=== PATIENT | male | born 1960 | race Caucasian/White ===

== ENCOUNTER → 2018-01-05 14:02 | Outpatient (CLI) | payer OTHER, SELFPAY ==
--- NOTE | 2018-01-05 14:05 | DI.US.S_ITS ---
PROCEDURE: US SCROTUM INDICATIONS: left sided testicular pain TECHNIQUE: Real-time scanning was performed of the scrotum and testicles, with image documentation. Color and pulse Doppler interrogation was performed of both testicles. COMPARISON: None. FINDINGS: Right: The right testicle is mildly enlarged and measures 4.6 x 3.7 x 3.3 cm. Increased vascularity is demonstrated to the right testicle when compared to the left testicle. There is a corresponding hydrocele with low level internal echoes. No testicular masses evident. Normal arterial Doppler waveform is demonstrated. The right epididymis is prominent in size and demonstrates possible mild increased vascularity. No evidence of a varicocele is evident. Left: The left testicle is normal in size and measures 3.5 x 3.2 x 3.0 cm. The testicular background echogenicity is within normal limits without evidence of increased vascularity. A normal arterial Doppler waveform is demonstrated. There is no testicular mass. No significant hydrocele or varicocele is identified. There is moderate increased vascularity demonstrated to the epididymis. IMPRESSION: 1. Left-sided epididymitis without findings of orchitis. 2. Right-sided orchitis with questionable epididymitis. 3. Complex right-sided hydrocele. They pyocele is difficult to exclude. Dictated by: Yevgeniy Benson M.D. on 01/05/2018 at 14:20 Approved by: Yevgeniy Benson M.D. on 01/05/2018 at 14:25
== END ==
PROVIDERS: Family Provider Family Medicine; PCP Family Medicine; Visit Provider Physician Assistant
DX: N45.1 Epididymitis (principal); N45.2 Orchitis; N43.3 Hydrocele, unspecified
CPT/HCPCS: 76870

== ENCOUNTER → 2018-01-21 10:53 | Outpatient (CLI) | payer OTHER, SELFPAY ==
[2018-01-21 12:31] LABS: Alanine Aminotransferase 73 IU/L (21-72); Albumin 4.4 g/dL (3.5-5.0); Albumin Globulin Ratio 1.5 (1.0-2.8); Alkaline Phosphatase 89 U/L (38-126); Aspartate Aminotransferase 63 IU/L (17-59); Bilirubin Total 0.5 mg/dL (0.2-1.3); Blood Urea Nitrogen 21 mg/dL (9-20); Calcium 9.9 mg/dL (8.4-10.2); Carbon Dioxide 33 mmol/L (22-32); Chloride 104 mmol/L (98-107); Cholesterol 190 mg/dL (140-199); Estimated Glomerular Filt Rate > 60.0 mL/min (>60); Globulin 2.9 g/dL (1.7-4.1); Glucose 107 mg/dL (70-100); HDL Cholesterol 66 mg/dL (40-60); HEMOLYSIS 16 (0-50); LDL Cholesterol Calculated 101 mg/dL (<100); Potassium 4.8 mmol/L (3.4-5.1); Sodium 145 mmol/L (137-145); Total Protein 7.3 g/dL (6.3-8.2); Triglycerides 117 mg/dL (35-150)
[2018-01-21 13:14] LABS: Thyroid Stimulating Hormone 2.68 uIU/mL (0.47-4.68)
== END ==
PROVIDERS: PCP Family Medicine; Visit Provider Family Medicine
DX: Z51.81 Encounter for therapeutic drug level monitoring (principal)
CPT/HCPCS: 36415; 80053; 80061; 84443

== ENCOUNTER 2018-07-22 11:07 | Emergency (ER) | payer OTHER, SELFPAY ==
[2018-07-22 11:09] VITALS: BP 132/78; PULSE 98; RESP 18; TEMP 36.4; O2SAT 95
[2018-07-22 13:57] VITALS: BP 125/69; PULSE 74; RESP 14; O2SAT 96
--- NOTE | 2018-07-22 14:30 | ED_ITS ---
HPI - Skin/Abscess/Foreign Bdy <SAMMY GarcíaBC - Last Filed: 07/22/18 22:14> General Chief complaint: Skin/Abscess/Foreign Body Stated complaint: CYST ON TAILBONE Time Seen by Provider: 07/22/18 13:40 Source: patient and family Mode of arrival: ambulatory Limitations: no limitations History of Present Illness HPI narrative: Patient is a 57-year-old nonsmoker male who presents with his for chief complaint of a wound on his buttock. Patient states he has a long history of a pilonidal cyst, that he was evaluated last week for buttock pain. He states that later became red and painful. He states that it burst yesterday. He states that when it erupted lots of smelly pus came out of the wound. He denies any fevers, nausea vomiting or diarrhea. He states his pain improved after the cyst erupted. Related Data Home Medications Medication Instructions Recorded Confirmed CA PANTOTHENATE/FOLIC ACID/VIT 1 tab PO QDAY #0 05/13/12 07/25/18 (MULTIVITAMIN) Fish Oil 2 tabs PO QDAY #0 05/18/12 07/25/18 ASPIRIN (Aspir-Low) 81 mg PO QDAY #0 12/21/12 07/25/18 Previous Rx's Medication Instructions Recorded amlodipine 5 mg tablet 5 mg PO QPM #90 tab 05/04/18 atorvastatin 40 mg tablet 40 mg PO HS #90 tab 05/30/18 furosemide 40 mg tablet 40 mg PO QDAY #90 tab 05/30/18 metoprolol succinate ER 50 mg 50 mg PO BID #180 tab 05/30/18 tablet,extended release 24 hr losartan 100 mg tablet 100 mg PO DAILY #30 tab 06/24/18 cyclobenzaprine ER 30 mg 30 mg PO DAILY PRN #30 cap 07/18/18 capsule,extended release 24 hr amoxicillin-pot clavulanate 1 tab PO BID #20 tab 07/22/18 [Augmentin] Allergies Allergy/AdvReac Type Severity Reaction Status Date / Time No Known Drug Allergies Allergy Verified 07/25/18 12:02 Review of Systems <SAMMY GarcíaBC - Last Filed: 07/22/18 22:14> Review of Systems GENERAL: Denies chills, fatigue, malaise, fever, sweats. HEENT: Denies sinus pain, ear pain, sore throat, difficulty swallowing, dizziness. RESPIRATORY: Denies dyspnea, cough, wheezing, hemoptysis, sputum. CARDIOVASCULAR: Denies chest pain, palpitations, orthopnea, edema, GASTROINTESTINAL: Denies nausea, vomiting, abdominal pain, diarrhea, constipation, melena. : Denies dysuria, frequency, incontinence, hematuria, urinary retention. MUSCULOSKELETAL: denies weakness, joint pain, or bony pain SKIN: See HPI NEUROLOGIC: Denies weakness, headache, numbness, change in speech, confusion, seizures, incoordination. PSYCHIATRIC: No concerning psychosocial issues. 12 point review of systems is negative except for those stated above PFSH <SARAH García - Last Filed: 07/22/18 22:14> Medical History Hyperlipemia (Chronic) Hypertension (Chronic) Peripheral neuropathy (Chronic) Sleep apnea (Chronic) Basal cell carcinoma (Resolved ~05/2012) Family History Father No problems noted. Mother Alzheimer's disease Grandfather No problems noted. Grandmother Cancer Grandfather No problems noted. Grandmother Cancer Social History Smoking Status: Former smoker Exam <SARAH García - Last Filed: 07/22/18 22:14> Narrative Exam Narrative: GENERAL: This is a well-nourished, well-developed patient, lying on stretcher HEAD: Atraumatic. Normocephalic. No temporal or scalp tenderness. EYES: Pupils equal round and reactive. Extraocular motions intact. No scleral icterus. No injection or drainage. ENT: Nose without bleeding, purulent drainage or septal hematoma. Throat without erythema, tonsillar hypertrophy or exudate. Uvula midline. Airway patent. NECK: Trachea midline. No JVD or lymphadenopathy. Supple, nontender, no meningeal signs. CARDIOVASCULAR: Regular rate and rhythm without murmurs, gallops, or rubs. RESPIRATORY: Clear to auscultation. Breath sounds equal bilaterally. No wheezes, rales, or rhonchi. GASTROINTESTINAL: Abdomen soft, non-tender, nondistended. No hepato- splenomegaly, or palpable masses. No guarding. EXTREMITIES: No clubbing, cyanosis, or edema. No joint tenderness, effusion, or edema noted. BACK: Nontender without deformity or crepitance. No flank tenderness. NEURO: AOx3. SKIN: Rectal exam performed with Mary BAILEY at bedside. Patient noted to have palpable 3 cm fluctuance approximately 10:00 p.m. positioned anus, left buttock. Draining purulent discharge. Surrounding erythema noted. No palpable fluctuance right-sided buttock. Initial Vital Signs Initial Vital Signs: Vital Signs Temperature 97.6 F 07/22/18 11:09 Pulse Rate 98 H 07/22/18 11:09 Respiratory Rate 18 07/22/18 11:09 Blood Pressure 132/78 07/22/18 11:09 Pulse Oximetry 95 07/22/18 11:09 <Janel Doll DO - Last Filed: 08/01/18 07:20> Initial Vital Signs Initial Vital Signs: Vital Signs Temperature 97.6 F 07/22/18 11:09 Pulse Rate 98 H 07/22/18 11:09 Respiratory Rate 18 07/22/18 11:09 Blood Pressure 132/78 07/22/18 11:09 Pulse Oximetry 95 07/22/18 11:09 Procedures <SARAH García - Last Filed: 07/22/18 22:14> Abscess I/D Packing used?: iodoform Course <SARAH García - Last Filed: 07/22/18 22:14> Orders Ordered: ED Orders 07/22/18 14:38 Wound Culture and Gram Stain Stat Vital Signs - 8 hr 07/22/18 15:16 Temperature 97.5 F L Pulse Rate 88 Respiratory Rate 16 Blood Pressure 128/64 Pulse Oximetry 97 <Janel Doll DO - Last Filed: 08/01/18 07:20> Orders Ordered: ED Orders 07/22/18 14:38 Wound Culture and Gram Stain Stat Vital Signs - 8 hr 07/22/18 15:16 Temperature 97.5 F L Pulse Rate 88 Respiratory Rate 16 Blood Pressure 128/64 Pulse Oximetry 97 MDM - Skin/Abscess/Foreign Bdy <SARAH García - Last Filed: 07/22/18 22:14> MDM Narrative Medical decision making narrative: The patient was a 57-year-old male who presented with a perirectal abscess. He was draining by itself, so I did not perform an incision and drainage. I cleansed the area with Hibiclens. A wick was inserted of iodoform gauze in order to help facilitate drainage. A wound culture was taken. The patient was normotensive, not febrile, and hemodynamically stable in the emergency department. Thus I started the patient on Augmentin. I encouraged him to follow up with his primary care provider in a few days for check. We attempted to schedule this for him, but his office stated that they would contact the patient. I discussed at length return precautions including fever, vomiting and diarrhea. Patient with no questions or concerns upon discharge. The patient declined prescription pain medication today. Discharge Plan Departure Patient Disposition: Home Clinical Impression: Abscess Discharge Date/Time: 07/22/18 15:14 Interventions: ED Discharge Assessment Last Done: 07/22/18 15:16 Instructions: DI for Incision and Drainage of a Skin Abscess, DI for Anal Abscess Activity Restrictions/Additional Instructions: Today we drained the abscess on your buttock. We did take a culture of the drainage, to make sure that the antibiotic that we chose is appropriate. I am starting on an antibiotic for the abscess. Please follow up with her primary care provider. Please monitor for worsening, fever, vomiting or diarrhea as these are signs of systemic illness. You need close follow-up care. Dr Valentine's office should be contacting you for follow up. Prescriptions: New amoxicillin-pot clavulanate [Augmentin] 875-125 mg tablet 1 tab PO BID Qty: 20 RF: 0 No Action cyclobenzaprine 30 mg capsule,extended release 24hr 30 mg PO DAILY PRN (Reason: muscle spasm) Qty: 30 RF: 0 CA PANTOTHENATE/FOLIC ACID/VIT (MULTIVITAMIN) 1 tab PO QDAY Qty: 0 RF: 0 Fish Oil 2 tabs PO QDAY Qty: 0 RF: 0 ASPIRIN (Aspir-Low) 81 mg PO QDAY Qty: 0 RF: 0 amlodipine [Norvasc] 5 mg tablet 5 mg PO QPM Qty: 90 RF: 1 furosemide 40 mg tablet 40 mg PO QDAY Qty: 90 RF: 0 metoprolol succinate [Toprol XL] 50 mg tablet extended release 24 hr 50 mg PO BID Qty: 180 RF: 0 atorvastatin [Lipitor] 40 mg tablet 40 mg PO HS Qty: 90 RF: 0 losartan [Cozaar] 100 mg tablet 100 mg PO DAILY Qty: 30 RF: 1 Referrals: Araseli Valentine DO [Primary Care Provider] - <Janel Doll DO - Last Filed: 08/01/18 07:20> Cosign ED Attending Michaelature Attestation: I was immediately available in the department for consultation. Documentation has been reviewed. I agree with assessment and plan.
[2018-07-22 15:16] VITALS: BP 128/64; PULSE 88; RESP 16; TEMP 36.4; O2SAT 97
== END 2018-07-22 15:14 | disposition home or self-care (01) ==
PROVIDERS: Emergency Provider Nurse Practitioner Family; Family Provider Family Medicine; PCP Family Medicine
DX: K61.1 Rectal abscess (principal)
CPT/HCPCS: 87070; 87075; 87077; 87205; 99282; 99283

== ENCOUNTER → 2018-08-25 12:40 | Outpatient (CLI) | payer OTHER, SELFPAY ==
[2018-08-25 12:57] LABS: Add Manual Diff / Slide Review NO; Basophils Absolute Auto 100 /uL (0-100); Basophils Percent Auto 0.9 % (0-2); Eosinophils Absolute Auto 100 /uL (0-450); Eosinophils Percent Auto 1.3 % (2-4); Hematocrit 46.5 % (41-53); Hemoglobin 15.4 g/dL (13.5-17.5); Lymphocytes Absolute Auto 2000 /uL (1100-4500); Lymphocytes Percent Auto 30.1 % (25-40); Mean Corpuscular HGB Conc 33.2 % (30-36); Mean Corpuscular Hemoglobin 31.2 PG (26-34); Monocytes Absolute Auto 500 /uL (0-900); Monocytes Percent Auto 7.3 % (3-14); Neutrophils Absolute Auto 4000 /uL (1500-7000); Neutrophils Percent Auto 60.4 % (50-75); Platelet Count 211 X10^3/uL (150-400); Red Blood Cell Count 4.95 X10^6/uL (4.5-5.9); Red Cell Distribution Width 14.8 % (11.6-14.8); White Blood Cell Count 6.6 X10^3/uL (4.5-11.0)
[2018-08-25 12:58] LABS: Appearance Urine UA CLEAR; Bilirubin Urine UA NEGATIVE (NEGATIVE); Color Urine UA YELLOW; Glucose Urine UA NEGATIVE (Negative); Ketones Urine UA NEGATIVE (NEGATIVE); Leukocyte Esterase Urine UA NEGATIVE (NEGATIVE); Nitrite Urine UA NEGATIVE (Negative); Occult Blood Urine UA 1+ (Negative); Protein Urine UA NEGATIVE (Negative); Specific Gravity Urine UA 1.015 (1.000-1.035); Urobilinogen Urine UA 0.2 E.U./dL (0.2)
[2018-08-25 14:06] LABS: Alanine Aminotransferase 79 IU/L (21-72); Albumin 4.5 g/dL (3.5-5.0); Albumin Globulin Ratio 1.6 (1.0-2.8); Alkaline Phosphatase 91 U/L (38-126); Aspartate Aminotransferase 57 IU/L (17-59); BUN Creatinine Ratio 23.3 (6-22); Bilirubin Total 0.8 mg/dL (0.2-1.3); Blood Urea Nitrogen 21 mg/dL (9-20); Calcium 9.5 mg/dL (8.4-10.2); Carbon Dioxide 30 mmol/L (22-32); Chloride 96 mmol/L (98-107); Cholesterol 214 mg/dL (140-199); Estimated Glomerular Filt Rate > 60.0 mL/min (>60); Globulin 2.8 g/dL (1.7-4.1); Glucose 121 mg/dL (70-100); HDL Cholesterol 54 mg/dL (40-60); HEMOLYSIS < 15 (0-50); LDL Cholesterol Calculated 100 mg/dL (<100); Potassium 4.6 mmol/L (3.4-5.1); Sodium 137 mmol/L (137-145); Total Protein 7.3 g/dL (6.3-8.2); Triglycerides 299 mg/dL (35-150)
[2018-08-25 14:36] LABS: Prostate Specific Antigen Scrn 1.46 ng/mL (0.1-4.0)
[2018-08-25 14:37] LABS: Thyroid Stimulating Hormone 5.49 uIU/mL (0.47-4.68)
== END ==
PROVIDERS: Family Provider Family Medicine; PCP Family Medicine; Visit Provider Family Medicine
DX: E78.2 Mixed hyperlipidemia (principal); I10 Essential (primary) hypertension; Z51.81 Encounter for therapeutic drug level monitoring; Z12.5 Encounter for screening for malignant neoplasm of prostate
CPT/HCPCS: 36415; 80053; 80061; 81003; 84443; 85025; G0103

== ENCOUNTER → 2018-10-07 09:46 | Outpatient (CLI) | payer OTHER, SELFPAY ==
[2018-10-07 11:05] LABS: Hemoglobin A1C% w Est Avg Glu 5.8 % (4.0-6.0)
[2018-10-07 11:10] LABS: Alanine Aminotransferase 57 IU/L (21-72); Albumin 4.1 g/dL (3.5-5.0); Albumin Globulin Ratio 1.5 (1.0-2.8); Alkaline Phosphatase 101 U/L (38-126); Aspartate Aminotransferase 49 IU/L (17-59); Bilirubin Total 0.6 mg/dL (0.2-1.3); Blood Urea Nitrogen 20 mg/dL (9-20); Calcium 9.5 mg/dL (8.4-10.2); Carbon Dioxide 29 mmol/L (22-32); Chloride 102 mmol/L (98-107); Estimated Glomerular Filt Rate > 60.0 mL/min (>60); Globulin 2.7 g/dL (1.7-4.1); Glucose 127 mg/dL (70-100); HEMOLYSIS < 15 (0-50); Potassium 5.1 mmol/L (3.4-5.1); Sodium 140 mmol/L (137-145); Total Protein 6.8 g/dL (6.3-8.2)
[2018-10-07 11:26] LABS: Free T3, Triiodothyronine Free 3.83 pg/mL (2.77-5.27); Free T4, Direct Thyroxine 0.83 ng/dL (0.78-2.19)
== END ==
PROVIDERS: PCP Family Medicine; Visit Provider Family Medicine
DX: I10 Essential (primary) hypertension (principal); R79.89 Other specified abnormal findings of blood chemistry
CPT/HCPCS: 36415; 80053; 83036; 84439; 84443; 84481

== ENCOUNTER → 2019-01-07 11:23 | Outpatient (CLI) | payer OTHER, SELFPAY ==
[2019-01-07 13:46] LABS: Alanine Aminotransferase 94 IU/L (21-72); Albumin 4.4 g/dL (3.5-5.0); Albumin Globulin Ratio 1.4 (1.0-2.8); Alkaline Phosphatase 92 U/L (38-126); Aspartate Aminotransferase 88 IU/L (17-59); BUN Creatinine Ratio 21.1 (6-22); Bilirubin Total 0.6 mg/dL (0.2-1.3); Blood Urea Nitrogen 19 mg/dL (9-20); Calcium 9.3 mg/dL (8.4-10.2); Carbon Dioxide 31 mmol/L (22-32); Chloride 101 mmol/L (98-107); Cholesterol 198 mg/dL (140-199); Estimated Glomerular Filt Rate > 60.0 mL/min (>60); Globulin 3.2 g/dL (1.7-4.1); Glucose 107 mg/dL (70-100); HDL Cholesterol 62 mg/dL (40-60); HEMOLYSIS < 15 (0-50); LDL Cholesterol Calculated 115 mg/dL (<100); Potassium 4.9 mmol/L (3.4-5.1); Sodium 140 mmol/L (137-145); Total Protein 7.6 g/dL (6.3-8.2); Triglycerides 106 mg/dL (35-150)
== END ==
PROVIDERS: PCP Family Medicine; Visit Provider Family Medicine
DX: E78.2 Mixed hyperlipidemia (principal); R73.9 Hyperglycemia, unspecified
CPT/HCPCS: 36415; 80053; 80061

== ENCOUNTER → 2019-05-02 11:55 | Outpatient (CLI) | payer OTHER, SELFPAY ==
[2019-05-02 13:27] LABS: Alanine Aminotransferase 86 IU/L (<50); Albumin 4.5 g/dL (3.5-5.0); Albumin Globulin Ratio 1.7 (1.0-2.8); Alkaline Phosphatase 91 U/L (38-126); Aspartate Aminotransferase 81 IU/L (17-59); Bilirubin Total 0.7 mg/dL (0.2-1.3); Bilirubin Unconjugated 0.5 mg/dL (0.0-1.1); Globulin 2.7 g/dL (1.7-4.1); HEMOLYSIS 21 (0-50); Total Protein 7.2 g/dL (6.3-8.2)
== END ==
PROVIDERS: PCP Family Medicine; Visit Provider Family Medicine
DX: Z78.9 Other specified health status (principal)
CPT/HCPCS: 36415; 80076

== ENCOUNTER → 2019-11-29 11:02 | Outpatient (CLI) | payer OTHER, SELFPAY ==
[2019-11-29 11:52] LABS: Add Manual Diff / Slide Review NO; Basophils Absolute Auto 0 /uL (0-100); Basophils Percent Auto 0.7 % (0-2); Eosinophils Absolute Auto 100 /uL (0-450); Eosinophils Percent Auto 1.7 % (2-4); Hematocrit 41.9 % (41-53); Lymphocytes Absolute Auto 1800 /uL (1100-4500); Lymphocytes Percent Auto 26.1 % (25-40); Mean Corpuscular HGB Conc 33.3 % (30-36); Mean Corpuscular Hemoglobin 32.4 PG (26-34); Mean Corpuscular Volume 97.3 fL (80-100); Monocytes Absolute Auto 600 /uL (0-900); Monocytes Percent Auto 8.1 % (3-14); Neutrophils Absolute Auto 4400 /uL (1500-7000); Neutrophils Percent Auto 63.4 % (50-75); Platelet Count 197 X10^3/uL (150-400); Red Blood Cell Count 4.31 X10^6/uL (4.5-5.9); Red Cell Distribution Width 14.8 % (11.6-14.8)
[2019-11-29 12:06] LABS: Hemoglobin A1C% w Est Avg Glu 5.9 % (4.0-6.0)
[2019-11-29 12:30] LABS: Alanine Aminotransferase 73 IU/L (<50); Albumin Globulin Ratio 1.5 (1.0-2.8); Alkaline Phosphatase 92 U/L (38-126); Aspartate Aminotransferase 57 IU/L (17-59); BUN Creatinine Ratio 20.2 (6-22); Bilirubin Total 0.5 mg/dL (0.2-1.3); Blood Urea Nitrogen 17 mg/dL (9-20); Calcium 9.4 mg/dL (8.4-10.2); Carbon Dioxide 32 mmol/L (22-32); Chloride 104 mmol/L (98-107); Cholesterol 167 mg/dL (140-199); Estimated Glomerular Filt Rate > 60.0 mL/min (>60); Globulin 2.6 g/dL (1.7-4.1); Glucose 117 mg/dL (80-110); HDL Cholesterol 57 mg/dL (40-60); HEMOLYSIS < 15 (0-50); LDL Cholesterol Calculated 85 mg/dL (<100); Potassium 5.6 mmol/L (3.4-5.1); Sodium 139 mmol/L (137-145); Total Protein 6.6 g/dL (6.3-8.2); Triglycerides 124 mg/dL (35-150)
[2019-11-29 12:58] LABS: Prostate Specific Antigen 1.86 ng/mL (0.10-4.00)
[2019-11-29 12:59] LABS: TSH w/ Reflex to FT4 3.91 uIU/mL (0.47-4.68)
== END ==
PROVIDERS: PCP Family Medicine; Referring Provider Family Medicine; Visit Provider Family Medicine
DX: Z00.00 Encounter for general adult medical examination without abnormal findings (principal); I10 Essential (primary) hypertension
CPT/HCPCS: 36415; 80053; 80061; 83036; 84153; 84443; 85025

== ENCOUNTER → 2020-03-22 11:27 | Outpatient (CLI) | payer OTHER, SELFPAY ==
[2020-03-22 12:26] LABS: Cholesterol 179 mg/dL (140-199); HDL Cholesterol 58 mg/dL (40-60); LDL Cholesterol Calculated 100 mg/dL (<100); Triglycerides 107 mg/dL (35-150)
== END ==
PROVIDERS: PCP Family Medicine; Referring Provider Family Medicine; Visit Provider Family Medicine
DX: E78.2 Mixed hyperlipidemia (principal); R73.09 Other abnormal glucose
CPT/HCPCS: 36415; 80061; 83036

== ENCOUNTER → 2020-07-26 10:14 | Outpatient (CLI) | payer OTHER, SELFPAY ==
[2020-07-26 12:15] LABS: Alanine Aminotransferase 58 IU/L (<50); Albumin 4.2 g/dL (3.5-5.0); Albumin Globulin Ratio 1.4 (1.0-2.8); Alkaline Phosphatase 105 U/L (38-126); Aspartate Aminotransferase 54 IU/L (17-59); BUN Creatinine Ratio 20.7 (6-22); Bilirubin Total 0.4 mg/dL (0.2-1.3); Blood Urea Nitrogen 18 mg/dL (9-20); Calcium 9.2 mg/dL (8.4-10.2); Carbon Dioxide 31 mmol/L (22-32); Chloride 101 mmol/L (98-107); Cholesterol 177 mg/dL (140-199); Estimated Glomerular Filt Rate > 60.0 mL/min (>60); Globulin 2.9 g/dL (1.7-4.1); Glucose 118 mg/dL (80-110); HDL Cholesterol 52 mg/dL (40-60); HEMOLYSIS < 15 (0-50); LDL Cholesterol Calculated 97 mg/dL (<100); Potassium 4.7 mmol/L (3.4-5.1); Sodium 136 mmol/L (137-145); Total Protein 7.1 g/dL (6.3-8.2); Triglycerides 141 mg/dL (35-150)
[2020-07-26 12:47] LABS: Prostate Specific Antigen Scrn 1.97 ng/mL (0.1-4.0)
== END ==
PROVIDERS: PCP Family Medicine; Referring Provider Family Medicine; Visit Provider Family Medicine
DX: I10 Essential (primary) hypertension (principal); R94.5 Abnormal results of liver function studies
CPT/HCPCS: 36415; 80053; 80061; 83036; G0103

== ENCOUNTER → 2020-08-29 11:17 | Outpatient (CLI) | payer OTHER, SELFPAY ==
[2020-08-29] MEDS: COVID-19 VACC, Ad26(JANSSEN)/PF 0.5 ML IM (11:25)
== END ==
PROVIDERS: PCP Family Medicine; Visit Provider Internal Medicine
DX: Z23 Encounter for immunization (principal)
CPT/HCPCS: 0031A; 91303

== ENCOUNTER → 2021-01-10 10:09 | Outpatient (CLI) | payer OTHER, SELFPAY ==
[2021-01-10 10:45] LABS: Hemoglobin A1C% w Est Avg Glu 5.8 % (4.0-6.0)
[2021-01-10 10:52] LABS: Alanine Aminotransferase 51 IU/L (<50); Albumin 4.1 g/dL (3.5-5.0); Albumin Globulin Ratio 1.4 (1.0-2.8); Alkaline Phosphatase 90 U/L (38-126); Aspartate Aminotransferase 56 IU/L (17-59); BUN Creatinine Ratio 22.4 (6-22); Bilirubin Total 0.4 mg/dL (0.2-1.3); Blood Urea Nitrogen 22 mg/dL (9-20); Calcium 9.5 mg/dL (8.4-10.2); Carbon Dioxide 31 mmol/L (22-32); Chloride 104 mmol/L (98-107); Estimated Glomerular Filt Rate > 60.0 mL/min (>60); Glucose 124 mg/dL (80-110); HEMOLYSIS < 15 (0-50); Potassium 5.1 mmol/L (3.4-5.1); Sodium 137 mmol/L (137-145); Total Protein 7.1 g/dL (6.3-8.2)
== END ==
PROVIDERS: PCP Family Medicine; Referring Provider Family Medicine; Visit Provider Family Medicine
DX: R73.9 Hyperglycemia, unspecified (principal)
CPT/HCPCS: 36415; 80053; 83036

== ENCOUNTER → 2021-05-09 13:12 | Outpatient (CLI) | payer OTHER, SELFPAY ==
[2021-05-09 13:57] LABS: Add Manual Diff / Slide Review NO; Basophils Absolute Auto 0 /uL (0-100); Basophils Percent Auto 0.7 % (0-2); Eosinophils Absolute Auto 100 /uL (0-450); Hematocrit 43.6 % (41-53); Hemoglobin 14.7 g/dL (13.5-17.5); Lymphocytes Absolute Auto 1900 /uL (1100-4500); Lymphocytes Percent Auto 27.9 % (25-40); Mean Corpuscular HGB Conc 33.7 % (30-36); Mean Corpuscular Hemoglobin 32.2 PG (26-34); Mean Corpuscular Volume 95.5 fL (80-100); Monocytes Absolute Auto 600 /uL (0-900); Neutrophils Absolute Auto 4200 /uL (1500-7000); Neutrophils Percent Auto 61.4 % (50-75); Platelet Count 182 X10^3/uL (150-400); Red Blood Cell Count 4.56 X10^6/uL (4.5-5.9); Red Cell Distribution Width 14.1 % (11.6-14.8); White Blood Cell Count 6.9 X10^3/uL (4.5-11.0)
[2021-05-09 14:14] LABS: Hemoglobin A1C% w Est Avg Glu 5.7 % (4.0-6.0)
[2021-05-09 14:27] LABS: Alanine Aminotransferase 43 IU/L (<50); Albumin 4.1 g/dL (3.5-5.0); Albumin Globulin Ratio 1.6 (1.0-2.8); Alkaline Phosphatase 91 U/L (38-126); Aspartate Aminotransferase 40 IU/L (17-59); BUN Creatinine Ratio 20.9 (6-22); Bilirubin Total 0.6 mg/dL (0.2-1.3); Blood Urea Nitrogen 23 mg/dL (9-20); Calcium 9.5 mg/dL (8.4-10.2); Carbon Dioxide 31 mmol/L (22-32); Chloride 104 mmol/L (98-107); Estimated Glomerular Filt Rate > 60.0 mL/min (>60); Globulin 2.6 g/dL (1.7-4.1); Glucose 117 mg/dL (80-110); HEMOLYSIS < 15 (0-50); Potassium 5.3 mmol/L (3.4-5.1); Sodium 139 mmol/L (137-145); Total Protein 6.7 g/dL (6.3-8.2)
== END ==
PROVIDERS: PCP Family Medicine; Referring Provider Family Medicine; Visit Provider Family Medicine
DX: E11.9 Type 2 diabetes mellitus without complications (principal); I10 Essential (primary) hypertension; E78.2 Mixed hyperlipidemia
CPT/HCPCS: 36415; 80053; 83036; 85025

== ENCOUNTER → 2021-07-19 10:02 | Outpatient (CLI) | payer OTHER, SELFPAY ==
[2021-07-19 10:53] LABS: Alanine Aminotransferase 58 IU/L (<50); Albumin 4.2 g/dL (3.5-5.0); Albumin Globulin Ratio 1.4 (1.0-2.8); Alkaline Phosphatase 88 U/L (38-126); Aspartate Aminotransferase 65 IU/L (17-59); Bilirubin Total 0.5 mg/dL (0.2-1.3); Blood Urea Nitrogen 21 mg/dL (9-20); Calcium 9.3 mg/dL (8.4-10.2); Carbon Dioxide 32 mmol/L (22-32); Chloride 104 mmol/L (98-107); Cholesterol 204 mg/dL (140-199); Estimated Glomerular Filt Rate > 60.0 mL/min (>60); Globulin 2.9 g/dL (1.7-4.1); Glucose 118 mg/dL (80-110); HDL Cholesterol 68 mg/dL (40-60); HEMOLYSIS < 15 (0-50); LDL Cholesterol Calculated 110 mg/dL (<100); Potassium 4.9 mmol/L (3.4-5.1); Sodium 139 mmol/L (137-145); Total Protein 7.1 g/dL (6.3-8.2); Triglycerides 131 mg/dL (35-150)
[2021-07-19 11:23] LABS: Prostate Specific Antigen Scrn 1.83 ng/mL (0.1-4.0)
[2021-07-19 11:47] LABS: Hemoglobin A1C% w Est Avg Glu 5.8 % (4.0-6.0)
== END ==
PROVIDERS: PCP Family Medicine; Referring Provider Family Medicine; Visit Provider Family Medicine
DX: E11.9 Type 2 diabetes mellitus without complications (principal); E78.2 Mixed hyperlipidemia; I10 Essential (primary) hypertension; Z12.5 Encounter for screening for malignant neoplasm of prostate
CPT/HCPCS: 36415; 80053; 80061; 83036; G0103

== ENCOUNTER → 2021-12-09 10:34 | Outpatient (CLI) | payer OTHER, SELFPAY ==
[2021-12-09 12:21] LABS: Hemoglobin A1C% w Est Avg Glu 5.9 % (4.0-6.0)
[2021-12-09 13:00] LABS: Alanine Aminotransferase 46 IU/L (<50); Albumin Globulin Ratio 1.5 (1.0-2.8); Alkaline Phosphatase 91 U/L (38-126); Aspartate Aminotransferase 46 IU/L (17-59); BUN Creatinine Ratio 18.2 (6-22); Bilirubin Total 0.5 mg/dL (0.2-1.3); Blood Urea Nitrogen 18 mg/dL (9-20); Calcium 9.1 mg/dL (8.4-10.2); Carbon Dioxide 31 mmol/L (22-32); Chloride 103 mmol/L (98-107); Estimated Glomerular Filt Rate > 60 mL/min (>60); Globulin 2.6 g/dL (1.7-4.1); Glucose 110 mg/dL (80-110); HEMOLYSIS < 15 (0-50); Potassium 5.3 mmol/L (3.4-5.1); Sodium 138 mmol/L (137-145); Total Protein 6.6 g/dL (6.3-8.2)
== END ==
PROVIDERS: PCP Family Medicine; Referring Provider Family Medicine; Visit Provider Family Medicine
DX: E11.9 Type 2 diabetes mellitus without complications (principal); E78.2 Mixed hyperlipidemia; I10 Essential (primary) hypertension
CPT/HCPCS: 36415; 80053; 83036

== ENCOUNTER → 2022-03-27 11:02 | Outpatient (CLI) | payer OTHER, SELFPAY ==
[2022-03-27 12:53] LABS: COVID19 -Nasal RAPID Negative (Negative)
== END ==
PROVIDERS: PCP Family Medicine; Visit Provider Surgery
DX: Z20.822 Contact with and (suspected) exposure to COVID-19 (principal); Z01.812 Encounter for preprocedural laboratory examination
CPT/HCPCS: 87635; C9803

== ENCOUNTER 2022-03-30 12:55 | Day surgery (SDC) | payer OTHER, SELFPAY ==
--- NOTE | 2022-03-30 | PATH_ITS ---
[facility] Accession Number: [id number] No. of containers..05 Tissue . 01 Material submitted: . PART A: colon - TRANSVERSE COLON POLYP PART B: colon - ASCENDING COLON POLYP X2 PART C: cecum - CECUM POLYP PART D: colon - DESCENDING COLON POLYP PART E: colon - RECTAL/SIGMOID COLON POLYP . 01 Diagnosis: A. Transverse Colon Polyp: Tubular adenoma. . B. Ascending Colon Polyp x2: Portions of tubular adenoma x2. . C. Cecum Polyp: Tubular adenoma. . D. Descending Colon Polyp: Tubular adenoma. . E. Rectal/Sigmoid Colon Polyp: Portions of tubular adenoma x3. MRV 04/01/2022 1656 Local . 01 Electronically signed: . Shawnee Loya MD, Pathologist NPI- [id number] . 01 Gross description: . Part A: TRANSVERSE COLON POLYP: Received in formalin is 1 fragment(s) of abebe, soft tissue measuring 0.3 x 0.3 x 0.2 cm submitted entirely in 1 cassette(s) Part B: ASCENDING COLON POLYP X2: Received in formalin are multiple fragment(s) of abebe, soft tissue measuring 01 x 0.1 x 0.1 cm to 0.2 x 0.2 x 0.1 cm submitted entirely in 1 cassette(s) Part C: CECUM POLYP: Received in formalin is 1 fragment(s) of abebe, soft tissue measuring 0.3 x 0.2 x 0.2 cm submitted entirely in 1 cassette(s) Part D: DESCENDING COLON POLYP: Received in formalin is 1 fragment(s) of abebe, soft tissue measuring 0.6 x 0.6 x 0.6 cm submitted entirely in 1 cassette(s) Part E: RECTAL/SIGMOID COLON POLYP: Received in formalin are 3 fragment(s) of abebe, soft tissue measuring 0.1 x 0.1 x 0.1 cm to 0.8 x 0.8 x 0.8 cm submitted entirely in 1 cassette(s) /EDMUNDO 03/31/2022 2235 Local . 01 Pathologist provided ICD-10: Z86.010, K63.5 . 01 CPT . 660794, 913827, 837069, 118719, 515823 Specimen Comment: A courtesy copy of this report has been sent to [phone] Performed at: 01 [facility] [address] [place] [address], [place], [place] [id number] MD Azeem Mccartney MD Phone: [phone]
[2022-03-30 13:25] VITALS: BP 172/77; PULSE 77; RESP 20; TEMP 36.4; O2SAT 96; BMI 44.7
--- NOTE | 2022-03-30 13:36 | PM.HP.1 ---
History of Present Illness History of Present Illness Date Patient Seen: 03/30/22 Time Patient Seen: 13:37 Chief complaint: Colonoscopy Narrative: Personal history of colon polyps Patient History Medical History Basal cell carcinoma (~05/2012) Greater trochanteric bursitis of both hips Hyperlipemia Hypertension Morbid obesity Peripheral neuropathy Scrotal cyst Sleep apnea Type 2 diabetes mellitus Well adult exam Well adult exam Surgical History Hx of colonoscopy with polypectomy (11/2016) Status post tonsillectomy and adenoidectomy (1964) Family & Social History Family History Father No problems noted. Mother Alzheimer's disease Grandfather No problems noted. Grandmother Cancer Grandfather No problems noted. Grandmother Cancer Tobacco & Substance use: Smoking Status Former smoker alcohol intake current alcohol intake frequency 0-2 drinks per day Substance Use Type does not use Meds Home Medications and Allergies Home Medications Medication Instructions Recorded Confirmed Type CA PANTOTHENATE/FOLIC ACID/VIT 1 tab PO QDAY ##0 05/13/12 03/30/22 History (MULTIVITAMIN) Fish Oil 2 tabs PO QDAY ##0 05/18/12 03/30/22 History ASPIRIN (Aspir-Low) 81 mg PO QDAY ##0 12/21/12 03/30/22 History cholecalciferol (vitamin D3) PO 10/30/19 12/11/21 History vitamin B complex PO 10/30/19 12/11/21 History amlodipine 5 mg tablet (Norvasc) 5 mg PO QPM #90 tabs 07/22/21 03/30/22 Rx atorvastatin 40 mg tablet See Rx Instructions .Route 07/22/21 03/30/22 Rx .COMPLEX #90 tabs furosemide 40 mg tablet See Rx Instructions .Route 07/22/21 03/30/22 Rx .COMPLEX #90 tabs ketoconazole 2 % topical cream 1 applic topical .PRN 07/22/21 03/30/22 History losartan 100 mg tablet See Rx Instructions .Route 07/22/21 12/11/21 Rx .COMPLEX #90 tabs metoprolol succinate 50 mg See Rx Instructions .Route 07/22/21 12/11/21 Rx tablet,extended release 24 hr .COMPLEX #180 tabs metoprolol succinate 50 mg 50 mg PO BID 03/30/22 03/30/22 History tablet,extended release 24 hr Allergies Allergy/AdvReac Type Severity Reaction Status Date / Time No Known Drug Allergies Allergy Verified 03/30/22 13:20 Review of Systems Review of Systems ROS: Yes All systems reviewed with the patient and are negative except as otherwise documented Exam Const General: cooperative Nutritional Appearance: overweight HENMT Head: normal to inspection Eyes General: appearance normal, both eyes and all related structures Neck Neck: normal visual inspection Chest Chest: normal inspection of the chest Resp Effort & Inspection: normal respiratory effort Cardio Rate: regular rate GI Inspection: normal to inspection Skin General: no rashes or lesions noted Neuro General: patient alert and patient awake Extrem General: edema Psych Appearance: grossly normal Assessment & Plan Assessment & Plan narrative: 61-year-old male with personal history of colon polyps. Colonoscopy is pursued today. Time Spent With Patient Critical Care time: I spent a total of [] minutes of critical care time on this patient's care today; this time is exclusive of procedural time.
--- NOTE | 2022-03-30 13:39 | PM.PREOP ---
Pre-operative Note COVID-19 COVID-19 status: Negative Result date/Date tested (Pos, Neg/Pending): 03/27/22 Criteria for continued procedure: Possibility delay results in more complex future surgery or treatment Interval Note History & Physical reviewed/Exam performed by Physician: Yes Changes to H&P: No ASA Class (for procedural sedation): III
[2022-03-30] MEDS: SODIUM CHLORIDE 0.9% 1,000 ML 84 ML IV (14:04)
--- NOTE | 2022-03-30 14:43 | PM.OP.COLON ---
Operative Date/Time/Diagnoses Date of procedure: 03/30/22 Time of procedure: 14:43 Pre-op diagnosis: Colon polyp history Post-op diagnosis: same Procedure & Clinicians Study performed: Colonoscopy with hot and cold snare polypectomy Same procedure as scheduled: Yes Indications: Colon polyps history Surgeon: Heraclio Rivera Procedure Notes SCOAP/Timeout: Done Procedure in detail: After the risks and benefits were explained, written and verbal informed consent was obtained. The patient was brought into the procedure room and placed into the left lateral decubitus position. Please see nurse coremaker bench notes for sedation details. Digital rectal examination was accomplished. The scope was introduced into the patient and advanced under direct visualization to the cecum as identified by the appendiceal orifice and ileocecal valve. The scope was slowly withdrawn to carefully examine the mucosa for any defects or lesions. Comprehensive imaging was accomplished throughout the rectum including the dentate line. The colon was decompressed, the scope was then removed from the patient who tolerated the procedure well. Adult colonoscope Bowel prep fair Scope withdrawal time: 12 minutes Sedation minutes: 29 Complications: none Impression: The patient had very little sigmoid colon. The rectum essentially was contiguous with descending colon up to splenic flexure. Patient had a lengthy redundant colon. In the rectosigmoid region there was a 10 mm semi pedunculated polyp removed with hot snare. In the descending colon there was a small 5-6 mm polyp removed with hot snare. In the transverse colon there was a small 5-6 mm polyp removed with hot snare. In the ascending colon there were 2 small polyps ranging in size from 5-7 mm removed with hot snare (the larger 1) and cold snare). In the cecum there was a 5-6 mm polyp removed with hot snare. Moderate hemorrhoids were noted on rectal exam. Endoscopic diagnosis 1. Multiple colon polyps 2. Grade 2 hemorrhoids Post-procedure Plan for aftercare: 1. Await histopathology 2. Repeat colonoscopy 3 years. Disposition: PACU
[2022-03-30 14:44] VITALS: BP 133/58; PULSE 74; RESP 12; TEMP 36.9; O2SAT 99
[2022-03-30 14:50] VITALS: BP 133/58; PULSE 74; RESP 16; O2SAT 100
[2022-03-30 14:55] VITALS: BP 141/65; PULSE 71; RESP 14; O2SAT 100
[2022-03-30 15:04] VITALS: BP 138/66; PULSE 65; RESP 16; TEMP 37.1; O2SAT 99
[2022-03-30 15:15] VITALS: BP 147/73; PULSE 67; RESP 16; O2SAT 98
== END 2022-03-30 15:20 | disposition home or self-care (01) ==
PROVIDERS: PCP Family Medicine; Referring Provider Internal Medicine Gastroenterology; Visit Provider Internal Medicine Gastroenterology
PROC: 0DJD8ZZ Inspection of Lower Intestinal Tract, Via Natural or Artificial Opening Endoscopic (ICD-10-PCS; CPT 45378; principal; 2022-03-30 14:00)
DX: Z12.11 Encounter for screening for malignant neoplasm of colon (principal); Z86.010 Personal history of colon polyps; K64.1 Second degree hemorrhoids; D12.3 Benign neoplasm of transverse colon; D12.2 Benign neoplasm of ascending colon; D12.0 Benign neoplasm of cecum; D12.4 Benign neoplasm of descending colon; D12.7 Benign neoplasm of rectosigmoid junction
CPT/HCPCS: 45385; J2704

== ENCOUNTER 2022-04-21 14:30 | Outpatient (RCR) | payer OTHER, SELFPAY ==
--- NOTE | 2022-01-15 18:25 | PT.OIE ---
Current Diagnoses Pain in right hip (01/15/22) Pain in left hip (01/15/22) Stiffness of right hip, not elsewhere classified (01/15/22) Stiffness of left hip, not elsewhere classified (01/15/22) Trochanteric bursitis, right hip (01/15/22) Trochanteric bursitis, left hip (01/15/22) Iliotibial band syndrome, left leg (01/15/22) Past Medical History (Last Updated 12/11/21 @ 13:38 by Seamus Salguero DO) Basal cell carcinoma (~05/2012) Greater trochanteric bursitis of both hips Hyperlipemia Hypertension Morbid obesity Peripheral neuropathy Scrotal cyst Sleep apnea Type 2 diabetes mellitus Well adult exam Well adult exam Past Surgical History (Last Reviewed 12/11/21 @ 13:37 by Seamus Salguero DO) Hx of colonoscopy with polypectomy (11/2016) Status post tonsillectomy and adenoidectomy (1964) Visit Care Team Role Provider Type Seamus Salguero DO Attending Provider Physician Primary Care Provider Referring Provider Specialty: [facility] Address: [address] [place] [address] Email: [email or web address] Physical Therapy Initial Evaluation PT-OP-A Visit Information Start: 01/15/22 17:48 Freq: Status: Active Protocol: Document 01/15/22 11:15 DCW (Rec: 01/15/22 17:59 DCW [id number]) Out-Patient Physical Therapy Visit Information Visit Information Visit Type Initial Evaluation Visit Start Time 11:15 Visit Stop Time 12:00 Total Visit Minutes 45 Visit Number 1 Number of TOUCH UP WORKER Visits 0 Evaluation Information Evaluation Date 01/15/22 PT-OP-B Current Condition Start: 01/15/22 17:48 Freq: Status: Active Protocol: Document 01/15/22 11:15 DCW (Rec: 01/15/22 17:59 DCW [id number]) Current Condition History of Current Condition Onset Date 6 months Current Complaints Pain and stiffness bilateral hips, increased with standing/ walking History of Current Condition Pt is a 61 year old male presenting with a six month history of bilateral hip pain, left more than right. Notes fairly point-specific pain on lateral hips, as well as occasional tightness down lateral thighs. Pt admits that he has had pain off and on for the past few years, but starting in June, started getting worse with no relief. Pt notes that he has been needing to walk with a wider base of support, because with a narrow JOSEY, it puts increased pressure on his hips . Also notes that he has been having increased weakness in his hips, especially lifting his legs when getting into a car or over the side of his tub. Also notes significant neuropathy in bilateral feet, although he admits that it doesn't cause any pain, he just can't feel anything. Treatment Goals Patient/Caregiver Goals I want to walk without pain. Personal Factors Other Personal Factors That May Effect High BMI, Neuropathy, HTN Therapy/Recovery PT-OP-C Subjective Start: 01/15/22 17:48 Freq: Status: Active Protocol: Document 01/15/22 11:15 DCW (Rec: 01/15/22 18:09 DCW [id number]) OP-PT Subjective Patient Comments Patient Comments The pain is more along the outside, not in the front where there is actual joint pain. Patient Reported Progress Same Patient Questionnaires Lower Extremity Functional Scale LEFS Score 27/80 = 33.75% OP-PT Pain Assessment Pain Assessment Grid Paper Pain Assessment Grid Completed Yes Location Bilateral Lateral Hip Intensity 4 Scale Used Numeric (0 - 10) Description Aching PT-OP-F Manual Assessment Start: 01/15/22 17:48 Freq: Status: Active Protocol: Document 01/15/22 11:15 DCW (Rec: 01/15/22 18:09 DCW [id number]) Manual Assessments Soft Tissue Assessment Soft Tissue Mobility Assessment Point-specific pain bilaterally at GT bursa, tenderness and tightness along bilateral ITB Joint Mobility Assessment Joint Mobility Assessment Significant difficulty with hip flexion, pain/grinding bilateral hips PT-OP-L Special Tests Start: 01/15/22 18:09 Freq: Status: Active Protocol: Document 01/15/22 11:15 DCW (Rec: 01/15/22 18:12 DCW [id number]) Special Tests Knee Special Tests Leticia's Test Test Results Positive bilaterally PT-OP-M Strength Start: 01/15/22 17:48 Freq: Status: Active Protocol: Document 01/15/22 11:15 DCW (Rec: 01/15/22 18:09 DCW [id number]) Hip Strength Hip Manual Muscle Testing Right Flexion (L2) 3 Fair Abduction 4+ Good+ Adduction 5 Normal External Rotation 5 Normal Internal Rotation 5 Normal Left Flexion (L2) 3 Fair Abduction 4+ Good+ Adduction 5 Normal External Rotation 5 Normal Internal Rotation 5 Normal Knee Strength Knee Manual Muscle Testing Right Flexion (S2) 5 Normal Extension (L3) 5 Normal Left Flexion (S2) 5 Normal Extension (L3) 5 Normal Ankle/Foot Strength Ankle and Foot Manual Muscle Testing Right Dorsiflexion (L4) 5 Normal Plantarflexion (S1) 5 Normal Left Dorsiflexion (L4) 5 Normal Plantarflexion (S1) 5 Normal PT-OP-Q Treatments Start: 01/15/22 17:48 Freq: Status: Active Protocol: Document 01/15/22 11:15 DCW (Rec: 01/15/22 18:00 NYW [id number]) Therapeutic Exercises Supine Exercises ITB Stretch Supine Exercise Name ITB stretch /c strap Side bilateral Hamstring Stretch Supine Exercise Name HS stretch /c strap Side bilateral Standing Exercises ITB Stretch Standing Exercise Name ITB Stretch at wall Side bilateral PT-OP-T Assessment and Plan Start: 01/15/22 17:48 Freq: Status: Active Protocol: Document 01/15/22 11:15 DCW (Rec: 01/15/22 18:25 NYW [id number]) Physical Therapy Assessment Rehab Potential Rehabilitation Potential Good Evaluation Complexity Number of Personal Factors/Comorbidities 3 or More Number of Body Systems Impaired 3 Clinical Presentation at Evaluation Unstable Impairments Impairments Activity Tolerance,Functional Activities,Functional Mobility ,Gait,Pain,Soft Tissue Mobility,Strength Goals Three Impairment Pt struggles to lift leg up into car or over side of tub Medical Editor Goal (LTG) Pt to increase hip flexion strength MMT bilaterally to at least 4/5 in order to improve ability to enter/exit car Two Impairment Pt ambulates with a wide base of support to relieve hip pain Medical Editor Goal (LTG) Pt to return base of support during gait to WNL in order to decrease strain on his hip and back without increased lateral hip pain. LTG Duration 03/17/22 One Impairment Pt does not have an appropriate home exercise program Short Term Goal (STG) Pt to be independent and compliant with an appropriate HEP STG Duration 02/15/22 Assessment Summary Assessment Pt presents with signs and symptoms consistent with referring diagnosis of bilateral hip bursitis, as well as likely bilateral ITB. When pt ambulates with a more narrow JOSEY, he puts additional stretch on his ITB, increased pain, and causing him to walk with a much wider JOSEY. Notable point-specific pain bilaterally at GT bursae, with additional tenderness along ITB. Additionally, when attempting any resisted hip flexion, pt complains of significant pain at the anterior hip bilaterally, which may be suggestive of potential hip DJD. Pt should benefit from increasing hip flexibility/mobility, hip strengthening, gait training, and pain-control modalities. If pt continues to experience increasing anterior hip pain, he may additionally benefit from hip x-rays to determine level of degenerative changes. Physical Therapy Plan Frequency and Duration Frequency of Treatment 2x/Week Duration of Treatment Two months Plan of Care Start Date 01/15/22 Plan of Care End Date 03/17/22 Therapeutic Interventions Therapeutic Interventions Aquatic Therapy,Gait Training, Home Exercise Program,Joint Mobilizations,Manual Therapy, Neuromuscular Re-education, Patient/Caregiver Education, Self-Care/Home Management,Soft Tissue Mobilization, Therapeutic Activities, Therapeutic Exercises Modalities Cold Pack/Ice Massage,Electric Stimulation,Hot Packs, Iontophoresis,Ultrasound Other Therapeutic Interventions Iontophoresis with Dexamethasone 4 mg/mL Next Visit Focus/Plan Next Note Type Treatment Note Next Visit Plan Stretching, hip strengthening, gait training
--- NOTE | 2022-01-15 18:26 | PT.OPPOC ---
Physical, Occupational & Speech Therapy At [facility] Current Diagnoses Pain in right hip (01/15/22) Pain in left hip (01/15/22) Stiffness of right hip, not elsewhere classified (01/15/22) Stiffness of left hip, not elsewhere classified (01/15/22) Trochanteric bursitis, right hip (01/15/22) Trochanteric bursitis, left hip (01/15/22) Iliotibial band syndrome, left leg (01/15/22) Visit Care Team Role Provider Type Seamus Salguero DO Attending Provider Physician Primary Care Provider Referring Provider Specialty: [facility] Address: [address] [place] [address], [facility] Email: [email or web address] Plan Of Care PT-OP-T Assessment and Plan Start: 01/15/22 17:48 Freq: Status: Active Protocol: Document 01/15/22 11:15 DCW (Rec: 01/15/22 18:25 DCW [id number]) Physical Therapy Assessment Rehab Potential Rehabilitation Potential Good Evaluation Complexity Number of Personal Factors/Comorbidities 3 or More Number of Body Systems Impaired 3 Clinical Presentation at Evaluation Unstable Impairments Impairments Activity Tolerance,Functional Activities,Functional Mobility ,Gait,Pain,Soft Tissue Mobility,Strength Goals Three Impairment Pt struggles to lift leg up into car or over side of tub Rd Project Manager Goal (LTG) Pt to increase hip flexion strength MMT bilaterally to at least 4/5 in order to improve ability to enter/exit car Two Impairment Pt ambulates with a wide base of support to relieve hip pain Rd Project Manager Goal (LTG) Pt to return base of support during gait to WNL in order to decrease strain on his hip and back without increased lateral hip pain. LTG Duration 03/17/22 One Impairment Pt does not have an appropriate home exercise program Short Term Goal (STG) Pt to be independent and compliant with an appropriate HEP STG Duration 02/15/22 Assessment Summary Assessment Pt presents with signs and symptoms consistent with referring diagnosis of bilateral hip bursitis, as well as likely bilateral ITB. When pt ambulates with a more narrow JOSEY, he puts additional stretch on his ITB, increased pain, and causing him to walk with a much wider JOSEY. Notable point-specific pain bilaterally at GT bursae, with additional tenderness along ITB. Additionally, when attempting any resisted hip flexion, pt complains of significant pain at the anterior hip bilaterally, which may be suggestive of potential hip DJD. Pt should benefit from increasing hip flexibility/mobility, hip strengthening, gait training, and pain-control modalities. If pt continues to experience increasing anterior hip pain, he may additionally benefit from hip x-rays to determine level of degenerative changes. Physical Therapy Plan Frequency and Duration Frequency of Treatment 2x/Week Duration of Treatment Two months Plan of Care Start Date 01/15/22 Plan of Care End Date 03/17/22 Therapeutic Interventions Therapeutic Interventions Aquatic Therapy,Gait Training, Home Exercise Program,Joint Mobilizations,Manual Therapy, Neuromuscular Re-education, Patient/Caregiver Education, Self-Care/Home Management,Soft Tissue Mobilization, Therapeutic Activities, Therapeutic Exercises Modalities Cold Pack/Ice Massage,Electric Stimulation,Hot Packs, Iontophoresis,Ultrasound Other Therapeutic Interventions Iontophoresis with Dexamethasone 4 mg/mL Next Visit Focus/Plan Next Note Type Treatment Note Next Visit Plan Stretching, hip strengthening, gait training Plan of Care Dates Plan of Care Start Date 01/15/22 Plan of Care End Date 03/17/22 Electronically Signed by: Navin Lares, PT 01/15/22 [id number] If you are in agreement with this Plan of Care, please return a signed and dated copy. I have reviewed this Plan of Care and certify that the skilled therapy services above are required to meet the patient?s needs. Physician Signature Date Printed Name and Credentials Clinical Instructor Signature Printed Name and Credentials
--- NOTE | 2022-01-20 11:59 | PT.OTN ---
Current Diagnoses Pain in right hip (01/20/22) Pain in left hip (01/20/22) Stiffness of right hip, not elsewhere classified (01/20/22) Stiffness of left hip, not elsewhere classified (01/20/22) Trochanteric bursitis, right hip (01/20/22) Trochanteric bursitis, left hip (01/20/22) Iliotibial band syndrome, left leg (01/20/22) Physical Therapy Treatment Note PT-OP-A Visit Information Start: 01/15/22 17:48 Freq: Status: Active Protocol: Document 01/20/22 11:15 DCW (Rec: 01/20/22 11:59 DCW [id number]) Out-Patient Physical Therapy Visit Information Visit Information Visit Type Treatment Note Visit Start Time 11:15 Visit Stop Time 12:00 Total Visit Minutes 45 Visit Number 2 Number of SWATCH CHECKER Visits 0 Evaluation Information Evaluation Date 01/15/22 PT-OP-B Current Condition Start: 01/15/22 17:48 Freq: Status: Active Protocol: Document 01/15/22 11:15 DCW (Rec: 01/15/22 17:59 DCW [id number]) Current Condition History of Current Condition Onset Date 6 months Current Complaints Pain and stiffness bilateral hips, increased with standing/ walking History of Current Condition Pt is a 61 year old male presenting with a six month history of bilateral hip pain, left more than right. Notes fairly point-specific pain on lateral hips, as well as occasional tightness down lateral thighs. Pt admits that he has had pain off and on for the past few years, but starting in June, started getting worse with no relief. Pt notes that he has been needing to walk with a wider base of support, because with a narrow JOSEY, it puts increased pressure on his hips . Also notes that he has been having increased weakness in his hips, especially lifting his legs when getting into a car or over the side of his tub. Also notes significant neuropathy in bilateral feet, although he admits that it doesn't cause any pain, he just can't feel anything. Treatment Goals Patient/Caregiver Goals I want to walk without pain. Personal Factors Other Personal Factors That May Effect High BMI, Neuropathy, HTN Therapy/Recovery PT-OP-C Subjective Start: 01/15/22 17:48 Freq: Status: Active Protocol: Document 01/20/22 11:15 DCW (Rec: 01/20/22 11:59 DCW [id number]) OP-PT Subjective Patient Comments Patient Comments I'm sore. I've been powerwashing the last two days . PT-OP-F Manual Assessment Start: 01/15/22 17:48 Freq: Status: Active Protocol: Document 01/15/22 11:15 DCW (Rec: 01/15/22 18:09 DCW [id number]) Manual Assessments Soft Tissue Assessment Soft Tissue Mobility Assessment Point-specific pain bilaterally at GT bursa, tenderness and tightness along bilateral ITB Joint Mobility Assessment Joint Mobility Assessment Significant difficulty with hip flexion, pain/grinding bilateral hips PT-OP-L Special Tests Start: 01/15/22 18:09 Freq: Status: Active Protocol: Document 01/15/22 11:15 DCW (Rec: 01/15/22 18:12 DCW [id number]) Special Tests Knee Special Tests Leticia's Test Test Results Positive bilaterally PT-OP-M Strength Start: 01/15/22 17:48 Freq: Status: Active Protocol: Document 01/15/22 11:15 DCW (Rec: 01/15/22 18:09 DCW [id number]) Hip Strength Hip Manual Muscle Testing Right Flexion (L2) 3 Fair Abduction 4+ Good+ Adduction 5 Normal External Rotation 5 Normal Internal Rotation 5 Normal Left Flexion (L2) 3 Fair Abduction 4+ Good+ Adduction 5 Normal External Rotation 5 Normal Internal Rotation 5 Normal Knee Strength Knee Manual Muscle Testing Right Flexion (S2) 5 Normal Extension (L3) 5 Normal Left Flexion (S2) 5 Normal Extension (L3) 5 Normal Ankle/Foot Strength Ankle and Foot Manual Muscle Testing Right Dorsiflexion (L4) 5 Normal Plantarflexion (S1) 5 Normal Left Dorsiflexion (L4) 5 Normal Plantarflexion (S1) 5 Normal PT-OP-Q Treatments Start: 01/15/22 17:48 Freq: Status: Active Protocol: Document 01/20/22 11:15 DCW (Rec: 01/20/22 11:59 DCW [id number]) Therapeutic Exercises Supine Exercises ITB Stretch Supine Exercise Name ITB stretch Side bilateral Hamstring Stretch Supine Exercise Name HS stretch Side bilateral Standing Exercises Hip Extension Standing Exercise Name Hip Extension Side bilateral Resistance Lv 2 Hip Abduction Standing Exercise Name Hip Abduction Side bilateral Resistance Lv 2 Manual Therapy Treatment Soft Tissue Mobilization Abductors Body Location B Hip Abductors Mobilization Type Sustained Pressure,Trigger Point Release Intensity/Depth Moderate Body Position Supine ITB Body Location B ITB Mobilization Type Sustained Pressure,Trigger Point Release Intensity/Depth Moderate Body Position Supine PT-OP-R Modalities Start: 01/15/22 17:48 Freq: Status: Active Protocol: Document 01/20/22 11:15 DCW (Rec: 01/20/22 11:59 DCW [id number]) Iontophoresis Treatment GT Bursa Treatment Medication Dexamethasone (-) Medication Amount (mL) (ml) 1 Medication Dosage 4 mg/mL Treatment Polarity Negative to Negative Active Electrode Placement L GT Bursa Treatment Duration (minutes) 4 PT-OP-T Assessment and Plan Start: 01/15/22 17:48 Freq: Status: Active Protocol: Document 01/20/22 11:15 DCW (Rec: 01/20/22 11:59 DCW [id number]) Physical Therapy Assessment Impairments Impairments Activity Tolerance,Functional Activities,Functional Mobility ,Gait,Pain,Soft Tissue Mobility,Strength Goals Three Impairment Pt struggles to lift leg up into car or over side of tub Town Manager Goal (LTG) Pt to increase hip flexion strength MMT bilaterally to at least 4/5 in order to improve ability to enter/exit car Two Impairment Pt ambulates with a wide base of support to relieve hip pain Penitentiary Goal (LTG) Pt to return base of support during gait to WNL in order to decrease strain on his hip and back without increased lateral hip pain. LTG Duration 03/17/22 One Impairment Pt does not have an appropriate home exercise program Short Term Goal (STG) Pt to be independent and compliant with an appropriate HEP STG Duration 02/15/22 Assessment Summary Assessment Pt very happy with his first full treatment session today, felt like it was a good workout and STM was very beneficial Physical Therapy Plan Frequency and Duration Frequency of Treatment 2x/Week Duration of Treatment Two months Plan of Care Start Date 01/15/22 Plan of Care End Date 03/17/22 Therapeutic Interventions Therapeutic Interventions Aquatic Therapy,Gait Training, Home Exercise Program,Joint Mobilizations,Manual Therapy, Neuromuscular Re-education, Patient/Caregiver Education, Self-Care/Home Management,Soft Tissue Mobilization, Therapeutic Activities, Therapeutic Exercises Modalities Cold Pack/Ice Massage,Electric Stimulation,Hot Packs, Iontophoresis,Ultrasound Other Therapeutic Interventions Iontophoresis with Dexamethasone 4 mg/mL Next Visit Focus/Plan Next Note Type Treatment Note Next Visit Plan Stretching, hip strengthening, gait training
--- NOTE | 2022-01-29 15:14 | PT.OTN ---
Current Diagnoses Pain in right hip (01/29/22) Pain in left hip (01/29/22) Stiffness of right hip, not elsewhere classified (01/29/22) Stiffness of left hip, not elsewhere classified (01/29/22) Trochanteric bursitis, right hip (01/29/22) Trochanteric bursitis, left hip (01/29/22) Iliotibial band syndrome, left leg (01/29/22) Physical Therapy Treatment Note PT-OP-A Visit Information Start: 01/15/22 17:48 Freq: Status: Active Protocol: Document 01/29/22 14:30 DCW (Rec: 01/29/22 15:14 DCW [id number]) Out-Patient Physical Therapy Visit Information Visit Information Visit Type Treatment Note Visit Start Time 14:30 Visit Stop Time 15:15 Total Visit Minutes 45 Visit Number 3 Number of SUGAR REPROCESS OPERATOR HEAD Visits 0 Evaluation Information Evaluation Date 01/15/22 PT-OP-B Current Condition Start: 01/15/22 17:48 Freq: Status: Active Protocol: Document 01/15/22 11:15 DCW (Rec: 01/15/22 17:59 DCW [id number]) Current Condition History of Current Condition Onset Date 6 months Current Complaints Pain and stiffness bilateral hips, increased with standing/ walking History of Current Condition Pt is a 61 year old male presenting with a six month history of bilateral hip pain, left more than right. Notes fairly point-specific pain on lateral hips, as well as occasional tightness down lateral thighs. Pt admits that he has had pain off and on for the past few years, but starting in June, started getting worse with no relief. Pt notes that he has been needing to walk with a wider base of support, because with a narrow [place], it puts increased pressure on his hips . Also notes that he has been having increased weakness in his hips, especially lifting his legs when getting into a car or over the side of his tub. Also notes significant neuropathy in bilateral feet, although he admits that it doesn't cause any pain, he just can't feel anything. Treatment Goals Patient/Caregiver Goals I want to walk without pain. Personal Factors Other Personal Factors That May Effect High BMI, Neuropathy, HTN Therapy/Recovery PT-OP-C Subjective Start: 01/15/22 17:48 Freq: Status: Active Protocol: Document 01/29/22 14:30 DCW (Rec: 01/29/22 15:14 DCW [id number]) OP-PT Subjective Patient Comments Patient Comments My commented this morning that I'm walking better. PT-OP-F Manual Assessment Start: 01/15/22 17:48 Freq: Status: Active Protocol: Document 01/15/22 11:15 DCW (Rec: 01/15/22 18:09 DCW [id number]) Manual Assessments Soft Tissue Assessment Soft Tissue Mobility Assessment Point-specific pain bilaterally at GT bursa, tenderness and tightness along bilateral ITB Joint Mobility Assessment Joint Mobility Assessment Significant difficulty with hip flexion, pain/grinding bilateral hips PT-OP-L Special Tests Start: 01/15/22 18:09 Freq: Status: Active Protocol: Document 01/15/22 11:15 DCW (Rec: 01/15/22 18:12 DCW [id number]) Special Tests Knee Special Tests Leticia's Test Test Results Positive bilaterally PT-OP-M Strength Start: 01/15/22 17:48 Freq: Status: Active Protocol: Document 01/15/22 11:15 DCW (Rec: 01/15/22 18:09 DCW [id number]) Hip Strength Hip Manual Muscle Testing Right Flexion (L2) 3 Fair Abduction 4+ Good+ Adduction 5 Normal External Rotation 5 Normal Internal Rotation 5 Normal Left Flexion (L2) 3 Fair Abduction 4+ Good+ Adduction 5 Normal External Rotation 5 Normal Internal Rotation 5 Normal Knee Strength Knee Manual Muscle Testing Right Flexion (S2) 5 Normal Extension (L3) 5 Normal Left Flexion (S2) 5 Normal Extension (L3) 5 Normal Ankle/Foot Strength Ankle and Foot Manual Muscle Testing Right Dorsiflexion (L4) 5 Normal Plantarflexion (S1) 5 Normal Left Dorsiflexion (L4) 5 Normal Plantarflexion (S1) 5 Normal PT-OP-Q Treatments Start: 01/15/22 17:48 Freq: Status: Active Protocol: Document 01/29/22 14:30 DCW (Rec: 01/29/22 15:14 DCW [id number]) Therapeutic Exercises Sitting Exercises Hip ER Sitting Exercise Name Seated clamshells Side bilateral Resistance Lv 3 Manual Therapy Treatment Soft Tissue Mobilization Abductors Body Location B Hip Abductors Mobilization Type Sustained Pressure,Trigger Point Release Intensity/Depth Moderate Body Position Supine ITB Body Location B ITB Mobilization Type Sustained Pressure,Trigger Point Release Intensity/Depth Moderate Body Position Supine PT-OP-R Modalities Start: 01/15/22 17:48 Freq: Status: Active Protocol: Document 01/29/22 14:30 DCW (Rec: 01/29/22 15:14 DCW [id number]) Iontophoresis Treatment GT Bursa Treatment Medication Dexamethasone (-) Medication Amount (mL) (ml) 1 Medication Dosage 4 mg/mL Treatment Polarity Negative to Negative Active Electrode Placement B GT Bursa Treatment Duration (minutes) 6 PT-OP-T Assessment and Plan Start: 01/15/22 17:48 Freq: Status: Active Protocol: Document 01/29/22 14:30 DCW (Rec: 01/29/22 15:14 DCW [id number]) Physical Therapy Assessment Impairments Impairments Activity Tolerance,Functional Activities,Functional Mobility ,Gait,Pain,Soft Tissue Mobility,Strength Goals Three Impairment Pt struggles to lift leg up into car or over side of tub Cable Television Installer Goal (LTG) Pt to increase hip flexion strength MMT bilaterally to at least 4/5 in order to improve ability to enter/exit car Two Impairment Pt ambulates with a wide base of support to relieve hip pain Skilled Nursing Goal (LTG) Pt to return base of support during gait to WNL in order to decrease strain on his hip and back without increased lateral hip pain. LTG Duration 03/17/22 One Impairment Pt does not have an appropriate home exercise program Short Term Goal (STG) Pt to be independent and compliant with an appropriate HEP STG Duration 02/15/22 Assessment Summary Assessment Pt exhibiting less tenderness to palpation, has been fairly compliant with his HEP so far. Physical Therapy Plan Frequency and Duration Frequency of Treatment 2x/Week Duration of Treatment Two months Plan of Care Start Date 01/15/22 Plan of Care End Date 03/17/22 Therapeutic Interventions Therapeutic Interventions Aquatic Therapy,Gait Training, Home Exercise Program,Joint Mobilizations,Manual Therapy, Neuromuscular Re-education, Patient/Caregiver Education, Self-Care/Home Management,Soft Tissue Mobilization, Therapeutic Activities, Therapeutic Exercises Modalities Cold Pack/Ice Massage,Electric Stimulation,Hot Packs, Iontophoresis,Ultrasound Other Therapeutic Interventions Iontophoresis with Dexamethasone 4 mg/mL Next Visit Focus/Plan Next Note Type Treatment Note Next Visit Plan Stretching, hip strengthening, gait training
--- NOTE | 2022-02-02 15:12 | PT.OTN ---
Current Diagnoses Pain in right hip (02/02/22) Pain in left hip (02/02/22) Stiffness of right hip, not elsewhere classified (02/02/22) Stiffness of left hip, not elsewhere classified (02/02/22) Trochanteric bursitis, right hip (02/02/22) Trochanteric bursitis, left hip (02/02/22) Iliotibial band syndrome, left leg (02/02/22) Physical Therapy Treatment Note PT-OP-A Visit Information Start: 01/15/22 17:48 Freq: Status: Active Protocol: Document 02/02/22 14:30 DCW (Rec: 02/02/22 15:12 DCW [id number]) Out-Patient Physical Therapy Visit Information Visit Information Visit Type Treatment Note Visit Start Time 14:30 Visit Stop Time 15:15 Total Visit Minutes 45 Visit Number 4 Number of GOVERNMENT CLERK Visits 0 Evaluation Information Evaluation Date 01/15/22 PT-OP-B Current Condition Start: 01/15/22 17:48 Freq: Status: Active Protocol: Document 01/15/22 11:15 DCW (Rec: 01/15/22 17:59 DCW [id number]) Current Condition History of Current Condition Onset Date 6 months Current Complaints Pain and stiffness bilateral hips, increased with standing/ walking History of Current Condition Pt is a 61 year old male presenting with a six month history of bilateral hip pain, left more than right. Notes fairly point-specific pain on lateral hips, as well as occasional tightness down lateral thighs. Pt admits that he has had pain off and on for the past few years, but starting in June, started getting worse with no relief. Pt notes that he has been needing to walk with a wider base of support, because with a narrow [place], it puts increased pressure on his hips . Also notes that he has been having increased weakness in his hips, especially lifting his legs when getting into a car or over the side of his tub. Also notes significant neuropathy in bilateral feet, although he admits that it doesn't cause any pain, he just can't feel anything. Treatment Goals Patient/Caregiver Goals I want to walk without pain. Personal Factors Other Personal Factors That May Effect High BMI, Neuropathy, HTN Therapy/Recovery PT-OP-C Subjective Start: 01/15/22 17:48 Freq: Status: Active Protocol: Document 02/02/22 14:30 DCW (Rec: 02/02/22 15:12 DCW [id number]) OP-PT Subjective Patient Comments Patient Comments I'm typically sore, but I feel pretty good after I'm done with my stretching. PT-OP-F Manual Assessment Start: 01/15/22 17:48 Freq: Status: Active Protocol: Document 01/15/22 11:15 DCW (Rec: 01/15/22 18:09 DCW [id number]) Manual Assessments Soft Tissue Assessment Soft Tissue Mobility Assessment Point-specific pain bilaterally at GT bursa, tenderness and tightness along bilateral ITB Joint Mobility Assessment Joint Mobility Assessment Significant difficulty with hip flexion, pain/grinding bilateral hips PT-OP-L Special Tests Start: 01/15/22 18:09 Freq: Status: Active Protocol: Document 01/15/22 11:15 DCW (Rec: 01/15/22 18:12 DCW [id number]) Special Tests Knee Special Tests Leticia's Test Test Results Positive bilaterally PT-OP-M Strength Start: 01/15/22 17:48 Freq: Status: Active Protocol: Document 01/15/22 11:15 DCW (Rec: 01/15/22 18:09 DCW [id number]) Hip Strength Hip Manual Muscle Testing Right Flexion (L2) 3 Fair Abduction 4+ Good+ Adduction 5 Normal External Rotation 5 Normal Internal Rotation 5 Normal Left Flexion (L2) 3 Fair Abduction 4+ Good+ Adduction 5 Normal External Rotation 5 Normal Internal Rotation 5 Normal Knee Strength Knee Manual Muscle Testing Right Flexion (S2) 5 Normal Extension (L3) 5 Normal Left Flexion (S2) 5 Normal Extension (L3) 5 Normal Ankle/Foot Strength Ankle and Foot Manual Muscle Testing Right Dorsiflexion (L4) 5 Normal Plantarflexion (S1) 5 Normal Left Dorsiflexion (L4) 5 Normal Plantarflexion (S1) 5 Normal PT-OP-Q Treatments Start: 01/15/22 17:48 Freq: Status: Active Protocol: Document 02/02/22 14:30 DCW (Rec: 02/02/22 15:12 DCW [id number]) Therapeutic Exercises Supine Exercises ITB Stretch Supine Exercise Name ITB stretch Side bilateral Hamstring Stretch Supine Exercise Name HS stretch Side bilateral Standing Exercises Hamstring Curl Standing Exercise Name HS curls Side bilateral Resistance 10# Other Exercises Resisted Ambulation Other Exercise Name Resisted side-stepping, fwd/ bkwd Side bilateral Resistance Red Equipment Used // bars Reps/Minutes 3 laps each direction Manual Therapy Treatment Soft Tissue Mobilization Abductors Body Location B Hip Abductors Mobilization Type Sustained Pressure,Trigger Point Release Intensity/Depth Moderate Body Position Supine ITB Body Location B ITB Mobilization Type Sustained Pressure,Trigger Point Release Intensity/Depth Moderate Body Position Supine PT-OP-R Modalities Start: 01/15/22 17:48 Freq: Status: Active Protocol: Document 02/02/22 14:30 DCW (Rec: 02/02/22 15:12 DCW [id number]) Iontophoresis Treatment GT Bursa Treatment Medication Dexamethasone (-) Medication Amount (mL) (ml) 1 Medication Dosage 4 mg/mL Treatment Polarity Negative to Negative Active Electrode Placement B GT Bursa Treatment Duration (minutes) 6 PT-OP-T Assessment and Plan Start: 01/15/22 17:48 Freq: Status: Active Protocol: Document 02/02/22 14:30 DCW (Rec: 02/02/22 15:12 DCW [id number]) Physical Therapy Assessment Impairments Impairments Activity Tolerance,Functional Activities,Functional Mobility ,Gait,Pain,Soft Tissue Mobility,Strength Goals Three Impairment Pt struggles to lift leg up into car or over side of tub Grain Sacker Goal (LTG) Pt to increase hip flexion strength MMT bilaterally to at least 4/5 in order to improve ability to enter/exit car Two Impairment Pt ambulates with a wide base of support to relieve hip pain Longterm Goal (LTG) Pt to return base of support during gait to WNL in order to decrease strain on his hip and back without increased lateral hip pain. LTG Duration 03/17/22 One Impairment Pt does not have an appropriate home exercise program Short Term Goal (STG) Pt to be independent and compliant with an appropriate HEP STG Duration 02/15/22 Assessment Summary Assessment Pt appears to be making steady improvement, notes some generalized LE muscle soreness due in activities he isn't used to, but is feeling significantly less of the original pain that caused him to come to PT. Physical Therapy Plan Frequency and Duration Frequency of Treatment 2x/Week Duration of Treatment Two months Plan of Care Start Date 01/15/22 Plan of Care End Date 03/17/22 Therapeutic Interventions Therapeutic Interventions Aquatic Therapy,Gait Training, Home Exercise Program,Joint Mobilizations,Manual Therapy, Neuromuscular Re-education, Patient/Caregiver Education, Self-Care/Home Management,Soft Tissue Mobilization, Therapeutic Activities, Therapeutic Exercises Modalities Cold Pack/Ice Massage,Electric Stimulation,Hot Packs, Iontophoresis,Ultrasound Other Therapeutic Interventions Iontophoresis with Dexamethasone 4 mg/mL Next Visit Focus/Plan Next Note Type Treatment Note Next Visit Plan Stretching, hip strengthening, gait training
--- NOTE | 2022-02-05 11:11 | PT.OTN ---
Current Diagnoses Pain in right hip (02/05/22) Pain in left hip (02/05/22) Stiffness of right hip, not elsewhere classified (02/05/22) Stiffness of left hip, not elsewhere classified (02/05/22) Trochanteric bursitis, right hip (02/05/22) Trochanteric bursitis, left hip (02/05/22) Iliotibial band syndrome, left leg (02/05/22) Physical Therapy Treatment Note PT-OP-A Visit Information Start: 01/15/22 17:48 Freq: Status: Active Protocol: Document 02/05/22 10:30 DCW (Rec: 02/05/22 11:11 DCW [id number]) Out-Patient Physical Therapy Visit Information Visit Information Visit Type Treatment Note Visit Start Time 10:30 Visit Stop Time 11:15 Total Visit Minutes 45 Visit Number 5 Number of STUCCO MASON Visits 0 Evaluation Information Evaluation Date 01/15/22 PT-OP-B Current Condition Start: 01/15/22 17:48 Freq: Status: Active Protocol: Document 01/15/22 11:15 DCW (Rec: 01/15/22 17:59 DCW [id number]) Current Condition History of Current Condition Onset Date 6 months Current Complaints Pain and stiffness bilateral hips, increased with standing/ walking History of Current Condition Pt is a 61 year old male presenting with a six month history of bilateral hip pain, left more than right. Notes fairly point-specific pain on lateral hips, as well as occasional tightness down lateral thighs. Pt admits that he has had pain off and on for the past few years, but starting in June, started getting worse with no relief. Pt notes that he has been needing to walk with a wider base of support, because with a narrow JOSEY, it puts increased pressure on his hips . Also notes that he has been having increased weakness in his hips, especially lifting his legs when getting into a car or over the side of his tub. Also notes significant neuropathy in bilateral feet, although he admits that it doesn't cause any pain, he just can't feel anything. Treatment Goals Patient/Caregiver Goals I want to walk without pain. Personal Factors Other Personal Factors That May Effect High BMI, Neuropathy, HTN Therapy/Recovery PT-OP-C Subjective Start: 01/15/22 17:48 Freq: Status: Active Protocol: Document 02/05/22 10:30 DCW (Rec: 02/05/22 11:11 DCW [id number]) OP-PT Subjective Patient Comments Patient Comments I'm not going to lie, I took yesterday off to let my muscles rest. PT-OP-F Manual Assessment Start: 01/15/22 17:48 Freq: Status: Active Protocol: Document 01/15/22 11:15 DCW (Rec: 01/15/22 18:09 DCW [id number]) Manual Assessments Soft Tissue Assessment Soft Tissue Mobility Assessment Point-specific pain bilaterally at GT bursa, tenderness and tightness along bilateral ITB Joint Mobility Assessment Joint Mobility Assessment Significant difficulty with hip flexion, pain/grinding bilateral hips PT-OP-L Special Tests Start: 01/15/22 18:09 Freq: Status: Active Protocol: Document 01/15/22 11:15 DCW (Rec: 01/15/22 18:12 DCW [id number]) Special Tests Knee Special Tests Leticia's Test Test Results Positive bilaterally PT-OP-M Strength Start: 01/15/22 17:48 Freq: Status: Active Protocol: Document 01/15/22 11:15 DCW (Rec: 01/15/22 18:09 DCW [id number]) Hip Strength Hip Manual Muscle Testing Right Flexion (L2) 3 Fair Abduction 4+ Good+ Adduction 5 Normal External Rotation 5 Normal Internal Rotation 5 Normal Left Flexion (L2) 3 Fair Abduction 4+ Good+ Adduction 5 Normal External Rotation 5 Normal Internal Rotation 5 Normal Knee Strength Knee Manual Muscle Testing Right Flexion (S2) 5 Normal Extension (L3) 5 Normal Left Flexion (S2) 5 Normal Extension (L3) 5 Normal Ankle/Foot Strength Ankle and Foot Manual Muscle Testing Right Dorsiflexion (L4) 5 Normal Plantarflexion (S1) 5 Normal Left Dorsiflexion (L4) 5 Normal Plantarflexion (S1) 5 Normal PT-OP-Q Treatments Start: 01/15/22 17:48 Freq: Status: Active Protocol: Document 02/05/22 10:30 DCW (Rec: 02/05/22 11:11 DCW [id number]) Therapeutic Exercises Supine Exercises ITB Stretch Supine Exercise Name ITB stretch Side bilateral Hamstring Stretch Supine Exercise Name HS stretch Side bilateral Standing Exercises Hamstring Curl Standing Exercise Name HS curls Side bilateral Resistance 10# Other Exercises Resisted Ambulation Other Exercise Name Resisted side-stepping, fwd/ bkwd Side bilateral Resistance Red Equipment Used // bars Reps/Minutes 3 laps each direction Manual Therapy Treatment Soft Tissue Mobilization Abductors Body Location B Hip Abductors Mobilization Type Sustained Pressure,Trigger Point Release Intensity/Depth Moderate Body Position Supine ITB Body Location B ITB Mobilization Type Sustained Pressure,Trigger Point Release Intensity/Depth Moderate Body Position Supine PT-OP-R Modalities Start: 01/15/22 17:48 Freq: Status: Active Protocol: Document 02/05/22 10:30 DCW (Rec: 02/05/22 11:11 DCW [id number]) Iontophoresis Treatment GT Bursa Treatment Medication Dexamethasone (-) Medication Amount (mL) (ml) 1 Medication Dosage 4 mg/mL Treatment Polarity Negative to Negative Active Electrode Placement B GT Bursa Treatment Duration (minutes) 6 PT-OP-T Assessment and Plan Start: 01/15/22 17:48 Freq: Status: Active Protocol: Document 02/05/22 10:30 DCW (Rec: 02/05/22 11:11 DCW [id number]) Physical Therapy Assessment Impairments Impairments Activity Tolerance,Functional Activities,Functional Mobility ,Gait,Pain,Soft Tissue Mobility,Strength Goals Three Impairment Pt struggles to lift leg up into car or over side of tub [employer] Goal (LTG) Pt to increase hip flexion strength MMT bilaterally to at least 4/5 in order to improve ability to enter/exit car Two Impairment Pt ambulates with a wide base of support to relieve hip pain Mcfp Goal (LTG) Pt to return base of support during gait to WNL in order to decrease strain on his hip and back without increased lateral hip pain. LTG Duration 03/17/22 One Impairment Pt does not have an appropriate home exercise program Short Term Goal (STG) Pt to be independent and compliant with an appropriate HEP STG Duration 02/15/22 Assessment Summary Assessment Pt doing well with PT, making slow but fairly steady progress, right ITB and GT bursa making more improvement than left so far. Physical Therapy Plan Frequency and Duration Frequency of Treatment 2x/Week Duration of Treatment Two months Plan of Care Start Date 01/15/22 Plan of Care End Date 03/17/22 Therapeutic Interventions Therapeutic Interventions Aquatic Therapy,Gait Training, Home Exercise Program,Joint Mobilizations,Manual Therapy, Neuromuscular Re-education, Patient/Caregiver Education, Self-Care/Home Management,Soft Tissue Mobilization, Therapeutic Activities, Therapeutic Exercises Modalities Cold Pack/Ice Massage,Electric Stimulation,Hot Packs, Iontophoresis,Ultrasound Other Therapeutic Interventions Iontophoresis with Dexamethasone 4 mg/mL Next Visit Focus/Plan Next Note Type Treatment Note Next Visit Plan Stretching, hip strengthening, gait training
--- NOTE | 2022-02-09 14:31 | PT.OTN ---
Current Diagnoses Pain in right hip (02/09/22) Pain in left hip (02/09/22) Stiffness of right hip, not elsewhere classified (02/09/22) Stiffness of left hip, not elsewhere classified (02/09/22) Trochanteric bursitis, right hip (02/09/22) Trochanteric bursitis, left hip (02/09/22) Iliotibial band syndrome, left leg (02/09/22) Physical Therapy Treatment Note PT-OP-A Visit Information Start: 01/15/22 17:48 Freq: Status: Active Protocol: Document 02/09/22 13:45 DCW (Rec: 02/09/22 14:31 DCW [id number]) Out-Patient Physical Therapy Visit Information Visit Information Visit Type Treatment Note Visit Start Time 13:45 Visit Stop Time 14:30 Total Visit Minutes 45 Visit Number 6 Number of NET SOFTWARE DEVELOPER Visits 0 Evaluation Information Evaluation Date 01/15/22 PT-OP-B Current Condition Start: 01/15/22 17:48 Freq: Status: Active Protocol: Document 01/15/22 11:15 DCW (Rec: 01/15/22 17:59 DCW [id number]) Current Condition History of Current Condition Onset Date 6 months Current Complaints Pain and stiffness bilateral hips, increased with standing/ walking History of Current Condition Pt is a 61 year old male presenting with a six month history of bilateral hip pain, left more than right. Notes fairly point-specific pain on lateral hips, as well as occasional tightness down lateral thighs. Pt admits that he has had pain off and on for the past few years, but starting in June, started getting worse with no relief. Pt notes that he has been needing to walk with a wider base of support, because with a narrow [place], it puts increased pressure on his hips . Also notes that he has been having increased weakness in his hips, especially lifting his legs when getting into a car or over the side of his tub. Also notes significant neuropathy in bilateral feet, although he admits that it doesn't cause any pain, he just can't feel anything. Treatment Goals Patient/Caregiver Goals I want to walk without pain. Personal Factors Other Personal Factors That May Effect High BMI, Neuropathy, HTN Therapy/Recovery PT-OP-C Subjective Start: 01/15/22 17:48 Freq: Status: Active Protocol: Document 02/09/22 13:45 DCW (Rec: 02/09/22 14:31 DCW [id number]) OP-PT Subjective Patient Comments Patient Comments Pt notes his legs are sore after the added exercises last week, but feels his right leg is getting stronger. PT-OP-F Manual Assessment Start: 01/15/22 17:48 Freq: Status: Active Protocol: Document 01/15/22 11:15 DCW (Rec: 01/15/22 18:09 DCW [id number]) Manual Assessments Soft Tissue Assessment Soft Tissue Mobility Assessment Point-specific pain bilaterally at GT bursa, tenderness and tightness along bilateral ITB Joint Mobility Assessment Joint Mobility Assessment Significant difficulty with hip flexion, pain/grinding bilateral hips PT-OP-L Special Tests Start: 01/15/22 18:09 Freq: Status: Active Protocol: Document 01/15/22 11:15 DCW (Rec: 01/15/22 18:12 DCW [id number]) Special Tests Knee Special Tests Leticia's Test Test Results Positive bilaterally PT-OP-M Strength Start: 01/15/22 17:48 Freq: Status: Active Protocol: Document 01/15/22 11:15 DCW (Rec: 01/15/22 18:09 DCW [id number]) Hip Strength Hip Manual Muscle Testing Right Flexion (L2) 3 Fair Abduction 4+ Good+ Adduction 5 Normal External Rotation 5 Normal Internal Rotation 5 Normal Left Flexion (L2) 3 Fair Abduction 4+ Good+ Adduction 5 Normal External Rotation 5 Normal Internal Rotation 5 Normal Knee Strength Knee Manual Muscle Testing Right Flexion (S2) 5 Normal Extension (L3) 5 Normal Left Flexion (S2) 5 Normal Extension (L3) 5 Normal Ankle/Foot Strength Ankle and Foot Manual Muscle Testing Right Dorsiflexion (L4) 5 Normal Plantarflexion (S1) 5 Normal Left Dorsiflexion (L4) 5 Normal Plantarflexion (S1) 5 Normal PT-OP-Q Treatments Start: 01/15/22 17:48 Freq: Status: Active Protocol: Document 02/09/22 13:45 DCW (Rec: 02/09/22 14:31 DCW [id number]) Therapeutic Exercises Supine Exercises ITB Stretch Supine Exercise Name ITB stretch Side bilateral Hamstring Stretch Supine Exercise Name HS stretch Side bilateral Standing Exercises Tandem stance Standing Exercise Name Tandem stance Equipment Used // bars Toe Tap Standing Exercise Name Lateral toe tap Side bilateral Resistance 10# Equipment Used 6 step Hamstring Curl Standing Exercise Name HS curls Side bilateral Resistance 10# Hip Extension Standing Exercise Name Hip Extension Side bilateral Resistance Red Other Exercises Resisted Ambulation Other Exercise Name Resisted side-stepping, fwd/ bkwd Side bilateral Resistance Red Equipment Used // bars Reps/Minutes 3 laps each direction Manual Therapy Treatment Soft Tissue Mobilization Abductors Body Location B Hip Abductors Mobilization Type Sustained Pressure,Trigger Point Release Intensity/Depth Moderate Body Position Supine ITB Body Location B ITB Mobilization Type Sustained Pressure,Trigger Point Release Intensity/Depth Moderate Body Position Supine PT-OP-R Modalities Start: 01/15/22 17:48 Freq: Status: Active Protocol: Document 02/05/22 10:30 DCW (Rec: 02/05/22 11:11 DCW [id number]) Iontophoresis Treatment GT Bursa Treatment Medication Dexamethasone (-) Medication Amount (mL) (ml) 1 Medication Dosage 4 mg/mL Treatment Polarity Negative to Negative Active Electrode Placement B GT Bursa Treatment Duration (minutes) 6 PT-OP-T Assessment and Plan Start: 01/15/22 17:48 Freq: Status: Active Protocol: Document 02/09/22 13:45 DCW (Rec: 02/09/22 14:31 DCW [id number]) Physical Therapy Assessment Impairments Impairments Activity Tolerance,Functional Activities,Functional Mobility ,Gait,Pain,Soft Tissue Mobility,Strength Goals Three Impairment Pt struggles to lift leg up into car or over side of tub Customer Pricing Manager Goal (LTG) Pt to increase hip flexion strength MMT bilaterally to at least 4/5 in order to improve ability to enter/exit car Two Impairment Pt ambulates with a wide base of support to relieve hip pain Customer Pricing Manager Goal (LTG) Pt to return base of support during gait to WNL in order to decrease strain on his hip and back without increased lateral hip pain. LTG Duration 03/17/22 One Impairment Pt does not have an appropriate home exercise program Short Term Goal (STG) Pt to be independent and compliant with an appropriate HEP STG Duration 02/15/22 Assessment Summary Assessment Skipped Ionto today, instructed pt to try to see if there is a dramatic difference without it. Increased TherEx today, worked more on strengthening/ stabilizing hips. Physical Therapy Plan Frequency and Duration Frequency of Treatment 2x/Week Duration of Treatment Two months Plan of Care Start Date 01/15/22 Plan of Care End Date 03/17/22 Therapeutic Interventions Therapeutic Interventions Aquatic Therapy,Gait Training, Home Exercise Program,Joint Mobilizations,Manual Therapy, Neuromuscular Re-education, Patient/Caregiver Education, Self-Care/Home Management,Soft Tissue Mobilization, Therapeutic Activities, Therapeutic Exercises Modalities Cold Pack/Ice Massage,Electric Stimulation,Hot Packs, Iontophoresis,Ultrasound Other Therapeutic Interventions Iontophoresis with Dexamethasone 4 mg/mL Next Visit Focus/Plan Next Note Type Treatment Note Next Visit Plan Stretching, hip strengthening, gait training
--- NOTE | 2022-02-12 14:30 | PT.OTN ---
Current Diagnoses Pain in right hip (02/12/22) Pain in left hip (02/12/22) Stiffness of right hip, not elsewhere classified (02/12/22) Stiffness of left hip, not elsewhere classified (02/12/22) Trochanteric bursitis, right hip (02/12/22) Trochanteric bursitis, left hip (02/12/22) Iliotibial band syndrome, left leg (02/12/22) Physical Therapy Treatment Note PT-OP-A Visit Information Start: 01/15/22 17:48 Freq: Status: Active Protocol: Document 02/12/22 13:45 DCW (Rec: 02/12/22 14:30 DCW [id number]) Out-Patient Physical Therapy Visit Information Visit Information Visit Type Treatment Note Visit Start Time 13:45 Visit Stop Time 14:30 Total Visit Minutes 45 Visit Number 7 Number of RECEPTION CENTRE MANAGER Visits 0 Evaluation Information Evaluation Date 01/15/22 PT-OP-B Current Condition Start: 01/15/22 17:48 Freq: Status: Active Protocol: Document 01/15/22 11:15 DCW (Rec: 01/15/22 17:59 DCW [id number]) Current Condition History of Current Condition Onset Date 6 months Current Complaints Pain and stiffness bilateral hips, increased with standing/ walking History of Current Condition Pt is a 61 year old male presenting with a six month history of bilateral hip pain, left more than right. Notes fairly point-specific pain on lateral hips, as well as occasional tightness down lateral thighs. Pt admits that he has had pain off and on for the past few years, but starting in June, started getting worse with no relief. Pt notes that he has been needing to walk with a wider base of support, because with a narrow [place], it puts increased pressure on his hips . Also notes that he has been having increased weakness in his hips, especially lifting his legs when getting into a car or over the side of his tub. Also notes significant neuropathy in bilateral feet, although he admits that it doesn't cause any pain, he just can't feel anything. Treatment Goals Patient/Caregiver Goals I want to walk without pain. Personal Factors Other Personal Factors That May Effect High BMI, Neuropathy, HTN Therapy/Recovery PT-OP-C Subjective Start: 01/15/22 17:48 Freq: Status: Active Protocol: Document 02/12/22 13:45 DCW (Rec: 02/12/22 14:30 DCW [id number]) OP-PT Subjective Patient Comments Patient Comments Pt notes he feels like he has gone backwards since his last visit. PT-OP-F Manual Assessment Start: 01/15/22 17:48 Freq: Status: Active Protocol: Document 01/15/22 11:15 DCW (Rec: 01/15/22 18:09 DCW [id number]) Manual Assessments Soft Tissue Assessment Soft Tissue Mobility Assessment Point-specific pain bilaterally at GT bursa, tenderness and tightness along bilateral ITB Joint Mobility Assessment Joint Mobility Assessment Significant difficulty with hip flexion, pain/grinding bilateral hips PT-OP-L Special Tests Start: 01/15/22 18:09 Freq: Status: Active Protocol: Document 01/15/22 11:15 DCW (Rec: 01/15/22 18:12 DCW [id number]) Special Tests Knee Special Tests Leticia's Test Test Results Positive bilaterally PT-OP-M Strength Start: 01/15/22 17:48 Freq: Status: Active Protocol: Document 01/15/22 11:15 DCW (Rec: 01/15/22 18:09 DCW [id number]) Hip Strength Hip Manual Muscle Testing Right Flexion (L2) 3 Fair Abduction 4+ Good+ Adduction 5 Normal External Rotation 5 Normal Internal Rotation 5 Normal Left Flexion (L2) 3 Fair Abduction 4+ Good+ Adduction 5 Normal External Rotation 5 Normal Internal Rotation 5 Normal Knee Strength Knee Manual Muscle Testing Right Flexion (S2) 5 Normal Extension (L3) 5 Normal Left Flexion (S2) 5 Normal Extension (L3) 5 Normal Ankle/Foot Strength Ankle and Foot Manual Muscle Testing Right Dorsiflexion (L4) 5 Normal Plantarflexion (S1) 5 Normal Left Dorsiflexion (L4) 5 Normal Plantarflexion (S1) 5 Normal PT-OP-Q Treatments Start: 01/15/22 17:48 Freq: Status: Active Protocol: Document 02/12/22 13:45 DCW (Rec: 02/12/22 14:30 DCW [id number]) Therapeutic Exercises Supine Exercises ITB Stretch Supine Exercise Name ITB stretch Side bilateral Hamstring Stretch Supine Exercise Name HS stretch Side bilateral Standing Exercises Toe Tap Standing Exercise Name Lateral toe tap Side bilateral Resistance 10# Equipment Used 6 step Hamstring Curl Standing Exercise Name HS curls Side bilateral Resistance 10# Hip Extension Standing Exercise Name Hip Extension Side bilateral Resistance Red Other Exercises Resisted Ambulation Other Exercise Name Resisted side-stepping, fwd/ bkwd Side bilateral Resistance Green Equipment Used // bars Reps/Minutes 3 laps each direction Manual Therapy Treatment Soft Tissue Mobilization Abductors Body Location B Hip Abductors Mobilization Type Sustained Pressure,Trigger Point Release Intensity/Depth Moderate Body Position Supine ITB Body Location B ITB Mobilization Type Sustained Pressure,Trigger Point Release Intensity/Depth Moderate Body Position Supine PT-OP-R Modalities Start: 01/15/22 17:48 Freq: Status: Active Protocol: Document 02/12/22 13:45 DCW (Rec: 02/12/22 14:30 DCW [id number]) Iontophoresis Treatment GT Bursa Treatment Medication Dexamethasone (-) Medication Amount (mL) (ml) 1 Medication Dosage 4 mg/mL Treatment Polarity Negative to Negative Active Electrode Placement L GT Bursa Treatment Duration (minutes) 4 PT-OP-T Assessment and Plan Start: 01/15/22 17:48 Freq: Status: Active Protocol: Document 02/12/22 13:45 DCW (Rec: 02/12/22 14:30 DCW [id number]) Physical Therapy Assessment Impairments Impairments Activity Tolerance,Functional Activities,Functional Mobility ,Gait,Pain,Soft Tissue Mobility,Strength Goals Three Impairment Pt struggles to lift leg up into car or over side of tub Electrician Powerhouse Goal (LTG) Pt to increase hip flexion strength MMT bilaterally to at least 4/5 in order to improve ability to enter/exit car Two Impairment Pt ambulates with a wide base of support to relieve hip pain Electrician Powerhouse Goal (LTG) Pt to return base of support during gait to WNL in order to decrease strain on his hip and back without increased lateral hip pain. LTG Duration 03/17/22 One Impairment Pt does not have an appropriate home exercise program Short Term Goal (STG) Pt to be independent and compliant with an appropriate HEP STG Duration 02/15/22 Assessment Summary Assessment Due to pt's increased pain since last session, returned to Ionto use. Pt tolerated treatment fairly well, still fairly weak with L hip flexion . Physical Therapy Plan Frequency and Duration Frequency of Treatment 2x/Week Duration of Treatment Two months Plan of Care Start Date 01/15/22 Plan of Care End Date 03/17/22 Therapeutic Interventions Therapeutic Interventions Aquatic Therapy,Gait Training, Home Exercise Program,Joint Mobilizations,Manual Therapy, Neuromuscular Re-education, Patient/Caregiver Education, Self-Care/Home Management,Soft Tissue Mobilization, Therapeutic Activities, Therapeutic Exercises Modalities Cold Pack/Ice Massage,Electric Stimulation,Hot Packs, Iontophoresis,Ultrasound Other Therapeutic Interventions Iontophoresis with Dexamethasone 4 mg/mL Next Visit Focus/Plan Next Note Type Treatment Note Next Visit Plan Stretching, hip strengthening, gait training
--- NOTE | 2022-02-16 14:29 | PT.OTN ---
Current Diagnoses Pain in right hip (02/16/22) Pain in left hip (02/16/22) Stiffness of right hip, not elsewhere classified (02/16/22) Stiffness of left hip, not elsewhere classified (02/16/22) Trochanteric bursitis, right hip (02/16/22) Trochanteric bursitis, left hip (02/16/22) Iliotibial band syndrome, left leg (02/16/22) Physical Therapy Treatment Note PT-OP-A Visit Information Start: 01/15/22 17:48 Freq: Status: Active Protocol: Document 02/16/22 13:45 DCW (Rec: 02/16/22 14:28 DCW [id number]) Out-Patient Physical Therapy Visit Information Visit Information Visit Type Treatment Note Visit Start Time 13:45 Visit Stop Time 14:30 Total Visit Minutes 45 Visit Number 8 Number of CHARGE MANAGER Visits 0 Evaluation Information Evaluation Date 01/15/22 PT-OP-B Current Condition Start: 01/15/22 17:48 Freq: Status: Active Protocol: Document 01/15/22 11:15 DCW (Rec: 01/15/22 17:59 DCW [id number]) Current Condition History of Current Condition Onset Date 6 months Current Complaints Pain and stiffness bilateral hips, increased with standing/ walking History of Current Condition Pt is a 61 year old male presenting with a six month history of bilateral hip pain, left more than right. Notes fairly point-specific pain on lateral hips, as well as occasional tightness down lateral thighs. Pt admits that he has had pain off and on for the past few years, but starting in June, started getting worse with no relief. Pt notes that he has been needing to walk with a wider base of support, because with a narrow JOSEY, it puts increased pressure on his hips . Also notes that he has been having increased weakness in his hips, especially lifting his legs when getting into a car or over the side of his tub. Also notes significant neuropathy in bilateral feet, although he admits that it doesn't cause any pain, he just can't feel anything. Treatment Goals Patient/Caregiver Goals I want to walk without pain. Personal Factors Other Personal Factors That May Effect High BMI, Neuropathy, HTN Therapy/Recovery PT-OP-C Subjective Start: 01/15/22 17:48 Freq: Status: Active Protocol: Document 02/16/22 13:45 DCW (Rec: 02/16/22 14:28 DCW [id number]) OP-PT Subjective Patient Comments Patient Comments There are times occasionally where I can walk almost normal . I feel better than I ever have since I started coming in here. Notes right side is largely better, still having some pain with the left. PT-OP-F Manual Assessment Start: 01/15/22 17:48 Freq: Status: Active Protocol: Document 01/15/22 11:15 DCW (Rec: 01/15/22 18:09 DCW [id number]) Manual Assessments Soft Tissue Assessment Soft Tissue Mobility Assessment Point-specific pain bilaterally at GT bursa, tenderness and tightness along bilateral ITB Joint Mobility Assessment Joint Mobility Assessment Significant difficulty with hip flexion, pain/grinding bilateral hips PT-OP-L Special Tests Start: 01/15/22 18:09 Freq: Status: Active Protocol: Document 01/15/22 11:15 DCW (Rec: 01/15/22 18:12 DCW [id number]) Special Tests Knee Special Tests Leticia's Test Test Results Positive bilaterally PT-OP-M Strength Start: 01/15/22 17:48 Freq: Status: Active Protocol: Document 01/15/22 11:15 DCW (Rec: 01/15/22 18:09 DCW [id number]) Hip Strength Hip Manual Muscle Testing Right Flexion (L2) 3 Fair Abduction 4+ Good+ Adduction 5 Normal External Rotation 5 Normal Internal Rotation 5 Normal Left Flexion (L2) 3 Fair Abduction 4+ Good+ Adduction 5 Normal External Rotation 5 Normal Internal Rotation 5 Normal Knee Strength Knee Manual Muscle Testing Right Flexion (S2) 5 Normal Extension (L3) 5 Normal Left Flexion (S2) 5 Normal Extension (L3) 5 Normal Ankle/Foot Strength Ankle and Foot Manual Muscle Testing Right Dorsiflexion (L4) 5 Normal Plantarflexion (S1) 5 Normal Left Dorsiflexion (L4) 5 Normal Plantarflexion (S1) 5 Normal PT-OP-Q Treatments Start: 01/15/22 17:48 Freq: Status: Active Protocol: Document 02/16/22 13:45 DCW (Rec: 02/16/22 14:28 DCW [id number]) Therapeutic Exercises Supine Exercises ITB Stretch Supine Exercise Name ITB stretch Side bilateral Hamstring Stretch Supine Exercise Name HS stretch Side bilateral Standing Exercises Marching Standing Exercise Name Marching Side bilateral Resistance 10# Tandem stance Standing Exercise Name Tandem stance Equipment Used // bars Hamstring Curl Standing Exercise Name HS curls Side bilateral Resistance 10# Hip Extension Standing Exercise Name Hip Extension Side bilateral Resistance Green Other Exercises Resisted Ambulation Other Exercise Name Resisted side-stepping, fwd/ bkwd Side bilateral Resistance Green Equipment Used // bars Reps/Minutes 3 laps each direction Manual Therapy Treatment Soft Tissue Mobilization Abductors Body Location B Hip Abductors Mobilization Type Sustained Pressure,Trigger Point Release Intensity/Depth Moderate Body Position Supine ITB Body Location B ITB Mobilization Type Sustained Pressure,Trigger Point Release Intensity/Depth Moderate Body Position Supine PT-OP-R Modalities Start: 01/15/22 17:48 Freq: Status: Active Protocol: Document 02/16/22 13:45 DCW (Rec: 02/16/22 14:28 [facility] [id number]) Iontophoresis Treatment GT Bursa Treatment Medication Dexamethasone (-) Medication Amount (mL) (ml) 1 Medication Dosage 4 mg/mL Treatment Polarity Negative to Negative Active Electrode Placement L GT Bursa Treatment Duration (minutes) 4 PT-OP-T Assessment and Plan Start: 01/15/22 17:48 Freq: Status: Active Protocol: Document 02/16/22 13:45 DCW (Rec: 02/16/22 14:28 [facility] [id number]) Physical Therapy Assessment Impairments Impairments Activity Tolerance,Functional Activities,Functional Mobility ,Gait,Pain,Soft Tissue Mobility,Strength Goals Three Impairment Pt struggles to lift leg up into car or over side of tub Group Home Goal (LTG) Pt to increase hip flexion strength MMT bilaterally to at least 4/5 in order to improve ability to enter/exit car Two Impairment Pt ambulates with a wide base of support to relieve hip pain Open Hearth Laborer Goal (LTG) Pt to return base of support during gait to WNL in order to decrease strain on his hip and back without increased lateral hip pain. LTG Duration 03/17/22 One Impairment Pt does not have an appropriate home exercise program Short Term Goal (STG) Pt to be independent and compliant with an appropriate HEP STG Duration 02/15/22 Assessment Summary Assessment Pt making good progress, much more mobile bilaterally, improved ambulation, left hip flexion strength improving. Pt much more optimistic about overall improvement. Physical Therapy Plan Frequency and Duration Frequency of Treatment 2x/Week Plan of Care Start Date 01/15/22 Plan of Care End Date 03/17/22 Therapeutic Interventions Therapeutic Interventions Aquatic Therapy,Gait Training, Home Exercise Program,Joint Mobilizations,Manual Therapy, Neuromuscular Re-education, Patient/Caregiver Education, Self-Care/Home Management,Soft Tissue Mobilization, Therapeutic Activities, Therapeutic Exercises Modalities Cold Pack/Ice Massage,Electric Stimulation,Hot Packs, Iontophoresis,Ultrasound Other Therapeutic Interventions Iontophoresis with Dexamethasone 4 mg/mL Next Visit Focus/Plan Next Note Type Treatment Note Next Visit Plan Stretching, hip strengthening, gait training
--- NOTE | 2022-02-18 11:14 | PT.OTN ---
Current Diagnoses Pain in right hip (02/18/22) Pain in left hip (02/18/22) Stiffness of right hip, not elsewhere classified (02/18/22) Stiffness of left hip, not elsewhere classified (02/18/22) Trochanteric bursitis, right hip (02/18/22) Trochanteric bursitis, left hip (02/18/22) Iliotibial band syndrome, left leg (02/18/22) Physical Therapy Treatment Note PT-OP-A Visit Information Start: 01/15/22 17:48 Freq: Status: Active Protocol: Document 02/18/22 10:30 DCW (Rec: 02/18/22 11:14 DCW [id number]) Out-Patient Physical Therapy Visit Information Visit Information Visit Type Treatment Note Visit Start Time 10:30 Visit Stop Time 11:15 Total Visit Minutes 45 Visit Number 9 Number of SECURITY MONITOR Visits 0 Evaluation Information Evaluation Date 01/15/22 PT-OP-B Current Condition Start: 01/15/22 17:48 Freq: Status: Active Protocol: Document 01/15/22 11:15 DCW (Rec: 01/15/22 17:59 DCW [id number]) Current Condition History of Current Condition Onset Date 6 months Current Complaints Pain and stiffness bilateral hips, increased with standing/ walking History of Current Condition Pt is a 61 year old male presenting with a six month history of bilateral hip pain, left more than right. Notes fairly point-specific pain on lateral hips, as well as occasional tightness down lateral thighs. Pt admits that he has had pain off and on for the past few years, but starting in June, started getting worse with no relief. Pt notes that he has been needing to walk with a wider base of support, because with a narrow [place], it puts increased pressure on his hips . Also notes that he has been having increased weakness in his hips, especially lifting his legs when getting into a car or over the side of his tub. Also notes significant neuropathy in bilateral feet, although he admits that it doesn't cause any pain, he just can't feel anything. Treatment Goals Patient/Caregiver Goals I want to walk without pain. Personal Factors Other Personal Factors That May Effect High BMI, Neuropathy, HTN Therapy/Recovery PT-OP-C Subjective Start: 01/15/22 17:48 Freq: Status: Active Protocol: Document 02/18/22 10:30 DCW (Rec: 02/18/22 11:14 DCW [id number]) OP-PT Subjective Patient Comments Patient Comments Pt not too bad, still reporting a little bit of pain along left hip. PT-OP-F Manual Assessment Start: 01/15/22 17:48 Freq: Status: Active Protocol: Document 01/15/22 11:15 DCW (Rec: 01/15/22 18:09 DCW [id number]) Manual Assessments Soft Tissue Assessment Soft Tissue Mobility Assessment Point-specific pain bilaterally at GT bursa, tenderness and tightness along bilateral ITB Joint Mobility Assessment Joint Mobility Assessment Significant difficulty with hip flexion, pain/grinding bilateral hips PT-OP-L Special Tests Start: 01/15/22 18:09 Freq: Status: Active Protocol: Document 01/15/22 11:15 DCW (Rec: 01/15/22 18:12 DCW [id number]) Special Tests Knee Special Tests Leticia's Test Test Results Positive bilaterally PT-OP-M Strength Start: 01/15/22 17:48 Freq: Status: Active Protocol: Document 01/15/22 11:15 DCW (Rec: 01/15/22 18:09 DCW [id number]) Hip Strength Hip Manual Muscle Testing Right Flexion (L2) 3 Fair Abduction 4+ Good+ Adduction 5 Normal External Rotation 5 Normal Internal Rotation 5 Normal Left Flexion (L2) 3 Fair Abduction 4+ Good+ Adduction 5 Normal External Rotation 5 Normal Internal Rotation 5 Normal Knee Strength Knee Manual Muscle Testing Right Flexion (S2) 5 Normal Extension (L3) 5 Normal Left Flexion (S2) 5 Normal Extension (L3) 5 Normal Ankle/Foot Strength Ankle and Foot Manual Muscle Testing Right Dorsiflexion (L4) 5 Normal Plantarflexion (S1) 5 Normal Left Dorsiflexion (L4) 5 Normal Plantarflexion (S1) 5 Normal PT-OP-Q Treatments Start: 01/15/22 17:48 Freq: Status: Active Protocol: Document 02/18/22 10:30 DCW (Rec: 02/18/22 11:14 DCW [id number]) Therapeutic Exercises Supine Exercises ITB Stretch Supine Exercise Name ITB stretch Side bilateral Hamstring Stretch Supine Exercise Name HS stretch Side bilateral Standing Exercises Marching Standing Exercise Name Marching Side bilateral Resistance 10# Tandem stance Standing Exercise Name Tandem stance Equipment Used // bars Hamstring Curl Standing Exercise Name HS curls Side bilateral Resistance 10# Hip Extension Standing Exercise Name Hip Extension Side bilateral Resistance Blue Other Exercises Resisted Ambulation Other Exercise Name Resisted side-stepping, fwd/ bkwd Side bilateral Resistance Blue Equipment Used // bars Reps/Minutes 3 laps each direction Manual Therapy Treatment Soft Tissue Mobilization Abductors Body Location B Hip Abductors Mobilization Type Sustained Pressure,Trigger Point Release Intensity/Depth Moderate Body Position Supine ITB Body Location B ITB Mobilization Type Sustained Pressure,Trigger Point Release Intensity/Depth Moderate Body Position Supine PT-OP-R Modalities Start: 01/15/22 17:48 Freq: Status: Active Protocol: Document 02/18/22 10:30 DCW (Rec: 02/18/22 11:14 DCW [id number]) Iontophoresis Treatment GT Bursa Treatment Medication Dexamethasone (-) Medication Amount (mL) (ml) 1 Medication Dosage 4 mg/mL Treatment Polarity Negative to Negative Active Electrode Placement L GT Bursa Treatment Duration (minutes) 4 PT-OP-T Assessment and Plan Start: 01/15/22 17:48 Freq: Status: Active Protocol: Document 02/18/22 10:30 DCW (Rec: 02/18/22 11:14 DCW [id number]) Physical Therapy Assessment Impairments Impairments Activity Tolerance,Functional Activities,Functional Mobility ,Gait,Pain,Soft Tissue Mobility,Strength Goals Three Impairment Pt struggles to lift leg up into car or over side of tub Meter Attendant Goal (LTG) Pt to increase hip flexion strength MMT bilaterally to at least 4/5 in order to improve ability to enter/exit car Two Impairment Pt ambulates with a wide base of support to relieve hip pain Meter Attendant Goal (LTG) Pt to return base of support during gait to WNL in order to decrease strain on his hip and back without increased lateral hip pain. LTG Duration 03/17/22 One Impairment Pt does not have an appropriate home exercise program Short Term Goal (STG) Pt to be independent and compliant with an appropriate HEP STG Duration 02/15/22 Assessment Summary Assessment Pt showing good improvement overall with balance and hip mobility. Still experiencing some L hip bursitis and ITB pain with certain motions, but noticeable improvement. Physical Therapy Plan Frequency and Duration Frequency of Treatment 2x/Week Plan of Care Start Date 01/15/22 Plan of Care End Date 10/25/22 Therapeutic Interventions Therapeutic Interventions Aquatic Therapy,Gait Training, Home Exercise Program,Joint Mobilizations,Manual Therapy, Neuromuscular Re-education, Patient/Caregiver Education, Self-Care/Home Management,Soft Tissue Mobilization, Therapeutic Activities, Therapeutic Exercises Modalities Cold Pack/Ice Massage,Electric Stimulation,Hot Packs, Iontophoresis,Ultrasound Other Therapeutic Interventions Iontophoresis with Dexamethasone 4 mg/mL Next Visit Focus/Plan Next Note Type Treatment Note Next Visit Plan Stretching, hip strengthening, gait training
--- NOTE | 2022-03-03 15:45 | PT.OTN ---
Current Diagnoses Pain in right hip (03/03/22) Pain in left hip (03/03/22) Stiffness of right hip, not elsewhere classified (03/03/22) Stiffness of left hip, not elsewhere classified (03/03/22) Trochanteric bursitis, right hip (03/03/22) Trochanteric bursitis, left hip (03/03/22) Iliotibial band syndrome, left leg (03/03/22) Physical Therapy Treatment Note PT-OP-A Visit Information Start: 01/15/22 17:48 Freq: Status: Active Protocol: Document 03/03/22 14:30 AMB (Rec: 03/03/22 15:45 AMB [id number]) Out-Patient Physical Therapy Visit Information Visit Information Visit Type Treatment Note Visit Start Time 14:30 Visit Stop Time 15:15 Total Visit Minutes 45 Visit Number 10 PT-OP-B Current Condition Start: 01/15/22 17:48 Freq: Status: Active Protocol: Document 01/15/22 11:15 DCW (Rec: 01/15/22 17:59 DCW [id number]) Current Condition History of Current Condition Onset Date 6 months Current Complaints Pain and stiffness bilateral hips, increased with standing/ walking History of Current Condition Pt is a 61 year old male presenting with a six month history of bilateral hip pain, left more than right. Notes fairly point-specific pain on lateral hips, as well as occasional tightness down lateral thighs. Pt admits that he has had pain off and on for the past few years, but starting in June, started getting worse with no relief. Pt notes that he has been needing to walk with a wider base of support, because with a narrow [place], it puts increased pressure on his hips . Also notes that he has been having increased weakness in his hips, especially lifting his legs when getting into a car or over the side of his tub. Also notes significant neuropathy in bilateral feet, although he admits that it doesn't cause any pain, he just can't feel anything. Treatment Goals Patient/Caregiver Goals I want to walk without pain. Personal Factors Other Personal Factors That May Effect High BMI, Neuropathy, HTN Therapy/Recovery PT-OP-C Subjective Start: 01/15/22 17:48 Freq: Status: Active Protocol: Document 03/03/22 14:30 AMB (Rec: 10/11/22 15:45 AMB [id number]) OP-PT Subjective Patient Comments Patient Comments R hip doing well, L hip still bothersome, was painful after last visit for about a week, so didn't do exercises that week. Has gotten back to do t band exercises with level 3 now. PT-OP-F Manual Assessment Start: 01/15/22 17:48 Freq: Status: Active Protocol: Document 01/15/22 11:15 DCW (Rec: 01/15/22 18:09 DCW [id number]) Manual Assessments Soft Tissue Assessment Soft Tissue Mobility Assessment Point-specific pain bilaterally at GT bursa, tenderness and tightness along bilateral ITB Joint Mobility Assessment Joint Mobility Assessment Significant difficulty with hip flexion, pain/grinding bilateral hips PT-OP-L Special Tests Start: 01/15/22 18:09 Freq: Status: Active Protocol: Document 01/15/22 11:15 DCW (Rec: 01/15/22 18:12 DCW [id number]) Special Tests Knee Special Tests Leticia's Test Test Results Positive bilaterally PT-OP-M Strength Start: 01/15/22 17:48 Freq: Status: Active Protocol: Document 01/15/22 11:15 DCW (Rec: 01/15/22 18:09 DCW [id number]) Hip Strength Hip Manual Muscle Testing Right Flexion (L2) 3 Fair Abduction 4+ Good+ Adduction 5 Normal External Rotation 5 Normal Internal Rotation 5 Normal Left Flexion (L2) 3 Fair Abduction 4+ Good+ Adduction 5 Normal External Rotation 5 Normal Internal Rotation 5 Normal Knee Strength Knee Manual Muscle Testing Right Flexion (S2) 5 Normal Extension (L3) 5 Normal Left Flexion (S2) 5 Normal Extension (L3) 5 Normal Ankle/Foot Strength Ankle and Foot Manual Muscle Testing Right Dorsiflexion (L4) 5 Normal Plantarflexion (S1) 5 Normal Left Dorsiflexion (L4) 5 Normal Plantarflexion (S1) 5 Normal PT-OP-Q Treatments Start: 01/15/22 17:48 Freq: Status: Active Protocol: Document 03/03/22 14:30 AMB (Rec: 03/03/22 15:45 AMB [id number]) Therapeutic Exercises Supine Exercises ITB Stretch Supine Exercise Name ITB stretch Side left Hamstring Stretch Supine Exercise Name HS stretch Side left Sidelying Exercises clamshell Resistance AROM Comments therapist assist to avoid rolling backwards Other Exercises Resisted Ambulation Other Exercise Name Resisted side-stepping, fwd/ bkwd Side bilateral Resistance Blue Equipment Used // bars Reps/Minutes 3 laps each direction Manual Therapy Treatment Soft Tissue Mobilization ITB Body Location B ITB Mobilization Type Sustained Pressure,Trigger Point Release Intensity/Depth Moderate Body Position Supine Comments Rolling with Rolling pin L PT-OP-R Modalities Start: 01/15/22 17:48 Freq: Status: Active Protocol: Document 03/03/22 14:30 AMB (Rec: 03/03/22 15:45 AMB [id number]) Iontophoresis Treatment GT Bursa Treatment Medication Dexamethasone (-) Medication Amount (mL) (ml) 1 Medication Dosage 4 mg/mL Treatment Polarity Negative to Negative Active Electrode Placement L GT Bursa Treatment Duration (minutes) 4 PT-OP-T Assessment and Plan Start: 01/15/22 17:48 Freq: Status: Active Protocol: Document 03/03/22 14:30 AMB (Rec: 03/03/22 15:45 AMB [id number]) Physical Therapy Assessment Goals Three Impairment Pt struggles to lift leg up into car or over side of tub Retirement Goal (LTG) Pt to increase hip flexion strength MMT bilaterally to at least 4/5 in order to improve ability to enter/exit car Two Impairment Pt ambulates with a wide base of support to relieve hip pain Gasoline Engine Inspector Goal (LTG) Pt to return base of support during gait to WNL in order to decrease strain on his hip and back without increased lateral hip pain. LTG Duration 03/17/22 One Impairment Pt does not have an appropriate home exercise program Short Term Goal (STG) Pt to be independent and compliant with an appropriate HEP STG Duration 02/15/22 Assessment Summary Assessment Encouraged pt in consistent exercise, rather than doing too much and then being sore afterwards. Pt feels that gait is improving, as R hip is better able to take the weight, but still has difficulty lifting the L leg. Physical Therapy Plan Next Visit Focus/Plan Next Note Type Treatment Note Next Visit Plan Stretching, hip strengthening, gait training
--- NOTE | 2022-03-06 16:00 | PT.OTN ---
Current Diagnoses Pain in right hip (03/06/22) Pain in left hip (03/06/22) Stiffness of right hip, not elsewhere classified (03/06/22) Stiffness of left hip, not elsewhere classified (03/06/22) Trochanteric bursitis, right hip (03/06/22) Trochanteric bursitis, left hip (03/06/22) Iliotibial band syndrome, left leg (03/06/22) Physical Therapy Treatment Note PT-OP-A Visit Information Start: 01/15/22 17:48 Freq: Status: Active Protocol: Document 03/06/22 15:15 DCW (Rec: 03/06/22 16:00 DCW [id number]) Out-Patient Physical Therapy Visit Information Visit Information Visit Type Treatment Note Visit Start Time 15:15 Visit Stop Time 16:00 Total Visit Minutes 45 Visit Number 11 Number of DRIVER LICENSE TECHNICIAN Visits 0 Evaluation Information Evaluation Date 01/15/22 PT-OP-B Current Condition Start: 01/15/22 17:48 Freq: Status: Active Protocol: Document 01/15/22 11:15 DCW (Rec: 01/15/22 17:59 DCW [id number]) Current Condition History of Current Condition Onset Date 6 months Current Complaints Pain and stiffness bilateral hips, increased with standing/ walking History of Current Condition Pt is a 61 year old male presenting with a six month history of bilateral hip pain, left more than right. Notes fairly point-specific pain on lateral hips, as well as occasional tightness down lateral thighs. Pt admits that he has had pain off and on for the past few years, but starting in June, started getting worse with no relief. Pt notes that he has been needing to walk with a wider base of support, because with a narrow JOSEY, it puts increased pressure on his hips . Also notes that he has been having increased weakness in his hips, especially lifting his legs when getting into a car or over the side of his tub. Also notes significant neuropathy in bilateral feet, although he admits that it doesn't cause any pain, he just can't feel anything. Treatment Goals Patient/Caregiver Goals I want to walk without pain. Personal Factors Other Personal Factors That May Effect High BMI, Neuropathy, HTN Therapy/Recovery PT-OP-C Subjective Start: 01/15/22 17:48 Freq: Status: Active Protocol: Document 03/06/22 15:15 DCW (Rec: 03/06/22 16:00 DCW [id number]) OP-PT Subjective Patient Comments Patient Comments I think it's the walking side -ways ones that really get to me, but I'm feeling pretty good today. The right side is pretty much normal. PT-OP-F Manual Assessment Start: 01/15/22 17:48 Freq: Status: Active Protocol: Document 01/15/22 11:15 DCW (Rec: 01/15/22 18:09 DCW [id number]) Manual Assessments Soft Tissue Assessment Soft Tissue Mobility Assessment Point-specific pain bilaterally at GT bursa, tenderness and tightness along bilateral ITB Joint Mobility Assessment Joint Mobility Assessment Significant difficulty with hip flexion, pain/grinding bilateral hips PT-OP-L Special Tests Start: 01/15/22 18:09 Freq: Status: Active Protocol: Document 01/15/22 11:15 DCW (Rec: 01/15/22 18:12 DCW [id number]) Special Tests Knee Special Tests Leticia's Test Test Results Positive bilaterally PT-OP-M Strength Start: 01/15/22 17:48 Freq: Status: Active Protocol: Document 01/15/22 11:15 DCW (Rec: 01/15/22 18:09 DCW [id number]) Hip Strength Hip Manual Muscle Testing Right Flexion (L2) 3 Fair Abduction 4+ Good+ Adduction 5 Normal External Rotation 5 Normal Internal Rotation 5 Normal Left Flexion (L2) 3 Fair Abduction 4+ Good+ Adduction 5 Normal External Rotation 5 Normal Internal Rotation 5 Normal Knee Strength Knee Manual Muscle Testing Right Flexion (S2) 5 Normal Extension (L3) 5 Normal Left Flexion (S2) 5 Normal Extension (L3) 5 Normal Ankle/Foot Strength Ankle and Foot Manual Muscle Testing Right Dorsiflexion (L4) 5 Normal Plantarflexion (S1) 5 Normal Left Dorsiflexion (L4) 5 Normal Plantarflexion (S1) 5 Normal PT-OP-Q Treatments Start: 01/15/22 17:48 Freq: Status: Active Protocol: Document 03/06/22 15:15 DCW (Rec: 03/06/22 16:00 DCW [id number]) Therapeutic Exercises Standing Exercises Foam Stance Standing Exercise Name NBOS on blue foam Marching Standing Exercise Name Marching Side bilateral Resistance 10# Tandem stance Standing Exercise Name Tandem stance Equipment Used // bars Hamstring Curl Standing Exercise Name HS curls Side bilateral Resistance 10# Manual Therapy Treatment Soft Tissue Mobilization Abductors Body Location L Hip Abductors Mobilization Type Sustained Pressure,Trigger Point Release Intensity/Depth Moderate Body Position Supine ITB Body Location L ITB Mobilization Type Sustained Pressure,Trigger Point Release Intensity/Depth Moderate Body Position Supine PT-OP-R Modalities Start: 01/15/22 17:48 Freq: Status: Active Protocol: Document 03/06/22 15:15 DCW (Rec: 03/06/22 16:00 [facility] [id number]) Iontophoresis Treatment GT Bursa Treatment Medication Dexamethasone (-) Medication Amount (mL) (ml) 1 Medication Dosage 4 mg/mL Treatment Polarity Negative to Negative Active Electrode Placement L GT Bursa Treatment Duration (minutes) 4 PT-OP-T Assessment and Plan Start: 01/15/22 17:48 Freq: Status: Active Protocol: Document 03/06/22 15:15 DCW (Rec: 03/06/22 16:00 [facility] [id number]) Physical Therapy Assessment Impairments Impairments Activity Tolerance,Functional Activities,Functional Mobility ,Gait,Pain,Soft Tissue Mobility,Strength Goals Three Impairment Pt struggles to lift leg up into car or over side of tub Housekeeping Lead Goal (LTG) Pt to increase hip flexion strength MMT bilaterally to at least 4/5 in order to improve ability to enter/exit car LTG Duration 03/17/22 Two Impairment Pt ambulates with a wide base of support to relieve hip pain Housekeeping Lead Goal (LTG) Pt to return base of support during gait to WNL in order to decrease strain on his hip and back without increased lateral hip pain. LTG Duration 03/17/22 One Impairment Pt does not have an appropriate home exercise program Short Term Goal (STG) Pt to be independent and compliant with an appropriate HEP STG Duration 02/15/22 Assessment Summary Assessment Pt still struggling mostly with left hip, but overall feeling like he is still improving. Patient and therapist discussed possibility of changing to 1x/ week, but would like to keep 2x/week for now. Physical Therapy Plan Frequency and Duration Frequency of Treatment 2x/Week Plan of Care Start Date 01/15/22 Plan of Care End Date 03/17/22 Therapeutic Interventions Therapeutic Interventions Aquatic Therapy,Gait Training, Home Exercise Program,Joint Mobilizations,Manual Therapy, Neuromuscular Re-education, Patient/Caregiver Education, Self-Care/Home Management,Soft Tissue Mobilization, Therapeutic Activities, Therapeutic Exercises Modalities Cold Pack/Ice Massage,Electric Stimulation,Hot Packs, Iontophoresis,Ultrasound Other Therapeutic Interventions Iontophoresis with Dexamethasone 4 mg/mL Next Visit Focus/Plan Next Note Type Treatment Note Next Visit Plan Stretching, hip strengthening, gait training
--- NOTE | 2022-03-19 17:18 | PT.OTN ---
Current Diagnoses Pain in right hip (03/19/22) Pain in left hip (03/19/22) Stiffness of right hip, not elsewhere classified (03/19/22) Stiffness of left hip, not elsewhere classified (03/19/22) Trochanteric bursitis, right hip (03/19/22) Trochanteric bursitis, left hip (03/19/22) Iliotibial band syndrome, left leg (03/19/22) Physical Therapy Treatment Note PT-OP-A Visit Information Start: 01/15/22 17:48 Freq: Status: Active Protocol: Document 03/19/22 14:01 AW (Rec: 03/19/22 17:18 AW [id number]) Out-Patient Physical Therapy Visit Information Visit Information Visit Type Progress Note Visit Start Time 15:15 Visit Stop Time 16:00 Total Visit Minutes 45 Visit Number 12 Number of ACCORDION REPAIRER Visits 0 Evaluation Information Evaluation Date 01/15/22 PT-OP-B Current Condition Start: 01/15/22 17:48 Freq: Status: Active Protocol: Document 01/15/22 11:15 DCW (Rec: 01/15/22 17:59 DCW [id number]) Current Condition History of Current Condition Onset Date 6 months Current Complaints Pain and stiffness bilateral hips, increased with standing/ walking History of Current Condition Pt is a 61 year old male presenting with a six month history of bilateral hip pain, left more than right. Notes fairly point-specific pain on lateral hips, as well as occasional tightness down lateral thighs. Pt admits that he has had pain off and on for the past few years, but starting in June, started getting worse with no relief. Pt notes that he has been needing to walk with a wider base of support, because with a narrow JOSEY, it puts increased pressure on his hips . Also notes that he has been having increased weakness in his hips, especially lifting his legs when getting into a car or over the side of his tub. Also notes significant neuropathy in bilateral feet, although he admits that it doesn't cause any pain, he just can't feel anything. Treatment Goals Patient/Caregiver Goals I want to walk without pain. Personal Factors Other Personal Factors That May Effect High BMI, Neuropathy, HTN Therapy/Recovery PT-OP-C Subjective Start: 01/15/22 17:48 Freq: Status: Active Protocol: Document 03/06/22 15:15 DCW (Rec: 03/06/22 16:00 DCW [id number]) OP-PT Subjective Patient Comments Patient Comments I think it's the walking side -ways ones that really get to me, but I'm feeling pretty good today. The right side is pretty much normal. PT-OP-F Manual Assessment Start: 01/15/22 17:48 Freq: Status: Active Protocol: Document 01/15/22 11:15 DCW (Rec: 01/15/22 18:09 DCW [id number]) Manual Assessments Soft Tissue Assessment Soft Tissue Mobility Assessment Point-specific pain bilaterally at GT bursa, tenderness and tightness along bilateral ITB Joint Mobility Assessment Joint Mobility Assessment Significant difficulty with hip flexion, pain/grinding bilateral hips PT-OP-L Special Tests Start: 01/15/22 18:09 Freq: Status: Active Protocol: Document 01/15/22 11:15 DCW (Rec: 01/15/22 18:12 DCW [id number]) Special Tests Knee Special Tests Leticia's Test Test Results Positive bilaterally PT-OP-M Strength Start: 01/15/22 17:48 Freq: Status: Active Protocol: Document 01/15/22 11:15 DCW (Rec: 01/15/22 18:09 DCW [id number]) Hip Strength Hip Manual Muscle Testing Right Flexion (L2) 3 Fair Abduction 4+ Good+ Adduction 5 Normal External Rotation 5 Normal Internal Rotation 5 Normal Left Flexion (L2) 3 Fair Abduction 4+ Good+ Adduction 5 Normal External Rotation 5 Normal Internal Rotation 5 Normal Knee Strength Knee Manual Muscle Testing Right Flexion (S2) 5 Normal Extension (L3) 5 Normal Left Flexion (S2) 5 Normal Extension (L3) 5 Normal Ankle/Foot Strength Ankle and Foot Manual Muscle Testing Right Dorsiflexion (L4) 5 Normal Plantarflexion (S1) 5 Normal Left Dorsiflexion (L4) 5 Normal Plantarflexion (S1) 5 Normal PT-OP-Q Treatments Start: 01/15/22 17:48 Freq: Status: Active Protocol: Document 03/19/22 14:01 AW (Rec: 03/19/22 17:18 AW [id number]) Therapeutic Exercises Sitting Exercises HS stretch Sitting Exercise Name HS stretch Side bilateral Reps/Minutes 30 SH x 4 Comments option for HEP Hip ER Sitting Exercise Name Seated clamshells Side bilateral Resistance Lv 4 Standing Exercises Marching Standing Exercise Name Marching Side bilateral Resistance 10# Tandem stance Standing Exercise Name Tandem stance Equipment Used // bars Hamstring Curl Standing Exercise Name HS curls Side bilateral Resistance 10# Hip Extension Standing Exercise Name Hip Extension Side bilateral Resistance TB4 below knees Hip Abduction Standing Exercise Name Hip Abduction Side bilateral Resistance TB4 below knees Other Exercises Resisted Ambulation Other Exercise Name Resisted side-stepping, fwd/ bkwd Side bilateral Resistance Blue Equipment Used // bars Reps/Minutes 3 laps each direction Manual Therapy Treatment Soft Tissue Mobilization Abductors Body Location L Hip Abductors Mobilization Type Sustained Pressure,Trigger Point Release Intensity/Depth Moderate Body Position Sidelying Comments Pt tolerates R sidelying today ITB Body Location L ITB Mobilization Type Sustained Pressure,Trigger Point Release Intensity/Depth Moderate Body Position Supine PT-OP-R Modalities Start: 01/15/22 17:48 Freq: Status: Active Protocol: Document 03/06/22 15:15 DCW (Rec: 03/06/22 16:00 DCW [id number]) Iontophoresis Treatment GT Bursa Treatment Medication Dexamethasone (-) Medication Amount (mL) (ml) 1 Medication Dosage 4 mg/mL Treatment Polarity Negative to Negative Active Electrode Placement L GT Bursa Treatment Duration (minutes) 4 PT-OP-T Assessment and Plan Start: 01/15/22 17:48 Freq: Status: Active Protocol: Document 03/19/22 14:01 AW (Rec: 03/19/22 17:18 AW [id number]) Physical Therapy Assessment Impairments Impairments Activity Tolerance,Functional Activities,Functional Mobility ,Gait,Pain,Soft Tissue Mobility,Strength Goals Three Impairment Pt struggles to lift leg up into car or over side of tub Certified Flight Instructor Goal (LTG) Pt to increase hip flexion strength MMT bilaterally to at least 4/5 in order to improve ability to enter/exit car 03/19/22 - Pt able to lift RLE to enter car but struggles with LLE due to weak and painful hip flexion LTG Duration 05/19/22 Two Impairment Pt ambulates with a wide base of support to relieve hip pain Nursing Home Goal (LTG) Pt to return base of support during gait to WNL in order to decrease strain on his hip and back without increased lateral hip pain. 03/19/22 - Improving JOSEY ( narrower) but pt continues to lean toward stance leg in gait . LTG Duration 05/19/22 One Impairment Pt does not have an appropriate home exercise program Short Term Goal (STG) Pt to be independent and compliant with an appropriate HEP STG Duration 02/15/22 Progress Towards Goals Progress Towards Goals Progressing Toward Goals Progress Comments Tobi has been able to narrow his base of support in gait but continues to lean toward stance leg in gait. Right hip flexion has improved significantly but left continues to lag. Feel pt would benefit from continued PT to improve strength and gait. Assessment Summary Assessment Pt notes improved ease with lifting right leg into the car but continues to struggle with left hip. Pt feels he is benefitting from more regular exercise. Physical Therapy Plan Frequency and Duration Frequency of Treatment 2x/Week Plan of Care Start Date 03/19/22 Plan of Care End Date 05/19/22 Therapeutic Interventions Therapeutic Interventions Aquatic Therapy,Gait Training, Home Exercise Program,Joint Mobilizations,Manual Therapy, Neuromuscular Re-education, Patient/Caregiver Education, Self-Care/Home Management,Soft Tissue Mobilization, Therapeutic Activities, Therapeutic Exercises Modalities Cold Pack/Ice Massage,Electric Stimulation,Hot Packs, Iontophoresis,Ultrasound Other Therapeutic Interventions Iontophoresis with Dexamethasone 4 mg/mL Next Visit Focus/Plan Next Note Type Treatment Note Next Visit Plan Stretching, hip strengthening, gait training
--- NOTE | 2022-03-19 17:19 | PT.OPPOC ---
Physical, Occupational & Speech Therapy At [facility] Current Diagnoses Pain in right hip (03/19/22) Pain in left hip (03/19/22) Stiffness of right hip, not elsewhere classified (03/19/22) Stiffness of left hip, not elsewhere classified (03/19/22) Trochanteric bursitis, right hip (03/19/22) Trochanteric bursitis, left hip (03/19/22) Iliotibial band syndrome, left leg (03/19/22) Visit Care Team Role Provider Type Seamus Salguero DO Attending Provider Physician Primary Care Provider Referring Provider Specialty: [facility] Address: [address] [place] [address], [facility] Email: [email or web address] Plan Of Care PT-OP-T Assessment and Plan Start: 01/15/22 17:48 Freq: Status: Active Protocol: Document 03/19/22 14:01 AW (Rec: 03/19/22 17:18 AW [id number]) Physical Therapy Assessment Impairments Impairments Activity Tolerance,Functional Activities,Functional Mobility ,Gait,Pain,Soft Tissue Mobility,Strength Goals Three Impairment Pt struggles to lift leg up into car or over side of tub Halfway Goal (LTG) Pt to increase hip flexion strength MMT bilaterally to at least 4/5 in order to improve ability to enter/exit car 03/19/22 - Pt able to lift RLE to enter car but struggles with LLE due to weak and painful hip flexion LTG Duration 05/19/22 Two Impairment Pt ambulates with a wide base of support to relieve hip pain Continuous Process Machine Operator Goal (LTG) Pt to return base of support during gait to WNL in order to decrease strain on his hip and back without increased lateral hip pain. 03/19/22 - Improving JOSEY ( narrower) but pt continues to lean toward stance leg in gait . LTG Duration 05/19/22 One Impairment Pt does not have an appropriate home exercise program Short Term Goal (STG) Pt to be independent and compliant with an appropriate HEP STG Duration 02/15/22 Progress Towards Goals Progress Towards Goals Progressing Toward Goals Progress Comments Tobi has been able to narrow his base of support in gait but continues to lean toward stance leg in gait. Right hip flexion has improved significantly but left continues to lag. Feel pt would benefit from continued PT to improve strength and gait. Assessment Summary Assessment Pt notes improved ease with lifting right leg into the car but continues to struggle with left hip. Pt feels he is benefitting from more regular exercise. Physical Therapy Plan Frequency and Duration Frequency of Treatment 2x/Week Plan of Care Start Date 03/19/22 Plan of Care End Date 05/19/22 Therapeutic Interventions Therapeutic Interventions Aquatic Therapy,Gait Training, Home Exercise Program,Joint Mobilizations,Manual Therapy, Neuromuscular Re-education, Patient/Caregiver Education, Self-Care/Home Management,Soft Tissue Mobilization, Therapeutic Activities, Therapeutic Exercises Modalities Cold Pack/Ice Massage,Electric Stimulation,Hot Packs, Iontophoresis,Ultrasound Other Therapeutic Interventions Iontophoresis with Dexamethasone 4 mg/mL Next Visit Focus/Plan Next Note Type Treatment Note Next Visit Plan Stretching, hip strengthening, gait training Plan of Care Dates Plan of Care Start Date 03/19/22 Plan of Care End Date 05/19/22 Electronically Signed by: Ladan Mary, PT 03/19/22 2568 If you are in agreement with this Plan of Care, please return a signed and dated copy. I have reviewed this Plan of Care and certify that the skilled therapy services above are required to meet the patient?s needs. Physician Signature Date Printed Name and Credentials Clinical Instructor Signature Printed Name and Credentials
--- NOTE | 2022-03-25 12:42 | PT.OTN ---
Current Diagnoses Pain in right hip (03/25/22) Pain in left hip (03/25/22) Stiffness of right hip, not elsewhere classified (03/25/22) Stiffness of left hip, not elsewhere classified (03/25/22) Trochanteric bursitis, right hip (03/25/22) Trochanteric bursitis, left hip (03/25/22) Iliotibial band syndrome, left leg (03/25/22) Physical Therapy Treatment Note PT-OP-A Visit Information Start: 01/15/22 17:48 Freq: Status: Active Protocol: Document 03/25/22 12:00 DCW (Rec: 03/25/22 12:41 DCW [id number]) Out-Patient Physical Therapy Visit Information Visit Information Visit Type Treatment Note Visit Start Time 12:00 Visit Stop Time 12:45 Total Visit Minutes 45 Visit Number 13 Number of POST DOCTORAL FELLOW Visits 0 Evaluation Information Evaluation Date 01/15/22 PT-OP-B Current Condition Start: 01/15/22 17:48 Freq: Status: Active Protocol: Document 01/15/22 11:15 DCW (Rec: 01/15/22 17:59 DCW [id number]) Current Condition History of Current Condition Onset Date 6 months Current Complaints Pain and stiffness bilateral hips, increased with standing/ walking History of Current Condition Pt is a 61 year old male presenting with a six month history of bilateral hip pain, left more than right. Notes fairly point-specific pain on lateral hips, as well as occasional tightness down lateral thighs. Pt admits that he has had pain off and on for the past few years, but starting in June, started getting worse with no relief. Pt notes that he has been needing to walk with a wider base of support, because with a narrow JOSEY, it puts increased pressure on his hips . Also notes that he has been having increased weakness in his hips, especially lifting his legs when getting into a car or over the side of his tub. Also notes significant neuropathy in bilateral feet, although he admits that it doesn't cause any pain, he just can't feel anything. Treatment Goals Patient/Caregiver Goals I want to walk without pain. Personal Factors Other Personal Factors That May Effect High BMI, Neuropathy, HTN Therapy/Recovery PT-OP-C Subjective Start: 01/15/22 17:48 Freq: Status: Active Protocol: Document 03/25/22 12:00 DCW (Rec: 03/25/22 12:41 DCW [id number]) OP-PT Subjective Patient Comments Patient Comments Right hip still feeling pretty good, left still feeling problematic. PT-OP-F Manual Assessment Start: 01/15/22 17:48 Freq: Status: Active Protocol: Document 01/15/22 11:15 DCW (Rec: 01/15/22 18:09 DCW [id number]) Manual Assessments Soft Tissue Assessment Soft Tissue Mobility Assessment Point-specific pain bilaterally at GT bursa, tenderness and tightness along bilateral ITB Joint Mobility Assessment Joint Mobility Assessment Significant difficulty with hip flexion, pain/grinding bilateral hips PT-OP-L Special Tests Start: 01/15/22 18:09 Freq: Status: Active Protocol: Document 01/15/22 11:15 DCW (Rec: 01/15/22 18:12 DCW [id number]) Special Tests Knee Special Tests Leticia's Test Test Results Positive bilaterally PT-OP-M Strength Start: 01/15/22 17:48 Freq: Status: Active Protocol: Document 01/15/22 11:15 DCW (Rec: 01/15/22 18:09 DCW [id number]) Hip Strength Hip Manual Muscle Testing Right Flexion (L2) 3 Fair Abduction 4+ Good+ Adduction 5 Normal External Rotation 5 Normal Internal Rotation 5 Normal Left Flexion (L2) 3 Fair Abduction 4+ Good+ Adduction 5 Normal External Rotation 5 Normal Internal Rotation 5 Normal Knee Strength Knee Manual Muscle Testing Right Flexion (S2) 5 Normal Extension (L3) 5 Normal Left Flexion (S2) 5 Normal Extension (L3) 5 Normal Ankle/Foot Strength Ankle and Foot Manual Muscle Testing Right Dorsiflexion (L4) 5 Normal Plantarflexion (S1) 5 Normal Left Dorsiflexion (L4) 5 Normal Plantarflexion (S1) 5 Normal PT-OP-Q Treatments Start: 01/15/22 17:48 Freq: Status: Active Protocol: Document 03/25/22 12:00 DCW (Rec: 03/25/22 12:41 DCW [id number]) Therapeutic Exercises Standing Exercises Marching Standing Exercise Name Marching Side bilateral Resistance 10# Tandem stance Standing Exercise Name Tandem stance Equipment Used // bars Hamstring Curl Standing Exercise Name HS curls Side bilateral Resistance 10# Other Exercises Step-ups Other Exercise Name Step-ups Side left Manual Therapy Treatment Soft Tissue Mobilization Abductors Body Location L Hip Abductors Mobilization Type Sustained Pressure,Trigger Point Release Intensity/Depth Moderate Body Position Sidelying Comments Pt tolerates R sidelying today ITB Body Location L ITB Mobilization Type Sustained Pressure,Trigger Point Release Intensity/Depth Moderate Body Position Supine PT-OP-R Modalities Start: 01/15/22 17:48 Freq: Status: Active Protocol: Document 03/25/22 12:00 DCW (Rec: 03/25/22 12:41 DCW [id number]) Iontophoresis Treatment GT Bursa Treatment Medication Dexamethasone (-) Medication Amount (mL) (ml) 1 Medication Dosage 4 mg/mL Treatment Polarity Negative to Negative Active Electrode Placement L GT Bursa Treatment Duration (minutes) 4 PT-OP-T Assessment and Plan Start: 01/15/22 17:48 Freq: Status: Active Protocol: Document 03/25/22 12:00 DCW (Rec: 03/25/22 12:41 DCW [id number]) Physical Therapy Assessment Impairments Impairments Activity Tolerance,Functional Activities,Functional Mobility ,Gait,Pain,Soft Tissue Mobility,Strength Goals Three Impairment Pt struggles to lift leg up into car or over side of tub Baseball Pitcher Goal (LTG) Pt to increase hip flexion strength MMT bilaterally to at least 4/5 in order to improve ability to enter/exit car 03/19/22 - Pt able to lift RLE to enter car but struggles with LLE due to weak and painful hip flexion LTG Duration 05/19/22 Two Impairment Pt ambulates with a wide base of support to relieve hip pain Baseball Pitcher Goal (LTG) Pt to return base of support during gait to WNL in order to decrease strain on his hip and back without increased lateral hip pain. 03/19/22 - Improving JOSEY ( narrower) but pt continues to lean toward stance leg in gait . LTG Duration 05/19/22 One Impairment Pt does not have an appropriate home exercise program Short Term Goal (STG) Pt to be independent and compliant with an appropriate HEP STG Duration 02/15/22 Assessment Summary Assessment Pt still struggling a bit with left-sided pain, considering returning to PCP for cortisone injection. Pt feels like he may have hit a plateau with his left hip, although his right hip is substantially improved. Physical Therapy Plan Frequency and Duration Frequency of Treatment 2x/Week Plan of Care Start Date 03/19/22 Plan of Care End Date 05/19/22 Therapeutic Interventions Therapeutic Interventions Aquatic Therapy,Gait Training, Home Exercise Program,Joint Mobilizations,Manual Therapy, Neuromuscular Re-education, Patient/Caregiver Education, Self-Care/Home Management,Soft Tissue Mobilization, Therapeutic Activities, Therapeutic Exercises Modalities Cold Pack/Ice Massage,Electric Stimulation,Hot Packs, Iontophoresis,Ultrasound Other Therapeutic Interventions Iontophoresis with Dexamethasone 4 mg/mL Next Visit Focus/Plan Next Note Type Treatment Note Next Visit Plan Stretching, hip strengthening, gait training
--- NOTE | 2022-04-02 14:28 | PT.OTN ---
Current Diagnoses Pain in right hip (04/02/22) Pain in left hip (04/02/22) Stiffness of right hip, not elsewhere classified (04/02/22) Stiffness of left hip, not elsewhere classified (04/02/22) Trochanteric bursitis, right hip (04/02/22) Trochanteric bursitis, left hip (04/02/22) Iliotibial band syndrome, left leg (04/02/22) Physical Therapy Treatment Note PT-OP-A Visit Information Start: 01/15/22 17:48 Freq: Status: Active Protocol: Document 04/02/22 13:45 DCW (Rec: 04/02/22 14:28 DCW [id number]) Out-Patient Physical Therapy Visit Information Visit Information Visit Type Treatment Note Visit Start Time 13:45 Visit Stop Time 14:30 Total Visit Minutes 45 Visit Number 14 Number of FELT HAT POUNCING OPERATOR HAND Visits 0 Evaluation Information Evaluation Date 01/15/22 PT-OP-B Current Condition Start: 01/15/22 17:48 Freq: Status: Active Protocol: Document 01/15/22 11:15 DCW (Rec: 01/15/22 17:59 DCW [id number]) Current Condition History of Current Condition Onset Date 6 months Current Complaints Pain and stiffness bilateral hips, increased with standing/ walking History of Current Condition Pt is a 61 year old male presenting with a six month history of bilateral hip pain, left more than right. Notes fairly point-specific pain on lateral hips, as well as occasional tightness down lateral thighs. Pt admits that he has had pain off and on for the past few years, but starting in June, started getting worse with no relief. Pt notes that he has been needing to walk with a wider base of support, because with a narrow JOSEY, it puts increased pressure on his hips . Also notes that he has been having increased weakness in his hips, especially lifting his legs when getting into a car or over the side of his tub. Also notes significant neuropathy in bilateral feet, although he admits that it doesn't cause any pain, he just can't feel anything. Treatment Goals Patient/Caregiver Goals I want to walk without pain. Personal Factors Other Personal Factors That May Effect High BMI, Neuropathy, HTN Therapy/Recovery PT-OP-C Subjective Start: 01/15/22 17:48 Freq: Status: Active Protocol: Document 04/02/22 13:45 DCW (Rec: 04/02/22 14:28 DCW [id number]) OP-PT Subjective Patient Comments Patient Comments Pt in a lot of pain, doesn't feel that his left side has improved at all, also notes that he had a colonoscopy Wednesday, and had to lay on his left side the entire time. PT-OP-F Manual Assessment Start: 01/15/22 17:48 Freq: Status: Active Protocol: Document 01/15/22 11:15 DCW (Rec: 01/15/22 18:09 DCW [id number]) Manual Assessments Soft Tissue Assessment Soft Tissue Mobility Assessment Point-specific pain bilaterally at GT bursa, tenderness and tightness along bilateral ITB Joint Mobility Assessment Joint Mobility Assessment Significant difficulty with hip flexion, pain/grinding bilateral hips PT-OP-L Special Tests Start: 01/15/22 18:09 Freq: Status: Active Protocol: Document 01/15/22 11:15 DCW (Rec: 01/15/22 18:12 DCW [id number]) Special Tests Knee Special Tests Leticia's Test Test Results Positive bilaterally PT-OP-M Strength Start: 01/15/22 17:48 Freq: Status: Active Protocol: Document 01/15/22 11:15 DCW (Rec: 01/15/22 18:09 DCW [id number]) Hip Strength Hip Manual Muscle Testing Right Flexion (L2) 3 Fair Abduction 4+ Good+ Adduction 5 Normal External Rotation 5 Normal Internal Rotation 5 Normal Left Flexion (L2) 3 Fair Abduction 4+ Good+ Adduction 5 Normal External Rotation 5 Normal Internal Rotation 5 Normal Knee Strength Knee Manual Muscle Testing Right Flexion (S2) 5 Normal Extension (L3) 5 Normal Left Flexion (S2) 5 Normal Extension (L3) 5 Normal Ankle/Foot Strength Ankle and Foot Manual Muscle Testing Right Dorsiflexion (L4) 5 Normal Plantarflexion (S1) 5 Normal Left Dorsiflexion (L4) 5 Normal Plantarflexion (S1) 5 Normal PT-OP-Q Treatments Start: 01/15/22 17:48 Freq: Status: Active Protocol: Document 04/02/22 13:45 DCW (Rec: 04/02/22 14:28 DCW [id number]) Therapeutic Exercises Supine Exercises ITB Stretch Supine Exercise Name ITB stretch Side left Hamstring Stretch Supine Exercise Name HS stretch Side left Standing Exercises Marching Standing Exercise Name Marching Side bilateral Resistance 10# Tandem stance Standing Exercise Name Tandem stance Equipment Used // bars Hamstring Curl Standing Exercise Name HS curls Side bilateral Resistance 10# Hip Extension Standing Exercise Name Hip Extension Side bilateral Resistance 10# Hip Abduction Standing Exercise Name Hip Abduction Side bilateral Resistance 10# Manual Therapy Treatment Soft Tissue Mobilization Abductors Body Location L Hip Abductors Mobilization Type Sustained Pressure,Trigger Point Release Intensity/Depth Moderate Body Position Sidelying Comments Pt tolerates R sidelying today ITB Body Location L ITB Mobilization Type Sustained Pressure,Trigger Point Release Intensity/Depth Moderate Body Position Supine PT-OP-R Modalities Start: 01/15/22 17:48 Freq: Status: Active Protocol: Document 03/25/22 12:00 DCW (Rec: 03/25/22 12:41 DCW [id number]) Iontophoresis Treatment GT Bursa Treatment Medication Dexamethasone (-) Medication Amount (mL) (ml) 1 Medication Dosage 4 mg/mL Treatment Polarity Negative to Negative Active Electrode Placement L GT Bursa Treatment Duration (minutes) 4 PT-OP-T Assessment and Plan Start: 01/15/22 17:48 Freq: Status: Active Protocol: Document 04/02/22 13:45 DCW (Rec: 04/02/22 14:28 DCW [id number]) Physical Therapy Assessment Impairments Impairments Activity Tolerance,Functional Activities,Functional Mobility ,Gait,Pain,Soft Tissue Mobility,Strength Goals Three Impairment Pt struggles to lift leg up into car or over side of tub Custodial Goal (LTG) Pt to increase hip flexion strength MMT bilaterally to at least 4/5 in order to improve ability to enter/exit car 03/19/22 - Pt able to lift RLE to enter car but struggles with LLE due to weak and painful hip flexion LTG Duration 05/19/22 Two Impairment Pt ambulates with a wide base of support to relieve hip pain Sealer Aircraft Goal (LTG) Pt to return base of support during gait to WNL in order to decrease strain on his hip and back without increased lateral hip pain. 03/19/22 - Improving JOSEY ( narrower) but pt continues to lean toward stance leg in gait . LTG Duration 05/19/22 One Impairment Pt does not have an appropriate home exercise program Short Term Goal (STG) Pt to be independent and compliant with an appropriate HEP STG Duration 02/15/22 Assessment Summary Assessment Pt reports he will contact his PCP to inquire if there are other options at this point. Would like to continue PT a little longer to see if he can get over recent plateau, but may be approaching discharge. Physical Therapy Plan Frequency and Duration Frequency of Treatment 2x/Week Plan of Care Start Date 03/19/22 Plan of Care End Date 05/19/22 Therapeutic Interventions Therapeutic Interventions Aquatic Therapy,Gait Training, Home Exercise Program,Joint Mobilizations,Manual Therapy, Neuromuscular Re-education, Patient/Caregiver Education, Self-Care/Home Management,Soft Tissue Mobilization, Therapeutic Activities, Therapeutic Exercises Modalities Cold Pack/Ice Massage,Electric Stimulation,Hot Packs, Iontophoresis,Ultrasound Other Therapeutic Interventions Iontophoresis with Dexamethasone 4 mg/mL Next Visit Focus/Plan Next Note Type Treatment Note Next Visit Plan Stretching, hip strengthening, gait training
--- NOTE | 2022-04-06 15:12 | PT.OTN ---
Current Diagnoses Pain in right hip (04/06/22) Pain in left hip (04/06/22) Stiffness of right hip, not elsewhere classified (04/06/22) Stiffness of left hip, not elsewhere classified (04/06/22) Trochanteric bursitis, right hip (04/06/22) Trochanteric bursitis, left hip (04/06/22) Iliotibial band syndrome, left leg (04/06/22) Physical Therapy Treatment Note PT-OP-A Visit Information Start: 01/15/22 17:48 Freq: Status: Active Protocol: Document 04/06/22 14:30 DCW (Rec: 04/06/22 15:12 DCW [id number]) Out-Patient Physical Therapy Visit Information Visit Information Visit Type Treatment Note Visit Start Time 14:30 Visit Stop Time 15:15 Total Visit Minutes 45 Visit Number 15 Number of MAGAZINE EDITOR Visits 0 Evaluation Information Evaluation Date 01/15/22 PT-OP-B Current Condition Start: 01/15/22 17:48 Freq: Status: Active Protocol: Document 01/15/22 11:15 DCW (Rec: 01/15/22 17:59 DCW [id number]) Current Condition History of Current Condition Onset Date 6 months Current Complaints Pain and stiffness bilateral hips, increased with standing/ walking History of Current Condition Pt is a 61 year old male presenting with a six month history of bilateral hip pain, left more than right. Notes fairly point-specific pain on lateral hips, as well as occasional tightness down lateral thighs. Pt admits that he has had pain off and on for the past few years, but starting in June, started getting worse with no relief. Pt notes that he has been needing to walk with a wider base of support, because with a narrow JOSEY, it puts increased pressure on his hips . Also notes that he has been having increased weakness in his hips, especially lifting his legs when getting into a car or over the side of his tub. Also notes significant neuropathy in bilateral feet, although he admits that it doesn't cause any pain, he just can't feel anything. Treatment Goals Patient/Caregiver Goals I want to walk without pain. Personal Factors Other Personal Factors That May Effect High BMI, Neuropathy, HTN Therapy/Recovery PT-OP-C Subjective Start: 01/15/22 17:48 Freq: Status: Active Protocol: Document 04/06/22 14:30 DCW (Rec: 04/06/22 15:12 DCW [id number]) OP-PT Subjective Patient Comments Patient Comments I don't know what you did different last time, but my left leg finally decided to start feeling better. PT-OP-F Manual Assessment Start: 01/15/22 17:48 Freq: Status: Active Protocol: Document 01/15/22 11:15 DCW (Rec: 01/15/22 18:09 DCW [id number]) Manual Assessments Soft Tissue Assessment Soft Tissue Mobility Assessment Point-specific pain bilaterally at GT bursa, tenderness and tightness along bilateral ITB Joint Mobility Assessment Joint Mobility Assessment Significant difficulty with hip flexion, pain/grinding bilateral hips PT-OP-L Special Tests Start: 01/15/22 18:09 Freq: Status: Active Protocol: Document 01/15/22 11:15 DCW (Rec: 01/15/22 18:12 DCW [id number]) Special Tests Knee Special Tests Leticia's Test Test Results Positive bilaterally PT-OP-M Strength Start: 01/15/22 17:48 Freq: Status: Active Protocol: Document 01/15/22 11:15 DCW (Rec: 01/15/22 18:09 DCW [id number]) Hip Strength Hip Manual Muscle Testing Right Flexion (L2) 3 Fair Abduction 4+ Good+ Adduction 5 Normal External Rotation 5 Normal Internal Rotation 5 Normal Left Flexion (L2) 3 Fair Abduction 4+ Good+ Adduction 5 Normal External Rotation 5 Normal Internal Rotation 5 Normal Knee Strength Knee Manual Muscle Testing Right Flexion (S2) 5 Normal Extension (L3) 5 Normal Left Flexion (S2) 5 Normal Extension (L3) 5 Normal Ankle/Foot Strength Ankle and Foot Manual Muscle Testing Right Dorsiflexion (L4) 5 Normal Plantarflexion (S1) 5 Normal Left Dorsiflexion (L4) 5 Normal Plantarflexion (S1) 5 Normal PT-OP-Q Treatments Start: 01/15/22 17:48 Freq: Status: Active Protocol: Document 04/06/22 14:30 DCW (Rec: 04/06/22 15:12 DCW [id number]) Therapeutic Exercises Supine Exercises Single KtC Supine Exercise Name Single KtC ITB Stretch Supine Exercise Name ITB stretch Side left Hamstring Stretch Supine Exercise Name HS stretch Side left Standing Exercises Marching Standing Exercise Name Marching Side bilateral Resistance 10# Tandem stance Standing Exercise Name Tandem stance Equipment Used // bars Hamstring Curl Standing Exercise Name HS curls Side bilateral Resistance 10# Hip Extension Standing Exercise Name Hip Extension Side bilateral Resistance 10# Hip Abduction Standing Exercise Name Hip Abduction Side bilateral Resistance 10# Other Exercises Step-ups Other Exercise Name Step-ups Side left Equipment Used 4 step Manual Therapy Treatment Soft Tissue Mobilization Abductors Body Location L Hip Abductors Mobilization Type Sustained Pressure,Trigger Point Release Intensity/Depth Moderate Body Position Supine ITB Body Location L ITB Mobilization Type Sustained Pressure,Trigger Point Release Intensity/Depth Moderate Body Position Supine PT-OP-R Modalities Start: 01/15/22 17:48 Freq: Status: Active Protocol: Document 03/25/22 12:00 DCW (Rec: 03/25/22 12:41 DCW [id number]) Iontophoresis Treatment GT Bursa Treatment Medication Dexamethasone (-) Medication Amount (mL) (ml) 1 Medication Dosage 4 mg/mL Treatment Polarity Negative to Negative Active Electrode Placement L GT Bursa Treatment Duration (minutes) 4 PT-OP-T Assessment and Plan Start: 01/15/22 17:48 Freq: Status: Active Protocol: Document 04/06/22 14:30 DCW (Rec: 04/06/22 15:12 DCW [id number]) Physical Therapy Assessment Impairments Impairments Activity Tolerance,Functional Activities,Functional Mobility ,Gait,Pain,Soft Tissue Mobility,Strength Goals Three Impairment Pt struggles to lift leg up into car or over side of tub Field Crew Chief Goal (LTG) Pt to increase hip flexion strength MMT bilaterally to at least 4/5 in order to improve ability to enter/exit car 03/19/22 - Pt able to lift RLE to enter car but struggles with LLE due to weak and painful hip flexion LTG Duration 05/19/22 Two Impairment Pt ambulates with a wide base of support to relieve hip pain Fci Goal (LTG) Pt to return base of support during gait to WNL in order to decrease strain on his hip and back without increased lateral hip pain. 03/19/22 - Improving JOSEY ( narrower) but pt continues to lean toward stance leg in gait . LTG Duration 05/19/22 One Impairment Pt does not have an appropriate home exercise program Short Term Goal (STG) Pt to be independent and compliant with an appropriate HEP STG Duration 02/15/22 Assessment Summary Assessment Pt doing better today with step-ups than he has previously, showing some slight signs of getting over recent plateau. Physical Therapy Plan Frequency and Duration Frequency of Treatment 2x/Week Plan of Care Start Date 03/19/22 Plan of Care End Date 05/19/22 Therapeutic Interventions Therapeutic Interventions Aquatic Therapy,Gait Training, Home Exercise Program,Joint Mobilizations,Manual Therapy, Neuromuscular Re-education, Patient/Caregiver Education, Self-Care/Home Management,Soft Tissue Mobilization, Therapeutic Activities, Therapeutic Exercises Modalities Cold Pack/Ice Massage,Electric Stimulation,Hot Packs, Iontophoresis,Ultrasound Other Therapeutic Interventions Iontophoresis with Dexamethasone 4 mg/mL Next Visit Focus/Plan Next Note Type Treatment Note Next Visit Plan Stretching, hip strengthening, gait training
--- NOTE | 2022-04-09 14:31 | PT.OTN ---
Current Diagnoses Pain in right hip (04/09/22) Pain in left hip (04/09/22) Stiffness of right hip, not elsewhere classified (04/09/22) Stiffness of left hip, not elsewhere classified (04/09/22) Trochanteric bursitis, right hip (04/09/22) Trochanteric bursitis, left hip (04/09/22) Iliotibial band syndrome, left leg (04/09/22) Physical Therapy Treatment Note PT-OP-A Visit Information Start: 01/15/22 17:48 Freq: Status: Active Protocol: Document 04/09/22 13:45 DCW (Rec: 04/09/22 14:31 DCW [id number]) Out-Patient Physical Therapy Visit Information Visit Information Visit Type Treatment Note Visit Start Time 13:45 Visit Stop Time 14:30 Total Visit Minutes 45 Visit Number 16 Number of WIRE INSPECTOR Visits 0 Evaluation Information Evaluation Date 01/15/22 PT-OP-B Current Condition Start: 01/15/22 17:48 Freq: Status: Active Protocol: Document 01/15/22 11:15 DCW (Rec: 01/15/22 17:59 DCW [id number]) Current Condition History of Current Condition Onset Date 6 months Current Complaints Pain and stiffness bilateral hips, increased with standing/ walking History of Current Condition Pt is a 61 year old male presenting with a six month history of bilateral hip pain, left more than right. Notes fairly point-specific pain on lateral hips, as well as occasional tightness down lateral thighs. Pt admits that he has had pain off and on for the past few years, but starting in June, started getting worse with no relief. Pt notes that he has been needing to walk with a wider base of support, because with a narrow [place], it puts increased pressure on his hips . Also notes that he has been having increased weakness in his hips, especially lifting his legs when getting into a car or over the side of his tub. Also notes significant neuropathy in bilateral feet, although he admits that it doesn't cause any pain, he just can't feel anything. Treatment Goals Patient/Caregiver Goals I want to walk without pain. Personal Factors Other Personal Factors That May Effect High BMI, Neuropathy, HTN Therapy/Recovery PT-OP-C Subjective Start: 01/15/22 17:48 Freq: Status: Active Protocol: Document 04/09/22 13:45 DCW (Rec: 04/09/22 14:31 DCW [id number]) OP-PT Subjective Patient Comments Patient Comments It's trying to get better. Notes he feels that it tightens up when he sits. PT-OP-F Manual Assessment Start: 01/15/22 17:48 Freq: Status: Active Protocol: Document 01/15/22 11:15 DCW (Rec: 01/15/22 18:09 DCW [id number]) Manual Assessments Soft Tissue Assessment Soft Tissue Mobility Assessment Point-specific pain bilaterally at GT bursa, tenderness and tightness along bilateral ITB Joint Mobility Assessment Joint Mobility Assessment Significant difficulty with hip flexion, pain/grinding bilateral hips PT-OP-L Special Tests Start: 01/15/22 18:09 Freq: Status: Active Protocol: Document 01/15/22 11:15 DCW (Rec: 01/15/22 18:12 DCW [id number]) Special Tests Knee Special Tests Leticia's Test Test Results Positive bilaterally PT-OP-M Strength Start: 01/15/22 17:48 Freq: Status: Active Protocol: Document 01/15/22 11:15 DCW (Rec: 01/15/22 18:09 DCW [id number]) Hip Strength Hip Manual Muscle Testing Right Flexion (L2) 3 Fair Abduction 4+ Good+ Adduction 5 Normal External Rotation 5 Normal Internal Rotation 5 Normal Left Flexion (L2) 3 Fair Abduction 4+ Good+ Adduction 5 Normal External Rotation 5 Normal Internal Rotation 5 Normal Knee Strength Knee Manual Muscle Testing Right Flexion (S2) 5 Normal Extension (L3) 5 Normal Left Flexion (S2) 5 Normal Extension (L3) 5 Normal Ankle/Foot Strength Ankle and Foot Manual Muscle Testing Right Dorsiflexion (L4) 5 Normal Plantarflexion (S1) 5 Normal Left Dorsiflexion (L4) 5 Normal Plantarflexion (S1) 5 Normal PT-OP-Q Treatments Start: 01/15/22 17:48 Freq: Status: Active Protocol: Document 04/09/22 13:45 DCW (Rec: 04/09/22 14:31 DCW [id number]) Therapeutic Exercises Supine Exercises Single KtC Supine Exercise Name Single KtC ITB Stretch Supine Exercise Name ITB stretch Side left Hamstring Stretch Supine Exercise Name HS stretch Side left Standing Exercises Marching Standing Exercise Name Marching Side bilateral Resistance 10# Tandem stance Standing Exercise Name Tandem stance Equipment Used // bars Hamstring Curl Standing Exercise Name HS curls Side bilateral Resistance 10# Hip Extension Standing Exercise Name Hip Extension Side bilateral Resistance 10# Hip Abduction Standing Exercise Name Hip Abduction Side bilateral Resistance 10# Other Exercises Step-ups Other Exercise Name Step-ups Side left Equipment Used 4-6 step Manual Therapy Treatment Soft Tissue Mobilization Abductors Body Location L Hip Abductors Mobilization Type Sustained Pressure,Trigger Point Release Intensity/Depth Moderate Body Position Supine ITB Body Location L ITB Mobilization Type Sustained Pressure,Trigger Point Release Intensity/Depth Moderate Body Position Supine PT-OP-R Modalities Start: 01/15/22 17:48 Freq: Status: Active Protocol: Document 03/25/22 12:00 DCW (Rec: 03/25/22 12:41 DCW [id number]) Iontophoresis Treatment GT Bursa Treatment Medication Dexamethasone (-) Medication Amount (mL) (ml) 1 Medication Dosage 4 mg/mL Treatment Polarity Negative to Negative Active Electrode Placement L GT Bursa Treatment Duration (minutes) 4 PT-OP-T Assessment and Plan Start: 01/15/22 17:48 Freq: Status: Active Protocol: Document 04/09/22 13:45 DCW (Rec: 04/09/22 14:31 DCW [id number]) Physical Therapy Assessment Impairments Impairments Activity Tolerance,Functional Activities,Functional Mobility ,Gait,Pain,Soft Tissue Mobility,Strength Goals Three Impairment Pt struggles to lift leg up into car or over side of tub [place] Goal (LTG) Pt to increase hip flexion strength MMT bilaterally to at least 4/5 in order to improve ability to enter/exit car 03/19/22 - Pt able to lift RLE to enter car but struggles with LLE due to weak and painful hip flexion LTG Duration 05/19/22 Two Impairment Pt ambulates with a wide base of support to relieve hip pain Alf Goal (LTG) Pt to return base of support during gait to WNL in order to decrease strain on his hip and back without increased lateral hip pain. 03/19/22 - Improving JOSEY ( narrower) but pt continues to lean toward stance leg in gait . LTG Duration 05/19/22 One Impairment Pt does not have an appropriate home exercise program Short Term Goal (STG) Pt to be independent and compliant with an appropriate HEP STG Duration 02/15/22 Assessment Summary Assessment Pt struggled some with SLS on foam, should continue to challenge balance/ stabilization to improve hip function. Physical Therapy Plan Frequency and Duration Frequency of Treatment 2x/Week Plan of Care Start Date 03/19/22 Plan of Care End Date 05/19/22 Therapeutic Interventions Therapeutic Interventions Aquatic Therapy,Gait Training, Home Exercise Program,Joint Mobilizations,Manual Therapy, Neuromuscular Re-education, Patient/Caregiver Education, Self-Care/Home Management,Soft Tissue Mobilization, Therapeutic Activities, Therapeutic Exercises Modalities Cold Pack/Ice Massage,Electric Stimulation,Hot Packs, Iontophoresis,Ultrasound Other Therapeutic Interventions Iontophoresis with Dexamethasone 4 mg/mL Next Visit Focus/Plan Next Note Type Treatment Note Next Visit Plan Stretching, hip strengthening, gait training
--- NOTE | 2022-04-14 14:30 | PT.OTN ---
Current Diagnoses Pain in right hip (04/14/22) Pain in left hip (04/14/22) Stiffness of right hip, not elsewhere classified (04/14/22) Stiffness of left hip, not elsewhere classified (04/14/22) Trochanteric bursitis, right hip (04/14/22) Trochanteric bursitis, left hip (04/14/22) Iliotibial band syndrome, left leg (04/14/22) Physical Therapy Treatment Note PT-OP-A Visit Information Start: 01/15/22 17:48 Freq: Status: Active Protocol: Document 04/14/22 13:45 DCW (Rec: 04/14/22 14:30 DCW [id number]) Out-Patient Physical Therapy Visit Information Visit Information Visit Type Treatment Note Visit Start Time 13:45 Visit Stop Time 14:30 Total Visit Minutes 45 Visit Number 17 Number of MACHINE II COREMAKER Visits 0 Evaluation Information Evaluation Date 01/15/22 PT-OP-B Current Condition Start: 01/15/22 17:48 Freq: Status: Active Protocol: Document 01/15/22 11:15 DCW (Rec: 01/15/22 17:59 DCW [id number]) Current Condition History of Current Condition Onset Date 6 months Current Complaints Pain and stiffness bilateral hips, increased with standing/ walking History of Current Condition Pt is a 61 year old male presenting with a six month history of bilateral hip pain, left more than right. Notes fairly point-specific pain on lateral hips, as well as occasional tightness down lateral thighs. Pt admits that he has had pain off and on for the past few years, but starting in June, started getting worse with no relief. Pt notes that he has been needing to walk with a wider base of support, because with a narrow [place], it puts increased pressure on his hips . Also notes that he has been having increased weakness in his hips, especially lifting his legs when getting into a car or over the side of his tub. Also notes significant neuropathy in bilateral feet, although he admits that it doesn't cause any pain, he just can't feel anything. Treatment Goals Patient/Caregiver Goals I want to walk without pain. Personal Factors Other Personal Factors That May Effect High BMI, Neuropathy, HTN Therapy/Recovery PT-OP-C Subjective Start: 01/15/22 17:48 Freq: Status: Active Protocol: Document 04/14/22 13:45 DCW (Rec: 04/14/22 14:30 DCW [id number]) OP-PT Subjective Patient Comments Patient Comments It's feeling better, now if I could just climb stairs, I'd be in seventh heaven. PT-OP-F Manual Assessment Start: 01/15/22 17:48 Freq: Status: Active Protocol: Document 01/15/22 11:15 DCW (Rec: 01/15/22 18:09 DCW [id number]) Manual Assessments Soft Tissue Assessment Soft Tissue Mobility Assessment Point-specific pain bilaterally at GT bursa, tenderness and tightness along bilateral ITB Joint Mobility Assessment Joint Mobility Assessment Significant difficulty with hip flexion, pain/grinding bilateral hips PT-OP-L Special Tests Start: 01/15/22 18:09 Freq: Status: Active Protocol: Document 01/15/22 11:15 DCW (Rec: 01/15/22 18:12 DCW [id number]) Special Tests Knee Special Tests Leticia's Test Test Results Positive bilaterally PT-OP-M Strength Start: 01/15/22 17:48 Freq: Status: Active Protocol: Document 01/15/22 11:15 DCW (Rec: 01/15/22 18:09 DCW [id number]) Hip Strength Hip Manual Muscle Testing Right Flexion (L2) 3 Fair Abduction 4+ Good+ Adduction 5 Normal External Rotation 5 Normal Internal Rotation 5 Normal Left Flexion (L2) 3 Fair Abduction 4+ Good+ Adduction 5 Normal External Rotation 5 Normal Internal Rotation 5 Normal Knee Strength Knee Manual Muscle Testing Right Flexion (S2) 5 Normal Extension (L3) 5 Normal Left Flexion (S2) 5 Normal Extension (L3) 5 Normal Ankle/Foot Strength Ankle and Foot Manual Muscle Testing Right Dorsiflexion (L4) 5 Normal Plantarflexion (S1) 5 Normal Left Dorsiflexion (L4) 5 Normal Plantarflexion (S1) 5 Normal PT-OP-Q Treatments Start: 01/15/22 17:48 Freq: Status: Active Protocol: Document 04/14/22 13:45 DCW (Rec: 04/14/22 14:30 DCW [id number]) Therapeutic Exercises Supine Exercises Single KtC Supine Exercise Name Single KtC ITB Stretch Supine Exercise Name ITB stretch Side left Hamstring Stretch Supine Exercise Name HS stretch Side left Standing Exercises Marching Standing Exercise Name Marching Side bilateral Resistance 10# Tandem stance Standing Exercise Name Tandem stance Equipment Used // bars Hamstring Curl Standing Exercise Name HS curls Side bilateral Resistance 10# Other Exercises Step-ups Other Exercise Name Step-ups Side left Equipment Used 6 step Manual Therapy Treatment Soft Tissue Mobilization Abductors Body Location L Hip Abductors Mobilization Type Sustained Pressure,Trigger Point Release Intensity/Depth Moderate Body Position Supine ITB Body Location L ITB Mobilization Type Sustained Pressure,Trigger Point Release Intensity/Depth Moderate Body Position Supine PT-OP-R Modalities Start: 01/15/22 17:48 Freq: Status: Active Protocol: Document 03/25/22 12:00 DCW (Rec: 03/25/22 12:41 DCW [id number]) Iontophoresis Treatment GT Bursa Treatment Medication Dexamethasone (-) Medication Amount (mL) (ml) 1 Medication Dosage 4 mg/mL Treatment Polarity Negative to Negative Active Electrode Placement L GT Bursa Treatment Duration (minutes) 4 PT-OP-T Assessment and Plan Start: 01/15/22 17:48 Freq: Status: Active Protocol: Document 04/14/22 13:45 DCW (Rec: 04/14/22 14:30 DCW [id number]) Physical Therapy Assessment Impairments Impairments Activity Tolerance,Functional Activities,Functional Mobility ,Gait,Pain,Soft Tissue Mobility,Strength Goals Three Impairment Pt struggles to lift leg up into car or over side of tub Director Of Student Financial Aid Goal (LTG) Pt to increase hip flexion strength MMT bilaterally to at least 4/5 in order to improve ability to enter/exit car 03/19/22 - Pt able to lift RLE to enter car but struggles with LLE due to weak and painful hip flexion LTG Duration 05/19/22 Two Impairment Pt ambulates with a wide base of support to relieve hip pain Director Of Student Financial Aid Goal (LTG) Pt to return base of support during gait to WNL in order to decrease strain on his hip and back without increased lateral hip pain. 03/19/22 - Improving JOSEY ( narrower) but pt continues to lean toward stance leg in gait . LTG Duration 05/19/22 One Impairment Pt does not have an appropriate home exercise program Short Term Goal (STG) Pt to be independent and compliant with an appropriate HEP STG Duration 02/15/22 Assessment Summary Assessment Pt showing improvement in all areas, able to perform step- ups on 6 stairs much better than last week, although still having some weakness with hip flexion. Physical Therapy Plan Frequency and Duration Frequency of Treatment 2x/Week Plan of Care Start Date 03/19/22 Plan of Care End Date 05/19/22 Therapeutic Interventions Therapeutic Interventions Aquatic Therapy,Gait Training, Home Exercise Program,Joint Mobilizations,Manual Therapy, Neuromuscular Re-education, Patient/Caregiver Education, Self-Care/Home Management,Soft Tissue Mobilization, Therapeutic Activities, Therapeutic Exercises Modalities Cold Pack/Ice Massage,Electric Stimulation,Hot Packs, Iontophoresis,Ultrasound Other Therapeutic Interventions Iontophoresis with Dexamethasone 4 mg/mL Next Visit Focus/Plan Next Note Type Treatment Note Next Visit Plan Stretching, hip strengthening, gait training
--- NOTE | 2022-04-21 15:14 | PT.OTN ---
Current Diagnoses Pain in right hip (04/21/22) Pain in left hip (04/21/22) Stiffness of right hip, not elsewhere classified (04/21/22) Stiffness of left hip, not elsewhere classified (04/21/22) Trochanteric bursitis, right hip (04/21/22) Trochanteric bursitis, left hip (04/21/22) Iliotibial band syndrome, left leg (04/21/22) Physical Therapy Treatment Note PT-OP-A Visit Information Start: 01/15/22 17:48 Freq: Status: Active Protocol: Document 04/21/22 14:30 DCW (Rec: 04/21/22 15:14 DCW [id number]) Out-Patient Physical Therapy Visit Information Visit Information Visit Type Treatment Note Visit Start Time 14:30 Visit Stop Time 15:15 Total Visit Minutes 45 Visit Number 18 Number of CERTIFIED VETERINARY TECHNICIAN Visits 0 Evaluation Information Evaluation Date 01/15/22 PT-OP-B Current Condition Start: 01/15/22 17:48 Freq: Status: Active Protocol: Document 01/15/22 11:15 DCW (Rec: 01/15/22 17:59 DCW [id number]) Current Condition History of Current Condition Onset Date 6 months Current Complaints Pain and stiffness bilateral hips, increased with standing/ walking History of Current Condition Pt is a 61 year old male presenting with a six month history of bilateral hip pain, left more than right. Notes fairly point-specific pain on lateral hips, as well as occasional tightness down lateral thighs. Pt admits that he has had pain off and on for the past few years, but starting in June, started getting worse with no relief. Pt notes that he has been needing to walk with a wider base of support, because with a narrow JOSEY, it puts increased pressure on his hips . Also notes that he has been having increased weakness in his hips, especially lifting his legs when getting into a car or over the side of his tub. Also notes significant neuropathy in bilateral feet, although he admits that it doesn't cause any pain, he just can't feel anything. Treatment Goals Patient/Caregiver Goals I want to walk without pain. Personal Factors Other Personal Factors That May Effect High BMI, Neuropathy, HTN Therapy/Recovery PT-OP-C Subjective Start: 01/15/22 17:48 Freq: Status: Active Protocol: Document 04/21/22 14:30 DCW (Rec: 04/21/22 15:14 DCW [id number]) OP-PT Subjective Patient Comments Patient Comments I've been stiff and sore for the last seven days. PT-OP-F Manual Assessment Start: 01/15/22 17:48 Freq: Status: Active Protocol: Document 01/15/22 11:15 DCW (Rec: 01/15/22 18:09 DCW [id number]) Manual Assessments Soft Tissue Assessment Soft Tissue Mobility Assessment Point-specific pain bilaterally at GT bursa, tenderness and tightness along bilateral ITB Joint Mobility Assessment Joint Mobility Assessment Significant difficulty with hip flexion, pain/grinding bilateral hips PT-OP-L Special Tests Start: 01/15/22 18:09 Freq: Status: Active Protocol: Document 01/15/22 11:15 DCW (Rec: 01/15/22 18:12 DCW [id number]) Special Tests Knee Special Tests Leticia's Test Test Results Positive bilaterally PT-OP-M Strength Start: 01/15/22 17:48 Freq: Status: Active Protocol: Document 01/15/22 11:15 DCW (Rec: 01/15/22 18:09 DCW [id number]) Hip Strength Hip Manual Muscle Testing Right Flexion (L2) 3 Fair Abduction 4+ Good+ Adduction 5 Normal External Rotation 5 Normal Internal Rotation 5 Normal Left Flexion (L2) 3 Fair Abduction 4+ Good+ Adduction 5 Normal External Rotation 5 Normal Internal Rotation 5 Normal Knee Strength Knee Manual Muscle Testing Right Flexion (S2) 5 Normal Extension (L3) 5 Normal Left Flexion (S2) 5 Normal Extension (L3) 5 Normal Ankle/Foot Strength Ankle and Foot Manual Muscle Testing Right Dorsiflexion (L4) 5 Normal Plantarflexion (S1) 5 Normal Left Dorsiflexion (L4) 5 Normal Plantarflexion (S1) 5 Normal PT-OP-Q Treatments Start: 01/15/22 17:48 Freq: Status: Active Protocol: Document 04/21/22 14:30 DCW (Rec: 04/21/22 15:14 DCW [id number]) Therapeutic Exercises Supine Exercises Single KtC Supine Exercise Name Single KtC ITB Stretch Supine Exercise Name ITB stretch Side left Hamstring Stretch Supine Exercise Name HS stretch Side left Standing Exercises Marching Standing Exercise Name Marching Side bilateral Resistance 10# Tandem stance Standing Exercise Name Tandem stance Equipment Used // bars Hamstring Curl Standing Exercise Name HS curls Side bilateral Resistance 10# Hip Extension Standing Exercise Name Hip Extension Side bilateral Resistance 10# Hip Abduction Standing Exercise Name Hip Abduction Side bilateral Resistance 10# Manual Therapy Treatment Soft Tissue Mobilization Abductors Body Location L Hip Abductors Mobilization Type Sustained Pressure,Trigger Point Release Intensity/Depth Moderate Body Position Supine ITB Body Location L ITB Mobilization Type Sustained Pressure,Trigger Point Release Intensity/Depth Moderate Body Position Supine PT-OP-R Modalities Start: 01/15/22 17:48 Freq: Status: Active Protocol: Document 03/25/22 12:00 DCW (Rec: 03/25/22 12:41 DCW [id number]) Iontophoresis Treatment GT Bursa Treatment Medication Dexamethasone (-) Medication Amount (mL) (ml) 1 Medication Dosage 4 mg/mL Treatment Polarity Negative to Negative Active Electrode Placement L GT Bursa Treatment Duration (minutes) 4 PT-OP-T Assessment and Plan Start: 01/15/22 17:48 Freq: Status: Active Protocol: Document 04/21/22 14:30 DCW (Rec: 04/21/22 15:14 DCW [id number]) Physical Therapy Assessment Impairments Impairments Activity Tolerance,Functional Activities,Functional Mobility ,Gait,Pain,Soft Tissue Mobility,Strength Goals Three Impairment Pt struggles to lift leg up into car or over side of tub Manager Occupational Goal (LTG) Pt to increase hip flexion strength MMT bilaterally to at least 4/5 in order to improve ability to enter/exit car 03/19/22 - Pt able to lift RLE to enter car but struggles with LLE due to weak and painful hip flexion LTG Duration Met Two Impairment Pt ambulates with a wide base of support to relieve hip pain Manager Occupational Goal (LTG) Pt to return base of support during gait to WNL in order to decrease strain on his hip and back without increased lateral hip pain. 03/19/22 - Improving JOSEY ( narrower) but pt continues to lean toward stance leg in gait . LTG Duration Improving One Impairment Pt does not have an appropriate home exercise program Short Term Goal (STG) Pt to be independent and compliant with an appropriate HEP STG Duration Met Assessment Summary Assessment Pt made large progress overall , although has recently reached a progress plateau, continues to be somewhat limited with his left hip pain and strength. Recommend return to PCP for further assessment. Discharged from skilled PT at this time. Physical Therapy Plan Frequency and Duration Frequency of Treatment 2x/Week Plan of Care Start Date 03/19/22 Plan of Care End Date 05/19/22 Therapeutic Interventions Therapeutic Interventions Aquatic Therapy,Gait Training, Home Exercise Program,Joint Mobilizations,Manual Therapy, Neuromuscular Re-education, Patient/Caregiver Education, Self-Care/Home Management,Soft Tissue Mobilization, Therapeutic Activities, Therapeutic Exercises Modalities Cold Pack/Ice Massage,Electric Stimulation,Hot Packs, Iontophoresis,Ultrasound Other Therapeutic Interventions Iontophoresis with Dexamethasone 4 mg/mL Next Visit Focus/Plan Next Note Type Treatment Note Next Visit Plan Stretching, hip strengthening, gait training
== END 2022-04-22 11:49 | disposition home or self-care (01) ==
LOC: PHYS 14:30
PROVIDERS: PCP Family Medicine; Referring Provider Family Medicine; Visit Provider Family Medicine
DX: M70.61 Trochanteric bursitis, right hip (principal); M70.62 Trochanteric bursitis, left hip; M25.551 Pain in right hip; M25.552 Pain in left hip; M25.652 Stiffness of left hip, not elsewhere classified; M25.651 Stiffness of right hip, not elsewhere classified; M76.32 Iliotibial band syndrome, left leg
CPT/HCPCS: 97110; 97140; 97162

== ENCOUNTER → 2022-07-31 10:49 | Outpatient (CLI) | payer OTHER, SELFPAY ==
--- NOTE | 2022-07-31 11:39 | DI.RAD.S_ITS ---
PROCEDURE: XR LUMBAR SPINE 2-3V INDICATIONS: Lower back pain TECHNIQUE: 3 views of the lumbar spine were acquired. COMPARISON: None. FINDINGS: Bones: [id number] multilevel disc space height loss, facet arthropathy, and osteophyte formation. No traumatic malalignment or vertebral body height loss. Partially visualized hip degenerative changes. Soft tissues: Vascular calcifications. Above average stool and gas burden IMPRESSION: [id number] spondylotic changes on radiography. If there is high concern for further derangement, consider MRI evaluation. Dictated by: Kj Lowery M.D. on 07/31/2022 at 17:40 Approved by: Kj Lowery M.D. on 07/31/2022 at 17:41
--- NOTE | 2022-07-31 11:39 | DI.RAD.S_ITS ---
PROCEDURE: XR HIP W PEL IF DONE PRINCE MIN 4V INDICATIONS: Bilateral hip pain TECHNIQUE: AP pelvis with lateral view(s) of the both hip(s). COMPARISON: [facility], , HIP 2V RIGHT, 01/29/2011, 9:33. [facility], , HIP 2V LEFT, 01/29/2011, 9:20. FINDINGS: Bones: Progressed, bilateral moderate to severe hip arthrosis. No displaced fracture or dislocation. Soft tissues: No suspicious calcifications. IMPRESSION: Progressed, bilateral moderate to severe hip arthrosis. If there is high concern for further derangement, consider MRI evaluation. Dictated by: Kj Lowery M.D. on 07/31/2022 at 17:38 Approved by: Kj Lowery M.D. on 07/31/2022 at 17:38
[2022-07-31 12:00] LABS: Add Manual Diff / Slide Review NO; Basophils Absolute Auto 0 /uL (0-100); Basophils Percent Auto 0.5 % (0-2); Eosinophils Absolute Auto 100 /uL (0-450); Eosinophils Percent Auto 1.2 % (2-4); Hematocrit 42.9 % (41-53); Hemoglobin 14.3 g/dL (13.5-17.5); Lymphocytes Absolute Auto 1700 /uL (1100-4500); Lymphocytes Percent Auto 27.6 % (25-40); Mean Corpuscular HGB Conc 33.3 % (30-36); Mean Corpuscular Hemoglobin 31.8 PG (26-34); Mean Corpuscular Volume 95.4 fL (80-100); Monocytes Absolute Auto 500 /uL (0-900); Monocytes Percent Auto 8.1 % (3-14); Neutrophils Absolute Auto 3900 /uL (1500-7000); Neutrophils Percent Auto 62.6 % (50-75); Platelet Count 215 X10^3/uL (150-400); Red Cell Distribution Width 15.3 % (11.6-14.8); White Blood Cell Count 6.3 X10^3/uL (4.5-11.0)
[2022-07-31 12:16] LABS: Hemoglobin A1C% w Est Avg Glu 5.9 % (4.0-6.0)
[2022-07-31 12:36] LABS: HEMOLYSIS < 15 (0-50)
[2022-07-31 12:42] LABS: Alanine Aminotransferase 47 IU/L (<50); Albumin 3.9 g/dL (3.5-5.0); Albumin Globulin Ratio 1.4 (1.0-2.8); Alkaline Phosphatase 100 U/L (38-126); Aspartate Aminotransferase 39 IU/L (17-59); BUN Creatinine Ratio 20.6 (6-22); Bilirubin Total 0.4 mg/dL (0.2-1.3); Blood Urea Nitrogen 20 mg/dL (9-20); Calcium 8.7 mg/dL (8.4-10.2); Carbon Dioxide 31 mmol/L (22-32); Chloride 99 mmol/L (98-107); Cholesterol 176 mg/dL (140-199); Estimated Glomerular Filt Rate > 60 mL/min (>60); Globulin 2.7 g/dL (1.7-4.1); Glucose 97 mg/dL (80-110); HDL Cholesterol 75 mg/dL (40-60); LDL Cholesterol Calculated 79 mg/dL (<100); Potassium 4.9 mmol/L (3.4-5.1); Sodium 136 mmol/L (137-145); Total Protein 6.6 g/dL (6.3-8.2); Triglycerides 112 mg/dL (35-150)
[2022-07-31 12:58] LABS: Free T4, Direct Thyroxine 1.04 ng/dL (0.78-2.19)
[2022-08-06 19:50] LABS: Prostate Specific Antigen 2.69 ng/mL (0.10-4.00)
== END ==
PROVIDERS: PCP Family Medicine; Referring Provider Family Medicine; Visit Provider Family Medicine
DX: E11.9 Type 2 diabetes mellitus without complications (principal); E78.2 Mixed hyperlipidemia; I10 Essential (primary) hypertension; R79.89 Other specified abnormal findings of blood chemistry; M25.551 Pain in right hip; M25.552 Pain in left hip; M16.0 Bilateral primary osteoarthritis of hip
CPT/HCPCS: 36415; 72100; 73522; 80053; 80061; 83036; 84153; 84439; 84443; 85025

== ENCOUNTER → 2022-10-01 | Outpatient (CLI) | payer OTHER, SELFPAY ==
--- NOTE | 2022-10-01 | DI.RAD.S_ITS ---
PROCEDURE: FL JOINT INJECTION LARGE LT INDICATIONS: ARTHRITIS OF LEFT HIP COMPARISON: None. TECHNIQUE: The indications, alternatives, benefits, risks, and complications of the procedure were explained to the patient. Written informed consent was obtained and placed in the chart. The patient was placed in an appropriate position on the fluoroscopy table, and a site was chosen for percutaneous access under fluoroscopic guidance. The site was prepped and draped in a sterile fashion. Local anesthetic was administered using a 1% lidocaine solution. A hypodermic or spinal needle was then used to access the symptomatic joint. Intra-articular location of the needle tip was confirmed by injecting a small amount of contrast, followed by steroid administration. The needle was then withdrawn, and a bandage applied to the puncture site. FINDINGS: Joint injected: Left hip Medications injected: 5 mL of 40 mg/mL Kenalog and 0.5% Ropivacaine mixture. Patient's pain before injection: 6-7 out of 10. Patient's pain after injection: 1-2 out of 10. Complications: None. IMPRESSION: Successful fluoroscopically guided administration of steroid and anaesthetic solution into the left hip joint. Dictated by: Shan Brewer M.D. on 10/11/2022 at 13:07 Approved by: Shan Brewer M.D. on 10/11/2022 at 13:11
== END ==
LOC: RAD 12:33
PROVIDERS: PCP Family Medicine; Referring Provider Student in an Organized Health Care Education/Training Program; Visit Provider Student in an Organized Health Care Education/Training Program
DX: M16.12 Unilateral primary osteoarthritis, left hip (principal)
CPT/HCPCS: 20610; 77002

== ENCOUNTER 2022-11-10 13:58 | Emergency (ER) | payer OTHER, SELFPAY ==
[2022-11-10] VITALS (42 sets, daily range): BP systolic 134–176; BP diastolic 59–89; PULSE 70–126; RESP 16–40; TEMP 36.7; O2SAT 92–99; BMI 45.9
[2022-11-10] MEDS: EPINEPHrine 1 MG/ML 0.3 MG IM (14:00)
[2022-11-10] MEDS: diphenhydrAMINE 50 MG/ML VIAL 25 MG IV (14:01)
[2022-11-10] MEDS: methylPREDNISolone 125 MG/2 ML VIAL IV (14:04)
[2022-11-10] MEDS: FAMOTIDINE 20 MG/2 ML VIAL IV (14:04)
--- NOTE | 2022-11-10 14:09 | ED_ITS ---
HPI - Allergic Reaction General Chief complaint: Allergic Reaction Stated complaint: reaction Time Seen by Provider: 11/10/22 14:06 History of Present Illness HPI narrative: Patient brought here by for anaphylaxis symptoms. Patient and went to [facility] skin clinic this morning and was given doxycycline for his left leg. He is never had doxycycline before. He picked it up at the pharmacy and took it and within 30 minutes felt itching palpitations. His caught him in the car and started driving here and he is throat started feeling tight.. He had mild tongue swelling. Patient denies any allergies to any medications in the past. Patient brought into room 1 immediately and was given epinephrine 0.3 mg IM immediately as well as Solu-Medrol and Pepcid. Within 2 minutes he started feeling much better. Anesthesia was on standby. Related Data Home Medications Medication Instructions Recorded Confirmed CA PANTOTHENATE/FOLIC ACID/VIT 1 tab PO QDAY ##0 05/13/12 07/30/22 (MULTIVITAMIN) Fish Oil 2 tabs PO QDAY ##0 05/18/12 07/30/22 ASPIRIN (Aspir-Low) 81 mg PO QDAY ##0 12/21/12 07/30/22 cholecalciferol (vitamin D3) PO 10/30/19 07/30/22 vitamin B complex PO 10/30/19 07/30/22 atorvastatin 40 mg tablet 40 mg PO BEDTIME 11/10/22 11/10/22 furosemide 40 mg tablet 40 mg PO DAILY 11/10/22 11/10/22 losartan 100 mg tablet 100 mg PO DAILY 11/10/22 11/10/22 meloxicam 7.5 mg tablet 7.5 mg PO DAILY PRN hip pain 11/10/22 11/10/22 metoprolol succinate 50 mg 50 mg PO BID 11/10/22 11/10/22 tablet,extended release 24 hr Previous Rx's Medication Instructions Recorded Disabled Parking Permint #1 ea 08/18/22 amlodipine 5 mg tablet (Norvasc) 5 mg PO QPM #90 tabs 10/23/22 epinephrine 0.3 mg/0.3 mL 0.3 mg (0.3 mL) IM Q5-15M PRN 11/10/22 injection, auto-injector (Auvi-Q) anaphylaxis #2 ea methylprednisolone 4 mg tablets in See Rx Instructions PO .COMPLEX 11/10/22 a dose pack (Medrol (Pilo)) #21 ea Allergies Allergy/AdvReac Type Severity Reaction Status Date / Time doxycycline Allergy Severe Anaphylaxis Verified 11/10/22 14:16 Review of Systems Review of Systems Narrative: GENERAL: negative chills, fatigue, malaise, fever, sweats. HEENT: negative sinus pain, ear pain, sore throat, positive throat tightening RESPIRATORY: Positive dyspnea, negative cough CARDIOVASCULAR: negative chest pain, palpitations GASTROINTESTINAL: negative nausea, vomiting, abdominal pain : negative dysuria, frequency, hematuria MUSCULOSKELETAL: negative muscle or bony pain SKIN: negative rash, skin lesions, positive pruritus NEUROLOGIC: negative weakness, numbness ROS Unobtainable: All systems reviewed & are unremarkable except as noted in HPI and below Patient History Medical History Basal cell carcinoma (~05/2012) Bilateral hip joint arthritis Greater trochanteric bursitis of both hips Hyperlipemia Hypertension Morbid obesity Peripheral neuropathy Scrotal cyst Sleep apnea Type 2 diabetes mellitus Well adult exam Well adult exam Surgical History Hx of colonoscopy with polypectomy (11/2016) Status post tonsillectomy and adenoidectomy (1964) Family History Father No problems noted. Mother Alzheimer's disease Grandfather No problems noted. Grandmother Cancer Grandfather No problems noted. Grandmother Cancer Social History household members: spouse Smoking Status: Former smoker Tobacco: How many years used: 35 quit status: has quit before alcohol intake: current Smoking Status: Former smoker alcohol intake frequency: 0-2 drinks per day Substance Use Type: does not use Exam Narrative Exam Narrative: GENERAL: On arrival patient was in distress very anxious. Was able to talk airway intact. HEAD: Normocephalic. EYES: Pupils equal round ENT: Mucous membranes moist. No lip swelling. Patient does have a large body habitus. Tongue is slightly edematous. But able to visualize posterior pharynx. No uvular swelling. No tongue elevation. NECK: Trachea midline. No stridor CARDIOVASCULAR: Regular rate and rhythm without murmurs RESPIRATORY: Clear to auscultation. Breath sounds equal bilaterally. No wheezes, rales, or rhonchi. GASTROINTESTINAL: Abdomen soft, non-tender EXTREMITIES: No gross deformities. BACK: No flank tenderness. NEURO: AOx4. SKIN: Warm and dry, no hives seen on the arms or face PSYCH: He is anxious, is cooperative Initial Vital Signs Initial Vital Signs: Vital Signs Temperature 98.1 F 11/10/22 14:00 Pulse Rate 126 H 11/10/22 14:00 Respiratory Rate 40 H 11/10/22 14:00 Blood Pressure 147/89 H 11/10/22 14:00 Pulse Oximetry 93 11/10/22 14:00 Oxygen Delivery Method Room Air 11/10/22 14:00 Course Orders Ordered: Discontinued Medications Diphenhydramine HCl (Diphenhydramine 50 Mg/Ml Vial) 25 mg IV NOW ONE Stop: 11/10/22 14:08 Last Admin: 11/10/22 14:01 Dose: 25 mg Documented By: HALLIE Epinephrine HCl (Epinephrine 1 Mg/Ml) 0.3 mg IM NOW ONE Stop: 11/10/22 14:08 Last Admin: 11/10/22 14:00 Dose: 0.3 mg Documented By: HALLIE Famotidine (Famotidine 20 Mg/2 Ml Vial) 20 mg IV NOW MGIUE Last Admin: 11/10/22 14:04 Dose: 20 mg Documented By: HALLIE Sodium Chloride (Normal Saline 0.9%) 1,000 mls @ 1,000 mls/hr IV BOLUS ONE Stop: 11/10/22 15:06 Last Infusion: 11/10/22 17:53 Dose: 0 mls/hr Documented By: Infusion: 11/10/22 15:51 Dose: 0 mls/hr Documented By: Admin: 11/10/22 14:23 Dose: 1,000 mls/hr Documented By: HALLIE Methylprednisolone (Methylprednisolone 125 Mg/2 Ml Vial) 125 mg IV NOW ONE Stop: 11/10/22 14:08 Last Admin: 11/10/22 14:04 Dose: 125 mg Documented By: HALLIE Vital Signs Vital signs: Vital Signs - 8 hr 11/10/22 14:00 11/10/22 14:10 11/10/22 14:11 Temperature 98.1 F Pulse Rate 126 H 88 Respiratory Rate 40 H 33 H Blood Pressure 147/89 H 149/75 H Pulse Oximetry 93 95 Oxygen Delivery Method Room Air 11/10/22 14:15 11/10/22 14:15 11/10/22 14:20 Temperature Pulse Rate 86 Respiratory Rate 40 H Blood Pressure 139/69 143/68 H Pulse Oximetry 96 Oxygen Delivery Method 11/10/22 14:20 11/10/22 14:25 11/10/22 14:25 Temperature Pulse Rate 86 83 Respiratory Rate 24 19 Blood Pressure 145/66 H Pulse Oximetry 95 94 Oxygen Delivery Method 11/10/22 14:30 11/10/22 14:30 11/10/22 14:35 Temperature Pulse Rate 81 79 Respiratory Rate 23 20 Blood Pressure 145/66 H Pulse Oximetry 97 96 Oxygen Delivery Method 11/10/22 14:35 11/10/22 14:40 11/10/22 14:40 Temperature Pulse Rate 78 Respiratory Rate 25 H Blood Pressure 144/67 H 148/71 H Pulse Oximetry 97 Oxygen Delivery Method 11/10/22 14:45 11/10/22 14:45 11/10/22 14:50 Temperature Pulse Rate 79 78 Respiratory Rate 22 21 Blood Pressure 149/72 H Pulse Oximetry 97 97 Oxygen Delivery Method 11/10/22 14:50 11/10/22 14:55 11/10/22 14:55 Temperature Pulse Rate 74 Respiratory Rate 21 Blood Pressure 153/74 H 154/66 H Pulse Oximetry 97 Oxygen Delivery Method Room Air 11/10/22 15:00 11/10/22 15:00 11/10/22 15:05 Temperature Pulse Rate 80 79 Respiratory Rate 21 23 Blood Pressure 142/59 H Pulse Oximetry 98 98 Oxygen Delivery Method Room Air 11/10/22 15:05 11/10/22 15:10 11/10/22 15:10 Temperature Pulse Rate 75 Respiratory Rate 21 Blood Pressure 155/70 H 148/64 H Pulse Oximetry 98 Oxygen Delivery Method 11/10/22 15:15 11/10/22 15:15 11/10/22 15:20 Temperature Pulse Rate 74 Respiratory Rate 20 Blood Pressure 156/70 H 134/61 Pulse Oximetry 97 Oxygen Delivery Method Room Air 11/10/22 15:20 11/10/22 15:25 11/10/22 15:25 Temperature Pulse Rate 75 73 Respiratory Rate 18 20 Blood Pressure 143/65 H Pulse Oximetry 99 99 Oxygen Delivery Method 11/10/22 15:30 11/10/22 15:30 11/10/22 15:35 Temperature Pulse Rate 75 83 Respiratory Rate 21 25 H Blood Pressure 144/65 H Pulse Oximetry 96 96 Oxygen Delivery Method Room Air 11/10/22 15:35 11/10/22 15:40 11/10/22 15:40 Temperature Pulse Rate 75 Respiratory Rate 19 Blood Pressure 151/70 H 154/70 H Pulse Oximetry 92 Oxygen Delivery Method 11/10/22 15:45 11/10/22 15:45 11/10/22 15:55 Temperature Pulse Rate 73 Respiratory Rate 18 Blood Pressure 152/67 H 160/72 H Pulse Oximetry Oxygen Delivery Method 11/10/22 15:55 11/10/22 16:00 11/10/22 16:00 Temperature Pulse Rate 84 85 Respiratory Rate 18 23 Blood Pressure 148/75 H Pulse Oximetry 98 Oxygen Delivery Method 11/10/22 16:05 11/10/22 16:05 11/10/22 16:10 Temperature Pulse Rate 80 79 Respiratory Rate 30 H 17 Blood Pressure 149/61 H Pulse Oximetry 97 98 Oxygen Delivery Method 11/10/22 16:10 11/10/22 16:15 11/10/22 16:15 Temperature Pulse Rate 79 Respiratory Rate 19 Blood Pressure 142/73 H 150/73 H Pulse Oximetry 97 Oxygen Delivery Method 11/10/22 16:20 11/10/22 16:20 11/10/22 16:25 Temperature Pulse Rate 80 84 Respiratory Rate 20 Blood Pressure 160/69 H Pulse Oximetry 96 95 Oxygen Delivery Method 11/10/22 16:25 11/10/22 16:30 11/10/22 16:30 Temperature Pulse Rate 80 Respiratory Rate Blood Pressure 148/75 H 140/69 Pulse Oximetry 97 Oxygen Delivery Method 11/10/22 16:35 11/10/22 16:35 11/10/22 16:40 Temperature Pulse Rate 70 Respiratory Rate 23 Blood Pressure 144/79 H 157/79 H Pulse Oximetry 98 Oxygen Delivery Method 11/10/22 16:40 11/10/22 16:45 11/10/22 16:45 Temperature Pulse Rate 72 74 Respiratory Rate 17 17 Blood Pressure 159/71 H Pulse Oximetry 96 96 Oxygen Delivery Method 11/10/22 16:50 11/10/22 16:50 11/10/22 16:55 Temperature Pulse Rate 73 Respiratory Rate 19 Blood Pressure 174/81 H 163/84 H Pulse Oximetry 95 Oxygen Delivery Method 11/10/22 16:55 11/10/22 17:00 11/10/22 17:00 Temperature Pulse Rate 73 71 Respiratory Rate 18 17 Blood Pressure 168/75 H Pulse Oximetry 96 95 Oxygen Delivery Method 11/10/22 17:05 11/10/22 17:05 11/10/22 17:10 Temperature Pulse Rate 71 Respiratory Rate 18 Blood Pressure 173/78 H 168/78 H Pulse Oximetry 95 Oxygen Delivery Method 11/10/22 17:10 11/10/22 17:15 11/10/22 17:15 Temperature Pulse Rate 72 72 Respiratory Rate 16 16 Blood Pressure 176/79 H Pulse Oximetry 96 96 Oxygen Delivery Method Room Air MDM - Allergic Reaction Lab Data Labs: Urine Dip Bedside Urine Glucose Negative Bedside Urine Bilirubin - Negative Bedside Urine Ketone - Negative Urine Specific Eden 1.015 Bedside Urine Occult Blood - Negative Bedside Urine pH 6.0 Bedside Urine Protein - Negative Bedside Urine Urobilinogen - Negative Bedside Urine Nitrite - Negative Bedside Urine Leukocytes - Negative Esterase MDM Narrative Medical decision making narrative: Patient brought here by for anaphylaxis symptoms. Patient and went to [facility] skin clinic this morning and was given doxycycline for his left leg. He is never had doxycycline before. He picked it up at the pharmacy and took it and within 30 minutes felt itching palpitations. His caught him in the car and started driving here and he is throat started feeling tight.. He had mild tongue swelling. Patient denies any allergies to any medications in the past. Patient brought into room 1 immediately and was given epinephrine 0.3 mg IM immediately as well as Solu-Medrol and Pepcid. Within 2 minutes he started feeling much better. Anesthesia was on standby. After history and exam epinephrine Solu-Medrol Benadryl Pepcid normal saline MDM CC: Anaphylaxis Complicating co-morbidities: None other than doxycycline for the 1st time Data collected from: Patient and Medical records reviewed: No previous visits for this complaint Differential considered: Includes but not limited to anaphylaxis drug allergy Exam documented above, pertinent findings include: Mild tongue edema Lab Test results independently reviewed as above. Pertinent findings: WBC 6.3 hemoglobin 14.3 hematocrit 42.9 sodium 136 potassium 4.9 Independently reviewed EKG sinus rhythm rate [address] elevation or depression Imaging studies independently reviewed: None indicated at this time Consultations: Treatments: Epinephrine Solu-Medrol Benadryl Pepcid normal saline Re-evaluations: 2:38 p.m.. Patient is symptom-free at this time. No dyspnea. No tongue or oral swelling. No throat tightening 6:00 p.m.. Patient remains asymptomatic without any trouble breathing or throat tightening or rash or itching or oral swelling or throat tightness. It has been 4 hours of observation. Patient and comfortable for discharge home. Reviewed with them to continue Medrol Dosepak tomorrow and Benadryl as needed. EpiPen will be provided and sent to the pharmacy to worm picker tonight. Return precautions reviewed with him. Doxycycline has been disposed. They will follow up his deaf/hard of hearing specialist tomorrow for alternative by antibiotic Discussion: Appropriate for discharge home. Patient has been observed here for 4 hours. Epinephrine half-life and Benadryl likely dissipated. Solu-Medrol has been given. Patient is awake alert oriented x4. No respiratory complaints no throat tightening. Diagnosis: Allergic reaction Discharge Plan Departure Patient Disposition: Home Clinical Impression: Allergic reaction caused by a drug Instructions: DI for Anaphylaxis, DI for Adverse Drug Reaction -- Allergic Activity Restrictions/Additional Instructions: Please inform all of your providers you have anaphylaxis to doxycycline. We have listed this as an allergy. Please continue steroid pack tomorrow. EpiPen prescription has been sent to your pharmacy as well. May continue Benadryl for any itching. Return if worse if any questions or concerns if any trouble breathing or if any throat tightening. Prescriptions: New methylprednisolone [Medrol (Pilo)] 4 mg tablets,dose pack See Rx Instructions .ROUTE .COMPLEX Qty: 21 0RF Rx Instructions: orally per package directions epinephrine [Auvi-Q] 0.3 mg/0.3 mL auto-injector 0.3 mg IM Q5-15M PRN (Reason: anaphylaxis) Qty: 2 0RF Rx Instructions: do not exceed 3 doses per episode No Action CA PANTOTHENATE/FOLIC ACID/VIT (MULTIVITAMIN) 1 tab PO QDAY Qty: 0 Fish Oil 2 tabs PO QDAY Qty: 0 ASPIRIN (Aspir-Low) 81 mg PO QDAY Qty: 0 (DME) Disabled Parking Permint See Rx Instructions .ROUTE .MEDSUPPLY Qty: 1 0RF Rx Instructions: I find this patient to be medically disabled and qualified for Disabled Parking as indicated and signed on the Accompanying Disabled Parking Application for individuals. amlodipine [Norvasc] 5 mg tablet 5 mg PO QPM Qty: 90 1RF vitamin B complex PO cholecalciferol (vitamin D3) PO meloxicam 7.5 mg tablet 7.5 mg PO DAILY PRN (Reason: hip pain) furosemide 40 mg tablet 40 mg PO DAILY Rx Instructions: TAKE 1 TABLET BY MOUTH EVERY DAY atorvastatin 40 mg tablet 40 mg PO BEDTIME Rx Instructions: TAKE 1 TABLET BY MOUTH AT BEDTIME metoprolol succinate 50 mg tablet extended release 24 hr 50 mg PO BID Rx Instructions: TAKE 1 TABLET BY MOUTH TWICE DAILY losartan 100 mg tablet 100 mg PO DAILY Rx Instructions: TAKE 1 TABLET BY MOUTH DAILY Referrals: Seamus Salguero, [Primary Care Provider] - Stand Alone Forms: Patient Portal/API
[2022-11-10] MEDS: SODIUM CHLORIDE 0.9% 1,000 ML 1000 ML IV (14:23)
== END 2022-11-10 18:01 | disposition home or self-care (01) ==
PROVIDERS: Emergency Provider Emergency Medicine; PCP Family Medicine
DX: L29.9 Pruritus, unspecified (principal); R00.2 Palpitations; R22.0 Localized swelling, mass and lump, head; T36.4X5A Adverse effect of tetracyclines, initial encounter
CPT/HCPCS: 81003; 93005; 96361; 96372; 96374; 96375; 99284; J0171; J1200; J2930

== ENCOUNTER → 2023-02-11 08:11 | Outpatient (CLI) | payer OTHER, SELFPAY ==
[2023-02-11 10:02] LABS: Hemoglobin A1C% w Est Avg Glu 5.5 % (4.0-6.0)
[2023-02-11 11:27] LABS: Alanine Aminotransferase 29 IU/L (<50); Albumin 4.2 g/dL (3.5-5.0); Albumin Globulin Ratio 1.7 (1.0-2.8); Alkaline Phosphatase 80 U/L (38-126); Aspartate Aminotransferase 24 IU/L (17-59); BUN Creatinine Ratio 26.9 (6-22); Bilirubin Total 0.3 mg/dL (0.2-1.3); Blood Urea Nitrogen 29 mg/dL (9-20); Calcium 9.7 mg/dL (8.4-10.2); Carbon Dioxide 29 mmol/L (22-32); Chloride 102 mmol/L (98-107); Estimated Glomerular Filt Rate > 60 mL/min (>60); Globulin 2.5 g/dL (1.7-4.1); Glucose 108 mg/dL (80-110); HEMOLYSIS < 15 (0-50); Sodium 137 mmol/L (137-145); Total Protein 6.7 g/dL (6.3-8.2)
[2023-02-11 11:28] LABS: Potassium 5.9 mmol/L (3.4-5.1)
[2023-02-11 11:49] LABS: Creatinine Urine Random 129.7 mg/dL
[2023-02-11 11:55] LABS: Microalbumi Creatinin Ratio Ur 5.3 ug/mg CR (<30); Microalbumin Urine Random 0.7 mg/dL (0-1.6)
== END ==
PROVIDERS: Family Provider Student in an Organized Health Care Education/Training Program; PCP Family Medicine; Referring Provider Family Medicine; Visit Provider Family Medicine
DX: E11.9 Type 2 diabetes mellitus without complications (principal); R79.89 Other specified abnormal findings of blood chemistry; I10 Essential (primary) hypertension; E78.2 Mixed hyperlipidemia
CPT/HCPCS: 36415; 80053; 82043; 82570; 83036

== ENCOUNTER 2023-02-25 15:45 | Outpatient (RCR) | payer OTHER, SELFPAY ==
--- NOTE | 2023-01-13 16:50 | PT.OIE ---
Current Diagnoses Unilateral primary osteoarthritis, left hip (01/13/23) Pain in left hip (01/13/23) Stiffness of left hip, not elsewhere classified (01/13/23) Other abnormalities of gait and mobility (01/13/23) Aftercare following joint replacement surgery (01/13/23) Past Medical History (Last Reviewed 11/10/22 @ 14:34 by Cholo Aguero MD) Basal cell carcinoma (~05/2012) Bilateral hip joint arthritis Greater trochanteric bursitis of both hips Hyperlipemia Hypertension Morbid obesity Peripheral neuropathy Scrotal cyst Sleep apnea Type 2 diabetes mellitus Well adult exam Well adult exam Past Surgical History (Last Reviewed 11/10/22 @ 14:34 by Cholo Aguero MD) Hx of colonoscopy with polypectomy (11/2016) Status post tonsillectomy and adenoidectomy (1964) Visit Care Team Role Provider Type Sabine Miller PA-C Referring Provider Non-Staff Specialty: General Surgery Address: [address] [place] [address], [id number] Email: Seamus Salguero DO Primary Care Provider Physician Specialty: Family Practice Address: [address] [place] [address], [id number] Email: [email or web address] Attending Provider Non-Staff Family Provider Specialty: Orthopedic Surgery Address: [address] [place] [address], [id number] Fax: Email: Physical Therapy Initial Evaluation PT-OP-A Visit Information Start: 01/13/23 15:21 Freq: Status: Active Protocol: Document 01/13/23 14:45 DCW (Rec: 01/13/23 15:30 DCW [id number]) Out-Patient Physical Therapy Visit Information Visit Information Visit Type Initial Evaluation Visit Start Time 14:45 Visit Stop Time 15:15 Total Visit Minutes 30 Visit Number 1 Number of RELOCATION ASSOCIATE Visits 0 Evaluation Information Evaluation Date 01/13/23 PT-OP-B Current Condition Start: 01/13/23 15:21 Freq: Status: Active Protocol: Document 01/13/23 14:45 DCW (Rec: 01/13/23 15:30 DCW [id number]) Current Condition History of Current Condition Onset Date 01/06/23 Current Complaints s/p L JESUS History of Current Condition Pt is a 62 year old male presenting one week s/p left JESUS, posterior approach. Pt was previously seen at this facility in the fall of last year for bilateral hip pain, right hip responded well, however left hip did not respond to conservative treatment. Pt was later found to have severe bilateral hip OA, referred to an orthopedic surgeon, and finally scheduled for a L JESUS. Pt notes his hip has felt significantly better since surgery, even when standing for the first time. Is currently ambulating with a FWW. Has a walk-in shower at home, no steps or ALEJANDRA. Has been doing his post-op HEP, which includes ankle pumps, glute sets, quad sets, and getting up and walking about once an hour. Pt notes pain with movement is ~1/10, does not really get worse. Biggest difficulty at this time and sit<->stand from toilet. Otherwise very happy with current functional level. Able to recite posterior hip precautions. PT-OP-C Subjective Start: 01/13/23 15:21 Freq: Status: Active Protocol: Document 01/13/23 14:45 DCW (Rec: 01/13/23 15:30 DCW [id number]) OP-PT Subjective Patient Comments Patient Comments I'm moving so much better than last time I was in here. Patient Reported Progress Improving Patient Questionnaires Lower Extremity Functional Scale LEFS Score 22/80 = 27.5% LEFS Impairment 60 to 79% Impaired (Score 17- 31) OP-PT Pain Assessment Pain Assessment Grid Paper Pain Assessment Grid Completed Yes Location Left Lateral Hip Intensity 4 Scale Used Numeric (0 - 10) Description Aching Frequency Intermittent PT-OP-E Functional Tests Start: 01/13/23 15:21 Freq: Status: Active Protocol: Document 01/13/23 14:45 DCW (Rec: 01/13/23 15:30 DCW [id number]) Functional Tests 6 Minute Walk Test Distance 800' Device Used FWW Comments 2.22 ft/sec PT-OP-G Mobility & Gait Start: 01/13/23 15:21 Freq: Status: Active Protocol: Document 01/13/23 14:45 DCW (Rec: 01/13/23 16:42 DCW [id number]) OP Mobility Evaluation Transfers Sit to Stand Requires raised chair, heavy reliance on upper extremities OP Gait Assessment Gait Gait Assistance Required: Standby Assistance Distance (Feet) 800 Assistive Devices Assistive Device Front Wheeled Walker Orthotic/Prosthetic Devices or Brace: No Gait Deviations General Gait Pattern Antalgic,Decreased Stride Length,Decreased Feet Clearance,Flexed Trunk,Wide Based Gait Comments Gait Comments Pt ambulates with a wide JOSEY, increased forward trunk lean. Weakness in L hip reqults in mild trendelenburg gait, decreased stance time on left leg. PT-OP-M Strength Start: 01/13/23 15:21 Freq: Status: Active Protocol: Document 01/13/23 14:45 DCW (Rec: 01/13/23 15:30 DCW [id number]) Hip Strength Hip Manual Muscle Testing Left Flexion (L2) 3- Fair- Abduction 3- Fair- PT-OP-Q Treatments Start: 01/13/23 15:21 Freq: Status: Active Protocol: Document 01/13/23 14:45 DCW (Rec: 01/13/23 15:31 DCW [id number]) Therapeutic Exercises Sitting Exercises Marching Sitting Exercise Name Standing marching Side bilateral Hip Extension Sitting Exercise Name Standing hip extension Side bilateral Hip Abduction Sitting Exercise Name Standing hip abduction Side bilateral PT-OP-T Assessment and Plan Start: 01/13/23 15:21 Freq: Status: Active Protocol: Document 01/13/23 14:45 DCW (Rec: 01/13/23 16:50 DC [id number]) Physical Therapy Assessment Rehab Potential Rehabilitation Potential Good Evaluation Complexity Number of Personal Factors/Comorbidities 1-2 Number of Body Systems Impaired 1-2 Clinical Presentation at Evaluation Stable Impairments Impairments Activity Tolerance,Functional Activities,Functional Mobility ,Gait,Posture,ROM,Strength Goals Three Impairment Pt ambulated 800' during six minute walk test using a FWW Shelter Goal (LTG) Pt to ambulate >1000' without an assistive device during a 6MWT LTG Duration 03/15/23 Two Impairment Pt unable to flex left hip against gravity Photoengraving Printer Goal (LTG) Pt to demonstrate increased L hip flexion MMT to at least 4/ 5 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 Pt is already doing well with his limited post-op HEP, has been compliant with getting up and walking ~once/ hour using his FWW. PT able to repeat posterior hip precautions with 100% accuracy without reminders. Pt's current limitations involve general left hip weakness, difficulty with sit<->stand from toilet, and current inability to walk up or down his steep driveway. Pt should benefit from skilled therapy focusing on post-op JESUS rehabilitation, including functional mobility, ROM, strength, gait/balance training, and return to prior function. Physical Therapy Plan Frequency and Duration Frequency of Treatment 2x/Week Plan of Care Start Date 01/13/23 Plan of Care End Date 03/15/23 Therapeutic Interventions Therapeutic Interventions Balance Training,Gait Training ,Home Exercise Program,Joint Mobilizations,Manual Therapy, Neuromuscular Re-education, Patient/Caregiver Education, Self-Care/Home Management,Soft Tissue Mobilization, Therapeutic Activities, Therapeutic Exercises Modalities Cold Pack/Ice Massage,Electric Stimulation,Hot Packs, Ultrasound Next Visit Focus/Plan Next Note Type Treatment Note Next Visit Plan Hip strengthening, hip mobility, gait training, balance
--- NOTE | 2023-01-13 16:51 | PT.OPPOC ---
Physical, Occupational & Speech Therapy At [facility] Current Diagnoses Unilateral primary osteoarthritis, left hip (01/13/23) Pain in left hip (01/13/23) Stiffness of left hip, not elsewhere classified (01/13/23) Other abnormalities of gait and mobility (01/13/23) Aftercare following joint replacement surgery (01/13/23) Visit Care Team Role Provider Type Sabine Miller PA-C Referring Provider Non-Staff Specialty: General Surgery Address: [address] [place] [address], [id number] Email: Seamus Salguero DO Primary Care Provider Physician Specialty: Family Practice Address: [address] [place] [address], [id number] Email: [email or web address] Guero Álvarez MD Attending Provider Non-Staff Family Provider Specialty: Orthopedic Surgery Address: [address] [place], [place] [address], [address] Fax: Email: Plan Of Care PT-OP-T Assessment and Plan Start: 01/13/23 15:21 Freq: Status: Active Protocol: Document 01/13/23 14:45 DCW (Rec: 01/13/23 16:50 DCW [id number]) Physical Therapy Assessment Rehab Potential Rehabilitation Potential Good Evaluation Complexity Number of Personal Factors/Comorbidities 1-2 Number of Body Systems Impaired 1-2 Clinical Presentation at Evaluation Stable Impairments Impairments Activity Tolerance,Functional Activities,Functional Mobility ,Gait,Posture,ROM,Strength Goals Three Impairment Pt ambulated 800' during six minute walk test using a FWW Mcc Goal (LTG) Pt to ambulate >1000' without an assistive device during a 6MWT LTG Duration 03/15/23 Two Impairment Pt unable to flex left hip against gravity Lower In Supervisor Goal (LTG) Pt to demonstrate increased L hip flexion MMT to at least 4/ 5 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 Pt is already doing well with his limited post-op HEP, has been compliant with getting up and walking ~once/ hour using his FWW. PT able to repeat posterior hip precautions with 100% accuracy without reminders. Pt's current limitations involve general left hip weakness, difficulty with sit<->stand from toilet, and current inability to walk up or down his steep driveway. Pt should benefit from skilled therapy focusing on post-op JESUS rehabilitation, including functional mobility, ROM, strength, gait/balance training, and return to prior function. Physical Therapy Plan Frequency and Duration Frequency of Treatment 2x/Week Plan of Care Start Date 01/13/23 Plan of Care End Date 03/15/23 Therapeutic Interventions Therapeutic Interventions Balance Training,Gait Training ,Home Exercise Program,Joint Mobilizations,Manual Therapy, Neuromuscular Re-education, Patient/Caregiver Education, Self-Care/Home Management,Soft Tissue Mobilization, Therapeutic Activities, Therapeutic Exercises Modalities Cold Pack/Ice Massage,Electric Stimulation,Hot Packs, Ultrasound Next Visit Focus/Plan Next Note Type Treatment Note Next Visit Plan Hip strengthening, hip mobility, gait training, balance Plan of Care Dates Plan of Care Start Date 01/13/23 Plan of Care End Date 03/15/23 Electronically Signed by: Navin Lares, PT 01/13/23 9711 If you are in agreement with this Plan of Care, please return a signed and dated copy. I have reviewed this Plan of Care and certify that the skilled therapy services above are required to meet the patient?s needs. Physician Signature Date Printed Name and Credentials Clinical Instructor Signature Printed Name and Credentials
--- NOTE | 2023-01-15 16:46 | PT.OTN ---
Current Diagnoses Unilateral primary osteoarthritis, left hip (01/15/23) Pain in left hip (01/15/23) Stiffness of left hip, not elsewhere classified (01/15/23) Other abnormalities of gait and mobility (01/15/23) Aftercare following joint replacement surgery (01/15/23) Physical Therapy Treatment Note PT-OP-A Visit Information Start: 01/13/23 15:21 Freq: Status: Active Protocol: Document 01/15/23 16:00 DCW (Rec: 01/15/23 16:46 DCW [id number]) Out-Patient Physical Therapy Visit Information Visit Information Visit Type Treatment Note Visit Start Time 16:00 Visit Stop Time 16:38 Total Visit Minutes 38 Visit Number 2 Number of PROP MAKER Visits 0 Evaluation Information Evaluation Date 01/13/23 PT-OP-B Current Condition Start: 01/13/23 15:21 Freq: Status: Active Protocol: Document 01/13/23 14:45 DCW (Rec: 01/13/23 15:30 DCW [id number]) Current Condition History of Current Condition Onset Date 01/06/23 Current Complaints s/p L JESUS History of Current Condition Pt is a 62 year old male presenting one week s/p left JESUS, posterior approach. Pt was previously seen at this facility in the fall of last year for bilateral hip pain, right hip responded well, however left hip did not respond to conservative treatment. Pt was later found to have severe bilateral hip OA, referred to an orthopedic surgeon, and finally scheduled for a L JESUS. Pt notes his hip has felt significantly better since surgery, even when standing for the first time. Is currently ambulating with a FWW. Has a walk-in shower at home, no steps or ALEJANDRA. Has been doing his post-op HEP, which includes ankle pumps, glute sets, quad sets, and getting up and walking about once an hour. Pt notes pain with movement is ~1/10, does not really get worse. Biggest difficulty at this time and sit<->stand from toilet. Otherwise very happy with current functional level. Able to recite posterior hip precautions. PT-OP-C Subjective Start: 01/13/23 15:21 Freq: Status: Active Protocol: Document 01/15/23 16:00 DCW (Rec: 01/15/23 16:46 DCW [id number]) OP-PT Subjective Patient Comments Patient Comments Pt reports hip is still feeling good. PT-OP-E Functional Tests Start: 01/13/23 15:21 Freq: Status: Active Protocol: Document 01/13/23 14:45 DCW (Rec: 01/13/23 15:30 DCW [id number]) Functional Tests 6 Minute Walk Test Distance 800' Device Used FWW Comments 2.22 ft/sec PT-OP-G Mobility & Gait Start: 01/13/23 15:21 Freq: Status: Active Protocol: Document 01/13/23 14:45 DCW (Rec: 01/13/23 16:42 DCW [id number]) OP Mobility Evaluation Transfers Sit to Stand Requires raised chair, heavy reliance on upper extremities OP Gait Assessment Gait Gait Assistance Required: Standby Assistance Distance (Feet) 800 Assistive Devices Assistive Device Front Wheeled Walker Orthotic/Prosthetic Devices or Brace: No Gait Deviations General Gait Pattern Antalgic,Decreased Stride Length,Decreased Feet Clearance,Flexed Trunk,Wide Based Gait Comments Gait Comments Pt ambulates with a wide JOSEY, increased forward trunk lean. Weakness in L hip reqults in mild trendelenburg gait, decreased stance time on left leg. PT-OP-M Strength Start: 01/13/23 15:21 Freq: Status: Active Protocol: Document 01/13/23 14:45 DCW (Rec: 01/13/23 15:30 DCW [id number]) Hip Strength Hip Manual Muscle Testing Left Flexion (L2) 3- Fair- Abduction 3- Fair- PT-OP-Q Treatments Start: 01/13/23 15:21 Freq: Status: Active Protocol: Document 01/15/23 16:00 DCW (Rec: 01/15/23 16:46 DCW [id number]) Gym Equipment Shuttle Recovery Unilateral Squats Resistance 37# Shuttle Recovery Platform Stable Reps/Time Stopper down to prevent past 90 Bilateral Squats Resistance 75# Shuttle Recovery Platform Stable Reps/Time Stopper down to prevent past 90 Therapeutic Exercises Standing Exercises Star Slides Standing Exercise Name Flex, Abd, Ext Side bilateral Equipment Used Furniture slider Hip Extension Standing Exercise Name Hip Extension Side bilateral Resistance Yellow Other Exercises Resisted Ambulation Other Exercise Name Resisted side-stepping Resistance Yellow Step-ups Other Exercise Name Step-ups Side left Step-taps Other Exercise Name Step-taps Side left Gait Training Gait Activity SPC Description Gait training /c SPC Level of Assistance SBA Distance/Duration 170' Retro Ambulation Description Retro ambulation Device Used // bars Stairs Description Step-to training Device Used B Rail Level of Assistance CGA Neuro Re-Education Treatment Balance Activities SLS Details SLS Equipment // bars PT-OP-T Assessment and Plan Start: 01/13/23 15:21 Freq: Status: Active Protocol: Document 01/15/23 16:00 DCW (Rec: 01/15/23 16:46 DCW [id number]) Physical Therapy Assessment Impairments Impairments Activity Tolerance,Functional Activities,Functional Mobility ,Gait,Posture,ROM,Strength Goals Three Impairment Pt ambulated 800' during six minute walk test using a FWW Manager Line Goal (LTG) Pt to ambulate >1000' without an assistive device during a 6MWT LTG Duration 03/15/23 Two Impairment Pt unable to flex left hip against gravity Manager Line Goal (LTG) Pt to demonstrate increased L hip flexion MMT to at least 4/ 5 to 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 Required a few reminders to stick out left leg to ease in stand->sit transfer, but otherwise is doing very well with all activities. During trial of SPC, pt was able to maintain balance and proper gait pattern with minimal antalgia. Also demonstrated good ability to safely ascend/ descend steps after minimal training. Continue to focus on hip strength and mobility. Physical Therapy Plan Frequency and Duration Frequency of Treatment 2x/Week Plan of Care Start Date 01/13/23 Plan of Care End Date 03/15/23 Therapeutic Interventions Therapeutic Interventions Balance Training,Gait Training ,Home Exercise Program,Joint Mobilizations,Manual Therapy, Neuromuscular Re-education, Patient/Caregiver Education, Self-Care/Home Management,Soft Tissue Mobilization, Therapeutic Activities, Therapeutic Exercises Modalities Cold Pack/Ice Massage,Electric Stimulation,Hot Packs, Ultrasound Next Visit Focus/Plan Next Note Type Treatment Note Next Visit Plan Hip strengthening, hip mobility, gait training, balance
--- NOTE | 2023-01-19 16:28 | PT.OTN ---
Current Diagnoses Unilateral primary osteoarthritis, left hip (01/19/23) Pain in left hip (01/19/23) Stiffness of left hip, not elsewhere classified (01/19/23) Other abnormalities of gait and mobility (01/19/23) Aftercare following joint replacement surgery (01/19/23) Physical Therapy Treatment Note PT-OP-A Visit Information Start: 01/13/23 15:21 Freq: Status: Active Protocol: Document 01/19/23 15:45 DCW (Rec: 01/19/23 16:28 DCW [id number]) Out-Patient Physical Therapy Visit Information Visit Information Visit Type Treatment Note Visit Start Time 15:45 Visit Stop Time 16:30 Total Visit Minutes 45 Visit Number 3 Number of EARTHMOVING PLANT OPERATOR Visits 0 Evaluation Information Evaluation Date 01/13/23 PT-OP-B Current Condition Start: 01/13/23 15:21 Freq: Status: Active Protocol: Document 01/13/23 14:45 DCW (Rec: 01/13/23 15:30 DCW [id number]) Current Condition History of Current Condition Onset Date 01/06/23 Current Complaints s/p L JESUS History of Current Condition Pt is a 62 year old male presenting one week s/p left JESUS, posterior approach. Pt was previously seen at this facility in the fall of last year for bilateral hip pain, right hip responded well, however left hip did not respond to conservative treatment. Pt was later found to have severe bilateral hip OA, referred to an orthopedic surgeon, and finally scheduled for a L JESUS. Pt notes his hip has felt significantly better since surgery, even when standing for the first time. Is currently ambulating with a FWW. Has a walk-in shower at home, no steps or ALEJANDRA. Has been doing his post-op HEP, which includes ankle pumps, glute sets, quad sets, and getting up and walking about once an hour. Pt notes pain with movement is ~1/10, does not really get worse. Biggest difficulty at this time and sit<->stand from toilet. Otherwise very happy with current functional level. Able to recite posterior hip precautions. PT-OP-C Subjective Start: 01/13/23 15:21 Freq: Status: Active Protocol: Document 01/19/23 15:45 DCW (Rec: 01/19/23 16:28 DCW [id number]) OP-PT Subjective Patient Comments Patient Comments Pt doing well, has transitioned to using SPC, admits he doesn't really use anything at home. PT-OP-E Functional Tests Start: 01/13/23 15:21 Freq: Status: Active Protocol: Document 01/13/23 14:45 DCW (Rec: 01/13/23 15:30 DCW [id number]) Functional Tests 6 Minute Walk Test Distance 800' Device Used FWW Comments 2.22 ft/sec PT-OP-G Mobility & Gait Start: 01/13/23 15:21 Freq: Status: Active Protocol: Document 01/13/23 14:45 DCW (Rec: 01/13/23 16:42 DCW [id number]) OP Mobility Evaluation Transfers Sit to Stand Requires raised chair, heavy reliance on upper extremities OP Gait Assessment Gait Gait Assistance Required: Standby Assistance Distance (Feet) 800 Assistive Devices Assistive Device Front Wheeled Walker Orthotic/Prosthetic Devices or Brace: No Gait Deviations General Gait Pattern Antalgic,Decreased Stride Length,Decreased Feet Clearance,Flexed Trunk,Wide Based Gait Comments Gait Comments Pt ambulates with a wide JOSEY, increased forward trunk lean. Weakness in L hip reqults in mild trendelenburg gait, decreased stance time on left leg. PT-OP-M Strength Start: 01/13/23 15:21 Freq: Status: Active Protocol: Document 01/13/23 14:45 DCW (Rec: 01/13/23 15:30 DCW [id number]) Hip Strength Hip Manual Muscle Testing Left Flexion (L2) 3- Fair- Abduction 3- Fair- PT-OP-Q Treatments Start: 01/13/23 15:21 Freq: Status: Active Protocol: Document 01/19/23 15:45 DCW (Rec: 01/19/23 16:28 DCW [id number]) Gym Equipment Shuttle Recovery Unilateral Squats Details Left leg Resistance 37# (one new) Shuttle Recovery Platform Stable Reps/Time Stopper down to prevent past 90 Bilateral Squats Resistance 75# (three new) Shuttle Recovery Platform Stable Reps/Time Stopper down to prevent past 90 Therapeutic Exercises Supine Exercises SAQ Supine Exercise Name SAQ Side left Resistance 15# Clamshell Supine Exercise Name Hooklying Chamshell Side bilateral Resistance Lv 3 Heel Slides Supine Exercise Name Heel Slides Side left SLR Supine Exercise Name AAROM Side left Standing Exercises Hamstring Curls Standing Exercise Name HS Curls Side left Resistance 5# Star Slides Standing Exercise Name Flex, Abd, Ext Side bilateral Equipment Used Furniture slider Hip Extension Standing Exercise Name Hip Extension Side bilateral Resistance Green Other Exercises Resisted Ambulation Other Exercise Name Resisted side-stepping Resistance Green Step-ups Other Exercise Name Step-ups Side left Step-taps Other Exercise Name Step-taps Side left Resistance 5# Equipment Used 6 step PT-OP-T Assessment and Plan Start: 01/13/23 15:21 Freq: Status: Active Protocol: Document 01/19/23 15:45 DCW (Rec: 01/19/23 16:28 DCW [id number]) Physical Therapy Assessment Impairments Impairments Activity Tolerance,Functional Activities,Functional Mobility ,Gait,Posture,ROM,Strength Goals Three Impairment Pt ambulated 800' during six minute walk test using a FWW Custodial Goal (LTG) Pt to ambulate >1000' without an assistive device during a 6MWT LTG Duration 03/15/23 Two Impairment Pt unable to flex left hip against gravity Custodial Goal (LTG) Pt to demonstrate increased L hip flexion MMT to at least 4/ 5 to 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 Has transitioned without difficulty to using SPC for most ambulation. Currently reports no concerns with day- to-day activities. Continue to focus on post-op JESUS strengthening, gait training, and balance. Physical Therapy Plan Frequency and Duration Frequency of Treatment 2x/Week Plan of Care Start Date 01/13/23 Plan of Care End Date 03/15/23 Therapeutic Interventions Therapeutic Interventions Balance Training,Gait Training ,Home Exercise Program,Joint Mobilizations,Manual Therapy, Neuromuscular Re-education, Patient/Caregiver Education, Self-Care/Home Management,Soft Tissue Mobilization, Therapeutic Activities, Therapeutic Exercises Modalities Cold Pack/Ice Massage,Electric Stimulation,Hot Packs, Ultrasound Next Visit Focus/Plan Next Note Type Treatment Note Next Visit Plan Hip strengthening, hip mobility, gait training, balance
--- NOTE | 2023-01-26 16:06 | PT.OTN ---
Current Diagnoses Unilateral primary osteoarthritis, left hip (01/26/23) Pain in left hip (01/26/23) Stiffness of left hip, not elsewhere classified (01/26/23) Other abnormalities of gait and mobility (01/26/23) Aftercare following joint replacement surgery (01/26/23) Physical Therapy Treatment Note PT-OP-A Visit Information Start: 01/13/23 15:21 Freq: Status: Active Protocol: Document 01/26/23 16:06 AM (Rec: 01/26/23 17:03 AM [id number]) Out-Patient Physical Therapy Visit Information Visit Information Visit Type Treatment Note Visit Start Time 16:06 Visit Stop Time 16:51 Total Visit Minutes 45 Visit Number 4 Number of BIOINFORMATICS ASSOCIATE Visits 0 PT-OP-B Current Condition Start: 01/13/23 15:21 Freq: Status: Active Protocol: Document 01/13/23 14:45 DCW (Rec: 01/13/23 15:30 DCW [id number]) Current Condition History of Current Condition Onset Date 01/06/23 Current Complaints s/p L JESUS History of Current Condition Pt is a 62 year old male presenting one week s/p left JESUS, posterior approach. Pt was previously seen at this facility in the fall of last year for bilateral hip pain, right hip responded well, however left hip did not respond to conservative treatment. Pt was later found to have severe bilateral hip OA, referred to an orthopedic surgeon, and finally scheduled for a L JESUS. Pt notes his hip has felt significantly better since surgery, even when standing for the first time. Is currently ambulating with a FWW. Has a walk-in shower at home, no steps or ALEJANDRA. Has been doing his post-op HEP, which includes ankle pumps, glute sets, quad sets, and getting up and walking about once an hour. Pt notes pain with movement is ~1/10, does not really get worse. Biggest difficulty at this time and sit<->stand from toilet. Otherwise very happy with current functional level. Able to recite posterior hip precautions. PT-OP-C Subjective Start: 01/13/23 15:21 Freq: Status: Active Protocol: Document 01/26/23 16:06 AM (Rec: 01/26/23 17:03 AM [id number]) OP-PT Subjective Patient Comments Patient Comments Pt denies pain today. PT-OP-E Functional Tests Start: 01/13/23 15:21 Freq: Status: Active Protocol: Document 01/13/23 14:45 DCW (Rec: 01/13/23 15:30 DCW [id number]) Functional Tests 6 Minute Walk Test Distance 800' Device Used FWW Comments 2.22 ft/sec PT-OP-G Mobility & Gait Start: 01/13/23 15:21 Freq: Status: Active Protocol: Document 01/13/23 14:45 DCW (Rec: 01/13/23 16:42 DCW [id number]) OP Mobility Evaluation Transfers Sit to Stand Requires raised chair, heavy reliance on upper extremities OP Gait Assessment Gait Gait Assistance Required: Standby Assistance Distance (Feet) 800 Assistive Devices Assistive Device Front Wheeled Walker Orthotic/Prosthetic Devices or Brace: No Gait Deviations General Gait Pattern Antalgic,Decreased Stride Length,Decreased Feet Clearance,Flexed Trunk,Wide Based Gait Comments Gait Comments Pt ambulates with a wide JOSEY, increased forward trunk lean. Weakness in L hip reqults in mild trendelenburg gait, decreased stance time on left leg. PT-OP-M Strength Start: 01/13/23 15:21 Freq: Status: Active Protocol: Document 01/13/23 14:45 DCW (Rec: 01/13/23 15:30 DCW [id number]) Hip Strength Hip Manual Muscle Testing Left Flexion (L2) 3- Fair- Abduction 3- Fair- PT-OP-Q Treatments Start: 01/13/23 15:21 Freq: Status: Active Protocol: Document 01/26/23 16:06 AM (Rec: 01/26/23 17:03 AM [id number]) Gym Equipment Shuttle Recovery Unilateral Squats Details Left leg Resistance 37# (one new) Shuttle Recovery Platform Stable Reps/Time x1 min ea LE, Stopper down to prevent past 90 Bilateral Squats Resistance 75# (three new) Shuttle Recovery Platform Stable Reps/Time x1 min, stopper down to prevent past 90 Therapeutic Exercises Supine Exercises SAQ Supine Exercise Name SAQ Side left Resistance 15# Clamshell Supine Exercise Name Hooklying Chamshell Side bilateral Resistance Lv 3 Heel Slides Supine Exercise Name Heel slides Side left SLR Supine Exercise Name AAROM Side left Standing Exercises Hamstring Curls Standing Exercise Name HS Curls Side left Resistance 5# Star Slides Standing Exercise Name Flex, Abd, Ext Side bilateral Comments 3-way hip Other Exercises Step-taps Other Exercise Name Step-taps Side left Resistance 5# Equipment Used 6 step Neuro Re-Education Treatment Balance Activities Stepping over hurdles Details Stepping over hurdles Equipment // bars Tandem stance Details Tandem stance Equipment // bars SLS Details SLS Reps/Duration // bars PT-OP-T Assessment and Plan Start: 01/13/23 15:21 Freq: Status: Active Protocol: Document 01/26/23 16:06 AM (Rec: 01/26/23 17:03 AM [id number]) Physical Therapy Assessment Impairments Impairments Activity Tolerance,Functional Activities,Functional Mobility ,Gait,Posture,ROM,Strength Goals Three Impairment Pt ambulated 800' during six minute walk test using a FWW Mcfp Goal (LTG) Pt to ambulate >1000' without an assistive device during a 6MWT LTG Duration 03/15/23 Two Impairment Pt unable to flex left hip against gravity Mechanical Engineering Advisor Goal (LTG) Pt to demonstrate increased L hip flexion MMT to at least 4/ 5 to 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 Pt with difficulty with transfers from supine to sitting today, requiring Min A from PT. Pt demonstrates fatigue at hip, particularly with exercises requiring hip flexors. Pt would benefit from continued PT to progress hip strength, mobility and balance as tolerated. Physical Therapy Plan Frequency and Duration Frequency of Treatment 2x/Week Plan of Care Start Date 01/13/23 Plan of Care End Date 03/15/23 Therapeutic Interventions Therapeutic Interventions Balance Training,Gait Training ,Home Exercise Program,Joint Mobilizations,Manual Therapy, Neuromuscular Re-education, Patient/Caregiver Education, Self-Care/Home Management,Soft Tissue Mobilization, Therapeutic Activities, Therapeutic Exercises Modalities Cold Pack/Ice Massage,Electric Stimulation,Hot Packs, Ultrasound Next Visit Focus/Plan Next Note Type Treatment Note Next Visit Plan Hip strengthening, hip mobility, gait training, balance
--- NOTE | 2023-02-01 15:20 | PT.OTN ---
Current Diagnoses Unilateral primary osteoarthritis, left hip (02/01/23) Pain in left hip (02/01/23) Stiffness of left hip, not elsewhere classified (02/01/23) Other abnormalities of gait and mobility (02/01/23) Aftercare following joint replacement surgery (02/01/23) Physical Therapy Treatment Note PT-OP-A Visit Information Start: 01/13/23 15:21 Freq: Status: Active Protocol: Document 02/01/23 15:20 AM (Rec: 02/01/23 16:06 AM [id number]) Out-Patient Physical Therapy Visit Information Visit Information Visit Type Treatment Note Visit Start Time 15:20 Visit Stop Time 16:04 Total Visit Minutes 44 Visit Number 5 Number of NEWSPAPER CARRIER Visits 0 PT-OP-B Current Condition Start: 01/13/23 15:21 Freq: Status: Active Protocol: Document 01/13/23 14:45 DCW (Rec: 01/13/23 15:30 DCW [id number]) Current Condition History of Current Condition Onset Date 01/06/23 Current Complaints s/p L JESUS History of Current Condition Pt is a 62 year old male presenting one week s/p left JESUS, posterior approach. Pt was previously seen at this facility in the fall of last year for bilateral hip pain, right hip responded well, however left hip did not respond to conservative treatment. Pt was later found to have severe bilateral hip OA, referred to an orthopedic surgeon, and finally scheduled for a L JESUS. Pt notes his hip has felt significantly better since surgery, even when standing for the first time. Is currently ambulating with a FWW. Has a walk-in shower at home, no steps or ALEJANDRA. Has been doing his post-op HEP, which includes ankle pumps, glute sets, quad sets, and getting up and walking about once an hour. Pt notes pain with movement is ~1/10, does not really get worse. Biggest difficulty at this time and sit<->stand from toilet. Otherwise very happy with current functional level. Able to recite posterior hip precautions. PT-OP-C Subjective Start: 01/13/23 15:21 Freq: Status: Active Protocol: Document 02/01/23 15:20 AM (Rec: 02/01/23 16:06 AM [id number]) OP-PT Subjective Patient Comments Patient Comments Pt denies pain today. Pt reports that he had a staple removed today, which feels better. PT-OP-E Functional Tests Start: 01/13/23 15:21 Freq: Status: Active Protocol: Document 01/13/23 14:45 DCW (Rec: 01/13/23 15:30 DCW [id number]) Functional Tests 6 Minute Walk Test Distance 800' Device Used FWW Comments 2.22 ft/sec PT-OP-G Mobility & Gait Start: 01/13/23 15:21 Freq: Status: Active Protocol: Document 01/13/23 14:45 DCW (Rec: 01/13/23 16:42 DCW [id number]) OP Mobility Evaluation Transfers Sit to Stand Requires raised chair, heavy reliance on upper extremities OP Gait Assessment Gait Gait Assistance Required: Standby Assistance Distance (Feet) 800 Assistive Devices Assistive Device Front Wheeled Walker Orthotic/Prosthetic Devices or Brace: No Gait Deviations General Gait Pattern Antalgic,Decreased Stride Length,Decreased Feet Clearance,Flexed Trunk,Wide Based Gait Comments Gait Comments Pt ambulates with a wide JOSEY, increased forward trunk lean. Weakness in L hip reqults in mild trendelenburg gait, decreased stance time on left leg. PT-OP-M Strength Start: 01/13/23 15:21 Freq: Status: Active Protocol: Document 01/13/23 14:45 DCW (Rec: 01/13/23 15:30 DCW [id number]) Hip Strength Hip Manual Muscle Testing Left Flexion (L2) 3- Fair- Abduction 3- Fair- PT-OP-Q Treatments Start: 01/13/23 15:21 Freq: Status: Active Protocol: Document 02/01/23 15:20 AM (Rec: 02/01/23 16:06 AM [id number]) Gym Equipment Shuttle Recovery Unilateral Squats Details Left leg Resistance 50# Shuttle Recovery Platform Stable Reps/Time x1 min ea LE, Stopper down to prevent past 90 Bilateral Squats Resistance 75# (three new) Shuttle Recovery Platform Stable Reps/Time x1 min, stopper down to prevent past 90 Therapeutic Exercises Supine Exercises SAQ Supine Exercise Name SAQ Side left Resistance 15# Reps/Minutes 2x15 with 2sec hold Heel Slides Supine Exercise Name Heel slides Side left Reps/Minutes 2x10 SLR Supine Exercise Name AAROM Side left Reps/Minutes x10 Standing Exercises Chair squat Standing Exercise Name Sit-stand squat Equipment Used hi-low table Reps/Minutes 2x10 Hamstring Curls Standing Exercise Name HS Curls Side left Resistance 5# Hip Extension Standing Exercise Name Hip Extension Side bilateral Resistance Green Other Exercises Resisted Ambulation Other Exercise Name Resisted side-stepping Resistance Green Step-ups Other Exercise Name Step-ups fwd and lat Side left Equipment Used 6 in step-up for fwd and 4 in for lateral Reps/Minutes 2x10 ea Step-taps Other Exercise Name Step-taps Side left Resistance 5# Equipment Used 6 step Reps/Minutes 2x1 min Neuro Re-Education Treatment Balance Activities Balance wobble board Details balance STS and fwd/back Surface uneven Equipment wooden balance board in // bars Reps/Duration x1 min ea PT-OP-T Assessment and Plan Start: 01/13/23 15:21 Freq: Status: Active Protocol: Document 02/01/23 15:20 AM (Rec: 02/01/23 16:06 AM [id number]) Physical Therapy Assessment Impairments Impairments Activity Tolerance,Functional Activities,Functional Mobility ,Gait,Posture,ROM,Strength Goals Three Impairment Pt ambulated 800' during six minute walk test using a FWW Half-Way Goal (LTG) Pt to ambulate >1000' without an assistive device during a 6MWT LTG Duration 03/15/23 Two Impairment Pt unable to flex left hip against gravity Half-Way Goal (LTG) Pt to demonstrate increased L hip flexion MMT to at least 4/ 5 to 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 Pt with reported fatigue with exercises, though denied pain. Pt challenged with wobble board when vision altered. Pt with difficulty with step-ups when UE assist decreased from 2 to unilateral railing. Pt would benefit from continued Pt to progress LE strength to improve tolerance to functional activities. Physical Therapy Plan Frequency and Duration Frequency of Treatment 2x/Week Plan of Care Start Date 01/13/23 Plan of Care End Date 03/15/23 Therapeutic Interventions Therapeutic Interventions Balance Training,Gait Training ,Home Exercise Program,Joint Mobilizations,Manual Therapy, Neuromuscular Re-education, Patient/Caregiver Education, Self-Care/Home Management,Soft Tissue Mobilization, Therapeutic Activities, Therapeutic Exercises Modalities Cold Pack/Ice Massage,Electric Stimulation,Hot Packs, Ultrasound Next Visit Focus/Plan Next Note Type Treatment Note Next Visit Plan Hip strengthening, hip mobility, gait training, balance
--- NOTE | 2023-02-03 15:16 | PT.OTN ---
Current Diagnoses Unilateral primary osteoarthritis, left hip (02/03/23) Pain in left hip (02/03/23) Stiffness of left hip, not elsewhere classified (02/03/23) Other abnormalities of gait and mobility (02/03/23) Aftercare following joint replacement surgery (02/03/23) Physical Therapy Treatment Note PT-OP-A Visit Information Start: 01/13/23 15:21 Freq: Status: Active Protocol: Document 02/03/23 15:16 AM (Rec: 02/03/23 16:09 AM [id number]) Out-Patient Physical Therapy Visit Information Visit Information Visit Type Treatment Note Visit Start Time 15:17 Visit Stop Time 16:02 Total Visit Minutes 45 Visit Number 6 PT-OP-B Current Condition Start: 01/13/23 15:21 Freq: Status: Active Protocol: Document 01/13/23 14:45 DCW (Rec: 01/13/23 15:30 DCW [id number]) Current Condition History of Current Condition Onset Date 01/06/23 Current Complaints s/p L JESUS History of Current Condition Pt is a 62 year old male presenting one week s/p left JESUS, posterior approach. Pt was previously seen at this facility in the fall of last year for bilateral hip pain, right hip responded well, however left hip did not respond to conservative treatment. Pt was later found to have severe bilateral hip OA, referred to an orthopedic surgeon, and finally scheduled for a L JESUS. Pt notes his hip has felt significantly better since surgery, even when standing for the first time. Is currently ambulating with a FWW. Has a walk-in shower at home, no steps or ALEJANDRA. Has been doing his post-op HEP, which includes ankle pumps, glute sets, quad sets, and getting up and walking about once an hour. Pt notes pain with movement is ~1/10, does not really get worse. Biggest difficulty at this time and sit<->stand from toilet. Otherwise very happy with current functional level. Able to recite posterior hip precautions. PT-OP-C Subjective Start: 01/13/23 15:21 Freq: Status: Active Protocol: Document 02/03/23 15:16 AM (Rec: 02/03/23 16:09 AM [id number]) OP-PT Subjective Patient Comments Patient Comments Pt reports mild soreness at L glute today. Pt reports symptoms at 2-3/10. PT-OP-E Functional Tests Start: 01/13/23 15:21 Freq: Status: Active Protocol: Document 01/13/23 14:45 DCW (Rec: 01/13/23 15:30 DCW [id number]) Functional Tests 6 Minute Walk Test Distance 800' Device Used FWW Comments 2.22 ft/sec PT-OP-G Mobility & Gait Start: 01/13/23 15:21 Freq: Status: Active Protocol: Document 01/13/23 14:45 DCW (Rec: 01/13/23 16:42 DCW [id number]) OP Mobility Evaluation Transfers Sit to Stand Requires raised chair, heavy reliance on upper extremities OP Gait Assessment Gait Gait Assistance Required: Standby Assistance Distance (Feet) 800 Assistive Devices Assistive Device Front Wheeled Walker Orthotic/Prosthetic Devices or Brace: No Gait Deviations General Gait Pattern Antalgic,Decreased Stride Length,Decreased Feet Clearance,Flexed Trunk,Wide Based Gait Comments Gait Comments Pt ambulates with a wide JOSEY, increased forward trunk lean. Weakness in L hip reqults in mild trendelenburg gait, decreased stance time on left leg. PT-OP-M Strength Start: 01/13/23 15:21 Freq: Status: Active Protocol: Document 01/13/23 14:45 DCW (Rec: 01/13/23 15:30 DCW [id number]) Hip Strength Hip Manual Muscle Testing Left Flexion (L2) 3- Fair- Abduction 3- Fair- PT-OP-Q Treatments Start: 01/13/23 15:21 Freq: Status: Active Protocol: Document 02/03/23 15:16 AM (Rec: 02/03/23 16:09 AM [id number]) Gym Equipment Shuttle Recovery Unilateral Squats Details Left leg Resistance 50# Shuttle Recovery Platform Stable Reps/Time 2x1 min ea LE, Stopper down to prevent past 90 Bilateral Squats Resistance 75# (three new) Shuttle Recovery Platform Stable Reps/Time 2x1 min, stopper down to prevent past 90 Therapeutic Exercises Standing Exercises Hip abduction Standing Exercise Name Standing hip abduction Side bilateral Resistance GTB Reps/Minutes 2x10 Hamstring Curls Standing Exercise Name HS Curls Side left Resistance 5# Reps/Minutes 2x10 Hip Extension Standing Exercise Name Hip Extension Side bilateral Resistance Green Reps/Minutes 2x10 Other Exercises Resisted Ambulation Other Exercise Name Resisted side-stepping Resistance Green Step-ups Other Exercise Name Step-ups fwd and lat Side left Equipment Used 6 in step-up for fwd and 4 in for lateral Reps/Minutes 2x10 ea Step-taps Other Exercise Name Step-taps Side left Resistance 5# Equipment Used 6 step Reps/Minutes 2x1 min Neuro Re-Education Treatment Balance Activities Tandem stance Details Tandem stance Equipment // bars Comments with ball throw SLS Details SLS Reps/Duration // bars PT-OP-T Assessment and Plan Start: 01/13/23 15:21 Freq: Status: Active Protocol: Document 02/03/23 15:16 AM (Rec: 02/03/23 16:09 AM [id number]) Physical Therapy Assessment Impairments Impairments Activity Tolerance,Functional Activities,Functional Mobility ,Gait,Posture,ROM,Strength Goals Three Impairment Pt ambulated 800' during six minute walk test using a FWW Child Watch Attendant Goal (LTG) Pt to ambulate >1000' without an assistive device during a 6MWT LTG Duration 03/15/23 Two Impairment Pt unable to flex left hip against gravity Child Watch Attendant Goal (LTG) Pt to demonstrate increased L hip flexion MMT to at least 4/ 5 to 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 Pt no longer requires UE support with weighted step-taps. Pt demonstrates improving balance with ability to dual task with ball throw with tandem stance. Pt with reported increase in symptoms during tx session today. Pt will return to PT next week to continue to progress functional strength as tolerated. Physical Therapy Plan Frequency and Duration Frequency of Treatment 2x/Week Plan of Care Start Date 01/13/23 Plan of Care End Date 03/15/23 Therapeutic Interventions Therapeutic Interventions Balance Training,Gait Training ,Home Exercise Program,Joint Mobilizations,Manual Therapy, Neuromuscular Re-education, Patient/Caregiver Education, Self-Care/Home Management,Soft Tissue Mobilization, Therapeutic Activities, Therapeutic Exercises Modalities Cold Pack/Ice Massage,Electric Stimulation,Hot Packs, Ultrasound Next Visit Focus/Plan Next Note Type Treatment Note Next Visit Plan Hip strengthening, hip mobility, gait training, balance
--- NOTE | 2023-02-08 15:16 | PT.OTN ---
Current Diagnoses Unilateral primary osteoarthritis, left hip (02/08/23) Pain in left hip (02/08/23) Stiffness of left hip, not elsewhere classified (02/08/23) Other abnormalities of gait and mobility (02/08/23) Aftercare following joint replacement surgery (02/08/23) Physical Therapy Treatment Note PT-OP-A Visit Information Start: 01/13/23 15:21 Freq: Status: Active Protocol: Document 02/08/23 15:16 AM (Rec: 02/08/23 16:01 AM [id number]) Out-Patient Physical Therapy Visit Information Visit Information Visit Type Treatment Note Visit Start Time 15:17 Visit Stop Time 16:00 Total Visit Minutes 43 Visit Number 7 PT-OP-B Current Condition Start: 01/13/23 15:21 Freq: Status: Active Protocol: Document 01/13/23 14:45 DCW (Rec: 01/13/23 15:30 DCW [id number]) Current Condition History of Current Condition Onset Date 01/06/23 Current Complaints s/p L JESUS History of Current Condition Pt is a 62 year old male presenting one week s/p left JESUS, posterior approach. Pt was previously seen at this facility in the fall of last year for bilateral hip pain, right hip responded well, however left hip did not respond to conservative treatment. Pt was later found to have severe bilateral hip OA, referred to an orthopedic surgeon, and finally scheduled for a L JESUS. Pt notes his hip has felt significantly better since surgery, even when standing for the first time. Is currently ambulating with a FWW. Has a walk-in shower at home, no steps or ALEJANDRA. Has been doing his post-op HEP, which includes ankle pumps, glute sets, quad sets, and getting up and walking about once an hour. Pt notes pain with movement is ~1/10, does not really get worse. Biggest difficulty at this time and sit<->stand from toilet. Otherwise very happy with current functional level. Able to recite posterior hip precautions. PT-OP-C Subjective Start: 01/13/23 15:21 Freq: Status: Active Protocol: Document 02/08/23 15:16 AM (Rec: 02/08/23 16:01 AM [id number]) OP-PT Subjective Patient Comments Patient Comments Pt reports that he will see his surgeon at the end of Jan for 6 week f/u PT-OP-E Functional Tests Start: 01/13/23 15:21 Freq: Status: Active Protocol: Document 01/13/23 14:45 DCW (Rec: 01/13/23 15:30 DCW [id number]) Functional Tests 6 Minute Walk Test Distance 800' Device Used FWW Comments 2.22 ft/sec PT-OP-G Mobility & Gait Start: 01/13/23 15:21 Freq: Status: Active Protocol: Document 01/13/23 14:45 DCW (Rec: 01/13/23 16:42 DCW [id number]) OP Mobility Evaluation Transfers Sit to Stand Requires raised chair, heavy reliance on upper extremities OP Gait Assessment Gait Gait Assistance Required: Standby Assistance Distance (Feet) 800 Assistive Devices Assistive Device Front Wheeled Walker Orthotic/Prosthetic Devices or Brace: No Gait Deviations General Gait Pattern Antalgic,Decreased Stride Length,Decreased Feet Clearance,Flexed Trunk,Wide Based Gait Comments Gait Comments Pt ambulates with a wide JOSEY, increased forward trunk lean. Weakness in L hip reqults in mild trendelenburg gait, decreased stance time on left leg. PT-OP-M Strength Start: 01/13/23 15:21 Freq: Status: Active Protocol: Document 01/13/23 14:45 DCW (Rec: 01/13/23 15:30 DCW [id number]) Hip Strength Hip Manual Muscle Testing Left Flexion (L2) 3- Fair- Abduction 3- Fair- PT-OP-Q Treatments Start: 01/13/23 15:21 Freq: Status: Active Protocol: Document 02/08/23 15:16 AM (Rec: 02/08/23 16:01 AM [id number]) Gym Equipment Shuttle Recovery Unilateral Squats Details Left Leg Resistance 62# (2 new) Shuttle Recovery Platform Stable Reps/Time x1 min ea Bilateral Squats Resistance 100# (three new) Shuttle Recovery Platform Stable Therapeutic Exercises Standing Exercises wall squat Standing Exercise Name wall squat (slide) Equipment Used Green swissball Reps/Minutes 2x15 Hip abduction Standing Exercise Name Standing hip abduction Side bilateral Resistance GTB Reps/Minutes 2x10 Hip Extension Standing Exercise Name Hip Extension Side bilateral Resistance Green Reps/Minutes 2x10 Other Exercises Resisted Ambulation Other Exercise Name Resisted side step Resistance Green Step-ups Other Exercise Name Step-ups fwd and lat Side left Equipment Used 6 in step up fwd, 4 in step lat Comments No use of UE for fwd x10, unilateral support end set x10 ; No UE support lat Neuro Re-Education Treatment Balance Activities Step taps Details step tap on uneven surface Surface stepping pods Equipment // bars, 6 in step Tandem stance Details tandem stance with head turns, EC Surface on balance pods Equipment // bars PT-OP-T Assessment and Plan Start: 01/13/23 15:21 Freq: Status: Active Protocol: Document 02/08/23 15:16 AM (Rec: 02/08/23 16:01 AM [id number]) Physical Therapy Assessment Impairments Impairments Activity Tolerance,Functional Activities,Functional Mobility ,Gait,Posture,ROM,Strength Goals Three Impairment Pt ambulated 800' during six minute walk test using a FWW Group Home Goal (LTG) Pt to ambulate >1000' without an assistive device during a 6MWT LTG Duration 03/15/23 Two Impairment Pt unable to flex left hip against gravity Associate Professor Goal (LTG) Pt to demonstrate increased L hip flexion MMT to at least 4/ 5 to 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 Pt continues to fatigue with CKC exercises. Pt demonstrates difficulty with step-ups on standard step without use of unilateral UE. Pt owuld benefit from continued PT to continue to progress LE strength as tolerated. Physical Therapy Plan Frequency and Duration Frequency of Treatment 2x/Week Plan of Care Start Date 01/13/23 Plan of Care End Date 03/15/23 Therapeutic Interventions Therapeutic Interventions Balance Training,Gait Training ,Home Exercise Program,Joint Mobilizations,Manual Therapy, Neuromuscular Re-education, Patient/Caregiver Education, Self-Care/Home Management,Soft Tissue Mobilization, Therapeutic Activities, Therapeutic Exercises Modalities Cold Pack/Ice Massage,Electric Stimulation,Hot Packs, Ultrasound Next Visit Focus/Plan Next Note Type Treatment Note Next Visit Plan Hip strengthening, hip mobility, gait training, balance
--- NOTE | 2023-02-10 15:22 | PT.OTN ---
Current Diagnoses Unilateral primary osteoarthritis, left hip (02/10/23) Pain in left hip (02/10/23) Stiffness of left hip, not elsewhere classified (02/10/23) Other abnormalities of gait and mobility (02/10/23) Aftercare following joint replacement surgery (02/10/23) Physical Therapy Treatment Note PT-OP-A Visit Information Start: 01/13/23 15:21 Freq: Status: Active Protocol: Document 02/10/23 15:22 AM (Rec: 02/10/23 16:15 AM [id number]) Out-Patient Physical Therapy Visit Information Visit Information Visit Type Treatment Note Visit Start Time 15:22 Visit Stop Time 16:05 Total Visit Minutes 43 Visit Number 8 PT-OP-B Current Condition Start: 01/13/23 15:21 Freq: Status: Active Protocol: Document 01/13/23 14:45 DCW (Rec: 01/13/23 15:30 DCW [id number]) Current Condition History of Current Condition Onset Date 01/06/23 Current Complaints s/p L JESUS History of Current Condition Pt is a 62 year old male presenting one week s/p left JESUS, posterior approach. Pt was previously seen at this facility in the fall of last year for bilateral hip pain, right hip responded well, however left hip did not respond to conservative treatment. Pt was later found to have severe bilateral hip OA, referred to an orthopedic surgeon, and finally scheduled for a L JESUS. Pt notes his hip has felt significantly better since surgery, even when standing for the first time. Is currently ambulating with a FWW. Has a walk-in shower at home, no steps or ALEJANDRA. Has been doing his post-op HEP, which includes ankle pumps, glute sets, quad sets, and getting up and walking about once an hour. Pt notes pain with movement is ~1/10, does not really get worse. Biggest difficulty at this time and sit<->stand from toilet. Otherwise very happy with current functional level. Able to recite posterior hip precautions. PT-OP-C Subjective Start: 01/13/23 15:21 Freq: Status: Active Protocol: Document 02/10/23 15:22 AM (Rec: 02/10/23 16:15 AM [id number]) OP-PT Subjective Patient Comments Patient Comments Pt denies hip pain. Pt reports that he has not been having vertigo symptoms. PT-OP-E Functional Tests Start: 01/13/23 15:21 Freq: Status: Active Protocol: Document 01/13/23 14:45 DCW (Rec: 01/13/23 15:30 DCW [id number]) Functional Tests 6 Minute Walk Test Distance 800' Device Used FWW Comments 2.22 ft/sec PT-OP-G Mobility & Gait Start: 01/13/23 15:21 Freq: Status: Active Protocol: Document 01/13/23 14:45 DCW (Rec: 01/13/23 16:42 DCW [id number]) OP Mobility Evaluation Transfers Sit to Stand Requires raised chair, heavy reliance on upper extremities OP Gait Assessment Gait Gait Assistance Required: Standby Assistance Distance (Feet) 800 Assistive Devices Assistive Device Front Wheeled Walker Orthotic/Prosthetic Devices or Brace: No Gait Deviations General Gait Pattern Antalgic,Decreased Stride Length,Decreased Feet Clearance,Flexed Trunk,Wide Based Gait Comments Gait Comments Pt ambulates with a wide JOSEY, increased forward trunk lean. Weakness in L hip reqults in mild trendelenburg gait, decreased stance time on left leg. PT-OP-M Strength Start: 01/13/23 15:21 Freq: Status: Active Protocol: Document 01/13/23 14:45 DCW (Rec: 01/13/23 15:30 DCW [id number]) Hip Strength Hip Manual Muscle Testing Left Flexion (L2) 3- Fair- Abduction 3- Fair- PT-OP-Q Treatments Start: 01/13/23 15:21 Freq: Status: Active Protocol: Document 02/10/23 15:22 AM (Rec: 02/10/23 16:15 AM [id number]) Gym Equipment Cable Column (Body Solid) Resisted side step, trunk isometric Details sideways ea, fwd/back Resistance 20# for sideways, 40# fwd/back Reps/Time x4 ea Shuttle Recovery Unilateral Squats Details Left Leg Resistance 62# (2 new) Shuttle Recovery Platform Stable Reps/Time 2x1 min ea Bilateral Squats Resistance 100# (three new) Shuttle Recovery Platform Stable Reps/Time 2x1 min Therapeutic Exercises Standing Exercises Hip flexion Standing Exercise Name Resisted hip flexion Side bilateral Resistance Hayes TB Equipment Used // bars Reps/Minutes 2x10 Hip abduction Standing Exercise Name Standing hip abduction Side bilateral Resistance GTB Reps/Minutes 2x10 Hip Extension Standing Exercise Name Hip Extension Side bilateral Resistance Green Reps/Minutes 2x10 Other Exercises Step-ups Other Exercise Name Step-ups fwd and lat Side left Equipment Used 6 in step up fwd, 6 in step lat Comments No use of UE for fwd x10, unilateral support end set x10 ; No UE support lat PT-OP-T Assessment and Plan Start: 01/13/23 15:21 Freq: Status: Active Protocol: Document 02/10/23 15:22 AM (Rec: 02/10/23 16:15 AM [id number]) Physical Therapy Assessment Impairments Impairments Activity Tolerance,Functional Activities,Functional Mobility ,Gait,Posture,ROM,Strength Goals Three Impairment Pt ambulated 800' during six minute walk test using a FWW [facility] Goal (LTG) Pt to ambulate >1000' without an assistive device during a 6MWT LTG Duration 03/15/23 Two Impairment Pt unable to flex left hip against gravity [facility] Goal (LTG) Pt to demonstrate increased L hip flexion MMT to at least 4/ 5 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 Pt challenged with resisted hip flexion strengthening. Pt able to tolerate increased height of lat step-up with UE support . Pt would benefit from continued PT to continue to progress LE [id number] and mobility as tolerated. Physical Therapy Plan Frequency and Duration Frequency of Treatment 2x/Week Plan of Care Start Date 01/13/23 Plan of Care End Date 03/15/23 Therapeutic Interventions Therapeutic Interventions Balance Training,Gait Training ,Home Exercise Program,Joint Mobilizations,Manual Therapy, Neuromuscular Re-education, Patient/Caregiver Education, Self-Care/Home Management,Soft Tissue Mobilization, Therapeutic Activities, Therapeutic Exercises Modalities Cold Pack/Ice Massage,Electric Stimulation,Hot Packs, Ultrasound Next Visit Focus/Plan Next Note Type Treatment Note Next Visit Plan Hip strengthening, hip mobility, gait training, balance
--- NOTE | 2023-02-17 15:15 | PT.OTN ---
Current Diagnoses Unilateral primary osteoarthritis, left hip (02/17/23) Pain in left hip (02/17/23) Stiffness of left hip, not elsewhere classified (02/17/23) Other abnormalities of gait and mobility (02/17/23) Aftercare following joint replacement surgery (02/17/23) Physical Therapy Treatment Note PT-OP-A Visit Information Start: 01/13/23 15:21 Freq: Status: Active Protocol: Document 02/17/23 15:15 AM (Rec: 02/17/23 17:17 AM [id number]) Out-Patient Physical Therapy Visit Information Visit Information Visit Type Treatment Note Visit Start Time 15:15 Visit Stop Time 16:00 Total Visit Minutes 45 Visit Number 9 PT-OP-B Current Condition Start: 01/13/23 15:21 Freq: Status: Active Protocol: Document 01/13/23 14:45 DCW (Rec: 01/13/23 15:30 DCW [id number]) Current Condition History of Current Condition Onset Date 01/06/23 Current Complaints s/p L JESUS History of Current Condition Pt is a 62 year old male presenting one week s/p left JESUS, posterior approach. Pt was previously seen at this facility in the fall of last year for bilateral hip pain, right hip responded well, however left hip did not respond to conservative treatment. Pt was later found to have severe bilateral hip OA, referred to an orthopedic surgeon, and finally scheduled for a L JESUS. Pt notes his hip has felt significantly better since surgery, even when standing for the first time. Is currently ambulating with a FWW. Has a walk-in shower at home, no steps or ALEJANDRA. Has been doing his post-op HEP, which includes ankle pumps, glute sets, quad sets, and getting up and walking about once an hour. Pt notes pain with movement is ~1/10, does not really get worse. Biggest difficulty at this time and sit<->stand from toilet. Otherwise very happy with current functional level. Able to recite posterior hip precautions. PT-OP-C Subjective Start: 01/13/23 15:21 Freq: Status: Active Protocol: Document 02/17/23 15:15 AM (Rec: 02/17/23 17:17 AM [id number]) OP-PT Subjective Patient Comments Patient Comments Pt saw his ortho and no concerns. Pt will have a f/u in 6 months. Pt is not getting his R hip done yet. Will evaulate at 6 month visit. Pt reports no restrictions at hip now. Pt reports feeling nervous to push hip past 90 deg PT-OP-E Functional Tests Start: 01/13/23 15:21 Freq: Status: Active Protocol: Document 01/13/23 14:45 DCW (Rec: 01/13/23 15:30 DCW [id number]) Functional Tests 6 Minute Walk Test Distance 800' Device Used FWW Comments 2.22 ft/sec PT-OP-G Mobility & Gait Start: 01/13/23 15:21 Freq: Status: Active Protocol: Document 01/13/23 14:45 DCW (Rec: 01/13/23 16:42 DCW [id number]) OP Mobility Evaluation Transfers Sit to Stand Requires raised chair, heavy reliance on upper extremities OP Gait Assessment Gait Gait Assistance Required: Standby Assistance Distance (Feet) 800 Assistive Devices Assistive Device Front Wheeled Walker Orthotic/Prosthetic Devices or Brace: No Gait Deviations General Gait Pattern Antalgic,Decreased Stride Length,Decreased Feet Clearance,Flexed Trunk,Wide Based Gait Comments Gait Comments Pt ambulates with a wide JOSEY, increased forward trunk lean. Weakness in L hip reqults in mild trendelenburg gait, decreased stance time on left leg. PT-OP-M Strength Start: 01/13/23 15:21 Freq: Status: Active Protocol: Document 01/13/23 14:45 DCW (Rec: 01/13/23 15:30 DCW [id number]) Hip Strength Hip Manual Muscle Testing Left Flexion (L2) 3- Fair- Abduction 3- Fair- PT-OP-Q Treatments Start: 01/13/23 15:21 Freq: Status: Active Protocol: Document 02/17/23 15:15 AM (Rec: 02/17/23 17:17 AM [id number]) Cardio Equipment Recumbent Stepper (Sci-Fit) Duration (Minutes) 5 Resistance 6 Seat Position 16 Gym Equipment Cable Column (Body Solid) Resisted side step, trunk isometric Details sideways ea Resistance 20# for sideways Reps/Time x4 ea Shuttle Recovery Unilateral Squats Details Left Leg Resistance 62# (2 new) Shuttle Recovery Platform Stable Reps/Time 2x1 min ea Bilateral Squats Resistance 100# Shuttle Recovery Platform Stable Reps/Time 2x1 min Therapeutic Exercises Standing Exercises Hip flexion Standing Exercise Name Resisted hip flexion Side bilateral Resistance Carter TB Equipment Used // bars Reps/Minutes 2x10 Hip abduction Standing Exercise Name Standing hip abduction Side bilateral Resistance GTB Reps/Minutes 2x10 Hip Extension Standing Exercise Name Hip Extension Side bilateral Resistance Green Reps/Minutes 2x10 Other Exercises Step-ups Other Exercise Name Step-ups fwd and lat Side left Equipment Used 6 in step up fwd, 6 in step lat Comments No use of UE for fwd x10, unilateral support end set x10 ; No UE support lat Neuro Re-Education Treatment Balance Activities Stepping over hurdles Details Stepping over hurdles Comments 5# weight on ankles PT-OP-T Assessment and Plan Start: 01/13/23 15:21 Freq: Status: Active Protocol: Document 02/17/23 15:15 AM (Rec: 02/17/23 17:17 AM [id number]) Physical Therapy Assessment Impairments Impairments Activity Tolerance,Functional Activities,Functional Mobility ,Gait,Posture,ROM,Strength Goals Three Impairment Pt ambulated 800' during six minute walk test using a FWW [employer] Goal (LTG) Pt to ambulate >1000' without an assistive device during a 6MWT LTG Duration 03/15/23 Two Impairment Pt unable to flex left hip against gravity Assisted Goal (LTG) Pt to demonstrate increased L hip flexion MMT to at least 4/ 5 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 Pt challenged with L hip flexion to step over hurdles when fatigued. Pt able to tolerate gentle range past 90 deg hip flexion without reported symptoms. Pt would benefit from continued PT to progress hip flexion strength and mobility to improve tolerance to functional tasks. Physical Therapy Plan Frequency and Duration Frequency of Treatment 2x/Week Plan of Care Start Date 01/13/23 Plan of Care End Date 03/15/23 Therapeutic Interventions Therapeutic Interventions Balance Training,Gait Training ,Home Exercise Program,Joint Mobilizations,Manual Therapy, Neuromuscular Re-education, Patient/Caregiver Education, Self-Care/Home Management,Soft Tissue Mobilization, Therapeutic Activities, Therapeutic Exercises Modalities Cold Pack/Ice Massage,Electric Stimulation,Hot Packs, Ultrasound Next Visit Focus/Plan Next Note Type Treatment Note Next Visit Plan Hip strengthening, hip mobility, gait training, balance, progress flexion as tolerated
--- NOTE | 2023-02-19 15:19 | PT.OTN ---
Current Diagnoses Unilateral primary osteoarthritis, left hip (02/19/23) Pain in left hip (02/19/23) Stiffness of left hip, not elsewhere classified (02/19/23) Other abnormalities of gait and mobility (02/19/23) Aftercare following joint replacement surgery (02/19/23) Physical Therapy Treatment Note PT-OP-A Visit Information Start: 01/13/23 15:21 Freq: Status: Active Protocol: Document 02/19/23 15:19 AM (Rec: 02/19/23 16:11 AM [id number]) Out-Patient Physical Therapy Visit Information Visit Information Visit Type Treatment Note Visit Start Time 15:19 Visit Stop Time 16:02 Total Visit Minutes 43 Visit Number 10 PT-OP-B Current Condition Start: 01/13/23 15:21 Freq: Status: Active Protocol: Document 01/13/23 14:45 DCW (Rec: 01/13/23 15:30 DCW [id number]) Current Condition History of Current Condition Onset Date 01/06/23 Current Complaints s/p L JESUS History of Current Condition Pt is a 62 year old male presenting one week s/p left JESUS, posterior approach. Pt was previously seen at this facility in the fall of last year for bilateral hip pain, right hip responded well, however left hip did not respond to conservative treatment. Pt was later found to have severe bilateral hip OA, referred to an orthopedic surgeon, and finally scheduled for a L JESUS. Pt notes his hip has felt significantly better since surgery, even when standing for the first time. Is currently ambulating with a FWW. Has a walk-in shower at home, no steps or ALEJANDRA. Has been doing his post-op HEP, which includes ankle pumps, glute sets, quad sets, and getting up and walking about once an hour. Pt notes pain with movement is ~1/10, does not really get worse. Biggest difficulty at this time and sit<->stand from toilet. Otherwise very happy with current functional level. Able to recite posterior hip precautions. PT-OP-C Subjective Start: 01/13/23 15:21 Freq: Status: Active Protocol: Document 02/19/23 15:19 AM (Rec: 02/19/23 16:11 AM [id number]) OP-PT Subjective Patient Comments Patient Comments Pt reports feeling tired today , but denies pain. Pt reports that he continues to occasionally get dizziness. PT-OP-E Functional Tests Start: 01/13/23 15:21 Freq: Status: Active Protocol: Document 01/13/23 14:45 DCW (Rec: 01/13/23 15:30 DCW [id number]) Functional Tests 6 Minute Walk Test Distance 800' Device Used FWW Comments 2.22 ft/sec PT-OP-G Mobility & Gait Start: 01/13/23 15:21 Freq: Status: Active Protocol: Document 01/13/23 14:45 DCW (Rec: 01/13/23 16:42 DCW [id number]) OP Mobility Evaluation Transfers Sit to Stand Requires raised chair, heavy reliance on upper extremities OP Gait Assessment Gait Gait Assistance Required: Standby Assistance Distance (Feet) 800 Assistive Devices Assistive Device Front Wheeled Walker Orthotic/Prosthetic Devices or Brace: No Gait Deviations General Gait Pattern Antalgic,Decreased Stride Length,Decreased Feet Clearance,Flexed Trunk,Wide Based Gait Comments Gait Comments Pt ambulates with a wide JOSEY, increased forward trunk lean. Weakness in L hip reqults in mild trendelenburg gait, decreased stance time on left leg. PT-OP-M Strength Start: 01/13/23 15:21 Freq: Status: Active Protocol: Document 01/13/23 14:45 DCW (Rec: 01/13/23 15:30 DCW [id number]) Hip Strength Hip Manual Muscle Testing Left Flexion (L2) 3- Fair- Abduction 3- Fair- PT-OP-Q Treatments Start: 01/13/23 15:21 Freq: Status: Active Protocol: Document 02/19/23 15:19 AM (Rec: 02/19/23 16:11 AM [id number]) Cardio Equipment Recumbent Stepper (Sci-Fit) Duration (Minutes) 5 Resistance 6 Seat Position 16 Gym Equipment Shuttle Recovery Unilateral Squats Details Left Leg Resistance 62# (2 new) Shuttle Recovery Platform Stable Reps/Time 2x1 min ea Bilateral Squats Resistance 100# Shuttle Recovery Platform Stable Reps/Time 2x1 min Therapeutic Exercises Supine Exercises SLR Supine Exercise Name SLR Reps/Minutes x8 Standing Exercises Standing hamstring stretch Standing Exercise Name Standing hamstring stretch Reps/Minutes 2x30 sec Other Exercises Step-ups Other Exercise Name Step-ups fwd and lat Side left Equipment Used 6 in step up fwd, 6 in step lat Comments 2x10 No UE support for either PT-OP-T Assessment and Plan Start: 01/13/23 15:21 Freq: Status: Active Protocol: Document 02/19/23 15:19 AM (Rec: 02/19/23 16:11 AM [id number]) Physical Therapy Assessment Impairments Impairments Activity Tolerance,Functional Activities,Functional Mobility ,Gait,Posture,ROM,Strength Goals Three Impairment Pt ambulated 800' during six minute walk test using a FWW [facility] Goal (LTG) Pt to ambulate >1000' without an assistive device during a 6MWT LTG Duration 03/15/23 Two Impairment Pt unable to flex left hip against gravity [employer] Goal (LTG) Pt to demonstrate increased L hip flexion MMT to at least 4/ 5 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 Pt with reported stiffness at hamstrings with self-stretch. Pt demonstrates 95 deg of hip flexion before reported ant hip symptoms. Pt fatigued with exercise today, though denied pain. Pt would benefit from continued PT to progress strength and mobility as tolerated.
--- NOTE | 2023-02-22 16:32 | PT.OTN ---
Current Diagnoses Unilateral primary osteoarthritis, left hip (02/22/23) Pain in left hip (02/22/23) Stiffness of left hip, not elsewhere classified (02/22/23) Other abnormalities of gait and mobility (02/22/23) Aftercare following joint replacement surgery (02/22/23) Physical Therapy Treatment Note PT-OP-A Visit Information Start: 01/13/23 15:21 Freq: Status: Active Protocol: Document 02/22/23 15:45 DCW (Rec: 02/22/23 16:32 DCW [id number]) Out-Patient Physical Therapy Visit Information Visit Information Visit Type Treatment Note Visit Start Time 15:45 Visit Stop Time 16:30 Total Visit Minutes 45 Visit Number 11 PT-OP-B Current Condition Start: 01/13/23 15:21 Freq: Status: Active Protocol: Document 01/13/23 14:45 DCW (Rec: 01/13/23 15:30 DCW [id number]) Current Condition History of Current Condition Onset Date 01/06/23 Current Complaints s/p L JESUS History of Current Condition Pt is a 62 year old male presenting one week s/p left JESUS, posterior approach. Pt was previously seen at this facility in the fall of last year for bilateral hip pain, right hip responded well, however left hip did not respond to conservative treatment. Pt was later found to have severe bilateral hip OA, referred to an orthopedic surgeon, and finally scheduled for a L JESUS. Pt notes his hip has felt significantly better since surgery, even when standing for the first time. Is currently ambulating with a FWW. Has a walk-in shower at home, no steps or ALEJANDRA. Has been doing his post-op HEP, which includes ankle pumps, glute sets, quad sets, and getting up and walking about once an hour. Pt notes pain with movement is ~1/10, does not really get worse. Biggest difficulty at this time and sit<->stand from toilet. Otherwise very happy with current functional level. Able to recite posterior hip precautions. PT-OP-C Subjective Start: 01/13/23 15:21 Freq: Status: Active Protocol: Document 02/22/23 15:45 DCW (Rec: 02/22/23 16:32 DCW [id number]) OP-PT Subjective Patient Comments Patient Comments Pt reports his left hip is doing well, even better than the right side most days. PT-OP-E Functional Tests Start: 01/13/23 15:21 Freq: Status: Active Protocol: Document 01/13/23 14:45 DCW (Rec: 01/13/23 15:30 DCW [id number]) Functional Tests 6 Minute Walk Test Distance 800' Device Used FWW Comments 2.22 ft/sec PT-OP-G Mobility & Gait Start: 01/13/23 15:21 Freq: Status: Active Protocol: Document 01/13/23 14:45 DCW (Rec: 01/13/23 16:42 DCW [id number]) OP Mobility Evaluation Transfers Sit to Stand Requires raised chair, heavy reliance on upper extremities OP Gait Assessment Gait Gait Assistance Required: Standby Assistance Distance (Feet) 800 Assistive Devices Assistive Device Front Wheeled Walker Orthotic/Prosthetic Devices or Brace: No Gait Deviations General Gait Pattern Antalgic,Decreased Stride Length,Decreased Feet Clearance,Flexed Trunk,Wide Based Gait Comments Gait Comments Pt ambulates with a wide JOSEY, increased forward trunk lean. Weakness in L hip reqults in mild trendelenburg gait, decreased stance time on left leg. PT-OP-M Strength Start: 01/13/23 15:21 Freq: Status: Active Protocol: Document 01/13/23 14:45 DCW (Rec: 01/13/23 15:30 DCW [id number]) Hip Strength Hip Manual Muscle Testing Left Flexion (L2) 3- Fair- Abduction 3- Fair- PT-OP-Q Treatments Start: 01/13/23 15:21 Freq: Status: Active Protocol: Document 02/22/23 15:45 DCW (Rec: 02/22/23 16:32 DCW [id number]) Cardio Equipment Recumbent Stepper (Sci-Fit) Duration (Minutes) 5 Resistance 7 Seat Position 16 Gym Equipment Shuttle Recovery Unilateral Squats Details B LEs Resistance 62# (2 new) Shuttle Recovery Platform Stable Reps/Time 2x1 min ea Bilateral Squats Resistance 125# Shuttle Recovery Platform Stable Reps/Time 2x1 min Therapeutic Ball Bridging Exercise Details Bridging /c feet on ball Ball Size/Color Red - 55 cm Hip Flexion Exercise Details Resisted hip/knee flexion Ball Size/Color Red - 55 cm [place] T-band Therapeutic Exercises Standing Exercises Hip Extension Standing Exercise Name Hip Extension Side bilateral Resistance Blue Reps/Minutes 2x10 Other Exercises Resisted Ambulation Other Exercise Name Resisted side step Resistance Blue Step-ups Other Exercise Name Step-ups fwd and lat Side left Equipment Used 6 in step up fwd, 6 in step lat Comments 2x10 No UE support for either PT-OP-T Assessment and Plan Start: 01/13/23 15:21 Freq: Status: Active Protocol: Document 02/22/23 15:45 DCW (Rec: 02/22/23 16:32 DCW [id number]) Physical Therapy Assessment Impairments Impairments Activity Tolerance,Functional Activities,Functional Mobility ,Gait,Posture,ROM,Strength Goals Three Impairment Pt ambulated 800' during six minute walk test using a FWW Stapling Machine Operator Goal (LTG) Pt to ambulate >1000' without an assistive device during a 6MWT LTG Duration 03/15/23 Two Impairment Pt unable to flex left hip against gravity Prison Goal (LTG) Pt to demonstrate increased L hip flexion MMT to at least 4/ 5 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 Pt did demonstrate fairly significant dizziness and nystagmus after getting up from treatment table, would likely benefit from new referral for vestibular assessment. Physical Therapy Plan Frequency and Duration Frequency of Treatment 2x/Week Plan of Care Start Date 01/13/23 Plan of Care End Date 03/15/23 Therapeutic Interventions Therapeutic Interventions Balance Training,Gait Training ,Home Exercise Program,Joint Mobilizations,Manual Therapy, Neuromuscular Re-education, Patient/Caregiver Education, Self-Care/Home Management,Soft Tissue Mobilization, Therapeutic Activities, Therapeutic Exercises Modalities Cold Pack/Ice Massage,Electric Stimulation,Hot Packs, Ultrasound Next Visit Focus/Plan Next Note Type Treatment Note Next Visit Plan Hip strengthening, hip mobility, gait training, balance, progress flexion as tolerated
--- NOTE | 2023-02-25 16:09 | PT.OTN ---
Current Diagnoses Unilateral primary osteoarthritis, left hip (02/25/23) Pain in left hip (02/25/23) Stiffness of left hip, not elsewhere classified (02/25/23) Other abnormalities of gait and mobility (02/25/23) Aftercare following joint replacement surgery (02/25/23) Physical Therapy Treatment Note PT-OP-A Visit Information Start: 01/13/23 15:21 Freq: Status: Active Protocol: Document 02/25/23 15:45 DCW (Rec: 02/25/23 16:09 DCW [id number]) Out-Patient Physical Therapy Visit Information Visit Information Visit Type Discharge Summary Visit Start Time 15:45 Visit Stop Time 16:05 Total Visit Minutes 20 Visit Number 12 PT-OP-B Current Condition Start: 01/13/23 15:21 Freq: Status: Active Protocol: Document 01/13/23 14:45 DCW (Rec: 01/13/23 15:30 DCW [id number]) Current Condition History of Current Condition Onset Date 01/06/23 Current Complaints s/p L JESUS History of Current Condition Pt is a 62 year old male presenting one week s/p left JESUS, posterior approach. Pt was previously seen at this facility in the fall of last year for bilateral hip pain, right hip responded well, however left hip did not respond to conservative treatment. Pt was later found to have severe bilateral hip OA, referred to an orthopedic surgeon, and finally scheduled for a L JESUS. Pt notes his hip has felt significantly better since surgery, even when standing for the first time. Is currently ambulating with a FWW. Has a walk-in shower at home, no steps or ALEJANDRA. Has been doing his post-op HEP, which includes ankle pumps, glute sets, quad sets, and getting up and walking about once an hour. Pt notes pain with movement is ~1/10, does not really get worse. Biggest difficulty at this time and sit<->stand from toilet. Otherwise very happy with current functional level. Able to recite posterior hip precautions. PT-OP-C Subjective Start: 01/13/23 15:21 Freq: Status: Active Protocol: Document 02/25/23 15:45 DCW (Rec: 02/25/23 16:09 DCW [id number]) OP-PT Subjective Patient Comments Patient Comments Pt feeling comfortable overall with functional mobility, gait, and /le strength. Significant overall improvement with pain levels and mobility. PT-OP-E Functional Tests Start: 01/13/23 15:21 Freq: Status: Active Protocol: Document 02/25/23 15:45 DCW (Rec: 02/25/23 15:59 DCW [id number]) Functional Tests 6 Minute Walk Test Distance 1373' Device Used None Comments 3.81 PT-OP-G Mobility & Gait Start: 01/13/23 15:21 Freq: Status: Active Protocol: Document 02/25/23 15:45 DCW (Rec: 02/25/23 15:59 DCW [id number]) OP Mobility Evaluation Transfers Sit to Stand Sit <-> Stand independent without UE assistance OP Gait Assessment Gait Gait Assistance Required: Independent Distance (Feet) 1,373 Assistive Devices Assistive Device None Orthotic/Prosthetic Devices or Brace: No Gait Deviations General Gait Pattern Decreased Feet Clearance Comments Gait Comments Slightly widened JOSEY, decreased foot clearance Stair Climbing Evaluation Evaluation Level of Assist On Stairs Independent Devices Stair Climbing Assistive Devices None Technique/Endurance Stair Climbing Direction Ascend and Descend Stair Climbing Technique Step Over Step Number of Steps Climbed 4 Stair Climbing Set # Repetitions (reps) 6 PT-OP-M Strength Start: 01/13/23 15:21 Freq: Status: Active Protocol: Document 02/25/23 15:45 DCW (Rec: 02/25/23 15:59 DCW [id number]) Hip Strength Hip Manual Muscle Testing Left Flexion (L2) 4+ Good+ Abduction 5 Normal Adduction 5 Normal PT-OP-Q Treatments Start: 01/13/23 15:21 Freq: Status: Active Protocol: Document 02/22/23 15:45 DCW (Rec: 02/22/23 16:32 DCW [id number]) Cardio Equipment Recumbent Stepper (Sci-Fit) Duration (Minutes) 5 Resistance 7 Seat Position 16 Gym Equipment Shuttle Recovery Unilateral Squats Details B LEs Resistance 62# (2 new) Shuttle Recovery Platform Stable Reps/Time 2x1 min ea Bilateral Squats Resistance 125# Shuttle Recovery Platform Stable Reps/Time 2x1 min Therapeutic Ball Bridging Exercise Details Bridging /c feet on ball Ball Size/Color Red - 55 cm Hip Flexion Exercise Details Resisted hip/knee flexion Ball Size/Color Red - 55 cm [place] T-band Therapeutic Exercises Standing Exercises Hip Extension Standing Exercise Name Hip Extension Side bilateral Resistance Blue Reps/Minutes 2x10 Other Exercises Resisted Ambulation Other Exercise Name Resisted side step Resistance Blue Step-ups Other Exercise Name Step-ups fwd and lat Side left Equipment Used 6 in step up fwd, 6 in step lat Comments 2x10 No UE support for either PT-OP-T Assessment and Plan Start: 01/13/23 15:21 Freq: Status: Active Protocol: Document 02/25/23 15:45 DCW (Rec: 02/25/23 16:09 DCW [id number]) Physical Therapy Assessment Goals Three Impairment Pt ambulated 800' during six minute walk test using a FWW Alf Goal (LTG) Pt to ambulate >1000' without an assistive device during a 6MWT LTG Duration Met Two Impairment Pt unable to flex left hip against gravity Grip Assembler Goal (LTG) Pt to demonstrate increased L hip flexion MMT to at least 4/ 5 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 Compliant with current post-op HEP. Pt appropriate for discharge at this time. Pt will be returning to skilled PT next week in order to undergo a vestibular evaluation due to recent positional vertigo. Physical Therapy Plan Frequency and Duration Frequency of Treatment 2x/Week Plan of Care Start Date 01/13/23 Plan of Care End Date 03/15/23 Therapeutic Interventions Therapeutic Interventions Balance Training,Gait Training ,Home Exercise Program,Joint Mobilizations,Manual Therapy, Neuromuscular Re-education, Patient/Caregiver Education, Self-Care/Home Management,Soft Tissue Mobilization, Therapeutic Activities, Therapeutic Exercises Modalities Cold Pack/Ice Massage,Electric Stimulation,Hot Packs, Ultrasound Discharge Physical Therapy Discharge Reasons Goals Met Next Visit Focus/Plan Next Note Type Discharge Summary
== END 2023-03-01 14:54 | disposition home or self-care (01) ==
LOC: PHYS 15:45
PROVIDERS: Family Provider Student in an Organized Health Care Education/Training Program; PCP Family Medicine; Referring Provider Physician Assistant; Visit Provider Student in an Organized Health Care Education/Training Program
DX: M16.12 Unilateral primary osteoarthritis, left hip (principal); M25.552 Pain in left hip; M25.652 Stiffness of left hip, not elsewhere classified; Z47.1 Aftercare following joint replacement surgery; R26.89 Other abnormalities of gait and mobility
CPT/HCPCS: 97110; 97112; 97116; 97161; 97530

== ENCOUNTER 2023-03-03 15:45 | Outpatient (RCR) | payer OTHER, SELFPAY ==
--- NOTE | 2023-03-01 16:43 | PT.OIE ---
Current Diagnoses Benign paroxysmal vertigo, unspecified ear (03/01/23) Benign paroxysmal vertigo, right ear (03/01/23) Dizziness and giddiness (03/01/23) Past Medical History (Last Reviewed 01/29/23 @ 14:04 by Seamus Salguero DO) Basal cell carcinoma (~05/2012) Bilateral hip joint arthritis Greater trochanteric bursitis of both hips Hyperlipemia Hypertension Morbid obesity Peripheral neuropathy Scrotal cyst Sleep apnea Type 2 diabetes mellitus Well adult exam Well adult exam Past Surgical History (Last Reviewed 01/29/23 @ 14:04 by Seamus Salguero DO) Hx of colonoscopy with polypectomy (11/2016) Status post tonsillectomy and adenoidectomy (1964) Visit Care Team Role Provider Type Seamus Salguero DO Attending Provider Physician Family Provider Primary Care Provider Referring Provider Specialty: Family Practice Address: [address] [place] [address] Email: [email or web address] Physical Therapy Initial Evaluation PT-OP-A Visit Information Start: 03/01/23 16:31 Freq: Status: Active Protocol: Document 03/01/23 15:45 DCW (Rec: 03/01/23 16:43 DCW [id number]) Out-Patient Physical Therapy Visit Information Visit Information Visit Type Initial Evaluation Visit Start Time 15:45 Visit Stop Time 16:30 Total Visit Minutes 45 Visit Number 1 Number of CANE WEIGHER Visits 0 Evaluation Information Evaluation Date 03/01/23 PT-OP-B Current Condition Start: 03/01/23 16:31 Freq: Status: Active Protocol: Document 03/01/23 15:45 DCW (Rec: 03/01/23 16:43 DCW [id number]) Current Condition History of Current Condition Onset Date 1.5 month history Current Complaints Position-dependent vertigo History of Current Condition Pt is a 62 year old male complaining of a 1.5 month history of motion-induced vertigo. Pt reports episodes last 5-10 seconds. Symptoms are provoked by rolling in bed . Pt denies recent hearing changes, diplopia, dysarthria, discoordination, or decreased mentation/consciousness. Pt reports symptoms are waxing/ waning in nature. Pt denies hx of diabetes, head trauma, seizure, migraines, back/neck problems, CVA, or excessive drinking. Does note well- controlled HTN and high cholesterol. Had a 35 year history of smoking prior to stopping in 2017. Prior Treatments and Tests Pt has been treated previously in this clinic for hip bursitis and s/p JESUS. Treatment Goals Patient/Caregiver Goals Eliminate dizziness PT-OP-C Subjective Start: 03/01/23 16:31 Freq: Status: Active Protocol: Document 03/01/23 15:45 DCW (Rec: 03/01/23 16:43 DCW [id number]) OP-PT Subjective Patient Comments Patient Comments This, combined with my neuropathy, could really get to be a problem. Patient Questionnaires ABC- Activity Specific Balance Confidence Scale ABC Score 96.25% Dizziness Handicap Inventory DHI Score 6% DHI Functional Impairment 1 to 19% Impaired (Score 1-19) PT-OP-O Vestibular Start: 03/01/23 16:31 Freq: Status: Active Protocol: Document 03/01/23 15:45 DCW (Rec: 03/01/23 16:43 DCW [id number]) Vestibular Assessment Auditory Tests Raymundo Test Within normal limits Rinne Test Negative Air Conduction Results Equal Visual Testing Smooth Pursuits Horizontal WNL Smooth Pursuits Vertical WNL Saccades Horizontal WNL Saccades Vertical WNL Heave Test Positive Bilateral Thrust Head Positive Bilateral Positional Testing Daniel-Hallpike Positive Right,Upbeating,< 60 Seconds PT-OP-Q Treatments Start: 03/01/23 16:31 Freq: Status: Active Protocol: Document 03/01/23 15:45 DCW (Rec: 03/01/23 16:43 DCW [id number]) Canalithic Repositioning BPPV Treatment Kayley Affected Canal(s) Right Posterior Reps x2 Comments Modified Kayley maneuver PT-OP-T Assessment and Plan Start: 03/01/23 16:31 Freq: Status: Active Protocol: Document 03/01/23 15:45 DCW (Rec: 03/01/23 16:43 DCW [id number]) Physical Therapy Assessment Rehab Potential Rehabilitation Potential Excellent Evaluation Complexity Number of Personal Factors/Comorbidities 0 Number of Body Systems Impaired 1-2 Clinical Presentation at Evaluation Unstable Impairments Impairments Balance,Vestibular Goals Two Impairment Positive right [place]-Hallpike Chcf Goal (LTG) Pt to exhibit negative positional testing bilaterally LTG Duration 04/01/23 One Impairment Pt experiences position- dependent vertigo when rolling in bed Short Term Goal (STG) Pt to report no symptoms of vertigo with bed mobility over the course of one week. STG Duration 03/15/23 Assessment Summary Assessment During right Scot[place]-Hallpike test , pt complained of vertigo and demonstrated up-beating, torsional nystagmus lasting approximately 15 seconds, consistent with diagnosis of right-sided posterior canal BPPV, canalithiasis-type. Pt was treated with a right-sided modified Kayley maneuver. Pt did not experience any symptoms in the third position , and upon returning to sitting, suffered a reversal. A second Hallpike was performed, and was once again positive. A second modified Kayley maneuver was performed. No reversal upon sitting with the second Kayley. Physical Therapy Plan Frequency and Duration Frequency of Treatment 2x/Week Plan of Care Start Date 03/01/23 Plan of Care End Date 04/01/23 Therapeutic Interventions Therapeutic Interventions Balance Training,Canalithic Repositioning,Vestibular Rehabilitation Next Visit Focus/Plan Next Note Type Treatment Note Next Visit Plan Positional testing, CRM as needed
--- NOTE | 2023-03-01 16:44 | PT.OPPOC ---
Physical, Occupational & Speech Therapy At [facility] Current Diagnoses Benign paroxysmal vertigo, unspecified ear (03/01/23) Benign paroxysmal vertigo, right ear (03/01/23) Dizziness and giddiness (03/01/23) Visit Care Team Role Provider Type Seamus Salguero DO Attending Provider Physician Family Provider Primary Care Provider Referring Provider [place]ty[place] [facility] Address: [address] [place] [address], [facility] Email: [email or web address] Plan Of Care PT-OP-T Assessment and Plan Start: 03/01/23 16:31 Freq: Status: Active Protocol: Document 03/01/23 15:45 DCW (Rec: 03/01/23 16:43 DCW [id number]) Physical Therapy Assessment Rehab Potential Rehabilitation Potential Excellent Evaluation Complexity Number of Personal Factors/Comorbidities 0 Number of Body Systems Impaired 1-2 Clinical Presentation at Evaluation Unstable Impairments Impairments Balance,Vestibular Goals Two Impairment Positive right Daniel-Hallpike Chefs Goal (LTG) Pt to exhibit negative positional testing bilaterally LTG Duration 04/01/23 One Impairment Pt experiences position- dependent vertigo when rolling in bed Short Term Goal (STG) Pt to report no symptoms of vertigo with bed mobility over the course of one week. STG Duration 03/15/23 Assessment Summary Assessment During right Daniel-Hallpike test , pt complained of vertigo and demonstrated up-beating, torsional nystagmus lasting approximately 15 seconds, consistent with diagnosis of right-sided posterior canal BPPV, canalithiasis-type. Pt was treated with a right-sided modified Kayley maneuver. Pt did not experience any symptoms in the third position , and upon returning to sitting, suffered a reversal. A second Hallpike was performed, and was once again positive. A second modified Kayely maneuver was performed. No reversal upon sitting with the second Kayley. Physical Therapy Plan Frequency and Duration Frequency of Treatment 2x/Week Plan of Care Start Date 03/01/23 Plan of Care End Date 04/01/23 Therapeutic Interventions Therapeutic Interventions Balance Training,Canalithic Repositioning,Vestibular Rehabilitation Next Visit Focus/Plan Next Note Type Treatment Note Next Visit Plan Positional testing, CRM as needed Plan of Care Dates Plan of Care Start Date 03/01/23 Plan of Care End Date 04/01/23 Electronically Signed by: Navin Lares, PT 03/01/23 5135 If you are in agreement with this Plan of Care, please return a signed and dated copy. I have reviewed this Plan of Care and certify that the skilled therapy services above are required to meet the patient?s needs. Physician Signature Date Printed Name and Credentials Clinical Instructor Signature Printed Name and Credentials
--- NOTE | 2023-03-03 15:58 | PT.OTN ---
Current Diagnoses Benign paroxysmal vertigo, right ear (03/03/23) Physical Therapy Treatment Note PT-OP-A Visit Information Start: 03/01/23 16:31 Freq: Status: Active Protocol: Document 03/03/23 15:40 DCW (Rec: 03/03/23 15:58 DCW [id number]) Out-Patient Physical Therapy Visit Information Visit Information Visit Type Discharge Summary Visit Start Time 15:40 Visit Stop Time 15:50 Total Visit Minutes 10 Visit Number 2 Number of CONTINUITY READER Visits 0 Evaluation Information Evaluation Date 03/01/23 PT-OP-B Current Condition Start: 03/01/23 16:31 Freq: Status: Active Protocol: Document 03/01/23 15:45 DCW (Rec: 03/01/23 16:43 DCW [id number]) Current Condition History of Current Condition Onset Date 1.5 month history Current Complaints Position-dependent vertigo History of Current Condition Pt is a 62 year old male complaining of a 1.5 month history of motion-induced vertigo. Pt reports episodes last 5-10 seconds. Symptoms are provoked by rolling in bed . Pt denies recent hearing changes, diplopia, dysarthria, discoordination, or decreased mentation/consciousness. Pt reports symptoms are waxing/ waning in nature. Pt denies hx of diabetes, head trauma, seizure, migraines, back/neck problems, CVA, or excessive drinking. Does note well- controlled HTN and high cholesterol. Had a 35 year history of smoking prior to stopping in 2017. Prior Treatments and Tests Pt has been treated previously in this clinic for hip bursitis and s/p JESUS. Treatment Goals Patient/Caregiver Goals Eliminate dizziness PT-OP-C Subjective Start: 03/01/23 16:31 Freq: Status: Active Protocol: Document 03/03/23 15:40 DCW (Rec: 03/03/23 15:58 DCW [id number]) OP-PT Subjective Patient Comments Patient Comments Pt has not experienced any symptoms since his initial evaluation. I even tried to make myself dizzy this morning . PT-OP-O Vestibular Start: 03/01/23 16:31 Freq: Status: Active Protocol: Document 03/03/23 15:40 DCW (Rec: 03/03/23 15:58 DCW [id number]) Vestibular Assessment Positional Testing Daniel-Hallpike Negative Right PT-OP-Q Treatments Start: 03/01/23 16:31 Freq: Status: Active Protocol: Document 03/01/23 15:45 DCW (Rec: 03/01/23 16:43 DCW [id number]) Canalithic Repositioning BPPV Treatment Kayley Affected Canal(s) Right Posterior Reps x2 Comments Modified Kayley maneuver PT-OP-T Assessment and Plan Start: 03/01/23 16:31 Freq: Status: Active Protocol: Document 03/03/23 15:40 DCW (Rec: 03/03/23 15:58 DCW [id number]) Physical Therapy Assessment Impairments Impairments Balance,Vestibular Goals Two Impairment Positive right [place]-Hallpike Educational Technology Specialist Goal (LTG) Pt to exhibit negative positional testing bilaterally LTG Duration Met One Impairment Pt experiences position- dependent vertigo when rolling in bed Short Term Goal (STG) Pt to report no symptoms of vertigo with bed mobility over the course of one week. STG Duration 03/15/23 Progress Towards Goals Progress Towards Goals Goals Met Assessment Summary Assessment Pt no longer presenting with any signs or symptoms consistent with BPPV. Pt understands potential for recurrence, and will return with a new referral if needed. Pt to be discharged from skilled therapy at this time. Physical Therapy Plan Frequency and Duration Frequency of Treatment 2x/Week Plan of Care Start Date 03/01/23 Plan of Care End Date 04/01/23 Therapeutic Interventions Therapeutic Interventions Balance Training,Canalithic Repositioning,Vestibular Rehabilitation Discharge Physical Therapy Discharge Reasons Goals Met Next Visit Focus/Plan Next Note Type Discharge Summary
== END 2023-03-08 11:47 | disposition home or self-care (01) ==
LOC: PHYS 15:45
PROVIDERS: Family Provider Family Medicine; PCP Family Medicine; Referring Provider Family Medicine; Visit Provider Family Medicine
DX: H81.11 Benign paroxysmal vertigo, right ear (principal)
CPT/HCPCS: 95992; 97140; 97161

== ENCOUNTER → 2023-04-01 12:37 | Outpatient (CLI) | payer OTHER, SELFPAY ==
[2023-04-03 06:25] LABS: RPR Screen Non Reactive (Non Reactive)
== END ==
PROVIDERS: Family Provider Family Medicine; PCP Family Medicine; Referring Provider Dermatology; Visit Provider Dermatology
DX: I87.2 Venous insufficiency (chronic) (peripheral) (principal)
CPT/HCPCS: 36415; 86592

== ENCOUNTER → 2023-07-30 08:34 | Outpatient (CLI) | payer OTHER, SELFPAY ==
[2023-07-30 09:52] LABS: Add Manual Diff / Slide Review NO; Basophils Absolute Auto 0 /uL (0-100); Basophils Percent Auto 0.6 % (0-2); Eosinophils Absolute Auto 100 /uL (0-450); Eosinophils Percent Auto 1.7 % (2-4); Hematocrit 46.3 % (41-53); Hemoglobin 15.3 g/dL (13.5-17.5); Lymphocytes Absolute Auto 1900 /uL (1100-4500); Lymphocytes Percent Auto 29.8 % (25-40); Mean Corpuscular Hemoglobin 30.7 PG (26-34); Mean Corpuscular Volume 92.9 fL (80-100); Monocytes Absolute Auto 600 /uL (0-900); Neutrophils Absolute Auto 3700 /uL (1500-7000); Neutrophils Percent Auto 57.9 % (50-75); Platelet Count 210 X10^3/uL (150-400); Red Blood Cell Count 4.98 X10^6/uL (4.5-5.9); Red Cell Distribution Width 15.6 % (11.6-14.8); White Blood Cell Count 6.3 X10^3/uL (4.5-11.0)
[2023-07-30 10:01] LABS: Hemoglobin A1C% w Est Avg Glu 5.9 % (4.0-6.0)
[2023-07-30 10:03] LABS: Alanine Aminotransferase 38 IU/L (<50); Albumin 4.2 g/dL (3.5-5.0); Albumin Globulin Ratio 1.4 (1.0-2.8); Alkaline Phosphatase 81 U/L (38-126); Aspartate Aminotransferase 30 IU/L (17-59); BUN Creatinine Ratio 23.1 (6-22); Bilirubin Total 0.5 mg/dL (0.2-1.3); Blood Urea Nitrogen 25 mg/dL (9-20); Calcium 9.6 mg/dL (8.4-10.2); Carbon Dioxide 31 mmol/L (22-32); Chloride 106 mmol/L (98-107); Cholesterol 172 mg/dL (140-199); Estimated Glomerular Filt Rate > 60 mL/min (>60); Globulin 3.1 g/dL (1.7-4.1); Glucose 127 mg/dL (80-110); HDL Cholesterol 51 mg/dL (40-60); HEMOLYSIS < 15 (0-50); LDL Cholesterol Calculated 97 mg/dL (<100); Sodium 142 mmol/L (137-145); Total Protein 7.3 g/dL (6.3-8.2); Triglycerides 121 mg/dL (35-150)
[2023-07-30 10:08] LABS: Potassium 6.7 mmol/L (3.4-5.1)
[2023-07-30 10:34] LABS: Prostate Specific Antigen 3.03 ng/mL (0.10-4.00)
[2023-07-30 10:50] LABS: TSH w/ Reflex to FT4 3.57 uIU/mL (0.47-4.68)
== END ==
PROVIDERS: Family Provider Family Medicine; PCP Family Medicine; Referring Provider Family Medicine; Visit Provider Family Medicine
DX: E11.9 Type 2 diabetes mellitus without complications (principal); R79.89 Other specified abnormal findings of blood chemistry; I10 Essential (primary) hypertension; E78.2 Mixed hyperlipidemia
CPT/HCPCS: 36415; 80053; 80061; 83036; 84153; 84443; 85025

== ENCOUNTER → 2023-08-02 14:12 | Outpatient (CLI) | payer OTHER, SELFPAY ==
[2023-08-02 14:40] LABS: HEMOLYSIS 41 (0-50); Potassium 4.6 mmol/L (3.4-5.1)
== END ==
PROVIDERS: Family Provider Family Medicine; PCP Family Medicine; Referring Provider Family Medicine; Visit Provider Family Medicine
DX: E87.5 Hyperkalemia (principal)
CPT/HCPCS: 36415; 84132

== ENCOUNTER → 2024-02-04 09:25 | Outpatient (CLI) | payer OTHER, SELFPAY ==
[2024-02-04 10:42] LABS: Add Manual Diff / Slide Review NO; Basophils Absolute Auto 0 /uL (0-100); Basophils Percent Auto 0.6 % (0-2); Eosinophils Absolute Auto 100 /uL (0-450); Eosinophils Percent Auto 1.8 % (2-4); Hematocrit 46.1 % (41-53); Hemoglobin 15.4 g/dL (13.5-17.5); Lymphocytes Absolute Auto 2000 /uL (1100-4500); Lymphocytes Percent Auto 27.6 % (25-40); Mean Corpuscular HGB Conc 33.3 % (30-36); Mean Corpuscular Hemoglobin 29.9 PG (26-34); Mean Corpuscular Volume 89.9 fL (80-100); Monocytes Absolute Auto 500 /uL (0-900); Monocytes Percent Auto 7.5 % (3-14); Neutrophils Absolute Auto 4500 /uL (1500-7000); Neutrophils Percent Auto 62.5 % (50-75); Platelet Count 220 X10^3/uL (150-400); Red Blood Cell Count 5.13 X10^6/uL (4.5-5.9); Red Cell Distribution Width 14.8 % (11.6-14.8); White Blood Cell Count 7.2 X10^3/uL (4.5-11.0)
[2024-02-04 11:17] LABS: Alanine Aminotransferase 26 IU/L (<50); Albumin 3.8 g/dL (3.5-5.0); Albumin Globulin Ratio 1.5 (1.0-2.8); Alkaline Phosphatase 82 U/L (38-126); Aspartate Aminotransferase 26 IU/L (17-59); BUN Creatinine Ratio 26.1 (6-22); Bilirubin Total 0.5 mg/dL (0.2-1.3); Blood Urea Nitrogen 29 mg/dL (9-20); Calcium 9.6 mg/dL (8.4-10.2); Carbon Dioxide 29 mmol/L (22-32); Chloride 103 mmol/L (98-107); Cholesterol 173 mg/dL (140-199); Estimated Glomerular Filt Rate > 60 mL/min (>60); Globulin 2.6 g/dL (1.7-4.1); Glucose 127 mg/dL (80-110); HDL Cholesterol 44 mg/dL (40-60); HEMOLYSIS < 15 (0-50); Hemoglobin A1C% w Est Avg Glu 5.9 % (4.0-6.0); LDL Cholesterol Calculated 98 mg/dL (<100); Sodium 137 mmol/L (137-145); Total Protein 6.4 g/dL (6.3-8.2); Triglycerides 157 mg/dL (35-150)
[2024-02-04 11:18] LABS: Potassium 5.4 mmol/L (3.4-5.1)
== END ==
PROVIDERS: Family Provider Family Medicine; PCP Family Medicine; Referring Provider Student in an Organized Health Care Education/Training Program; Visit Provider Student in an Organized Health Care Education/Training Program
DX: Z01.818 Encounter for other preprocedural examination (principal); M25.551 Pain in right hip; E87.5 Hyperkalemia; E11.9 Type 2 diabetes mellitus without complications; I10 Essential (primary) hypertension; E78.2 Mixed hyperlipidemia
CPT/HCPCS: 36415; 80053; 80061; 83036; 85025

== ENCOUNTER 2024-06-26 14:30 | Outpatient (RCR) | payer OTHER, SELFPAY ==
--- NOTE | 2024-05-03 15:55 | PT.OIE ---
Current Diagnoses Pain in right hip (05/03/24) Stiffness of right hip, not elsewhere classified (05/03/24) Other lack of coordination (05/03/24) Weakness (05/03/24) Past Medical History (Last Updated 08/02/23 @ 14:19 by Seamus Salguero DO) Basal cell carcinoma (~05/2012) Bilateral hip joint arthritis Greater trochanteric bursitis of both hips Hyperkalemia Hyperlipemia Hypertension Morbid obesity Peripheral neuropathy Scrotal cyst Sleep apnea Type 2 diabetes mellitus Well adult exam Well adult exam Past Surgical History (Last Reviewed 01/29/23 @ 14:04 by Seamus Salguero DO) Hx of colonoscopy with polypectomy (11/2016) Status post tonsillectomy and adenoidectomy (1964) Visit Care Team Role Provider Type Seamus Salguero DO Family Provider Physician Primary Care Provider Specialty: Family Practice Address: [address] [place] [address], [id number] Email: [email or web address] Attending Provider Non-Staff Referring Provider Specialty: Orthopedic Surgery Address: [facility] [address]te Cordero, [place], [address] Email: Physical Therapy Initial Evaluation PT-OP-A Visit Information Start: 05/02/24 15:45 Freq: Status: Active Protocol: Document 05/03/24 09:47 NM (Rec: 05/03/24 10:39 NM [id number]) Out-Patient Physical Therapy Visit Information Visit Information Visit Type Initial Evaluation Visit Start Time 09:49 Visit Stop Time 10:30 Visit Number 1 Evaluation Information Evaluation Date 05/03/24 Precautions Precautions DOS 04/24/24- posterior hip precautions PT-OP-B Current Condition Start: 05/02/24 15:45 Freq: Status: Active Protocol: Document 05/03/24 09:47 NM (Rec: 05/03/24 10:39 NM [id number]) Current Condition History of Current Condition Onset Date R JESUS Current Complaints DOS 04/24/24 History of Current Condition Pt presents s/p R JESUS on . Pt has a posterior JESUS. No complication during surgery. He had L JESUS last year; PT went well, no complications. He stopped pain pills 2 days ago, still on meloxicam; still on aspirin BID. He is aware of precautions (no hip flexion , no hip ADD, no IR). Has 2 week follow up on Wednesday. No stairs at home, 1 story. Lives with , Ann. Pt has a steep driveway, unable to ambulate. Pt was using a spc for ambulation, AD periodically (household). Currently using FWW. Pt had 2 ADA toilets with grab bars, no difficulty with transfers. Has walk in shower with shower chair built in; does not use. 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 Treatment Goals Patient/Caregiver Goals wants to stairs, bending over, balance, ambulation w/o AD Current Functional Impairments (Reported) Functional Limitations- ADL's has hip kit for donning socks/ shoes has difficulty with donning pants/shoes- uses grabber Functional Limitations- Mobility/Gait standing 15-20 min sleeping in bed (hospital bed) - sleeping w/ legs elevated Functional Limitations- Work/School stairs Functional Limitations- Other driving PT-OP-C Subjective Start: 05/02/24 15:45 Freq: Status: Active Protocol: Document 05/03/24 09:47 NM (Rec: 05/03/24 10:39 NM [id number]) OP-PT Subjective Patient Comments Patient Comments Pt agrees to participate in session Patient Questionnaires Lower Extremity Functional Scale LEFS Score 24/80 OP-PT Pain Assessment Location R hip Pain Location Details posterior hip Intensity 2 Scale Used Numeric (0 - 10) Description Aching,Dull Description- Other worst: 4 Frequency Frequent Pain Aggravating Factors Position,ADL's,Activity, Standing,Sitting Other Pain Aggravating Factors driving Pain Alleviating Factors Cold,Rest PT-OP-E Functional Tests Start: 05/02/24 15:45 Freq: Status: Active Protocol: Document 05/03/24 09:47 NM (Rec: 05/03/24 10:39 NM [id number]) Functional Tests 6 Minute Walk Test Distance 971 ft Device Used FWW Comments several stumbles w/o fall, CGA to correct PT-OP-F Manual Assessment Start: 05/02/24 15:45 Freq: Status: Active Protocol: Document 05/03/24 09:47 NM (Rec: 05/03/24 10:39 NM [id number]) Manual Assessments Soft Tissue Assessment Soft Tissue Mobility Assessment Tightness of hip flexors and hamstrings Joint Mobility Assessment Joint Mobility Assessment Limited PROM and AROM R hip due to hip precautions, pain, girth PT-OP-G Mobility & Gait Start: 05/02/24 15:45 Freq: Status: Active Protocol: Document 05/03/24 09:47 NM (Rec: 05/03/24 10:39 NM [id number]) OP Mobility Evaluation Bed Mobility Supine to and from Sit Needs gait belt for RLe assist on/off bed (uses bed mobility strap for assistance at home) Transfers Sit to Stand BUE use from chair to FWW OP Gait Assessment Gait Gait Assistance Required: Contact Guard Assist Distance (Feet) 150 Assistive Devices Assistive Device Gait Belt,Front Wheeled Walker Gait Deviations General Gait Pattern Antalgic,Decreased Feet Clearance,Flexed Trunk,Wide Based Gait Factors Limiting Gait Function Factors Limiting Gait Function Decreased Activity Tolerance, Decreased Strength,Limited Range of Motion,Pain,Poor Balance Comments Gait Comments Demos tendency for R hip IR with ambulation during stance phase, decreased B foot clearance, often catches foot, heavily UE dependent on FWW PT-OP-H Neuro Start: 05/02/24 15:45 Freq: Status: Active Protocol: Document 05/03/24 09:47 NM (Rec: 05/03/24 10:39 NM [id number]) Sensation Evaluation Comments Summary Comments will formally assess next session; did not assess due to time PT-OP-J Posture/Palpation/Skin Start: 05/02/24 15:45 Freq: Status: Active Protocol: Document 05/03/24 09:47 NM (Rec: 05/03/24 10:39 NM [id number]) Posture Evaluation Position Standing Head/C-Spine Posture Forward Head L-Spine Posture Increased Lordosis Weight Distribution Weight Shifted Left Hip Posture (L) Neutral,(R) Internally Rotated Knee Posture (L) Genu Valgus,(R) Genu Valgus Palpation Assessment Location R hip Palpation Findings Soft Tissue Tightness, Tenderness Palpation Details Tenderness at posterior hip near incision, glutes Tightness of hip flexors and hamstrings Skin Assessment Incisional Assessment Incision Appearance/Comments Incision covered by bandage which is C/D/I. No redness or signs of infection Other Assessments Skin Assessment Comments Has BLE swelling, wearing compression socks. R adams has several scabbed, healing wound with dried blood PT-OP-K Range of Motion Start: 05/02/24 15:45 Freq: Status: Active Protocol: Document 05/03/24 09:47 NM (Rec: 05/03/24 10:39 NM [id number]) Hip Goniometric Range of Motion Hip Right Comments not tested due to precautions Left Flexion w/Knee Flexed 90 Abduction 25 Internal Rotation 30 External Rotation 15 PT-OP-M Strength Start: 05/02/24 15:45 Freq: Status: Active Protocol: Document 05/03/24 09:47 NM (Rec: 05/03/24 10:39 NM [id number]) Hip Strength Hip Manual Muscle Testing Right Flexion (L2) 2+ Poor+ Extension (S1) 3 Fair Abduction 3 Fair External Rotation 3 Fair Comments not tested d/t precautions but able to perform against gravity for all movements in sitting or standing except for hip flex >90, ADD, or IR Left Flexion (L2) 4 Good Abduction 4 Good Adduction 4 Good External Rotation 4 Good Internal Rotation 4 Good Knee Strength Knee Manual Muscle Testing Right Flexion (S2) 4- Good- Extension (L3) 4- Good- Left Flexion (S2) 4+ Good+ Extension (L3) 4+ Good+ Ankle/Foot Strength Ankle and Foot Manual Muscle Testing Right Dorsiflexion (L4) 4+ Good+ Plantarflexion (S1) 4+ Good+ Comments tested in sitting Left Dorsiflexion (L4) 4+ Good+ Plantarflexion (S1) 4+ Good+ Comments tested in sitting PT-OP-Q Treatments Start: 05/02/24 15:45 Freq: Status: Active Protocol: Document 05/03/24 09:47 NM (Rec: 05/03/24 10:39 NM [id number]) Therapeutic Exercises Supine Exercises ankle pumps Side right Reps/Minutes 30 Gait Training Gait Activity FWW Device Used FWW Level of Assistance CGA Surface stable Distance/Duration 8 minutes Treatment Focus FWW mgmt with thresholds, turns, placement of FWW Comments Cueing for marching feet while turning rather than twisting body as pt not compliant with precautions as turns trunk, in addition to foot clearance to avoid catching foot during swing phase. Pt also tends to lift FWW occasionally for thresholds, needing prn cueing for FWW management and to maintain FWW closer to body vs holding arms extended when approaching thresholds or turns. Self-Care/Home Management Treatment Education Patient Education Joint Protection Other Education Educated and issued handout on posterior hip precautions Educated on signs and symptoms of DVT PT-OP-T Assessment and Plan Start: 05/02/24 15:45 Freq: Status: Active Protocol: Document 05/03/24 09:47 NM (Rec: 05/03/24 10:39 NM [id number]) Physical Therapy Assessment Rehab Potential Rehabilitation Potential Good Evaluation Complexity Number of Personal Factors/Comorbidities 3 or More Number of Body Systems Impaired 4 or More Clinical Presentation at Evaluation Stable Impairments Impairments Activity Tolerance,Balance, Functional Activities, Functional Mobility,Gait, Integument,Pain,Posture,ROM, Sensation,Soft Tissue Mobility ,Strength,Transfers Other Concerns Age Related Concerns PMH: allergies (doxycycline), arhtritis, high blood pressure , joint replacements (R and L JESUS), neuropathy, vision. Surgeries: tonsils, adenoids Barriers to Rehabilitation Pt is most limited and frustrated by inability to drive. He reports that he is only waiting 11 days post- operatively before he begins driving again. Goals Five Impairment unable to perform stairs Mcc Goal (LTG) Pt will be able to perform stairs using reciprocal pattern and 1 or fewer hand rails and/or LRAD with R hip pain <3/10 in order to perform community ambulation LTG Duration 12 weeks Four Impairment R hip strength limited globally Battery Test Engineer Goal (LTG) If appropriate, pt will improve R hip global strength to at least 4/5 MMT in order to be able to perform transfers, gait, and ADLs without limitation LTG Duration 12 weeks Three Impairment limitations in R hip ROM Battery Test Engineer Goal (LTG) When appropriate per precautions, pt will demonstrate at least 90 deg R hip flex, hip abduction to at least 20 deg, and within 10 deg of LLE for all other motions LTG Duration 12 weeks Two Impairment 6 MWT 971 ft with FWW Short Term Goal (STG) Pt will normalize gait mechanics using LRAD and report <3/10 R hip pain with ambulation STG Duration 5 weeks Battery Test Engineer Goal (LTG) Pt will ambulate at least 1000 ft during 6 MWT with or without LRAD and R hip pain <3 /10 in order to be able to return to weekly walks with LTG Duration 12 weeks One Impairment not performing HEP following surgery Battery Test Engineer Goal (LTG) Pt will report compliance with HEP at least 3x/wk in order to maximize progression with PT and transition to maintenance program upon discharge LTG Duration 12 weeks Assessment Summary Assessment Pt is a 63 y.o. presenting s/p R JESUS on 04/24/24. Previous L JESUS last year. Pt is currently using FWW for gait and WBAT; prior to surgery, pt used spc for community ambulation and no AD for household ambulation . Pain is well managed at this time, no longer on pain medications. Incision intact without signs of infection. Pt aware of posterior hip precautions, able to verbalize but does not demonstrate during gait. R hip ROM not formally tested due to precautions; pt able to perform all R hip motion agaist gravity except hip flexion to get RLE onto table, needs assist from gait belt. During sit to stand transfers, needs BUE assist to stand. Pt ambulated 971 ft with FWW during 6 MWT, no increase in hip pain but cueing needed to maintain hip precautions with turns. PT educated pt on plan of care and exam findings. Pt would benefit from skilled PT for progressive flexibility and strengthening in order to improve functional mobility during gait and transfers in addition to promote independence with ADLs/IADLs. Physical Therapy Plan Frequency and Duration Frequency of Treatment 2x/Week Duration of treatment (weeks) 12 Plan of Care Start Date 05/03/24 Plan of Care End Date 07/28/24 Therapeutic Interventions Therapeutic Interventions Balance Training,Gait Training ,Home Exercise Program,Manual Therapy,Neuromuscular Re- education,Orthotic/Prosthetic Management,Patient/Caregiver Education,Self-Care/Home Management,Sensory Integration ,Soft Tissue Mobilization, Taping,Therapeutic Activities, Therapeutic Exercises Modalities Cold Pack/Ice Massage,Electric Stimulation,Hot Packs Next Visit Focus/Plan Next Note Type Treatment Note Next Visit Plan posterior hip precautions x6 weeks (06/05/24) per surgical note 04/24 or until cleared by , DOS 04/24 Establish HEP. Heel slides, glute squeezes vs bridge, quad sets, LAQ, STS training, seated hip abd Manual: STM to hip
--- NOTE | 2024-05-08 15:06 | PT.OTN ---
Current Diagnoses Pain in right hip (05/08/24) Stiffness of right hip, not elsewhere classified (05/08/24) Other lack of coordination (05/08/24) Weakness (05/08/24) Physical Therapy Treatment Note PT-OP-A Visit Information Start: 05/02/24 15:45 Freq: Status: Active Protocol: Document 05/08/24 13:01 NM (Rec: 05/08/24 13:49 NM [id number]) Out-Patient Physical Therapy Visit Information Visit Information Visit Type Treatment Note Visit Start Time 13:03 Visit Stop Time 13:45 Visit Number 2 Evaluation Information Evaluation Date 05/03/24 Precautions Precautions DOS 04/24/24- posterior hip precautions (no hip flex> 90 deg or trunk flex, no ADD past midline, no IR past midline)* * PT-OP-B Current Condition Start: 05/02/24 15:45 Freq: Status: Active Protocol: Document 05/03/24 09:47 NM (Rec: 05/03/24 10:39 NM [id number]) Current Condition History of Current Condition Onset Date R JESUS Current Complaints DOS 04/24/24 History of Current Condition Pt presents s/p R JESUS on . Pt has a posterior JESUS. No complication during surgery. He had L JESUS last year; PT went well, no complications. He stopped pain pills 2 days ago, still on meloxicam; still on aspirin BID. He is aware of precautions (no hip flexion , no hip ADD, no IR). Has 2 week follow up on Wednesday. No stairs at home, 1 story. Lives with , Ann. Pt has a steep driveway, unable to ambulate. Pt was using a spc for ambulation, AD periodically (household). Currently using FWW. Pt had 2 ADA toilets with grab bars, no difficulty with transfers. Has walk in shower with shower chair built in; does not use. 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 Treatment Goals Patient/Caregiver Goals wants to stairs, bending over, balance, ambulation w/o AD Current Functional Impairments (Reported) Functional Limitations- ADL's has hip kit for donning socks/ shoes has difficulty with donning pants/shoes- uses grabber Functional Limitations- Mobility/Gait standing 15-20 min sleeping in bed (hospital bed) - sleeping w/ legs elevated Functional Limitations- Work/School stairs Functional Limitations- Other driving PT-OP-C Subjective Start: 05/02/24 15:45 Freq: Status: Active Protocol: Document 05/08/24 13:01 NM (Rec: 05/08/24 13:49 NM [id number]) OP-PT Subjective Patient Comments Patient Comments Pt attempting to walking without FWW. States no pain in R hip. Has 2 week follow up tomorrow PT-OP-E Functional Tests Start: 05/02/24 15:45 Freq: Status: Active Protocol: Document 05/03/24 09:47 NM (Rec: 05/03/24 10:39 NM [id number]) Functional Tests 6 Minute Walk Test Distance 971 ft Device Used FWW Comments several stumbles w/o fall, CGA to correct PT-OP-F Manual Assessment Start: 05/02/24 15:45 Freq: Status: Active Protocol: Document 05/03/24 09:47 NM (Rec: 05/03/24 10:39 NM [id number]) Manual Assessments Soft Tissue Assessment Soft Tissue Mobility Assessment Tightness of hip flexors and hamstrings Joint Mobility Assessment Joint Mobility Assessment Limited PROM and AROM R hip due to hip precautions, pain, girth PT-OP-G Mobility & Gait Start: 05/02/24 15:45 Freq: Status: Active Protocol: Document 05/03/24 09:47 NM (Rec: 05/03/24 10:39 NM [id number]) OP Mobility Evaluation Bed Mobility Supine to and from Sit Needs gait belt for RLe assist on/off bed (uses bed mobility strap for assistance at home) Transfers Sit to Stand BUE use from chair to FWW OP Gait Assessment Gait Gait Assistance Required: Contact Guard Assist Distance (Feet) 150 Assistive Devices Assistive Device Gait Belt,Front Wheeled Walker Gait Deviations General Gait Pattern Antalgic,Decreased Feet Clearance,Flexed Trunk,Wide Based Gait Factors Limiting Gait Function Factors Limiting Gait Function Decreased Activity Tolerance, Decreased Strength,Limited Range of Motion,Pain,Poor Balance Comments Gait Comments Demos tendency for R hip IR with ambulation during stance phase, decreased B foot clearance, often catches foot, heavily UE dependent on FWW PT-OP-H Neuro Start: 05/02/24 15:45 Freq: Status: Active Protocol: Document 05/03/24 09:47 NM (Rec: 05/03/24 10:39 NM [id number]) Sensation Evaluation Comments Summary Comments will formally assess next session; did not assess due to time PT-OP-J Posture/Palpation/Skin Start: 05/02/24 15:45 Freq: Status: Active Protocol: Document 05/03/24 09:47 NM (Rec: 05/03/24 10:39 NM [id number]) Posture Evaluation Position Standing Head/C-Spine Posture Forward Head L-Spine Posture Increased Lordosis Weight Distribution Weight Shifted Left Hip Posture (L) Neutral,(R) Internally Rotated Knee Posture (L) Genu Valgus,(R) Genu Valgus Palpation Assessment Location R hip Palpation Findings Soft Tissue Tightness, Tenderness Palpation Details Tenderness at posterior hip near incision, glutes Tightness of hip flexors and hamstrings Skin Assessment Incisional Assessment Incision Appearance/Comments Incision covered by bandage which is C/D/I. No redness or signs of infection Other Assessments Skin Assessment Comments Has BLE swelling, wearing compression socks. R daams has several scabbed, healing wound with dried blood PT-OP-K Range of Motion Start: 05/02/24 15:45 Freq: Status: Active Protocol: Document 05/03/24 09:47 NM (Rec: 05/03/24 10:39 NM [id number]) Hip Goniometric Range of Motion Hip Right Comments not tested due to precautions Left Flexion w/Knee Flexed 90 Abduction 25 Internal Rotation 30 External Rotation 15 PT-OP-M Strength Start: 05/02/24 15:45 Freq: Status: Active Protocol: Document 05/03/24 09:47 NM (Rec: 05/03/24 10:39 NM [id number]) Hip Strength Hip Manual Muscle Testing Right Flexion (L2) 2+ Poor+ Extension (S1) 3 Fair Abduction 3 Fair External Rotation 3 Fair Comments not tested d/t precautions but able to perform against gravity for all movements in sitting or standing except for hip flex >90, ADD, or IR Left Flexion (L2) 4 Good Abduction 4 Good Adduction 4 Good External Rotation 4 Good Internal Rotation 4 Good Knee Strength Knee Manual Muscle Testing Right Flexion (S2) 4- Good- Extension (L3) 4- Good- Left Flexion (S2) 4+ Good+ Extension (L3) 4+ Good+ Ankle/Foot Strength Ankle and Foot Manual Muscle Testing Right Dorsiflexion (L4) 4+ Good+ Plantarflexion (S1) 4+ Good+ Comments tested in sitting Left Dorsiflexion (L4) 4+ Good+ Plantarflexion (S1) 4+ Good+ Comments tested in sitting PT-OP-Q Treatments Start: 05/02/24 15:45 Freq: Status: Active Protocol: Document 05/08/24 13:01 NM (Rec: 05/08/24 13:49 NM [id number]) Therapeutic Exercises Supine Exercises glute sets Supine Exercise Name HEP Side bilateral Equipment Used hooklying Reps/Minutes 15x2 Comments monitored for pain heel slides Supine Exercise Name no hip flex > 90 for precautions- HEP Side right Resistance AROM Equipment Used silk slider under foot to avoid traction Reps/Minutes 15 Comments challenging but not increased pain quad sets Supine Exercise Name HEP Side right Equipment Used towel roll under knee Reps/Minutes 15x3 hold Comments jose uncomfortable; denies pain ankle pumps Supine Exercise Name HEP Side right Reps/Minutes 30 Comments for swelling management Sitting Exercises sit to stand Sitting Exercise Name plinth slightly elevated for hip precautions, no flex > 90 Side bilateral Equipment Used spc in L hand Reps/Minutes 10 Comments no hip pain, cue to have RLE slightly more anterior LAQ Sitting Exercise Name HEP - plinth slightly elevated for hip precautions, no flex >90 Side right Reps/Minutes 20x3 hip abduction Sitting Exercise Name plinth slightly elevated for hip precautions, no flex > 90 Side bilateral Resistance level 2 band at thighs Reps/Minutes 60 ea Comments pain free Gait Training Gait Activity spc Device Used spc Level of Assistance CGA Distance/Duration 2x175 ft Treatment Focus spc coordination, patterning Comments CGA for steadiness on turns, improves with reps. No hip pain with gait using spc, no increased pain with weight bearing. Minimal cues needed for spc 2 pt patterning in L hand with RLE, prn cueing needed for safety during turns initially to prevent breaking precautions. TUG Comments w/ FWW: 22.8 sec -turning most challenging, close SBA Manual Therapy Treatment Consent Patient gave verbal consent for manual Yes treatment Soft Tissue Mobilization R hip Body Location quad, hip flexors, quad, adductors, swelling management Mobilization Type Rolling,Strumming Intensity/Depth Superficial Body Position Supine Comments Distal > proximal swelling management from ankle > hip, swelling along entire RLE but no redness or increased temperature compared to contralateral limb. No tenderness at hip flexors or quad, but tightness present. Self-Care/Home Management Treatment Education Patient Education Fall Risk,Pain Management, Safety Other Education Educated to not stop using FWW or AD until sees PT for testing with AD and gait training. Education for continued use of FWW at home and not to forget FWW for safety to decrease risk of falls. Requested that pt bring both spc and FWW for gait training next session to determine if appropriate for transition from FWW to spc PT-OP-T Assessment and Plan Start: 05/02/24 15:45 Freq: Status: Active Protocol: Document 05/08/24 13:01 NM (Rec: 05/08/24 13:49 NM [id number]) Physical Therapy Assessment Rehab Potential Rehabilitation Potential Good Evaluation Complexity Number of Personal Factors/Comorbidities 3 or More Number of Body Systems Impaired 4 or More Clinical Presentation at Evaluation Stable Impairments Impairments Activity Tolerance,Balance, Functional Activities, Functional Mobility,Gait, Integument,Pain,Posture,ROM, Sensation,Soft Tissue Mobility ,Strength,Transfers Other Concerns Age Related Concerns PMH: allergies (doxycycline), arhtritis, high blood pressure , joint replacements (R and L JESUS), neuropathy, vision. Surgeries: tonsils, adenoids Barriers to Rehabilitation Pt is most limited and frustrated by inability to drive. He reports that he is only waiting 11 days post- operatively before he begins driving again. Goals Five Impairment unable to perform stairs Inbound Sales Consultant Goal (LTG) Pt will be able to perform stairs using reciprocal pattern and 1 or fewer hand rails and/or LRAD with R hip pain <3/10 in order to perform community ambulation LTG Duration 12 weeks Four Impairment R hip strength limited globally Group Home Goal (LTG) If appropriate, pt will improve R hip global strength to at least 4/5 MMT in order to be able to perform transfers, gait, and ADLs without limitation LTG Duration 12 weeks Three Impairment limitations in R hip ROM Group Home Goal (LTG) When appropriate per precautions, pt will demonstrate at least 90 deg R hip flex, hip abduction to at least 20 deg, and within 10 deg of LLE for all other motions LTG Duration 12 weeks Two Impairment 6 MWT 971 ft with FWW Short Term Goal (STG) Pt will normalize gait mechanics using LRAD and report <3/10 R hip pain with ambulation STG Duration 5 weeks Inbound Sales Consultant Goal (LTG) Pt will ambulate at least 1000 ft during 6 MWT with or without LRAD and R hip pain <3 /10 in order to be able to return to weekly walks with LTG Duration 12 weeks One Impairment not performing HEP following surgery Group Home Goal (LTG) Pt will report compliance with HEP at least 3x/wk in order to maximize progression with PT and transition to maintenance program upon discharge LTG Duration 12 weeks Assessment Summary Assessment Pt currently 2 weeks post op s /p R JESUS with posterior approach. He has no pain with exercise or with gait. Initiated HEP in supine and sitting for hip ROM and strength. Demos good quad activation, has TKE in sitting with LAQ. Initiated manual soft tissue mobilization to improve swelling management of RLE and to decrease soft tissue restrictions. Initiated gait training with spc as pt reports attempting to ambulate without AD at home. Minimal cues needed for 2 pt patterning, maintain hips precautions, and no pain with gait while using spc. Pt TUG with FWW 22 seconds, slowed mostly by turning with spc; will assess with spc next session. Pt also able to transfer without UE assist on/ off plinth today. Intermittent cueing needed for safety to maintain hip precautions with transfers and gait. Physical Therapy Plan Frequency and Duration Frequency of Treatment 2x/Week Duration of treatment (weeks) 12 Plan of Care Start Date 05/03/24 Plan of Care End Date 07/28/24 Therapeutic Interventions Therapeutic Interventions Balance Training,Gait Training ,Home Exercise Program,Manual Therapy,Neuromuscular Re- education,Orthotic/Prosthetic Management,Patient/Caregiver Education,Self-Care/Home Management,Sensory Integration ,Soft Tissue Mobilization, Taping,Therapeutic Activities, Therapeutic Exercises Modalities Cold Pack/Ice Massage,Electric Stimulation,Hot Packs Next Visit Focus/Plan Next Note Type Treatment Note Next Visit Plan posterior hip precautions x6 weeks (06/05/24) per surgical note 04/24 or until cleared by MD DOS 04/24 Ask about 2 week follow up on 05/09. Assess tolerance to HEP and Review HEP. TUG w/ and Gait training with spc. Progress more to standing exercises if nita well. Heel slides with sheet, adductor isometric, quad sets > LAQ w/ resistance as tolerate, STS training w/ and w/o spc with respect to hip precautions and RLE more anterior, seated hip abd with band, hooklying july, standing july, standing hip ext/abd w/ slider and hand support Manual: STM to hip- assess scar if bandages removed. Educate on safety with infection
--- NOTE | 2024-05-10 15:14 | PT.OTN ---
Current Diagnoses Pain in right hip (05/10/24) Stiffness of right hip, not elsewhere classified (05/10/24) Other lack of coordination (05/10/24) Weakness (05/10/24) Physical Therapy Treatment Note PT-OP-A Visit Information Start: 05/02/24 15:45 Freq: Status: Active Protocol: Document 05/10/24 14:16 SP (Rec: 05/10/24 15:40 SP [id number]) Out-Patient Physical Therapy Visit Information Visit Information Visit Type Treatment Note Visit Start Time 14:17 Visit Stop Time 15:04 Visit Number 3 Number of WAREHOUSE SHIPPING RECEIVING CLERK Visits 1 Evaluation Information Evaluation Date 05/03/24 Precautions Precautions DOS 04/24/24- posterior hip precautions (no hip flex> 90 deg or trunk flex, no ADD past midline, no IR past midline)* * PT-OP-B Current Condition Start: 05/02/24 15:45 Freq: Status: Active Protocol: Document 05/03/24 09:47 NM (Rec: 05/03/24 10:39 NM [id number]) Current Condition History of Current Condition Onset Date R JESUS Current Complaints DOS 04/24/24 History of Current Condition Pt presents s/p R JESUS on . Pt has a posterior JESUS. No complication during surgery. He had L JESUS last year; PT went well, no complications. He stopped pain pills 2 days ago, still on meloxicam; still on aspirin BID. He is aware of precautions (no hip flexion , no hip ADD, no IR). Has 2 week follow up on Wednesday. No stairs at home, 1 story. Lives with , Ann. Pt has a steep driveway, unable to ambulate. Pt was using a spc for ambulation, AD periodically (household). Currently using FWW. Pt had 2 ADA toilets with grab bars, no difficulty with transfers. Has walk in shower with shower chair built in; does not use. 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 Treatment Goals Patient/Caregiver Goals wants to stairs, bending over, balance, ambulation w/o AD Current Functional Impairments (Reported) Functional Limitations- ADL's has hip kit for donning socks/ shoes has difficulty with donning pants/shoes- uses grabber Functional Limitations- Mobility/Gait standing 15-20 min sleeping in bed (hospital bed) - sleeping w/ legs elevated Functional Limitations- Work/School stairs Functional Limitations- Other driving PT-OP-C Subjective Start: 05/02/24 15:45 Freq: Status: Active Protocol: Document 05/10/24 14:16 SP (Rec: 05/10/24 15:40 SP [id number]) OP-PT Subjective Patient Comments Patient Comments Pt reports saw ortho yesterday and pleased with mobility, jose removed. PT-OP-E Functional Tests Start: 05/02/24 15:45 Freq: Status: Active Protocol: Document 05/03/24 09:47 NM (Rec: 05/03/24 10:39 NM [id number]) Functional Tests 6 Minute Walk Test Distance 971 ft Device Used FWW Comments several stumbles w/o fall, CGA to correct PT-OP-F Manual Assessment Start: 05/02/24 15:45 Freq: Status: Active Protocol: Document 05/03/24 09:47 NM (Rec: 05/03/24 10:39 NM [id number]) Manual Assessments Soft Tissue Assessment Soft Tissue Mobility Assessment Tightness of hip flexors and hamstrings Joint Mobility Assessment Joint Mobility Assessment Limited PROM and AROM R hip due to hip precautions, pain, girth PT-OP-G Mobility & Gait Start: 05/02/24 15:45 Freq: Status: Active Protocol: Document 05/03/24 09:47 NM (Rec: 05/03/24 10:39 NM [id number]) OP Mobility Evaluation Bed Mobility Supine to and from Sit Needs gait belt for RLe assist on/off bed (uses bed mobility strap for assistance at home) Transfers Sit to Stand BUE use from chair to FWW OP Gait Assessment Gait Gait Assistance Required: Contact Guard Assist Distance (Feet) 150 Assistive Devices Assistive Device Gait Belt,Front Wheeled Walker Gait Deviations General Gait Pattern Antalgic,Decreased Feet Clearance,Flexed Trunk,Wide Based Gait Factors Limiting Gait Function Factors Limiting Gait Function Decreased Activity Tolerance, Decreased Strength,Limited Range of Motion,Pain,Poor Balance Comments Gait Comments Demos tendency for R hip IR with ambulation during stance phase, decreased B foot clearance, often catches foot, heavily UE dependent on FWW PT-OP-H Neuro Start: 05/02/24 15:45 Freq: Status: Active Protocol: Document 05/03/24 09:47 NM (Rec: 05/03/24 10:39 NM [id number]) Sensation Evaluation Comments Summary Comments will formally assess next session; did not assess due to time PT-OP-J Posture/Palpation/Skin Start: 05/02/24 15:45 Freq: Status: Active Protocol: Document 05/03/24 09:47 NM (Rec: 05/03/24 10:39 NM [id number]) Posture Evaluation Position Standing Head/C-Spine Posture Forward Head L-Spine Posture Increased Lordosis Weight Distribution Weight Shifted Left Hip Posture (L) Neutral,(R) Internally Rotated Knee Posture (L) Genu Valgus,(R) Genu Valgus Palpation Assessment Location R hip Palpation Findings Soft Tissue Tightness, Tenderness Palpation Details Tenderness at posterior hip near incision, glutes Tightness of hip flexors and hamstrings Skin Assessment Incisional Assessment Incision Appearance/Comments Incision covered by bandage which is C/D/I. No redness or signs of infection Other Assessments Skin Assessment Comments Has BLE swelling, wearing compression socks. R adams has several scabbed, healing wound with dried blood PT-OP-K Range of Motion Start: 05/02/24 15:45 Freq: Status: Active Protocol: Document 05/03/24 09:47 NM (Rec: 05/03/24 10:39 NM [id number]) Hip Goniometric Range of Motion Hip Right Comments not tested due to precautions Left Flexion w/Knee Flexed 90 Abduction 25 Internal Rotation 30 External Rotation 15 PT-OP-M Strength Start: 05/02/24 15:45 Freq: Status: Active Protocol: Document 05/03/24 09:47 NM (Rec: 05/03/24 10:39 NM [id number]) Hip Strength Hip Manual Muscle Testing Right Flexion (L2) 2+ Poor+ Extension (S1) 3 Fair Abduction 3 Fair External Rotation 3 Fair Comments not tested d/t precautions but able to perform against gravity for all movements in sitting or standing except for hip flex >90, ADD, or IR Left Flexion (L2) 4 Good Abduction 4 Good Adduction 4 Good External Rotation 4 Good Internal Rotation 4 Good Knee Strength Knee Manual Muscle Testing Right Flexion (S2) 4- Good- Extension (L3) 4- Good- Left Flexion (S2) 4+ Good+ Extension (L3) 4+ Good+ Ankle/Foot Strength Ankle and Foot Manual Muscle Testing Right Dorsiflexion (L4) 4+ Good+ Plantarflexion (S1) 4+ Good+ Comments tested in sitting Left Dorsiflexion (L4) 4+ Good+ Plantarflexion (S1) 4+ Good+ Comments tested in sitting PT-OP-Q Treatments Start: 05/02/24 15:45 Freq: Status: Active Protocol: Document 05/10/24 14:16 SP (Rec: 05/10/24 15:40 SP [id number]) Therapeutic Exercises Supine Exercises hip abduction Supine Exercise Name trialed in PT Side right Resistance AROM Equipment Used opp LE knee bent Reps/Minutes x12 Comments cued TKE, out/ in- good form no pain, tiring glute sets Supine Exercise Name HEP Side bilateral Equipment Used hooklying Reps/Minutes 15x5 Comments monitored for pain heel slides Supine Exercise Name no hip flex > 90 for precautions- HEP Side right Resistance AROM Equipment Used silk slider under foot to avoid traction Reps/Minutes 15 Comments challenging but not increased pain Sitting Exercises sit to stand Sitting Exercise Name plinth slightly elevated for hip precautions, no flex > 90 Side bilateral Equipment Used no UE support 20 table Reps/Minutes 10 Comments no hip pain, cue to have RLE slightly more anterior LAQ Sitting Exercise Name HEP - plinth slightly elevated for hip precautions, no flex >90 Side right Resistance AROM (add resistance next tx) Reps/Minutes 20x5 Comments cued scoot all way back in chair hip abduction Sitting Exercise Name plinth slightly elevated for hip precautions, no flex > 90 Side bilateral Resistance level 2 band at thighs Reps/Minutes 60 ea Comments pain free Standing Exercises heel raise, toe raise Standing Exercise Name added to HEP /c HO Side bilateral Resistance AROM Equipment Used light rail support Reps/Minutes x20 hip ext Standing Exercise Name added to HEP /c HO Side bilateral Resistance AROM Equipment Used rail support Reps/Minutes x10 hip abd Standing Exercise Name added to HEP /c HO Side bilateral Resistance AROM Equipment Used rail support Reps/Minutes x10 Gait Training Gait Activity spc Device Used spc Level of Assistance CGA Distance/Duration 340 ft ft Treatment Focus spc stride, foot clearance, Comments CGA for steadiness on turns, improves with reps. No hip pain with gait using spc, no increased pain with weight bearing. Minimal cues needed for spc 2 pt patterning in L hand with RLE, prn cueing needed for safety during turns initially to prevent breaking precautions. TUG Comments 13 sec no AD, 12 sec SPC in LUE, improved july stepping foot clearance around cone and even christa with can support . Manual Therapy Treatment Consent Patient gave verbal consent for manual Yes treatment Soft Tissue Mobilization scar mobility Body Location R hip Mobilization Type Myofascial Release,Rolling Comments Noted light pink lateral scar, pt reported jose were getting irritating, feels better now. Slight clear drainage mid scar. Gentle skin lateral to scar mobility. Discussion not disrupt scabs till fall off them selves and no ointments on til healed completely, reduce risk of infections. verbalized understanding. WAREHOUSE [employer]IPPING RECEIVING CLERK notified pt he had slight clear drainage mid scar. R hip Body Location quad, hip flexors, quad, adductors, swelling management Mobilization Type Rolling,Strumming Intensity/Depth Superficial Body Position Supine Comments Distal > proximal swelling management from ankle > hip, swelling along entire RLE but no redness or increased temperature compared to contralateral limb. No tenderness at hip flexors or quad, but tightness present. Neuro Re-Education Treatment Balance Activities hurdles Details receiprocal stepping fwd, lateral step to Equipment 5 hurdles, 1 light rail>SPC Reps/Duration 4 laps fwd, 2 laps lateral Comments rail support progressed SPC fwd need slower pacing for increased stability, cues slower pacing and R knee/hip/ DF after R heel touched erendira . PT-OP-T Assessment and Plan Start: 05/02/24 15:45 Freq: Status: Active Protocol: Document 05/10/24 14:16 SP (Rec: 05/10/24 15:40 SP [id number]) Physical Therapy Assessment Goals Five Impairment unable to perform stairs Intermediate Goal (LTG) Pt will be able to perform stairs using reciprocal pattern and 1 or fewer hand rails and/or LRAD with R hip pain <3/10 in order to perform community ambulation LTG Duration 12 weeks Four Impairment R hip strength limited globally Assembling Motor Builder Goal (LTG) If appropriate, pt will improve R hip global strength to at least 4/5 MMT in order to be able to perform transfers, gait, and ADLs without limitation LTG Duration 12 weeks Three Impairment limitations in R hip ROM Intermediate Goal (LTG) When appropriate per precautions, pt will demonstrate at least 90 deg R hip flex, hip abduction to at least 20 deg, and within 10 deg of LLE for all other motions LTG Duration 12 weeks Two Impairment 6 MWT 971 ft with FWW Short Term Goal (STG) Pt will normalize gait mechanics using LRAD and report <3/10 R hip pain with ambulation 05/10/24: gait 340 ft /c SPC in E, 2 laps clinic. Noted slight RLE scuff approaching turn, improved post cues DF foot clearance. STG Duration 5 weeks progression 05/10/24 Intermediate Goal (LTG) Pt will ambulate at least 1000 ft during 6 MWT with or without LRAD and R hip pain <3 /10 in order to be able to return to weekly walks with LTG Duration 12 weeks One Impairment not performing HEP following surgery Intermediate Goal (LTG) Pt will report compliance with HEP at least 3x/wk in order to maximize progression with PT and transition to maintenance program upon discharge LTG Duration 12 weeks Assessment Summary Assessment Pt had good tolerance to ther ex today. Physical Therapy Plan Frequency and Duration Frequency of Treatment 2x/Week Duration of treatment (weeks) 12 Plan of Care Start Date 05/03/24 Plan of Care End Date 07/28/24 Therapeutic Interventions Therapeutic Interventions Balance Training,Gait Training ,Home Exercise Program,Manual Therapy,Neuromuscular Re- education,Orthotic/Prosthetic Management,Patient/Caregiver Education,Self-Care/Home Management,Sensory Integration ,Soft Tissue Mobilization, Taping,Therapeutic Activities, Therapeutic Exercises Modalities Cold Pack/Ice Massage,Electric Stimulation,Hot Packs Next Visit Focus/Plan Next Note Type Treatment Note Next Visit Plan posterior hip precautions x6 weeks (06/05/24) per surgical note 04/24 or until cleared by , DOS 04/24 POC: recheck standing HEP: abd , ext, HRTR, march, seated TB clamshell . Progress more to standing exercises if nita well . Supine hip abd, next add LAQ w/ resistance as tolerate, STS continue respect to hip precautions and RLE more anterior, Progress standing hip ext/abd w/ slider and hand support Manual: STM to hip- assess scar if bandages removed. Educate on safety with infection
--- NOTE | 2024-05-19 15:53 | PT.OTN ---
Current Diagnoses Pain in right hip (05/19/24) Stiffness of right hip, not elsewhere classified (05/19/24) Other lack of coordination (05/19/24) Weakness (05/19/24) Physical Therapy Treatment Note PT-OP-A Visit Information Start: 05/02/24 15:45 Freq: Status: Active Protocol: Document 05/19/24 13:02 NM (Rec: 05/19/24 13:47 NM [id number]) Out-Patient Physical Therapy Visit Information Visit Information Visit Type Treatment Note Visit Note DOS 04/24/24- posterior hip precautions (no hip flex> 90 deg or trunk flex, no ADD past midline, no IR past midline)* * Visit Start Time 03:03 Visit Stop Time 13:44 Visit Number 4 Number of MILLING OPERATOR Visits 0 Evaluation Information Evaluation Date 05/03/24 Precautions Precautions DOS 04/24/24- posterior hip precautions (no hip flex> 90 deg or trunk flex, no ADD past midline, no IR past midline)* * PT-OP-B Current Condition Start: 05/02/24 15:45 Freq: Status: Active Protocol: Document 05/03/24 09:47 NM (Rec: 05/03/24 10:39 NM [id number]) Current Condition History of Current Condition Onset Date R JESUS Current Complaints DOS 04/24/24 History of Current Condition Pt presents s/p R JESUS on . Pt has a posterior JESUS. No complication during surgery. He had L JESUS last year; PT went well, no complications. He stopped pain pills 2 days ago, still on meloxicam; still on aspirin BID. He is aware of precautions (no hip flexion , no hip ADD, no IR). Has 2 week follow up on Wednesday. No stairs at home, 1 story. Lives with , Ann. Pt has a steep driveway, unable to ambulate. Pt was using a spc for ambulation, AD periodically (household). Currently using FWW. Pt had 2 ADA toilets with grab bars, no difficulty with transfers. Has walk in shower with shower chair built in; does not use. 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 Treatment Goals Patient/Caregiver Goals wants to stairs, bending over, balance, ambulation w/o AD Current Functional Impairments (Reported) Functional Limitations- ADL's has hip kit for donning socks/ shoes has difficulty with donning pants/shoes- uses grabber Functional Limitations- Mobility/Gait standing 15-20 min sleeping in bed (hospital bed) - sleeping w/ legs elevated Functional Limitations- Work/School stairs Functional Limitations- Other driving PT-OP-C Subjective Start: 05/02/24 15:45 Freq: Status: Active Protocol: Document 05/19/24 13:02 NM (Rec: 05/19/24 13:47 NM [id number]) OP-PT Subjective Patient Comments Patient Comments Pt reports that he thought he pulled a muscle in his R anterior hip following a trip to the store last week as his hip flexors bothered him for a couple of days; however, has since resolved. Pt denies any R hip pain. He also reports that has not been using his spc at home but has been using it in clinic. Has been compliant with HEP at home. PT-OP-E Functional Tests Start: 05/02/24 15:45 Freq: Status: Active Protocol: Document 05/03/24 09:47 NM (Rec: 05/03/24 10:39 NM [id number]) Functional Tests 6 Minute Walk Test Distance 971 ft Device Used FWW Comments several stumbles w/o fall, CGA to correct PT-OP-F Manual Assessment Start: 05/02/24 15:45 Freq: Status: Active Protocol: Document 05/03/24 09:47 NM (Rec: 05/03/24 10:39 NM [id number]) Manual Assessments Soft Tissue Assessment Soft Tissue Mobility Assessment Tightness of hip flexors and hamstrings Joint Mobility Assessment Joint Mobility Assessment Limited PROM and AROM R hip due to hip precautions, pain, girth PT-OP-G Mobility & Gait Start: 05/02/24 15:45 Freq: Status: Active Protocol: Document 05/03/24 09:47 NM (Rec: 05/03/24 10:39 NM [id number]) OP Mobility Evaluation Bed Mobility Supine to and from Sit Needs gait belt for RLe assist on/off bed (uses bed mobility strap for assistance at home) Transfers Sit to Stand BUE use from chair to FWW OP Gait Assessment Gait Gait Assistance Required: Contact Guard Assist Distance (Feet) 150 Assistive Devices Assistive Device Gait Belt,Front Wheeled Walker Gait Deviations General Gait Pattern Antalgic,Decreased Feet Clearance,Flexed Trunk,Wide Based Gait Factors Limiting Gait Function Factors Limiting Gait Function Decreased Activity Tolerance, Decreased Strength,Limited Range of Motion,Pain,Poor Balance Comments Gait Comments Demos tendency for R hip IR with ambulation during stance phase, decreased B foot clearance, often catches foot, heavily UE dependent on FWW PT-OP-H Neuro Start: 05/02/24 15:45 Freq: Status: Active Protocol: Document 05/03/24 09:47 NM (Rec: 05/03/24 10:39 NM [id number]) Sensation Evaluation Comments Summary Comments will formally assess next session; did not assess due to time PT-OP-J Posture/Palpation/Skin Start: 05/02/24 15:45 Freq: Status: Active Protocol: Document 05/03/24 09:47 NM (Rec: 05/03/24 10:39 NM [id number]) Posture Evaluation Position Standing Head/C-Spine Posture Forward Head L-Spine Posture Increased Lordosis Weight Distribution Weight Shifted Left Hip Posture (L) Neutral,(R) Internally Rotated Knee Posture (L) Genu Valgus,(R) Genu Valgus Palpation Assessment Location R hip Palpation Findings Soft Tissue Tightness, Tenderness Palpation Details Tenderness at posterior hip near incision, glutes Tightness of hip flexors and hamstrings Skin Assessment Incisional Assessment Incision Appearance/Comments Incision covered by bandage which is C/D/I. No redness or signs of infection Other Assessments Skin Assessment Comments Has BLE swelling, wearing compression socks. R adams has several scabbed, healing wound with dried blood PT-OP-K Range of Motion Start: 05/02/24 15:45 Freq: Status: Active Protocol: Document 05/03/24 09:47 NM (Rec: 05/03/24 10:39 NM [id number]) Hip Goniometric Range of Motion Hip Right Comments not tested due to precautions Left Flexion w/Knee Flexed 90 Abduction 25 Internal Rotation 30 External Rotation 15 PT-OP-M Strength Start: 05/02/24 15:45 Freq: Status: Active Protocol: Document 05/03/24 09:47 NM (Rec: 05/03/24 10:39 NM [id number]) Hip Strength Hip Manual Muscle Testing Right Flexion (L2) 2+ Poor+ Extension (S1) 3 Fair Abduction 3 Fair External Rotation 3 Fair Comments not tested d/t precautions but able to perform against gravity for all movements in sitting or standing except for hip flex >90, ADD, or IR Left Flexion (L2) 4 Good Abduction 4 Good Adduction 4 Good External Rotation 4 Good Internal Rotation 4 Good Knee Strength Knee Manual Muscle Testing Right Flexion (S2) 4- Good- Extension (L3) 4- Good- Left Flexion (S2) 4+ Good+ Extension (L3) 4+ Good+ Ankle/Foot Strength Ankle and Foot Manual Muscle Testing Right Dorsiflexion (L4) 4+ Good+ Plantarflexion (S1) 4+ Good+ Comments tested in sitting Left Dorsiflexion (L4) 4+ Good+ Plantarflexion (S1) 4+ Good+ Comments tested in sitting PT-OP-Q Treatments Start: 05/02/24 15:45 Freq: Status: Active Protocol: Document 05/19/24 13:02 NM (Rec: 05/19/24 13:47 NM [id number]) Gym Equipment Shuttle Recovery Bilateral Squats Details locked to avoid breaking hip precautions; min A to rise for trunk prec Resistance 75# (2 navy) Shuttle Recovery Platform Stable Reps/Time 4x10 Therapeutic Exercises Standing Exercises hip flexion Standing Exercise Name marching w/ <90 deg to avoid breaking hip precautions Side bilateral Equipment Used hand support on //bars for balance Reps/Minutes 2x10 ea Comments maintains precautions; no pain in R stance but mild R hip pain end 2nd set hamstring curls Side bilateral Resistance 2# ankle weights Equipment Used //bar support Reps/Minutes 2x10 ea heel raise, toe raise Standing Exercise Name HEP review Side bilateral Resistance 2# ankle weights Equipment Used light rail support Reps/Minutes 20 ea hip ext Standing Exercise Name HEP review Side bilateral Resistance AROM Equipment Used //bar support Reps/Minutes 2x10 Comments pain free hip abd Standing Exercise Name HEP review Side bilateral Resistance AROM w/ slider under foot Equipment Used //bar support Reps/Minutes x10 Comments cued for form; pain free Manual Therapy Treatment Consent Patient gave verbal consent for manual Yes treatment Soft Tissue Mobilization scar mobility Body Location scar assessment Mobilization Type Rolling Intensity/Depth Superficial Body Position Sitting Comments No draining. Still has 1 scab, slightly pink and elevated. Gentle rolling, avoiding healing incision. Brief follow up education to MILLING OPERATOR education previous session about infection risk R hip Body Location quad, hip flexors, quad, adductors, swelling management Mobilization Type Rolling,Strumming Intensity/Depth Superficial Body Position Supine Comments Distal > proximal swelling management from ankle > hip, swelling along entire RLE. Min tenderness at hip flexors or quad, but tightness present nilton over proximal hip flexors, reduced with manual tx Neuro Re-Education Treatment Balance Activities SLS Surface stable Equipment 2 finger support ea hand for balance Reps/Duration 2x20 ea Comments CGA, pain free in RLE Self-Care/Home Management Treatment Education Patient Education Fall Risk,Joint Protection, Pain Management Other Education Educated on use of spc for household and community mobility PT-OP-T Assessment and Plan Start: 05/02/24 15:45 Freq: Status: Active Protocol: Document 05/19/24 13:02 NM (Rec: 05/19/24 13:47 NM [id number]) Physical Therapy Assessment Goals Five Impairment unable to perform stairs Penitentiary Goal (LTG) Pt will be able to perform stairs using reciprocal pattern and 1 or fewer hand rails and/or LRAD with R hip pain <3/10 in order to perform community ambulation LTG Duration 12 weeks Four Impairment R hip strength limited globally Penitentiary Goal (LTG) If appropriate, pt will improve R hip global strength to at least 4/5 MMT in order to be able to perform transfers, gait, and ADLs without limitation LTG Duration 12 weeks Three Impairment limitations in R hip ROM Penitentiary Goal (LTG) When appropriate per precautions, pt will demonstrate at least 90 deg R hip flex, hip abduction to at least 20 deg, and within 10 deg of LLE for all other motions LTG Duration 12 weeks Two Impairment 6 MWT 971 ft with FWW Short Term Goal (STG) Pt will normalize gait mechanics using LRAD and report <3/10 R hip pain with ambulation 05/10/24: gait 340 ft /c SPC in LUE, 2 laps clinic. Noted slight RLE scuff approaching turn, improved post cues DF foot clearance. STG Duration 5 weeks progression 05/10/24 Penitentiary Goal (LTG) Pt will ambulate at least 1000 ft during 6 MWT with or without LRAD and R hip pain <3 /10 in order to be able to return to weekly walks with LTG Duration 12 weeks One Impairment not performing HEP following surgery Aircraft Cleaning Supervisor Goal (LTG) Pt will report compliance with HEP at least 3x/wk in order to maximize progression with PT and transition to maintenance program upon discharge LTG Duration 12 weeks Assessment Summary Assessment Pt currently 3 weeks s/p R JESUS . Reports mild R hip flexor pain following marching AROM even while maintaining hip precautions; resolved with cessation of activity. Educated to avoid performing exercise that reproduce same motions at this time. Able to progress number of reps for standing hip ext, abd, and hamstring curls. No pain with R SLS but does demos increased UE support on rail. PT educated pt again to continue to use spc for both household and community mobility due to SLS time and to decrease risk of falls. Trialed B squat on L press for glute strengthening ; able to maintain precautions with set up from PT and cueing for safety/execution during transfers. Good feedback for manual treatment at hip flexors and gentle scar mobility. Scar continues to demonstrate signs of healing without infection. Physical Therapy Plan Frequency and Duration Frequency of Treatment 2x/Week Duration of treatment (weeks) 12 Plan of Care Start Date 05/03/24 Plan of Care End Date 07/28/24 Therapeutic Interventions Therapeutic Interventions Balance Training,Gait Training ,Home Exercise Program,Manual Therapy,Neuromuscular Re- education,Orthotic/Prosthetic Management,Patient/Caregiver Education,Self-Care/Home Management,Sensory Integration ,Soft Tissue Mobilization, Taping,Therapeutic Activities, Therapeutic Exercises Modalities Cold Pack/Ice Massage,Electric Stimulation,Hot Packs Next Visit Focus/Plan Next Note Type Treatment Note Next Visit Plan posterior hip precautions x6 weeks (06/05/24) per surgical note 04/24 or until cleared by , DOS 04/24 Recheck seated clam, review HEP as needed. Cont with STS with RLE slightly fwd vs leg press (locked to maintain precautions). Progress from supine into seated and standing with bands; can trial progressions with band. Can use grabber to help pt don/ doff band for carryover at home. Balance using hurdles, SLS. Once appropriate, begin to normalize gait without spc POC: Supine hip abd, next add LAQ w/ resistance as tolerate, STS continue respect to hip precautions and RLE more anterior, Progress standing hip ext/abd w/ slider and hand support Manual: STM to hip, scar mobility once appropriate
--- NOTE | 2024-05-23 14:40 | PT.OTN ---
Current Diagnoses Pain in right hip (05/23/24) Stiffness of right hip, not elsewhere classified (05/23/24) Other lack of coordination (05/23/24) Weakness (05/23/24) Physical Therapy Treatment Note PT-OP-A Visit Information Start: 05/02/24 15:45 Freq: Status: Active Protocol: Document 05/23/24 13:45 NBM (Rec: 05/23/24 14:40 NBM [id number]) Out-Patient Physical Therapy Visit Information Visit Information Visit Type Treatment Note Visit Note DOS 04/24/24- posterior hip precautions (no hip flex> 90 deg or trunk flex, no ADD past midline, no IR past midline)* * Visit Start Time 13:45 Visit Stop Time 14:30 Visit Number 5 Number of [employer] Visits 1 Evaluation Information Evaluation Date 05/03/24 Precautions Precautions DOS 04/24/24- posterior hip precautions (no hip flex> 90 deg or trunk flex, no ADD past midline, no IR past midline)* * PT-OP-B Current Condition Start: 05/02/24 15:45 Freq: Status: Active Protocol: Document 05/03/24 09:47 NM (Rec: 05/03/24 10:39 NM [id number]) Current Condition History of Current Condition Onset Date R JESUS Current Complaints DOS 04/24/24 History of Current Condition Pt presents s/p R JESUS on . Pt has a posterior JESUS. No complication during surgery. He had L JESUS last year; PT went well, no complications. He stopped pain pills 2 days ago, still on meloxicam; still on aspirin BID. He is aware of precautions (no hip flexion , no hip ADD, no IR). Has 2 week follow up on Wednesday. No stairs at home, 1 story. Lives with , Ann. Pt has a steep driveway, unable to ambulate. Pt was using a spc for ambulation, AD periodically (household). Currently using FWW. Pt had 2 ADA toilets with grab bars, no difficulty with transfers. Has walk in shower with shower chair built in; does not use. 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 Treatment Goals Patient/Caregiver Goals wants to stairs, bending over, balance, ambulation w/o AD Current Functional Impairments (Reported) Functional Limitations- ADL's has hip kit for donning socks/ shoes has difficulty with donning pants/shoes- uses grabber Functional Limitations- Mobility/Gait standing 15-20 min sleeping in bed (hospital bed) - sleeping w/ legs elevated Functional Limitations- Work/School stairs Functional Limitations- Other driving PT-OP-C Subjective Start: 05/02/24 15:45 Freq: Status: Active Protocol: Document 05/23/24 13:45 NBM (Rec: 05/23/24 14:40 NBM [id number]) OP-PT Subjective Patient Comments Patient Comments Tobi reports no pain at standing , 1-2/10 with walking with or without cane. 2/10 R hip pain in front after sitting for awhile. He sits on a pillow and is careful not to break hip precautions and doesn't go past 90 deg. PT-OP-E Functional Tests Start: 05/02/24 15:45 Freq: Status: Active Protocol: Document 05/03/24 09:47 NM (Rec: 05/03/24 10:39 NM [id number]) Functional Tests 6 Minute Walk Test Distance 971 ft Device Used FWW Comments several stumbles w/o fall, CGA to correct PT-OP-F Manual Assessment Start: 05/02/24 15:45 Freq: Status: Active Protocol: Document 05/03/24 09:47 NM (Rec: 05/03/24 10:39 NM [id number]) Manual Assessments Soft Tissue Assessment Soft Tissue Mobility Assessment Tightness of hip flexors and hamstrings Joint Mobility Assessment Joint Mobility Assessment Limited PROM and AROM R hip due to hip precautions, pain, girth PT-OP-G Mobility & Gait Start: 05/02/24 15:45 Freq: Status: Active Protocol: Document 05/03/24 09:47 NM (Rec: 05/03/24 10:39 NM [id number]) OP Mobility Evaluation Bed Mobility Supine to and from Sit Needs gait belt for RLe assist on/off bed (uses bed mobility strap for assistance at home) Transfers Sit to Stand BUE use from chair to FWW OP Gait Assessment Gait Gait Assistance Required: Contact Guard Assist Distance (Feet) 150 Assistive Devices Assistive Device Gait Belt,Front Wheeled Walker Gait Deviations General Gait Pattern Antalgic,Decreased Feet Clearance,Flexed Trunk,Wide Based Gait Factors Limiting Gait Function Factors Limiting Gait Function Decreased Activity Tolerance, Decreased Strength,Limited Range of Motion,Pain,Poor Balance Comments Gait Comments Demos tendency for R hip IR with ambulation during stance phase, decreased B foot clearance, often catches foot, heavily UE dependent on FWW PT-OP-H Neuro Start: 05/02/24 15:45 Freq: Status: Active Protocol: Document 05/03/24 09:47 NM (Rec: 05/03/24 10:39 NM [id number]) Sensation Evaluation Comments Summary Comments will formally assess next session; did not assess due to time PT-OP-J Posture/Palpation/Skin Start: 05/02/24 15:45 Freq: Status: Active Protocol: Document 05/03/24 09:47 NM (Rec: 05/03/24 10:39 NM [id number]) Posture Evaluation Position Standing Head/C-Spine Posture Forward Head L-Spine Posture Increased Lordosis Weight Distribution Weight Shifted Left Hip Posture (L) Neutral,(R) Internally Rotated Knee Posture (L) Genu Valgus,(R) Genu Valgus Palpation Assessment Location R hip Palpation Findings Soft Tissue Tightness, Tenderness Palpation Details Tenderness at posterior hip near incision, glutes Tightness of hip flexors and hamstrings Skin Assessment Incisional Assessment Incision Appearance/Comments Incision covered by bandage which is C/D/I. No redness or signs of infection Other Assessments Skin Assessment Comments Has BLE swelling, wearing compression socks. R adams has several scabbed, healing wound with dried blood PT-OP-K Range of Motion Start: 05/02/24 15:45 Freq: Status: Active Protocol: Document 05/03/24 09:47 NM (Rec: 05/03/24 10:39 NM [id number]) Hip Goniometric Range of Motion Hip Right Comments not tested due to precautions Left Flexion w/Knee Flexed 90 Abduction 25 Internal Rotation 30 External Rotation 15 PT-OP-M Strength Start: 05/02/24 15:45 Freq: Status: Active Protocol: Document 05/03/24 09:47 NM (Rec: 05/03/24 10:39 NM [id number]) Hip Strength Hip Manual Muscle Testing Right Flexion (L2) 2+ Poor+ Extension (S1) 3 Fair Abduction 3 Fair External Rotation 3 Fair Comments not tested d/t precautions but able to perform against gravity for all movements in sitting or standing except for hip flex >90, ADD, or IR Left Flexion (L2) 4 Good Abduction 4 Good Adduction 4 Good External Rotation 4 Good Internal Rotation 4 Good Knee Strength Knee Manual Muscle Testing Right Flexion (S2) 4- Good- Extension (L3) 4- Good- Left Flexion (S2) 4+ Good+ Extension (L3) 4+ Good+ Ankle/Foot Strength Ankle and Foot Manual Muscle Testing Right Dorsiflexion (L4) 4+ Good+ Plantarflexion (S1) 4+ Good+ Comments tested in sitting Left Dorsiflexion (L4) 4+ Good+ Plantarflexion (S1) 4+ Good+ Comments tested in sitting PT-OP-Q Treatments Start: 05/02/24 15:45 Freq: Status: Active Protocol: Document 05/23/24 13:45 NBM (Rec: 05/23/24 14:40 NBM [id number]) Therapeutic Exercises Sitting Exercises sit to stand Sitting Exercise Name plinth slightly elevated for hip precautions, no flex > 90 Side bilateral Equipment Used no UE support 20 table Reps/Minutes 10 Comments no hip pain, cue to have RLE slightly more anterior LAQ Sitting Exercise Name HEP - plinth slightly elevated for hip precautions, no flex >90 Side right Resistance AROM> Lvl 1 TB Reps/Minutes x10 Comments cued scoot all way back in chair, breathwork; 2/10 R hip pain unchanged wTB hip abduction Sitting Exercise Name plinth slightly elevated for hip precautions, no flex > 90 Side bilateral Resistance level 2 band at thighs Reps/Minutes x10, 60 SH w/ LE alignment Comments pain free Standing Exercises hamstring curls Side bilateral Resistance 2# ankle weights Equipment Used //bar support Reps/Minutes 2x10 ea heel raise, toe raise Standing Exercise Name HEP review (pt forgot): 1. AROM 2. w/ 2# Britney Side bilateral Resistance 2# ankle weights Equipment Used light rail support Reps/Minutes x10 ea Comments cues to minimize a/p rocking hip ext Standing Exercise Name HEP review: 1. AROM 2. w/ 2# Britney Side bilateral Resistance AROM Equipment Used bar support Reps/Minutes x10 ea Comments pain free, cues for straight knee hip abd Standing Exercise Name HEP review Side bilateral Resistance AROM w/ slider under foot Equipment Used //bar support Reps/Minutes x10 ea Comments cued for upright posture, neutral foot position at end- range L>R; pain free Gait Training Gait Activity spc Device Used spc in E Level of Assistance CGA Distance/Duration ft Treatment Focus spc stride, foot clearance, Comments CGA for steadiness on turns, improves with reps. No hip pain with gait using spc, no increased pain with weight bearing. Minimal cues needed for spc 2 pt patterning in L hand with RLE, prn cueing needed for safety during turns initially to prevent breaking precautions. Manual Therapy Treatment Soft Tissue Mobilization scar mobility Body Location scar assessment Mobilization Type Rolling Intensity/Depth Superficial Comments No draining. PT-OP-T Assessment and Plan Start: 05/02/24 15:45 Freq: Status: Active Protocol: Document 05/23/24 13:45 NBM (Rec: 05/23/24 14:40 NBM [id number]) Physical Therapy Assessment Goals Five Impairment unable to perform stairs Halfway Goal (LTG) Pt will be able to perform stairs using reciprocal pattern and 1 or fewer hand rails and/or LRAD with R hip pain <3/10 in order to perform community ambulation LTG Duration 12 weeks Four Impairment R hip strength limited globally Halfway Goal (LTG) If appropriate, pt will improve R hip global strength to at least 4/5 MMT in order to be able to perform transfers, gait, and ADLs without limitation LTG Duration 12 weeks Three Impairment limitations in R hip ROM Water Jet Operator Goal (LTG) When appropriate per precautions, pt will demonstrate at least 90 deg R hip flex, hip abduction to at least 20 deg, and within 10 deg of LLE for all other motions LTG Duration 12 weeks Two Impairment 6 MWT 971 ft with FWW Short Term Goal (STG) Pt will normalize gait mechanics using LRAD and report <3/10 R hip pain with ambulation 05/10/24: gait 340 ft /c SPC in LUE, 2 laps clinic. Noted slight RLE scuff approaching turn, improved post cues DF foot clearance. STG Duration 5 weeks progression 05/10/24 Water Jet Operator Goal (LTG) Pt will ambulate at least 1000 ft during 6 MWT with or without LRAD and R hip pain <3 /10 in order to be able to return to weekly walks with LTG Duration 12 weeks One Impairment not performing HEP following surgery Water Jet Operator Goal (LTG) Pt will report compliance with HEP at least 3x/wk in order to maximize progression with PT and transition to maintenance program upon discharge LTG Duration 12 weeks Assessment Summary Assessment Treatment focus on gait training w/ SPC in LUE and HEP review and progression. Tobi starts with 0/10 pain which increases to 2/10 pain with LAQs and returns to 0/10 with standing ex's. Discussed pt's 2/10 pain with sitting after some time seated on pillows at home; pt will trial thicker and or higher pillows which may be deflating over time contributing to anterior R pain. SPC in LUE is increased one level and pt demos improved transfers with STS and initial cueing for RLE more anterior and improved self-awareness for limiting R IR due to hip precautions. LAQ progressed to Lvl1 Tb, standing hip abd to 2# Britney Bilaterally. Physical Therapy Plan Frequency and Duration Frequency of Treatment 2x/Week Duration of treatment (weeks) 12 Plan of Care Start Date 05/03/24 Plan of Care End Date 07/28/24 Therapeutic Interventions Therapeutic Interventions Balance Training,Gait Training ,Home Exercise Program,Manual Therapy,Neuromuscular Re- education,Orthotic/Prosthetic Management,Patient/Caregiver Education,Self-Care/Home Management,Sensory Integration ,Soft Tissue Mobilization, Taping,Therapeutic Activities, Therapeutic Exercises Modalities Cold Pack/Ice Massage,Electric Stimulation,Hot Packs Next Visit Focus/Plan Next Note Type Treatment Note Next Visit Plan posterior hip precautions x6 weeks (06/05/24) per surgical note 04/24 or until cleared by , DOS 04/24 Recheck R ant hip pain w/ sitting on higher/thicker pillows; seated clam, review HEP as needed. Cont with STS with RLE slightly fwd vs leg press (locked to maintain precautions). Progress from supine into seated and standing with bands; can trial progressions with band. Can use grabber to help pt don/ doff band for carryover at home. Balance using hurdles, SLS. Once appropriate, begin to normalize gait without spc POC: Supine hip abd, next add LAQ w/ resistance as tolerate, STS continue respect to hip precautions and RLE more anterior, Progress standing hip ext/abd w/ slider and hand support Manual: STM to hip, scar mobility once appropriate
--- NOTE | 2024-05-26 16:00 | PT.OTN ---
Physical Therapy Treatment Note PT-OP-A Visit Information Start: 05/02/24 15:45 Freq: Status: Active Protocol: Document 05/26/24 13:07 NBM (Rec: 05/26/24 13:49 NBM [id number]) Out-Patient Physical Therapy Visit Information Visit Information Visit Type Treatment Note Visit Note DOS 04/24/24- posterior hip precautions (no hip flex> 90 deg or trunk flex, no ADD past midline, no IR past midline)* * Visit Start Time 13:05 Visit Stop Time 13:49 Visit Number 6 Number of CRM [employer] MANAGER Visits 2 Evaluation Information Evaluation Date 05/03/24 Precautions Precautions DOS 04/24/24- posterior hip precautions (no hip flex> 90 deg or trunk flex, no ADD past midline, no IR past midline)* * PT-OP-B Current Condition Start: 05/02/24 15:45 Freq: Status: Active Protocol: Document 05/03/24 09:47 NM (Rec: 05/03/24 10:39 NM [id number]) Current Condition History of Current Condition Onset Date R JESUS Current Complaints DOS 04/24/24 History of Current Condition Pt presents s/p R JESUS on . Pt has a posterior JESUS. No complication during surgery. He had L JESUS last year; PT went well, no complications. He stopped pain pills 2 days ago, still on meloxicam; still on aspirin BID. He is aware of precautions (no hip flexion , no hip ADD, no IR). Has 2 week follow up on Wednesday. No stairs at home, 1 story. Lives with , Ann. Pt has a steep driveway, unable to ambulate. Pt was using a spc for ambulation, AD periodically (household). Currently using FWW. Pt had 2 ADA toilets with grab bars, no difficulty with transfers. Has walk in shower with shower chair built in; does not use. 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 Treatment Goals Patient/Caregiver Goals wants to stairs, bending over, balance, ambulation w/o AD Current Functional Impairments (Reported) Functional Limitations- ADL's has hip kit for donning socks/ shoes has difficulty with donning pants/shoes- uses grabber Functional Limitations- Mobility/Gait standing 15-20 min sleeping in bed (hospital bed) - sleeping w/ legs elevated Functional Limitations- Work/School stairs Functional Limitations- Other driving PT-OP-C Subjective Start: 05/02/24 15:45 Freq: Status: Active Protocol: Document 05/26/24 13:07 NBM (Rec: 05/26/24 13:49 [facility] [id number]) OP-PT Subjective Patient Comments Patient Comments Tobi reports no pain with sitting after adding extra pillows for height, and no pain right now. He adjusted cane height down with shoes off inside house, and puts it back one level with shoes on. I'm doing really well. PT-OP-Q Treatments Start: 05/02/24 15:45 Freq: Status: Active Protocol: Document 05/26/24 13:07 NB (Rec: 05/26/24 13:49 [facility] [id number]) Gym Equipment Shuttle Recovery Bilateral Squats Details locked to avoid breaking hip precautions; min A to rise for trunk prec Resistance 75# (2 navy) Shuttle Recovery Platform Stable Reps/Time 4x15 Therapeutic Exercises Sitting Exercises sit to stand Sitting Exercise Name slightly elevated for hip precautions, no flex > 90 Side bilateral Equipment Used chair>thigh>no UE support, mesh chair w/ 2 foam Reps/Minutes 10 Comments no hip pain, cue to have RLE slightly more anterior LAQ Sitting Exercise Name HEP - plinth slightly elevated for hip precautions, no flex >90 Side right Resistance AROM> Lvl 1 TB Reps/Minutes x10 Comments cued scoot all way back in chair, breathwork; 3/10 R hip pain unchanged wTB hip abduction Sitting Exercise Name slightly elevated for hip precautions, no flex > 90 Side bilateral Resistance level 2 band at thighs Equipment Used mesh chair w/ 2 foam Reps/Minutes 3x60 SH w/ LE alignment, x10 AROM Comments pain free, cues for equal Standing Exercises hip flexion Standing Exercise Name marching w/ <90 deg to avoid breaking hip precautions ( resume in HEP) Side bilateral Equipment Used SPC in LUE Reps/Minutes 2x10 ea Comments maintains precautions; no pain in R stance but mild R hip pain end 2nd set heel raise, toe raise Standing Exercise Name HEP review: 1. AROM 2. w/ 2# Britney Side bilateral Resistance 2# ankle weights Equipment Used light rail support Reps/Minutes x10 ea Comments cues to minimize a/p rocking hip ext Standing Exercise Name HEP review: 1. AROM 2. 4# AW 3 . with slider Side bilateral Resistance AROM Equipment Used bar support Reps/Minutes x10 ea Comments pain free, neutral foot hip abd Standing Exercise Name HEP review Side bilateral Resistance AROM w/ slider under foot Equipment Used //bar support Reps/Minutes x10 ea Comments cued for upright posture, neutral foot position at end- range L>R; pain free Gait Training Gait Activity spc Description step-through gait Device Used spc in E Level of Assistance CGA Distance/Duration 210 ft Treatment Focus spc stride, foot clearance, Comments No hip pain with gait using spc, no increased pain with weight bearing. Minimal cues needed for spc 2 pt patterning in L hand with RLE, 1 cue needed for safety during turns to prevent breaking precautions. Neuro Re-Education Treatment Balance Activities SLS Surface stable Equipment 2 finger support ea hand for balance Reps/Duration 2x30 ea Comments SBA PT-OP-T Assessment and Plan Start: 05/02/24 15:45 Freq: Status: Active Protocol: Document 05/26/24 13:07 [facility] (Rec: 05/26/24 13:49 [facility] [id number]) Physical Therapy Assessment Goals Five Impairment unable to perform stairs Prison Goal (LTG) Pt will be able to perform stairs using reciprocal pattern and 1 or fewer hand rails and/or LRAD with R hip pain <3/10 in order to perform community ambulation LTG Duration 12 weeks Four Impairment R hip strength limited globally Call Or Contact Centre Coach Goal (LTG) If appropriate, pt will improve R hip global strength to at least 4/5 MMT in order to be able to perform transfers, gait, and ADLs without limitation LTG Duration 12 weeks Three Impairment limitations in R hip ROM Prison Goal (LTG) When appropriate per precautions, pt will demonstrate at least 90 deg R hip flex, hip abduction to at least 20 deg, and within 10 deg of LLE for all other motions LTG Duration 12 weeks Two Impairment 6 MWT 971 ft with FWW Short Term Goal (STG) Pt will normalize gait mechanics using LRAD and report <3/10 R hip pain with ambulation 05/10/24: gait 340 ft /c SPC in E, 2 laps clinic. Noted slight RLE scuff approaching turn, improved post cues DF foot clearance. STG Duration 5 weeks progression 05/10/24 Call Or Contact Centre Coach Goal (LTG) Pt will ambulate at least 1000 ft during 6 MWT with or without LRAD and R hip pain <3 /10 in order to be able to return to weekly walks with LTG Duration 12 weeks One Impairment not performing HEP following surgery Prison Goal (LTG) Pt will report compliance with HEP at least 3x/wk in order to maximize progression with PT and transition to maintenance program upon discharge LTG Duration 12 weeks Assessment Summary Assessment Treatment focus on LE strengthening and gait training w/ SPC in L upper extremity. Tobi needs minimal cues needed for SPC 2-pt gait patterning in L hand, and 1 cue needed for safety during turns to prevent breaking hip internal rotation precautions. He is able to resume standing hip flexion marching less than 90 degrees today pain- free, demonstrating improvement from last visit when standing marching was held due to R anterior hip pain. Physical Therapy Plan Frequency and Duration Frequency of Treatment 2x/Week Duration of treatment (weeks) 12 Plan of Care Start Date 05/03/24 Plan of Care End Date 07/28/24 Therapeutic Interventions Therapeutic Interventions Balance Training,Gait Training ,Home Exercise Program,Manual Therapy,Neuromuscular Re- education,Orthotic/Prosthetic Management,Patient/Caregiver Education,Self-Care/Home Management,Sensory Integration ,Soft Tissue Mobilization, Taping,Therapeutic Activities, Therapeutic Exercises Modalities Cold Pack/Ice Massage,Electric Stimulation,Hot Packs Next Visit Focus/Plan Next Note Type Treatment Note Next Visit Plan posterior hip precautions x6 weeks (06/05/24) per surgical note 04/24 or until cleared by , DOS 04/24 Recheck; seated clam, review HEP as needed. Cont with STS with RLE slightly fwd vs leg press (locked to maintain precautions). Progress from supine into seated and standing with bands; can trial progressions with band. Can use grabber to help pt don/ doff band for carryover at home. Balance using hurdles, SLS. Once appropriate, begin to normalize gait without spc POC: Supine hip abd, next add LAQ w/ resistance as tolerate, STS continue respect to hip precautions and RLE more anterior, Progress standing hip ext/abd w/ slider and hand support Manual: STM to hip, scar mobility once appropriate
--- NOTE | 2024-06-02 12:24 | PT.OTN ---
Current Diagnoses Pain in right hip (05/26/24) Stiffness of right hip, not elsewhere classified (05/26/24) Other lack of coordination (05/26/24) Weakness (05/26/24) Physical Therapy Treatment Note PT-OP-A Visit Information Start: 05/02/24 15:45 Freq: Status: Active Protocol: Document 05/26/24 13:07 NBM (Rec: 05/26/24 13:49 NBM [id number]) Out-Patient Physical Therapy Visit Information Visit Information Visit Type Treatment Note Visit Note DOS 04/24/24- posterior hip precautions (no hip flex> 90 deg or trunk flex, no ADD past midline, no IR past midline)* * Visit Start Time 13:05 Visit Stop Time 13:45 Visit Number 6 Number of MARINE DIESEL TECHNICIAN Visits 2 Evaluation Information Evaluation Date 05/03/24 Precautions Precautions DOS 04/24/24- posterior hip precautions (no hip flex> 90 deg or trunk flex, no ADD past midline, no IR past midline)* * PT-OP-B Current Condition Start: 05/02/24 15:45 Freq: Status: Active Protocol: Document 05/03/24 09:47 NM (Rec: 05/03/24 10:39 NM [id number]) Current Condition History of Current Condition Onset Date R JESUS Current Complaints DOS 04/24/24 History of Current Condition Pt presents s/p R JESUS on . Pt has a posterior JESUS. No complication during surgery. He had L JESUS last year; PT went well, no complications. He stopped pain pills 2 days ago, still on meloxicam; still on aspirin BID. He is aware of precautions (no hip flexion , no hip ADD, no IR). Has 2 week follow up on Wednesday. No stairs at home, 1 story. Lives with , Ann. Pt has a steep driveway, unable to ambulate. Pt was using a spc for ambulation, AD periodically (household). Currently using FWW. Pt had 2 ADA toilets with grab bars, no difficulty with transfers. Has walk in shower with shower chair built in; does not use. 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 Treatment Goals Patient/Caregiver Goals wants to stairs, bending over, balance, ambulation w/o AD Current Functional Impairments (Reported) Functional Limitations- ADL's has hip kit for donning socks/ shoes has difficulty with donning pants/shoes- uses grabber Functional Limitations- Mobility/Gait standing 15-20 min sleeping in bed (hospital bed) - sleeping w/ legs elevated Functional Limitations- Work/School stairs Functional Limitations- Other driving PT-OP-C Subjective Start: 05/02/24 15:45 Freq: Status: Active Protocol: Document 05/26/24 13:07 NBM (Rec: 05/26/24 13:49 NBM [id number]) OP-PT Subjective Patient Comments Patient Comments Tobi reports no pain with sitting after adding extra pillows for height, and no pain right now. He adjusted cane height down with shoes off inside house, and puts it back one level with shoes on. I'm doing really well. PT-OP-E Functional Tests Start: 05/02/24 15:45 Freq: Status: Active Protocol: Document 05/03/24 09:47 NM (Rec: 05/03/24 10:39 NM [id number]) Functional Tests 6 Minute Walk Test Distance 971 ft Device Used FWW Comments several stumbles w/o fall, CGA to correct PT-OP-F Manual Assessment Start: 05/02/24 15:45 Freq: Status: Active Protocol: Document 05/03/24 09:47 NM (Rec: 05/03/24 10:39 NM [id number]) Manual Assessments Soft Tissue Assessment Soft Tissue Mobility Assessment Tightness of hip flexors and hamstrings Joint Mobility Assessment Joint Mobility Assessment Limited PROM and AROM R hip due to hip precautions, pain, girth PT-OP-G Mobility & Gait Start: 05/02/24 15:45 Freq: Status: Active Protocol: Document 05/03/24 09:47 NM (Rec: 05/03/24 10:39 NM [id number]) OP Mobility Evaluation Bed Mobility Supine to and from Sit Needs gait belt for RLe assist on/off bed (uses bed mobility strap for assistance at home) Transfers Sit to Stand BUE use from chair to FWW OP Gait Assessment Gait Gait Assistance Required: Contact Guard Assist Distance (Feet) 150 Assistive Devices Assistive Device Gait Belt,Front Wheeled Walker Gait Deviations General Gait Pattern Antalgic,Decreased Feet Clearance,Flexed Trunk,Wide Based Gait Factors Limiting Gait Function Factors Limiting Gait Function Decreased Activity Tolerance, Decreased Strength,Limited Range of Motion,Pain,Poor Balance Comments Gait Comments Demos tendency for R hip IR with ambulation during stance phase, decreased B foot clearance, often catches foot, heavily UE dependent on FWW PT-OP-H Neuro Start: 05/02/24 15:45 Freq: Status: Active Protocol: Document 05/03/24 09:47 NM (Rec: 05/03/24 10:39 NM [id number]) Sensation Evaluation Comments Summary Comments will formally assess next session; did not assess due to time PT-OP-J Posture/Palpation/Skin Start: 05/02/24 15:45 Freq: Status: Active Protocol: Document 05/03/24 09:47 NM (Rec: 05/03/24 10:39 NM [id number]) Posture Evaluation Position Standing Head/C-Spine Posture Forward Head L-Spine Posture Increased Lordosis Weight Distribution Weight Shifted Left Hip Posture (L) Neutral,(R) Internally Rotated Knee Posture (L) Genu Valgus,(R) Genu Valgus Palpation Assessment Location R hip Palpation Findings Soft Tissue Tightness, Tenderness Palpation Details Tenderness at posterior hip near incision, glutes Tightness of hip flexors and hamstrings Skin Assessment Incisional Assessment Incision Appearance/Comments Incision covered by bandage which is C/D/I. No redness or signs of infection Other Assessments Skin Assessment Comments Has BLE swelling, wearing compression socks. R adams has several scabbed, healing wound with dried blood PT-OP-K Range of Motion Start: 05/02/24 15:45 Freq: Status: Active Protocol: Document 05/03/24 09:47 NM (Rec: 05/03/24 10:39 NM [id number]) Hip Goniometric Range of Motion Hip Right Comments not tested due to precautions Left Flexion w/Knee Flexed 90 Abduction 25 Internal Rotation 30 External Rotation 15 PT-OP-M Strength Start: 05/02/24 15:45 Freq: Status: Active Protocol: Document 05/03/24 09:47 NM (Rec: 05/03/24 10:39 NM [id number]) Hip Strength Hip Manual Muscle Testing Right Flexion (L2) 2+ Poor+ Extension (S1) 3 Fair Abduction 3 Fair External Rotation 3 Fair Comments not tested d/t precautions but able to perform against gravity for all movements in sitting or standing except for hip flex >90, ADD, or IR Left Flexion (L2) 4 Good Abduction 4 Good Adduction 4 Good External Rotation 4 Good Internal Rotation 4 Good Knee Strength Knee Manual Muscle Testing Right Flexion (S2) 4- Good- Extension (L3) 4- Good- Left Flexion (S2) 4+ Good+ Extension (L3) 4+ Good+ Ankle/Foot Strength Ankle and Foot Manual Muscle Testing Right Dorsiflexion (L4) 4+ Good+ Plantarflexion (S1) 4+ Good+ Comments tested in sitting Left Dorsiflexion (L4) 4+ Good+ Plantarflexion (S1) 4+ Good+ Comments tested in sitting PT-OP-Q Treatments Start: 05/02/24 15:45 Freq: Status: Active Protocol: Document 05/26/24 13:07 [facility] (Rec: 05/26/24 13:49 [facility] [id number]) Gym Equipment Shuttle Recovery Bilateral Squats Details locked to avoid breaking hip precautions; min A to rise for trunk prec Resistance 75# (2 navy) Shuttle Recovery Platform Stable Reps/Time 4x15 Therapeutic Exercises Sitting Exercises sit to stand Sitting Exercise Name slightly elevated for hip precautions, no flex > 90 Side bilateral Equipment Used chair>thigh>no UE support, mesh chair w/ 2 foam Reps/Minutes 10 Comments no hip pain, cue to have RLE slightly more anterior LAQ Sitting Exercise Name HEP - plinth slightly elevated for hip precautions, no flex >90 Side right Resistance AROM> Lvl 1 TB Reps/Minutes x10 Comments cued scoot all way back in chair, breathwork; 3/10 R hip pain unchanged wTB hip abduction Sitting Exercise Name slightly elevated for hip precautions, no flex > 90 Side bilateral Resistance level 2 band at thighs Equipment Used mesh chair w/ 2 foam Reps/Minutes 3x60 SH w/ LE alignment, x10 AROM Comments pain free, cues for equal Standing Exercises heel raise, toe raise Standing Exercise Name HEP review (pt forgot): 1. AROM 2. w/ 2# Britney Side bilateral Resistance 2# ankle weights Equipment Used light rail support Reps/Minutes x10 ea Comments cues to minimize a/p rocking hip ext Standing Exercise Name HEP review: 1. AROM 2. w/ 2# Britney Side bilateral Resistance AROM Equipment Used bar support Reps/Minutes x10 ea Comments pain free, cues for straight knee hip abd Standing Exercise Name HEP review Side bilateral Resistance AROM w/ slider under foot Equipment Used //bar support Reps/Minutes x10 ea Comments cued for upright posture, neutral foot position at end- range L>R; pain free Gait Training Gait Activity spc Description step-through gait Device Used spc in [facility] Level of Assistance CGA Distance/Duration 210 ft Treatment Focus spc stride, foot clearance, Comments No hip pain with gait using spc, no increased pain with weight bearing. Minimal cues needed for spc 2 pt patterning in L hand with RLE, 1 cue needed for safety during turns to prevent breaking precautions. PT-OP-T Assessment and Plan Start: 05/02/24 15:45 Freq: Status: Active Protocol: Document 05/26/24 13:07 [facility] (Rec: 05/26/24 13:49 [facility] [id number]) Physical Therapy Assessment Goals Five Impairment unable to perform stairs Senior Care Goal (LTG) Pt will be able to perform stairs using reciprocal pattern and 1 or fewer hand rails and/or LRAD with R hip pain <3/10 in order to perform community ambulation LTG Duration 12 weeks Four Impairment R hip strength limited globally Air Sealing Technician Goal (LTG) If appropriate, pt will improve R hip global strength to at least 4/5 MMT in order to be able to perform transfers, gait, and ADLs without limitation LTG Duration 12 weeks Three Impairment limitations in R hip ROM Air Sealing Technician Goal (LTG) When appropriate per precautions, pt will demonstrate at least 90 deg R hip flex, hip abduction to at least 20 deg, and within 10 deg of LLE for all other motions LTG Duration 12 weeks Two Impairment 6 MWT 971 ft with FWW Short Term Goal (STG) Pt will normalize gait mechanics using LRAD and report <3/10 R hip pain with ambulation 05/10/24: gait 340 ft /c SPC in [facility], 2 laps clinic. Noted slight RLE scuff approaching turn, improved post cues DF foot clearance. STG Duration 5 weeks progression 05/10/24 Air Sealing Technician Goal (LTG) Pt will ambulate at least 1000 ft during 6 MWT with or without LRAD and R hip pain <3 /10 in order to be able to return to weekly walks with LTG Duration 12 weeks One Impairment not performing HEP following surgery Air Sealing Technician Goal (LTG) Pt will report compliance with HEP at least 3x/wk in order to maximize progression with PT and transition to maintenance program upon discharge LTG Duration 12 weeks Assessment Summary Assessment Tobi ambulates ~210 ft with SPC in LUE 2-pt step through patterning and improved pivot turns with one cue for july nto avoid breaking IR hip precautions. He tolerates treatment without pain except for LAQs which are discontinued d/t pain 3/10; pt pain returns to baseline 0/10 . Physical Therapy Plan Frequency and Duration Frequency of Treatment 2x/Week Duration of treatment (weeks) 12 Plan of Care Start Date 05/03/24 Plan of Care End Date 07/28/24 Therapeutic Interventions Therapeutic Interventions Balance Training,Gait Training ,Home Exercise Program,Manual Therapy,Neuromuscular Re- education,Orthotic/Prosthetic Management,Patient/Caregiver Education,Self-Care/Home Management,Sensory Integration ,Soft Tissue Mobilization, Taping,Therapeutic Activities, Therapeutic Exercises Modalities Cold Pack/Ice Massage,Electric Stimulation,Hot Packs Next Visit Focus/Plan Next Note Type Treatment Note Next Visit Plan posterior hip precautions x6 weeks (06/05/24) per surgical note 04/24 or until cleared by , DOS 04/24 Recheck; seated clam, review HEP as needed. Cont with STS with RLE slightly fwd vs leg press (locked to maintain precautions). Progress from supine into seated and standing with bands; can trial progressions with band. Can use grabber to help pt don/ doff band for carryover at home. Balance using hurdles, SLS. Once appropriate, begin to normalize gait without spc POC: Supine hip abd, next add LAQ w/ resistance as tolerate, STS continue respect to hip precautions and RLE more anterior, Progress standing hip ext/abd w/ slider and hand support Manual: STM to hip, scar mobility once appropriate
--- NOTE | 2024-06-02 16:22 | PT.OTN ---
Physical Therapy Treatment Note PT-OP-A Visit Information Start: 05/02/24 15:45 Freq: Status: Active Protocol: Document 06/02/24 13:08 NBM (Rec: 06/02/24 17:16 NBM [id number]) Out-Patient Physical Therapy Visit Information Visit Information Visit Type Treatment Note Visit Note DOS 04/24/24- posterior hip precautions (no hip flex> 90 deg or trunk flex, no ADD past midline, no IR past midline)* * Visit Start Time 13:07 Visit Stop Time 13:47 Visit Number 7 Number of EDGE GLUE MACHINE TENDER Visits 3 Evaluation Information Evaluation Date 05/03/24 Precautions Precautions DOS 04/24/24- posterior hip precautions (no hip flex> 90 deg or trunk flex, no ADD past midline, no IR past midline)* * PT-OP-B Current Condition Start: 05/02/24 15:45 Freq: Status: Active Protocol: Document 05/03/24 09:47 NM (Rec: 05/03/24 10:39 NM [id number]) Current Condition History of Current Condition Onset Date R JESUS Current Complaints DOS 04/24/24 History of Current Condition Pt presents s/p R JESUS on . Pt has a posterior JESUS. No complication during surgery. He had L JESUS last year; PT went well, no complications. He stopped pain pills 2 days ago, still on meloxicam; still on aspirin BID. He is aware of precautions (no hip flexion , no hip ADD, no IR). Has 2 week follow up on Wednesday. No stairs at home, 1 story. Lives with , Ann. Pt has a steep driveway, unable to ambulate. Pt was using a spc for ambulation, AD periodically (household). Currently using FWW. Pt had 2 ADA toilets with grab bars, no difficulty with transfers. Has walk in shower with shower chair built in; does not use. 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 Treatment Goals Patient/Caregiver Goals wants to stairs, bending over, balance, ambulation w/o AD Current Functional Impairments (Reported) Functional Limitations- ADL's has hip kit for donning socks/ shoes has difficulty with donning pants/shoes- uses grabber Functional Limitations- Mobility/Gait standing 15-20 min sleeping in bed (hospital bed) - sleeping w/ legs elevated Functional Limitations- Work/School stairs Functional Limitations- Other driving PT-OP-C Subjective Start: 05/02/24 15:45 Freq: Status: Active Protocol: Document 06/02/24 13:08 NBM (Rec: 06/02/24 17:16 [facility] [id number]) OP-PT Subjective Patient Comments Patient Comments Tobi reports 0/10 pain consistently except with seated LAQs ant hip pain so he doesn't do those. PT-OP-Q Treatments Start: 05/02/24 15:45 Freq: Status: Active Protocol: Document 06/02/24 13:08 NBM (Rec: 06/02/24 17:16 [facility] [id number]) Therapeutic Exercises Standing Exercises hip flexion Standing Exercise Name marching w/ <90 deg to avoid breaking hip precautions Side bilateral Equipment Used hand support on //bars for balance Reps/Minutes 2x10 ea Comments maintains precautions; painfree heel raise, toe raise Standing Exercise Name HEP review: 1. AROM 2. w/ 4# Britney Side bilateral Resistance 4# ankle weights Equipment Used light rail support Reps/Minutes x10 ea Comments cues to minimize a/p rocking hip ext Standing Exercise Name HEP review: 1. AROM 2. w/ 2# Britney Side bilateral Resistance w/ slider under foot Equipment Used bar support Reps/Minutes x10 ea Comments pain free, cues for straight knee hip abd Standing Exercise Name HEP review Side bilateral Resistance w/ slider under foot Equipment Used bar support Reps/Minutes x10 ea Comments cued for upright posture, neutral foot position at end- range L>R; painfree Other Exercises stairs Other Exercise Name B hand rails > 1 hand rail Side bilateral Equipment Used step to> reciprocal up and down Reps/Minutes 4: 6 stairs x 4 reps, 6: 4 stairs x 2 reps Comments close SBA, monitored for pain Gait Training Gait Activity spc Description step-through gait Device Used spc in LUE Level of Assistance CGA Surface carpet, tile Treatment Focus turns and stop/start on command, spc stride Comments No safety cues needed for turns Bilaterally today. Manual Therapy Treatment Consent Patient gave verbal consent for manual Yes treatment Soft Tissue Mobilization R hip Body Location quad, hip flexors, TFL, scar mobilization Mobilization Type Cross-Friction,Instrument Assisted,Rolling,Strumming Intensity/Depth Superficial, Moderate Body Position Supine Comments Tightness along hip flexors and proximal quadriceps. Gentle circular strokes distal to proximal. Pt i/s in self- STM w/ tennis ball along distal quadriceps. Neuro Re-Education Treatment Balance Activities SLS Details added to HEP Surface stable Equipment handrail as needed Reps/Duration 2x20 ea Comments CGA, pain free in RLE PT-OP-T Assessment and Plan Start: 05/02/24 15:45 Freq: Status: Active Protocol: Document 06/02/24 13:08 [facility] (Rec: 06/02/24 17:16 [facility] [id number]) Physical Therapy Assessment Goals Five Impairment unable to perform stairs Director Of Vocational Training Goal (LTG) Pt will be able to perform stairs using reciprocal pattern and 1 or fewer hand rails and/or LRAD with R hip pain <3/10 in order to perform community ambulation LTG Duration 12 weeks Four Impairment R hip strength limited globally Director Of Vocational Training Goal (LTG) If appropriate, pt will improve R hip global strength to at least 4/5 MMT in order to be able to perform transfers, gait, and ADLs without limitation LTG Duration 12 weeks Three Impairment limitations in R hip ROM Director Of Vocational Training Goal (LTG) When appropriate per precautions, pt will demonstrate at least 90 deg R hip flex, hip abduction to at least 20 deg, and within 10 deg of LLE for all other motions LTG Duration 12 weeks Two Impairment 6 MWT 971 ft with FWW Short Term Goal (STG) Pt will normalize gait mechanics using LRAD and report <3/10 R hip pain with ambulation 05/10/24: gait 340 ft /c SPC in E, 2 laps clinic. Noted slight RLE scuff approaching turn, improved post cues DF foot clearance. STG Duration 5 weeks progression 05/10/24 Residential Goal (LTG) Pt will ambulate at least 1000 ft during 6 MWT with or without LRAD and R hip pain <3 /10 in order to be able to return to weekly walks with LTG Duration 12 weeks One Impairment not performing HEP following surgery Director Of Vocational Training Goal (LTG) Pt will report compliance with HEP at least 3x/wk in order to maximize progression with PT and transition to maintenance program upon discharge LTG Duration 12 weeks Assessment Summary Assessment Treatment focus on LE strengthening, gait training, and gentle hip ROM. Tobi garcia progress towards goals with improved safety requiring no cues with turns bilaterally while using single point cane in L upper extremity and step through gait patterning; performance of 4 and 6 stair ascent/descent reciprocally; and demonstrated compliance w/ HEP. He is educated in self- STM with tennis ball and SLS is added to HEP - HO given. Physical Therapy Plan Frequency and Duration Frequency of Treatment 2x/Week Duration of treatment (weeks) 12 Plan of Care Start Date 05/03/24 Plan of Care End Date 07/28/24 Therapeutic Interventions Therapeutic Interventions Balance Training,Gait Training ,Home Exercise Program,Manual Therapy,Neuromuscular Re- education,Orthotic/Prosthetic Management,Patient/Caregiver Education,Self-Care/Home Management,Sensory Integration ,Soft Tissue Mobilization, Taping,Therapeutic Activities, Therapeutic Exercises Modalities Cold Pack/Ice Massage,Electric Stimulation,Hot Packs Next Visit Focus/Plan Next Note Type Treatment Note Next Visit Plan posterior hip precautions x6 weeks (06/05/24) per surgical note 04/24 or until cleared by , DOS 04/24 Recheck; seated clam, review HEP as needed. Cont with STS with RLE slightly fwd vs leg press (locked to maintain precautions). Progress from supine into seated and standing with bands; can trial progressions with band. Can use grabber to help pt don/ doff band for carryover at home. Balance using hurdles, SLS. Once appropriate, begin to normalize gait without spc POC: Supine hip abd, next add LAQ w/ resistance as tolerate, STS continue respect to hip precautions and RLE more anterior, Progress standing hip ext/abd w/ slider and hand support Manual: STM to hip, scar mobility once appropriate
--- NOTE | 2024-06-08 16:05 | PT.OTN ---
Current Diagnoses Pain in right hip (06/08/24) Stiffness of right hip, not elsewhere classified (06/08/24) Other lack of coordination (06/08/24) Weakness (06/08/24) Physical Therapy Treatment Note PT-OP-A Visit Information Start: 05/02/24 15:45 Freq: Status: Active Protocol: Document 06/08/24 11:34 NM (Rec: 06/08/24 12:25 NM [id number]) Out-Patient Physical Therapy Visit Information Visit Information Visit Type Progress Note Visit Note DOS 04/24/24- posterior hip precautions (no hip flex> 90 deg or trunk flex, no ADD past midline, no IR past midline)* * Visit Start Time 11:35 Visit Stop Time 12:15 Visit Number 8 Evaluation Information Evaluation Date 05/03/24 Precautions Precautions DOS 04/24/24- posterior hip precautions (no hip flex> 90 deg or trunk flex, no ADD past midline, no IR past midline)* * PT-OP-B Current Condition Start: 05/02/24 15:45 Freq: Status: Active Protocol: Document 05/03/24 09:47 NM (Rec: 05/03/24 10:39 NM [id number]) Current Condition History of Current Condition Onset Date R JESUS Current Complaints DOS 04/24/24 History of Current Condition Pt presents s/p R JESUS on . Pt has a posterior JESUS. No complication during surgery. He had L JESUS last year; PT went well, no complications. He stopped pain pills 2 days ago, still on meloxicam; still on aspirin BID. He is aware of precautions (no hip flexion , no hip ADD, no IR). Has 2 week follow up on Wednesday. No stairs at home, 1 story. Lives with , Ann. Pt has a steep driveway, unable to ambulate. Pt was using a spc for ambulation, AD periodically (household). Currently using FWW. Pt had 2 ADA toilets with grab bars, no difficulty with transfers. Has walk in shower with shower chair built in; does not use. 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 Treatment Goals Patient/Caregiver Goals wants to stairs, bending over, balance, ambulation w/o AD Current Functional Impairments (Reported) Functional Limitations- ADL's has hip kit for donning socks/ shoes has difficulty with donning pants/shoes- uses grabber Functional Limitations- Mobility/Gait standing 15-20 min sleeping in bed (hospital bed) - sleeping w/ legs elevated Functional Limitations- Work/School stairs Functional Limitations- Other driving PT-OP-C Subjective Start: 05/02/24 15:45 Freq: Status: Active Protocol: Document 06/08/24 11:34 NM (Rec: 06/08/24 12:25 NM [id number]) OP-PT Subjective Patient Comments Patient Comments Pt reports 0/10 in R hip except with LAQ. Reports that sitting with bottom elevated to reduce hip flexion. He has to help his RLE under steering wheel. Still has intermittent hip flexor pain. He reports that he has instances of hip buckling when ambulating, states no change with or without cane. States more of a sharp pain but not actually giving out. He has been using spc more regularly for both household and community. No longer taking pain medication PT-OP-E Functional Tests Start: 05/02/24 15:45 Freq: Status: Active Protocol: Document 05/03/24 09:47 NM (Rec: 05/03/24 10:39 NM [id number]) Functional Tests 6 Minute Walk Test Distance 971 ft Device Used FWW Comments several stumbles w/o fall, CGA to correct PT-OP-F Manual Assessment Start: 05/02/24 15:45 Freq: Status: Active Protocol: Document 05/03/24 09:47 NM (Rec: 05/03/24 10:39 NM [id number]) Manual Assessments Soft Tissue Assessment Soft Tissue Mobility Assessment Tightness of hip flexors and hamstrings Joint Mobility Assessment Joint Mobility Assessment Limited PROM and AROM R hip due to hip precautions, pain, girth PT-OP-G Mobility & Gait Start: 05/02/24 15:45 Freq: Status: Active Protocol: Document 05/03/24 09:47 NM (Rec: 05/03/24 10:39 NM [id number]) OP Mobility Evaluation Bed Mobility Supine to and from Sit Needs gait belt for RLe assist on/off bed (uses bed mobility strap for assistance at home) Transfers Sit to Stand BUE use from chair to FWW OP Gait Assessment Gait Gait Assistance Required: Contact Guard Assist Distance (Feet) 150 Assistive Devices Assistive Device Gait Belt,Front Wheeled Walker Gait Deviations General Gait Pattern Antalgic,Decreased Feet Clearance,Flexed Trunk,Wide Based Gait Factors Limiting Gait Function Factors Limiting Gait Function Decreased Activity Tolerance, Decreased Strength,Limited Range of Motion,Pain,Poor Balance Comments Gait Comments Demos tendency for R hip IR with ambulation during stance phase, decreased B foot clearance, often catches foot, heavily UE dependent on FWW PT-OP-H Neuro Start: 05/02/24 15:45 Freq: Status: Active Protocol: Document 05/03/24 09:47 NM (Rec: 05/03/24 10:39 NM [id number]) Sensation Evaluation Comments Summary Comments will formally assess next session; did not assess due to time PT-OP-J Posture/Palpation/Skin Start: 05/02/24 15:45 Freq: Status: Active Protocol: Document 05/03/24 09:47 NM (Rec: 05/03/24 10:39 NM [id number]) Posture Evaluation Position Standing Head/C-Spine Posture Forward Head L-Spine Posture Increased Lordosis Weight Distribution Weight Shifted Left Hip Posture (L) Neutral,(R) Internally Rotated Knee Posture (L) Genu Valgus,(R) Genu Valgus Palpation Assessment Location R hip Palpation Findings Soft Tissue Tightness, Tenderness Palpation Details Tenderness at posterior hip near incision, glutes Tightness of hip flexors and hamstrings Skin Assessment Incisional Assessment Incision Appearance/Comments Incision covered by bandage which is C/D/I. No redness or signs of infection Other Assessments Skin Assessment Comments Has BLE swelling, wearing compression socks. R adams has several scabbed, healing wound with dried blood PT-OP-K Range of Motion Start: 05/02/24 15:45 Freq: Status: Active Protocol: Document 06/08/24 11:34 NM (Rec: 06/08/24 12:25 NM [id number]) Hip Goniometric Range of Motion Hip Right Flexion w/Knee Flexed 70 Abduction 25 PT-OP-M Strength Start: 05/02/24 15:45 Freq: Status: Active Protocol: Document 06/08/24 11:34 NM (Rec: 06/08/24 12:25 NM [id number]) Hip Strength Hip Manual Muscle Testing Right Flexion (L2) 3+ Fair+ Extension (S1) 3+ Fair+ Abduction 3+ Fair+ Adduction 3+ Fair+ External Rotation 3+ Fair+ Comments Performed against gravity for all movements in sitting or standing, maintaining hip flex <90, ADD past midline, or IR 06/08/24: 1 pain with hip flex resisted Knee Strength Knee Manual Muscle Testing Right Flexion (S2) 4 Good Extension (L3) 4 Good Comments performed with hip flex <90 deg to maintain precautions PT-OP-Q Treatments Start: 05/02/24 15:45 Freq: Status: Active Protocol: Document 06/08/24 11:34 NM (Rec: 06/08/24 12:25 NM [id number]) Therapeutic Exercises Sitting Exercises LAQ Sitting Exercise Name observed d/t reports of pain- edu to d/c for now d/t hip flex pain Comments hips positioned above knees to avoid hip flex >90 precaution Standing Exercises step up Standing Exercise Name 1. non-reciprocal pattern 6, 2. trialed 4 step ups RLE leading Side bilateral Equipment Used 1 hand rail assist; close SBA for stairs Reps/Minutes 1. 4 steps, 2. 2x8 Comments no R hip pain; maintains hip flex <90 deg TKE Standing Exercise Name PT holding band to avoid hip flex > 90 deg precaution Side right Resistance level 3 band Equipment Used spc in L hand for balance Reps/Minutes 25 Comments edu not to perform at home resisted stepping Standing Exercise Name lateral stepping Side bilateral Resistance level 2 band at thighs Equipment Used b hand support for balance on bar Reps/Minutes 3x10 ft hip ext Side bilateral Resistance level 2 band above thighs Equipment Used bar support for balance Reps/Minutes 2x12 ea Comments cues glute activation Manual Therapy Treatment Consent Patient gave verbal consent for manual Yes treatment Soft Tissue Mobilization R hip Body Location quad, hip flexors, TFL, scar mobilization Mobilization Type Rolling,Strumming Intensity/Depth Superficial Body Position Supine Comments Tightness and trigger points along hip flexors and proximal quad. Reduced with manual treatment. Education on gentle scar mobilization as part of HEP. Scar intact, slightly pink, onbove greater trochanter. Tissue tough around scar, limited movement with scar mobilization. Performed in standing with pt UE supported on plinth. PT-OP-T Assessment and Plan Start: 05/02/24 15:45 Freq: Status: Active Protocol: Document 06/08/24 11:34 NM (Rec: 06/08/24 12:25 NM [id number]) Physical Therapy Assessment Goals Five Impairment unable to perform stairs Snf Goal (LTG) Pt will be able to perform stairs using reciprocal pattern and 1 or fewer hand rails and/or LRAD with R hip pain <3/10 in order to perform community ambulation 06/08/24: assess with LLE leading d/t precautions and 1 hand rail assist; pt able to step up with RLE on 4 step (< 90 deg hip flex) without hip pain LTG Duration 12 weeks PROGRESSING 06/08 Four Impairment R hip strength limited globally Color Worker Goal (LTG) If appropriate, pt will improve R hip global strength to at least 4/5 MMT in order to be able to perform transfers, gait, and ADLs without limitation 06/08/24: 3+/5 for all except for hip IR (not tested) LTG Duration 12 weeks PROGRESSING 06/08 Three Impairment limitations in R hip ROM Snf Goal (LTG) When appropriate per precautions, pt will demonstrate at least 90 deg R hip flex, hip abduction to at least 20 deg, and within 10 deg of LLE for all other motions 06/08/24: Currently not tested d/t precautions; able to achieve 70 deg hip flex, 25 deg hip abd LTG Duration 12 weeks PROGRESSING 06/08 Two Impairment 6 MWT 971 ft with FWW Short Term Goal (STG) Pt will normalize gait mechanics using LRAD and report <3/10 R hip pain with ambulation 05/10/24: gait 340 ft /c [place] in [facility] [place] 2 laps clinic. Noted slight RLE scuff approaching turn, improved post cues DF foot clearance. 06/08/24: no pain during ambulation w/ spc in RLE unless immediately following transition from sitting to standing STG Duration 5 weeks PROGRESSING 06/08/24 Snf Goal (LTG) Pt will ambulate at least 1000 ft during 6 MWT with or without LRAD and R hip pain <3 /10 in order to be able to return to weekly walks with LTG Duration 12 weeks One Impairment not performing HEP following surgery Color Worker Goal (LTG) Pt will report compliance with HEP at least 3x/wk in order to maximize progression with PT and transition to maintenance program upon discharge 06/08/24: reports daily compliance with HEP LTG Duration 12 weeks MET Progress Towards Goals Progress Towards Goals Progressing Toward Goals,Slow Progress due to Activity Tolerance,Goals Met Assessment Summary Assessment Pt tolerated session well. No pain reported in R hip during session except for when assessing seated hip flexion and knee ext (while maintaining hip precautions). Trialed standing TKE instead of LAQ; educated to discontinue from HEP due to hip flexor pain. Demos good quad activation with better pain management. Pt responds well to increase in resistance with hip abduction, along with transition to stepping, and hip extension. No pain with R hip flexion during 4 step ups, able to maintain hip flex <90 deg. Physical Therapy Plan Frequency and Duration Frequency of Treatment 2x/Week Duration of treatment (weeks) 12 Plan of Care Start Date 05/03/24 Plan of Care End Date 07/28/24 Therapeutic Interventions Therapeutic Interventions Balance Training,Gait Training ,Home Exercise Program,Manual Therapy,Neuromuscular Re- education,Orthotic/Prosthetic Management,Patient/Caregiver Education,Self-Care/Home Management,Sensory Integration ,Soft Tissue Mobilization, Taping,Therapeutic Activities, Therapeutic Exercises Modalities Cold Pack/Ice Massage,Electric Stimulation,Hot Packs Next Visit Focus/Plan Next Note Type Treatment Note Next Visit Plan posterior hip precautions x6 weeks (06/05/24) per surgical note 04/24 or until cleared by , DOS 04/24 Ask about appt with surgeon. Assess tolerance to 4 step up , progress to 6 as able. Cont leg press, TKE with band. Scar mobilization, hip flexor tissue mobilization as needed Manual: STM to hip, scar mobility once appropriate
--- NOTE | 2024-06-13 15:44 | PT.OTN ---
Current Diagnoses Pain in right hip (06/13/24) Stiffness of right hip, not elsewhere classified (06/13/24) Other lack of coordination (06/13/24) Weakness (06/13/24) Physical Therapy Treatment Note PT-OP-A Visit Information Start: 05/02/24 15:45 Freq: Status: Active Protocol: Document 06/13/24 13:48 NM (Rec: 06/13/24 14:31 NM [id number]) Out-Patient Physical Therapy Visit Information Visit Information Visit Type Treatment Note Visit Start Time 13:48 Visit Stop Time 14:28 Visit Number 9 Evaluation Information Evaluation Date 05/03/24 Precautions Precautions pt reports no hip precautions following visit PT-OP-B Current Condition Start: 05/02/24 15:45 Freq: Status: Active Protocol: Document 05/03/24 09:47 NM (Rec: 05/03/24 10:39 NM [id number]) Current Condition History of Current Condition Onset Date R JESUS Current Complaints DOS 04/24/24 History of Current Condition Pt presents s/p R JESUS on . Pt has a posterior JESUS. No complication during surgery. He had L JESUS last year; PT went well, no complications. He stopped pain pills 2 days ago, still on meloxicam; still on aspirin BID. He is aware of precautions (no hip flexion , no hip ADD, no IR). Has 2 week follow up on Wednesday. No stairs at home, 1 story. Lives with , Ann. Pt has a steep driveway, unable to ambulate. Pt was using a spc for ambulation, AD periodically (household). Currently using FWW. Pt had 2 ADA toilets with grab bars, no difficulty with transfers. Has walk in shower with shower chair built in; does not use. 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 Treatment Goals Patient/Caregiver Goals wants to stairs, bending over, balance, ambulation w/o AD Current Functional Impairments (Reported) Functional Limitations- ADL's has hip kit for donning socks/ shoes has difficulty with donning pants/shoes- uses grabber Functional Limitations- Mobility/Gait standing 15-20 min sleeping in bed (hospital bed) - sleeping w/ legs elevated Functional Limitations- Work/School stairs Functional Limitations- Other driving PT-OP-C Subjective Start: 05/02/24 15:45 Freq: Status: Active Protocol: Document 06/13/24 13:48 NM (Rec: 06/13/24 14:31 NM [id number]) OP-PT Subjective Patient Comments Patient Comments Pt reports feeling sick, states thinks might throwup, thinks needs to eat something. No hip pain. PResents without spc. States at [facility] appt went well, reports can stop taking aspirin, x rays look good, no hip precautions. Pt reports no anterior hip pain PT-OP-E Functional Tests Start: 05/02/24 15:45 Freq: Status: Active Protocol: Document 05/03/24 09:47 NM (Rec: 05/03/24 10:39 NM [id number]) Functional Tests 6 Minute Walk Test Distance 971 ft Device Used FWW Comments several stumbles w/o fall, CGA to correct PT-OP-F Manual Assessment Start: 05/02/24 15:45 Freq: Status: Active Protocol: Document 05/03/24 09:47 NM (Rec: 05/03/24 10:39 NM [id number]) Manual Assessments Soft Tissue Assessment Soft Tissue Mobility Assessment Tightness of hip flexors and hamstrings Joint Mobility Assessment Joint Mobility Assessment Limited PROM and AROM R hip due to hip precautions, pain, girth PT-OP-G Mobility & Gait Start: 05/02/24 15:45 Freq: Status: Active Protocol: Document 05/03/24 09:47 NM (Rec: 05/03/24 10:39 NM [id number]) OP Mobility Evaluation Bed Mobility Supine to and from Sit Needs gait belt for RLe assist on/off bed (uses bed mobility strap for assistance at home) Transfers Sit to Stand BUE use from chair to FWW OP Gait Assessment Gait Gait Assistance Required: Contact Guard Assist Distance (Feet) 150 Assistive Devices Assistive Device Gait Belt,Front Wheeled Walker Gait Deviations General Gait Pattern Antalgic,Decreased Feet Clearance,Flexed Trunk,Wide Based Gait Factors Limiting Gait Function Factors Limiting Gait Function Decreased Activity Tolerance, Decreased Strength,Limited Range of Motion,Pain,Poor Balance Comments Gait Comments Demos tendency for R hip IR with ambulation during stance phase, decreased B foot clearance, often catches foot, heavily UE dependent on FWW PT-OP-H Neuro Start: 05/02/24 15:45 Freq: Status: Active Protocol: Document 05/03/24 09:47 NM (Rec: 05/03/24 10:39 NM [id number]) Sensation Evaluation Comments Summary Comments will formally assess next session; did not assess due to time PT-OP-J Posture/Palpation/Skin Start: 05/02/24 15:45 Freq: Status: Active Protocol: Document 05/03/24 09:47 NM (Rec: 05/03/24 10:39 NM [id number]) Posture Evaluation Position Standing Head/C-Spine Posture Forward Head L-Spine Posture Increased Lordosis Weight Distribution Weight Shifted Left Hip Posture (L) Neutral,(R) Internally Rotated Knee Posture (L) Genu Valgus,(R) Genu Valgus Palpation Assessment Location R hip Palpation Findings Soft Tissue Tightness, Tenderness Palpation Details Tenderness at posterior hip near incision, glutes Tightness of hip flexors and hamstrings Skin Assessment Incisional Assessment Incision Appearance/Comments Incision covered by bandage which is C/D/I. No redness or signs of infection Other Assessments Skin Assessment Comments Has BLE swelling, wearing compression socks. R adams has several scabbed, healing wound with dried blood PT-OP-K Range of Motion Start: 05/02/24 15:45 Freq: Status: Active Protocol: Document 06/08/24 11:34 NM (Rec: 06/08/24 12:25 NM [id number]) Hip Goniometric Range of Motion Hip Right Flexion w/Knee Flexed 70 Abduction 25 PT-OP-M Strength Start: 05/02/24 15:45 Freq: Status: Active Protocol: Document 06/08/24 11:34 NM (Rec: 06/08/24 12:25 NM [id number]) Hip Strength Hip Manual Muscle Testing Right Flexion (L2) 3+ Fair+ Extension (S1) 3+ Fair+ Abduction 3+ Fair+ Adduction 3+ Fair+ External Rotation 3+ Fair+ Comments Performed against gravity for all movements in sitting or standing, maintaining hip flex <90, ADD past midline, or IR 06/08/24: 1/10 pain with hip flex resisted Knee Strength Knee Manual Muscle Testing Right Flexion (S2) 4 Good Extension (L3) 4 Good Comments performed with hip flex <90 deg to maintain precautions PT-OP-Q Treatments Start: 05/02/24 15:45 Freq: Status: Active Protocol: Document 06/13/24 13:48 NM (Rec: 06/13/24 14:31 NM [id number]) Therapeutic Exercises Standing Exercises hip 3 way Standing Exercise Name hip flex, hip abd, hip ext Side bilateral Resistance AROM > level 3 band at thighs Equipment Used 1 hand support for balance Reps/Minutes 10 w/o band, 10 w/ band Comments pain free step downs Standing Exercise Name 4 Side bilateral Equipment Used 1 hand support for balance Reps/Minutes 15, Comments close SBA; no hip pain step up Standing Exercise Name 6 step up- HEP (edu to have counter or stable surface nearby for support) Side bilateral Equipment Used 1 hand rail assist balance only Reps/Minutes 15 ea, 10 ea Comments no hip pain Other Exercises stairs Other Exercise Name B hand rails > 1 hand rail Side bilateral Equipment Used reciprocal up and down Reps/Minutes 4 stairs x 4 reps Comments close SBA Manual Therapy Treatment Consent Patient gave verbal consent for manual Yes treatment Soft Tissue Mobilization scar mobility Body Location scar mobility Mobilization Type Instrument Assisted,Rolling, Strumming,Other Intensity/Depth Superficial Body Position Sidelying Comments Decreased mobility distally. Tightness and stiffness at glutes along incision. Incision completely healed. Use of instrument to assist with mobility. Educated on performing on self at home as part of self care ADLs. Neuro Re-Education Treatment Balance Activities SLS Details close SBA, prn CGA to steady Equipment performed BLE Comments 1. stable 2. unstable w/ 2 finger support <> none cued glute activation, core contraction PT-OP-T Assessment and Plan Start: 05/02/24 15:45 Freq: Status: Active Protocol: Document 06/13/24 13:48 NM (Rec: 06/13/24 14:31 NM [id number]) Physical Therapy Assessment Goals Five Impairment unable to perform stairs Floor Space Allocator Goal (LTG) Pt will be able to perform stairs using reciprocal pattern and 1 or fewer hand rails and/or LRAD with R hip pain <3/10 in order to perform community ambulation 06/08/24: assess with LLE leading d/t precautions and 1 hand rail assist; pt able to step up with RLE on 4 step (< 90 deg hip flex) without hip pain 06/13/24: 12 steps w/ 2>1 rail assist, no hip pain LTG Duration 12 weeks MET 06/13/24 Four Impairment R hip strength limited globally Floor Space Allocator Goal (LTG) If appropriate, pt will improve R hip global strength to at least 4/5 MMT in order to be able to perform transfers, gait, and ADLs without limitation 06/08/24: 3+/5 for all except for hip IR (not tested) LTG Duration 12 weeks PROGRESSING 06/08 Three Impairment limitations in R hip ROM Floor Space Allocator Goal (LTG) When appropriate per precautions, pt will demonstrate at least 90 deg R hip flex, hip abduction to at least 20 deg, and within 10 deg of LLE for all other motions 06/08/24: Currently not tested d/t precautions; able to achieve 70 deg hip flex, 25 deg hip abd LTG Duration 12 weeks PROGRESSING 06/08 Two Impairment 6 MWT 971 ft with FWW Short Term Goal (STG) Pt will normalize gait mechanics using LRAD and report <3/10 R hip pain with ambulation 05/10/24: gait 340 ft /c SPC in [facility], 2 laps clinic. Noted slight RLE scuff approaching turn, improved post cues DF foot clearance. 06/08/24: no pain during ambulation w/ spc in RLE unless immediately following transition from sitting to standing STG Duration 5 weeks PROGRESSING 06/08/24 Mcfp Goal (LTG) Pt will ambulate at least 1000 ft during 6 MWT with or without LRAD and R hip pain <3 /10 in order to be able to return to weekly walks with LTG Duration 12 weeks One Impairment not performing HEP following surgery Floor Space Allocator Goal (LTG) Pt will report compliance with HEP at least 3x/wk in order to maximize progression with PT and transition to maintenance program upon discharge 06/08/24: reports daily compliance with HEP LTG Duration 12 weeks MET Assessment Summary Assessment Pt tolerated session well without hip pain. Met stairs goal. Pt able to perform 6 step up without pain in R hip and with good control, in addition to eccentric step down on 4 step. Progressed to hip 3 way as pt hip precautions lifted, able to progress resistance band. Initiated single leg stance training for increased hip strength during stance time of gait and to improve overall balance. Pt challenged bilaterally and needs assist from UE periodically for steadiness; however, RLE more limited than LLE likely due to glute weakness following surgery. Pt's scar healing well; demos soft tissue restrictions especially distally. Increased time spent on scar today to improve mobility and to decrease possibility of adherence to fascia/tissue in future. Pt would continue to benefit from skilled PT for R hip strengthening and ROM to improve mobility and ability to perform ADLs/IADLs. Physical Therapy Plan Frequency and Duration Frequency of Treatment 2x/Week Duration of treatment (weeks) 12 Plan of Care Start Date 05/03/24 Plan of Care End Date 07/28/24 Therapeutic Interventions Therapeutic Interventions Balance Training,Gait Training ,Home Exercise Program,Manual Therapy,Neuromuscular Re- education,Orthotic/Prosthetic Management,Patient/Caregiver Education,Self-Care/Home Management,Sensory Integration ,Soft Tissue Mobilization, Taping,Therapeutic Activities, Therapeutic Exercises Modalities Cold Pack/Ice Massage,Electric Stimulation,Hot Packs Next Visit Focus/Plan Next Note Type Treatment Note Next Visit Plan Unilateral leg press, lateral step down, progress balance and hip 3 way. Gait w/ hurdles and stable/unstable. Trial SLR, assess hip mobility post precautions. Scar mobilization , hip flexor tissue mobilization as needed Manual: STM to hip, scar mobility once appropriate
--- NOTE | 2024-06-20 14:31 | PT.OTN ---
Current Diagnoses Pain in right hip (06/20/24) Stiffness of right hip, not elsewhere classified (06/20/24) Other lack of coordination (06/20/24) Weakness (06/20/24) Physical Therapy Treatment Note PT-OP-A Visit Information Start: 05/02/24 15:45 Freq: Status: Active Protocol: Document 06/20/24 13:49 NM (Rec: 06/20/24 14:31 NM [id number]) Out-Patient Physical Therapy Visit Information Visit Information Visit Type Treatment Note Visit Start Time 13:49 Visit Stop Time 14:30 Visit Number 10 Evaluation Information Evaluation Date 05/03/24 Precautions Precautions pt reports no hip precautions following visit w/ surgeon PT-OP-B Current Condition Start: 05/02/24 15:45 Freq: Status: Active Protocol: Document 05/03/24 09:47 NM (Rec: 05/03/24 10:39 NM [id number]) Current Condition History of Current Condition Onset Date R JESUS Current Complaints DOS 04/24/24 History of Current Condition Pt presents s/p R JESUS on . Pt has a posterior JESUS. No complication during surgery. He had L JESUS last year; PT went well, no complications. He stopped pain pills 2 days ago, still on meloxicam; still on aspirin BID. He is aware of precautions (no hip flexion , no hip ADD, no IR). Has 2 week follow up on Wednesday. No stairs at home, 1 story. Lives with , Ann. Pt has a steep driveway, unable to ambulate. Pt was using a spc for ambulation, AD periodically (household). Currently using FWW. Pt had 2 ADA toilets with grab bars, no difficulty with transfers. Has walk in shower with shower chair built in; does not use. 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 Treatment Goals Patient/Caregiver Goals wants to stairs, bending over, balance, ambulation w/o AD Current Functional Impairments (Reported) Functional Limitations- ADL's has hip kit for donning socks/ shoes has difficulty with donning pants/shoes- uses grabber Functional Limitations- Mobility/Gait standing 15-20 min sleeping in bed (hospital bed) - sleeping w/ legs elevated Functional Limitations- Work/School stairs Functional Limitations- Other driving PT-OP-C Subjective Start: 05/02/24 15:45 Freq: Status: Active Protocol: Document 06/20/24 13:49 NM (Rec: 06/20/24 14:31 NM [id number]) OP-PT Subjective Patient Comments Patient Comments Pt reports getting a lot of cramps. He denies pain in his R hip since last visit. He did a lot of stairs and went out to eat at a [employer] story restaurant; able to use stairs . No anterior hip pain recently. Reports that balancing is hard. PT-OP-E Functional Tests Start: 05/02/24 15:45 Freq: Status: Active Protocol: Document 05/03/24 09:47 NM (Rec: 05/03/24 10:39 NM [id number]) Functional Tests 6 Minute Walk Test Distance 971 ft Device Used FWW Comments several stumbles w/o fall, CGA to correct PT-OP-F Manual Assessment Start: 05/02/24 15:45 Freq: Status: Active Protocol: Document 05/03/24 09:47 NM (Rec: 05/03/24 10:39 NM [id number]) Manual Assessments Soft Tissue Assessment Soft Tissue Mobility Assessment Tightness of hip flexors and hamstrings Joint Mobility Assessment Joint Mobility Assessment Limited PROM and AROM R hip due to hip precautions, pain, girth PT-OP-G Mobility & Gait Start: 05/02/24 15:45 Freq: Status: Active Protocol: Document 05/03/24 09:47 NM (Rec: 05/03/24 10:39 NM [id number]) OP Mobility Evaluation Bed Mobility Supine to and from Sit Needs gait belt for RLe assist on/off bed (uses bed mobility strap for assistance at home) Transfers Sit to Stand BUE use from chair to FWW OP Gait Assessment Gait Gait Assistance Required: Contact Guard Assist Distance (Feet) 150 Assistive Devices Assistive Device Gait Belt,Front Wheeled Walker Gait Deviations General Gait Pattern Antalgic,Decreased Feet Clearance,Flexed Trunk,Wide Based Gait Factors Limiting Gait Function Factors Limiting Gait Function Decreased Activity Tolerance, Decreased Strength,Limited Range of Motion,Pain,Poor Balance Comments Gait Comments Demos tendency for R hip IR with ambulation during stance phase, decreased B foot clearance, often catches foot, heavily UE dependent on FWW PT-OP-H Neuro Start: 05/02/24 15:45 Freq: Status: Active Protocol: Document 05/03/24 09:47 NM (Rec: 05/03/24 10:39 NM [id number]) Sensation Evaluation Comments Summary Comments will formally assess next session; did not assess due to time PT-OP-J Posture/Palpation/Skin Start: 05/02/24 15:45 Freq: Status: Active Protocol: Document 05/03/24 09:47 NM (Rec: 05/03/24 10:39 NM [id number]) Posture Evaluation Position Standing Head/C-Spine Posture Forward Head L-Spine Posture Increased Lordosis Weight Distribution Weight Shifted Left Hip Posture (L) Neutral,(R) Internally Rotated Knee Posture (L) Genu Valgus,(R) Genu Valgus Palpation Assessment Location R hip Palpation Findings Soft Tissue Tightness, Tenderness Palpation Details Tenderness at posterior hip near incision, glutes Tightness of hip flexors and hamstrings Skin Assessment Incisional Assessment Incision Appearance/Comments Incision covered by bandage which is C/D/I. No redness or signs of infection Other Assessments Skin Assessment Comments Has BLE swelling, wearing compression socks. R adams has several scabbed, healing wound with dried blood PT-OP-K Range of Motion Start: 05/02/24 15:45 Freq: Status: Active Protocol: Document 06/08/24 11:34 NM (Rec: 06/08/24 12:25 NM [id number]) Hip Goniometric Range of Motion Hip Right Flexion w/Knee Flexed 70 Abduction 25 PT-OP-M Strength Start: 05/02/24 15:45 Freq: Status: Active Protocol: Document 06/08/24 11:34 NM (Rec: 06/08/24 12:25 NM [id number]) Hip Strength Hip Manual Muscle Testing Right Flexion (L2) 3+ Fair+ Extension (S1) 3+ Fair+ Abduction 3+ Fair+ Adduction 3+ Fair+ External Rotation 3+ Fair+ Comments Performed against gravity for all movements in sitting or standing, maintaining hip flex <90, ADD past midline, or IR 06/08/24: 1 pain with hip flex resisted Knee Strength Knee Manual Muscle Testing Right Flexion (S2) 4 Good Extension (L3) 4 Good Comments performed with hip flex <90 deg to maintain precautions PT-OP-Q Treatments Start: 05/02/24 15:45 Freq: Status: Active Protocol: Document 06/20/24 13:49 NM (Rec: 06/20/24 14:31 NM [id number]) Gym Equipment Shuttle Recovery Unilateral Squats Details B LEs; pain free Resistance 50# (2 navy) Shuttle Recovery Platform Stable Reps/Time 2x10 ea Bilateral Squats Details min A UE support to exit leg press Resistance 87# (3 navy) Shuttle Recovery Platform Stable Reps/Time 10 Therapeutic Exercises Sitting Exercises LAQ Sitting Exercise Name cables Side bilateral Resistance level 3 cables Equipment Used seat @6th rung for back support Reps/Minutes 2x15 ea Comments challenging; no pain anterior hip hip abduction Sitting Exercise Name glute med isometric Side bilateral Resistance level 4 band at thighs Reps/Minutes 60 Other Exercises hip flexor stretch Other Exercise Name foot elevated on stairs Side bilateral Equipment Used 2nd step w/ ppt Reps/Minutes 60 ea Comments monitored for pain; cued for form, feels in ant hip but not painful Neuro Re-Education Treatment Balance Activities foam Details no UE support Surface unstable Reps/Duration 60 ea Comments 1. head turns 2. staggered stance, performed ea leg 3. staggered stance w/ head turns, performed ea leg 4. narrow JOSEY 5. lateral step up onto foam Demos shaking while on foam but no LOB; needs assist with stepping on foam SLS Details close SBA, prn CGA to steady Comments stable: 7 sec RLE, 10 sec LLE; performed 2x Following glute med isometric: 12 sec RLE, 15 sec LLE several attempts ea foot PT-OP-T Assessment and Plan Start: 05/02/24 15:45 Freq: Status: Active Protocol: Document 06/20/24 13:49 NM (Rec: 06/20/24 14:31 NM [id number]) Physical Therapy Assessment Goals Five Impairment unable to perform stairs Detention Goal (LTG) Pt will be able to perform stairs using reciprocal pattern and 1 or fewer hand rails and/or LRAD with R hip pain <3/10 in order to perform community ambulation 06/08/24: assess with LLE leading d/t precautions and 1 hand rail assist; pt able to step up with RLE on 4 step (< 90 deg hip flex) without hip pain 06/13/24: 12 steps w/ 2>1 rail assist, no hip pain LTG Duration 12 weeks MET 1/21/25 Four Impairment R hip strength limited globally Conservation Specialist Goal (LTG) If appropriate, pt will improve R hip global strength to at least 4/5 MMT in order to be able to perform transfers, gait, and ADLs without limitation 06/08/24: 3+/5 for all except for hip IR (not tested) LTG Duration 12 weeks PROGRESSING 06/08 Three Impairment limitations in R hip ROM Conservation Specialist Goal (LTG) When appropriate per precautions, pt will demonstrate at least 90 deg R hip flex, hip abduction to at least 20 deg, and within 10 deg of LLE for all other motions 06/08/24: Currently not tested d/t precautions; able to achieve 70 deg hip flex, 25 deg hip abd LTG Duration 12 weeks PROGRESSING 06/08 Two Impairment 6 MWT 971 ft with FWW Short Term Goal (STG) Pt will normalize gait mechanics using LRAD and report <3/10 R hip pain with ambulation 05/10/24: gait 340 ft /c SPC in [facility], 2 laps clinic. Noted slight RLE scuff approaching turn, improved post cues DF foot clearance. 06/08/24: no pain during ambulation w/ spc in RLE unless immediately following transition from sitting to standing 06/20/24: reports no pain with transition from sitting > standing/ambulating any more STG Duration 5 weeks MET Detention Goal (LTG) Pt will ambulate at least 1000 ft during 6 MWT with or without LRAD and R hip pain <3 /10 in order to be able to return to weekly walks with LTG Duration 12 weeks One Impairment not performing HEP following surgery Conservation Specialist Goal (LTG) Pt will report compliance with HEP at least 3x/wk in order to maximize progression with PT and transition to maintenance program upon discharge 06/08/24: reports daily compliance with HEP LTG Duration 12 weeks MET Assessment Summary Assessment Pt continues to have no hip pain during session. Good tolerance for progression in resistance on shuttle and LAQ cables. Initiated hip stretching to improve ROM. Cueing needed for form. Continued with balance training on stable and unstable surfaces. Pt's SLS still limited especially on RLE, minimal changes with cueing for glute/core activation; however, increased time post glute-medius activation with band. Pt challenged with unstable surfaces secondary to neuropathy but needed to reduce visual input and prep for situations where pt proprioception decreased. Pt would continue to benefit from skilled PT to improve R hip mobility, strength, and balance to return to PLOF. Physical Therapy Plan Frequency and Duration Frequency of Treatment 2x/Week Duration of treatment (weeks) 12 Plan of Care Start Date 05/03/24 Plan of Care End Date 07/28/24 Therapeutic Interventions Therapeutic Interventions Balance Training,Gait Training ,Home Exercise Program,Manual Therapy,Neuromuscular Re- education,Orthotic/Prosthetic Management,Patient/Caregiver Education,Self-Care/Home Management,Sensory Integration ,Soft Tissue Mobilization, Taping,Therapeutic Activities, Therapeutic Exercises Modalities Cold Pack/Ice Massage,Electric Stimulation,Hot Packs Next Visit Focus/Plan Next Note Type Treatment Note Next Visit Plan Assess possible d/c next session. Cont balance training . Assess ROM. Unilateral leg press, lateral step down, progress balance and hip 3 way . Gait w/ hurdles and stable/ unstable. Trial SLR, assess hip mobility post precautions. Scar mobilization, hip flexor tissue mobilization as needed Manual: STM to hip, scar mobility once appropriate
--- NOTE | 2024-06-26 15:34 | PT.OTN ---
Current Diagnoses Pain in right hip (06/26/24) Stiffness of right hip, not elsewhere classified (06/26/24) Other lack of coordination (06/26/24) Weakness (06/26/24) Physical Therapy Treatment Note PT-OP-A Visit Information Start: 05/02/24 15:45 Freq: Status: Active Protocol: Document 06/26/24 14:32 NM (Rec: 06/26/24 15:33 NM [id number]) Out-Patient Physical Therapy Visit Information Visit Information Visit Type Treatment Note Visit Start Time 14:33 Visit Stop Time 15:15 Visit Number 11 Evaluation Information Evaluation Date 05/03/24 Precautions Precautions pt reports no hip precautions following visit w/ surgeon PT-OP-B Current Condition Start: 05/02/24 15:45 Freq: Status: Active Protocol: Document 05/03/24 09:47 NM (Rec: 05/03/24 10:39 NM [id number]) Current Condition History of Current Condition Onset Date R JESUS Current Complaints DOS 04/24/24 History of Current Condition Pt presents s/p R JESUS on . Pt has a posterior JESUS. No complication during surgery. He had L JESUS last year; PT went well, no complications. He stopped pain pills 2 days ago, still on meloxicam; still on aspirin BID. He is aware of precautions (no hip flexion , no hip ADD, no IR). Has 2 week follow up on Wednesday. No stairs at home, 1 story. Lives with , Ann. Pt has a steep driveway, unable to ambulate. Pt was using a spc for ambulation, AD periodically (household). Currently using FWW. Pt had 2 ADA toilets with grab bars, no difficulty with transfers. Has walk in shower with shower chair built in; does not use. 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 Treatment Goals Patient/Caregiver Goals wants to stairs, bending over, balance, ambulation w/o AD Current Functional Impairments (Reported) Functional Limitations- ADL's has hip kit for donning socks/ shoes has difficulty with donning pants/shoes- uses grabber Functional Limitations- Mobility/Gait standing 15-20 min sleeping in bed (hospital bed) - sleeping w/ legs elevated Functional Limitations- Work/School stairs Functional Limitations- Other driving PT-OP-C Subjective Start: 05/02/24 15:45 Freq: Status: Active Protocol: Document 06/26/24 14:32 NM (Rec: 06/26/24 15:33 NM [id number]) OP-PT Subjective Patient Comments Patient Comments Pt reports no changes following last session. Denies kailash pain in his hips, no limitations in his ability to perform ADLs/IADLs, gait, etc. Reports that scar is hard but not tender; has been doing mobility every other day. Pt states ready to discharge from PT this session as he is concerned about copay and feels like has made good progression. PT-OP-E Functional Tests Start: 05/02/24 15:45 Freq: Status: Active Protocol: Document 05/03/24 09:47 NM (Rec: 05/03/24 10:39 NM [id number]) Functional Tests 6 Minute Walk Test Distance 971 ft Device Used FWW Comments several stumbles w/o fall, CGA to correct PT-OP-F Manual Assessment Start: 05/02/24 15:45 Freq: Status: Active Protocol: Document 05/03/24 09:47 NM (Rec: 05/03/24 10:39 NM [id number]) Manual Assessments Soft Tissue Assessment Soft Tissue Mobility Assessment Tightness of hip flexors and hamstrings Joint Mobility Assessment Joint Mobility Assessment Limited PROM and AROM R hip due to hip precautions, pain, girth PT-OP-G Mobility & Gait Start: 05/02/24 15:45 Freq: Status: Active Protocol: Document 05/03/24 09:47 NM (Rec: 05/03/24 10:39 NM [id number]) OP Mobility Evaluation Bed Mobility Supine to and from Sit Needs gait belt for RLe assist on/off bed (uses bed mobility strap for assistance at home) Transfers Sit to Stand BUE use from chair to FWW OP Gait Assessment Gait Gait Assistance Required: Contact Guard Assist Distance (Feet) 150 Assistive Devices Assistive Device Gait Belt,Front Wheeled Walker Gait Deviations General Gait Pattern Antalgic,Decreased Feet Clearance,Flexed Trunk,Wide Based Gait Factors Limiting Gait Function Factors Limiting Gait Function Decreased Activity Tolerance, Decreased Strength,Limited Range of Motion,Pain,Poor Balance Comments Gait Comments Demos tendency for R hip IR with ambulation during stance phase, decreased B foot clearance, often catches foot, heavily UE dependent on FWW PT-OP-H Neuro Start: 05/02/24 15:45 Freq: Status: Active Protocol: Document 05/03/24 09:47 NM (Rec: 05/03/24 10:39 NM [id number]) Sensation Evaluation Comments Summary Comments will formally assess next session; did not assess due to time PT-OP-J Posture/Palpation/Skin Start: 05/02/24 15:45 Freq: Status: Active Protocol: Document 05/03/24 09:47 NM (Rec: 05/03/24 10:39 NM [id number]) Posture Evaluation Position Standing Head/C-Spine Posture Forward Head L-Spine Posture Increased Lordosis Weight Distribution Weight Shifted Left Hip Posture (L) Neutral,(R) Internally Rotated Knee Posture (L) Genu Valgus,(R) Genu Valgus Palpation Assessment Location R hip Palpation Findings Soft Tissue Tightness, Tenderness Palpation Details Tenderness at posterior hip near incision, glutes Tightness of hip flexors and hamstrings Skin Assessment Incisional Assessment Incision Appearance/Comments Incision covered by bandage which is C/D/I. No redness or signs of infection Other Assessments Skin Assessment Comments Has BLE swelling, wearing compression socks. R adams has several scabbed, healing wound with dried blood PT-OP-K Range of Motion Start: 05/02/24 15:45 Freq: Status: Active Protocol: Document 06/26/24 14:32 NM (Rec: 06/26/24 15:33 NM [id number]) Hip Goniometric Range of Motion Hip Right Flexion w/Knee Flexed 100 Abduction 25 Internal Rotation 30 External Rotation 10 Left Flexion w/Knee Flexed 90 Abduction 25 Internal Rotation 30 External Rotation 15 PT-OP-M Strength Start: 05/02/24 15:45 Freq: Status: Active Protocol: Document 06/26/24 14:32 NM (Rec: 06/26/24 15:33 NM [id number]) Hip Strength Hip Manual Muscle Testing Right Flexion (L2) 4 Good Extension (S1) 4 Good Abduction 4 Good Adduction 4 Good External Rotation 4 Good Internal Rotation 4 Good Comments Performed against gravity for all movements in sitting or standing, maintaining hip flex <90, ADD past midline, or IR 06/08/24: 1/10 pain with hip flex resisted 06/26/24: 4/5 for all, no pain with any resistsed motion; hip ext measured in standing Left Flexion (L2) 4 Good Abduction 4 Good Adduction 4 Good External Rotation 4 Good Internal Rotation 4 Good PT-OP-Q Treatments Start: 05/02/24 15:45 Freq: Status: Active Protocol: Document 06/26/24 14:32 NM (Rec: 06/26/24 15:33 NM [id number]) Therapeutic Exercises Supine Exercises modified hip ER stretch Side right Equipment Used hip ER position in supine, not resting on opposite limb Reps/Minutes 2x30 Comments no pain; feels stretch; edu to stop at home if pain occurs Sidelying Exercises reverse clams Side bilateral Resistance level 2 band at ankles Reps/Minutes 15 Comments pain free clams Side bilateral Resistance level 2 band at thighs Reps/Minutes 15 Comments pain free Sitting Exercises sit to stand Sitting Exercise Name HEP Side bilateral Resistance level 3 band at thighs Equipment Used standard chair Reps/Minutes 10 Comments pain free; increased effort d/ t girth, no assist Standing Exercises hip 3 way Standing Exercise Name hip flex, hip abd, hip ext Side bilateral Resistance level 3 band at thighs Equipment Used 1 hand support for balance Reps/Minutes 15 ea Comments pain free; needs increased time hip flexion Standing Exercise Name marching Side bilateral Resistance level 3 band at thighs Reps/Minutes 15 ea Comments pain free Other Exercises 6 MWT Reps/Minutes 1533 ft Comments no Ad, no hip pain Manual Therapy Treatment Consent Patient gave verbal consent for manual Yes treatment Soft Tissue Mobilization scar mobility Body Location scar mobility Mobilization Type Instrument Assisted,Rolling, Strumming,Other Intensity/Depth Moderate Body Position Sidelying Comments Still limited mobility distally. Tightness still present along incision, improved post manual tx. Recommended assist for improved scar mobility work with pt vs pt attempting alone . No tenderness or pain with scar mobility PT-OP-T Assessment and Plan Start: 05/02/24 15:45 Freq: Status: Active Protocol: Document 06/26/24 14:32 NM (Rec: 06/26/24 15:33 NM [id number]) Physical Therapy Assessment Goals Five Impairment unable to perform stairs Jail Goal (LTG) Pt will be able to perform stairs using reciprocal pattern and 1 or fewer hand rails and/or LRAD with R hip pain <3/10 in order to perform community ambulation 06/08/24: assess with LLE leading d/t precautions and 1 hand rail assist; pt able to step up with RLE on 4 step (< 90 deg hip flex) without hip pain 06/13/24: 12 steps w/ 2>1 rail assist, no hip pain LTG Duration 12 weeks MET 06/13/24 Four Impairment R hip strength limited globally Automotive Teacher Goal (LTG) If appropriate, pt will improve R hip global strength to at least 4/5 MMT in order to be able to perform transfers, gait, and ADLs without limitation 06/08/24: 3+/5 for all except for hip IR (not tested) 06/26/24: 4/5 for all, no pain LTG Duration 12 weeks MET Three Impairment limitations in R hip ROM Automotive Teacher Goal (LTG) When appropriate per precautions, pt will demonstrate at least 90 deg R hip flex, hip abduction to at least 20 deg, and within 10 deg of LLE for all other motions 06/08/24: Currently not tested d/t precautions; able to achieve 70 deg hip flex, 25 deg hip abd 06/26/24: 100 deg flex, 25 deg bad, 30 deg Ir, 10 deg ER (15 deg ER on LLE) LTG Duration 12 weeks MET Two Impairment 6 MWT 971 ft with FWW Short Term Goal (STG) Pt will normalize gait mechanics using LRAD and report <3/10 R hip pain with ambulation 05/10/24: gait 340 ft /c SPC in [facility] [place] [facility]. Noted slight RLE scuff approaching turn, improved post cues DF foot clearance. 06/08/24: no pain during ambulation w/ spc in RLE unless immediately following transition from sitting to standing 06/20/24: reports no pain with transition from sitting > standing/ambulating any more STG Duration 5 weeks MET Jail Goal (LTG) Pt will ambulate at least 1000 ft during 6 MWT with or without LRAD and R hip pain <3 /10 in order to be able to return to weekly walks with 06/26/24: 1533 ft, no AD, no hip pain LTG Duration 12 weeks MET One Impairment not performing HEP following surgery Automotive Teacher Goal (LTG) Pt will report compliance with HEP at least 3x/wk in order to maximize progression with PT and transition to maintenance program upon discharge 1/16/25: reports daily compliance with HEP LTG Duration 12 weeks MET Assessment Summary Assessment Pt still has no hip pain during sessions. Continues to demonstrate improvements in strength and mobility. Met 6 MWT distance today, >1500 ft without AD or pain; minimal deviations, 1 cue for safety as pt did not lift foot completely before stepping. Created maintenance program for continued strengthening. Increased time needed to don/ doff band; maitnains hip 3 way with same level band as pt not using band at home. No pain with hip flexion, able to maintain same height as LLE. Pt scar mobility improved from previous sessions but still demos some thickening under scar; PT recommended continued PT for scar mobility as well but pt declines; recommended that assist pt reach areas to help scar work. Physical Therapy Plan Frequency and Duration Frequency of Treatment 2x/Week Duration of treatment (weeks) 12 Plan of Care Start Date 05/03/24 Plan of Care End Date 07/28/24 Therapeutic Interventions Therapeutic Interventions Balance Training,Gait Training ,Home Exercise Program,Manual Therapy,Neuromuscular Re- education,Orthotic/Prosthetic Management,Patient/Caregiver Education,Self-Care/Home Management,Sensory Integration ,Soft Tissue Mobilization, Taping,Therapeutic Activities, Therapeutic Exercises Modalities Cold Pack/Ice Massage,Electric Stimulation,Hot Packs Discharge Physical Therapy Discharge Reasons Goals Met Discharge Comments Pt and PT discussed discharge from PT today as pt concerned about finances and has met PT goals. PT and pt in agreement. Issued maintenance program to continue with strengthening and ROM. PT also educated pt to follow up with surgeon and/ or PCP if R hip pain returns or changes. Pt verbalizes understanding and will be discharged from PT to maintenance program. Next Visit Focus/Plan Next Note Type Discharge Summary Next Visit Plan discharge from PT
== END 2024-09-06 11:23 | disposition home or self-care (01) ==
LOC: PHYS 14:30
PROVIDERS: Family Provider Family Medicine; PCP Family Medicine; Referring Provider Student in an Organized Health Care Education/Training Program; Visit Provider Student in an Organized Health Care Education/Training Program
DX: M25.551 Pain in right hip (principal); M25.651 Stiffness of right hip, not elsewhere classified; R53.1 Weakness; R27.8 Other lack of coordination
CPT/HCPCS: 97110; 97112; 97116; 97140; 97161; 97535

== ENCOUNTER → 2024-08-10 08:56 | Outpatient (CLI) | payer MEDICARE, SELFPAY ==
[2024-08-10 10:07] LABS: Add Manual Diff / Slide Review NO; Basophils Absolute Auto 100 /uL (0-100); Basophils Percent Auto 0.9 % (0-2); Eosinophils Absolute Auto 200 /uL (0-450); Eosinophils Percent Auto 2.3 % (2-4); Hematocrit 46.5 % (41-53); Hemoglobin 15.4 g/dL (13.5-17.5); Lymphocytes Absolute Auto 2100 /uL (1100-4500); Lymphocytes Percent Auto 29.8 % (25-40); Mean Corpuscular HGB Conc 33.2 % (30-36); Mean Corpuscular Hemoglobin 30.3 PG (26-34); Mean Corpuscular Volume 91.4 fL (80-100); Monocytes Absolute Auto 600 /uL (0-900); Monocytes Percent Auto 8.7 % (3-14); Neutrophils Absolute Auto 4100 /uL (1500-7000); Neutrophils Percent Auto 58.3 % (50-75); Platelet Count 197 X10^3/uL (150-400); Red Blood Cell Count 5.09 X10^6/uL (4.5-5.9); Red Cell Distribution Width 15.5 % (11.6-14.8)
[2024-08-10 10:27] LABS: Hemoglobin A1C% w Est Avg Glu 5.6 % (4.0-6.0)
[2024-08-10 10:37] LABS: Alanine Aminotransferase 36 IU/L (<50); Albumin 4.2 g/dL (3.5-5.0); Albumin Globulin Ratio 1.8 (1.0-2.8); Alkaline Phosphatase 82 U/L (38-126); Aspartate Aminotransferase 31 IU/L (17-59); BUN Creatinine Ratio 24.3 (6-22); Bilirubin Total 0.6 mg/dL (0.2-1.3); Blood Urea Nitrogen 26 mg/dL (9-20); Calcium 9.2 mg/dL (8.4-10.2); Carbon Dioxide 31 mmol/L (22-32); Chloride 99 mmol/L (98-107); Cholesterol 186 mg/dL (140-199); Estimated Glomerular Filt Rate > 60 mL/min (>60); Globulin 2.4 g/dL (1.7-4.1); Glucose 126 mg/dL (80-110); HDL Cholesterol 61 mg/dL (40-60); HEMOLYSIS < 15 (0-50); LDL Cholesterol Calculated 103 mg/dL (<100); Sodium 136 mmol/L (137-145); Total Protein 6.6 g/dL (6.3-8.2); Triglycerides 110 mg/dL (35-150)
[2024-08-10 10:40] LABS: Potassium 5.5 mmol/L (3.4-5.1)
[2024-08-10 11:10] LABS: Prostate Specific Antigen Scrn 2.96 ng/mL (0.1-4.0)
== END ==
PROVIDERS: Family Provider Family Medicine; PCP Family Medicine; Referring Provider Family Medicine; Visit Provider Family Medicine
DX: Z00.00 Encounter for general adult medical examination without abnormal findings (principal); E78.2 Mixed hyperlipidemia; E11.9 Type 2 diabetes mellitus without complications; Z12.5 Encounter for screening for malignant neoplasm of prostate; I10 Essential (primary) hypertension
CPT/HCPCS: 36415; 80053; 80061; 83036; 85025; G0103

== ENCOUNTER → 2025-01-25 09:23 | Outpatient (CLI) | payer MEDICARE, SELFPAY ==
[2025-01-25 10:02] LABS: Add Manual Diff / Slide Review NO; Hematocrit 47.1 % (41-53); Hemoglobin 15.6 g/dL (13.5-17.5); Lymphocytes Absolute Auto 1500 /uL (1100-4500); Mean Corpuscular HGB Conc 33.1 % (30-36); Mean Corpuscular Hemoglobin 30.4 PG (26-34); Mean Corpuscular Volume 92.0 fL (80-100); Platelet Count 183 X10^3/uL (150-400)
[2025-01-25 10:09] LABS: Hemoglobin A1C% w Est Avg Glu 6.2 % (4.0-6.0)
[2025-01-25 10:20] LABS: Alanine Aminotransferase 37 IU/L (<50); Albumin 4.2 g/dL (3.5-5.0); Albumin Globulin Ratio 1.5 (1.0-2.8); Alkaline Phosphatase 71 U/L (38-126); Blood Urea Nitrogen 26 mg/dL (9-20); Calcium 9.0 mg/dL (8.4-10.2); Carbon Dioxide 31 mmol/L (22-32); Chloride 101 mmol/L (98-107); Cholesterol 188 mg/dL (140-199); Estimated Glomerular Filt Rate > 60 mL/min (>60); Globulin 2.8 g/dL (1.7-4.1); Glucose 123 mg/dL (70-99); HDL Cholesterol 54 mg/dL (40-60); HEMOLYSIS < 15 (0-50); Potassium 5.1 mmol/L (3.4-5.1); Sodium 139 mmol/L (137-145); Total Protein 7.0 g/dL (6.3-8.2); Triglycerides 101 mg/dL (35-150)
[2025-01-25 10:53] LABS: TSH w/ Reflex to FT4 2.49 uIU/mL (0.47-4.68)
[2025-01-28 08:08] LABS: PSA, Total 3.3 ng/mL (0.0-4.0)
== END ==
PROVIDERS: Family Provider Family Medicine; PCP Family Medicine; Referring Provider Family Medicine; Visit Provider Family Medicine
DX: E87.5 Hyperkalemia (principal); E11.9 Type 2 diabetes mellitus without complications; E78.2 Mixed hyperlipidemia; L72.9 Follicular cyst of the skin and subcutaneous tissue, unspecified
CPT/HCPCS: 36415; 80053; 80061; 83036; 84153; 84154; 84402; 84403; 84443; 85025

== ENCOUNTER → 2025-04-06 09:00 | Outpatient (CLI) | payer MEDICARE, SELFPAY ==
[2025-04-06 09:54] LABS: Hemoglobin A1C% w Est Avg Glu 5.9 % (4.0-6.0)
[2025-04-06 10:10] LABS: Alanine Aminotransferase 37 IU/L (<50); Albumin 4.2 g/dL (3.5-5.0); Albumin Globulin Ratio 1.6 (1.0-2.8); Alkaline Phosphatase 84 U/L (38-126); Blood Urea Nitrogen 24 mg/dL (9-20); Calcium 9.2 mg/dL (8.4-10.2); Carbon Dioxide 29 mmol/L (22-32); Chloride 102 mmol/L (98-107); Estimated Glomerular Filt Rate > 60 mL/min (>60); Globulin 2.6 g/dL (1.7-4.1); Glucose 121 mg/dL (70-99); HEMOLYSIS < 15 (0-50); Potassium 4.9 mmol/L (3.4-5.1); Sodium 140 mmol/L (137-145); Total Protein 6.8 g/dL (6.3-8.2)
[2025-04-06 10:43] LABS: TSH w/ Reflex to FT4 3.60 uIU/mL (0.47-4.68)
== END ==
PROVIDERS: Family Provider Family Medicine; PCP Family Medicine; Referring Provider Family Medicine; Visit Provider Family Medicine
DX: E87.5 Hyperkalemia (principal); E11.9 Type 2 diabetes mellitus without complications; E66.01 Morbid (severe) obesity due to excess calories; I10 Essential (primary) hypertension; E78.2 Mixed hyperlipidemia
CPT/HCPCS: 36415; 80053; 83036; 84443